=== PATIENT | female | born 1950 | race Two or more races ===

== ENCOUNTER 2017-11-11 15:27 | Emergency (ER) | payer MEDICARE, OTHER ==
[~2017-11-11] VITALS: Ht 154.9 cm; Wt 59.0 kg
[~2017-11-11 15:27] MED LIST: NKM
--- NOTE | 2017-11-11 15:40 | Emergency Room Report ---
History of Present Illness General Chief Complaint: Upper Extremity Injury Source: Patient Present Illness HPI 67 yo female patient presents to ER BIB ambulance complaining of arm pain. Reports was allegedly getting off bus with her left arm when her arm twisted. Patient reports immediate sharp pain. Reports unable to move arm secondary to pain. Denies chest pain, SOB, fever. Denies LOC, vision changes. Allergies: Coded Allergies: No Known Allergies (Unverified , 11/11/17) Patient History Past Medical History: see triage record Reviewed Nursing Documentation: PMH: Agreed, PSxH: Agreed Nursing Documentation-PMH Past Medical History: No Stated History Review of Systems All Other Systems: negative except mentioned in HPI Physical Exam Vital Signs Date Time Temp Pulse Resp B/P (MAP) Pulse Ox O2 Delivery O2 Flow Rate FiO2 11/11/17 15:20 98.9 74 16 122/70 95 Room Air 99.0 Sp02 EP Interpretation: reviewed, normal General Appearance: well appearing, alert, GCS 15, non-toxic, mild distress Head: normocephalic, atraumatic Eyes: bilateral eye normal inspection, bilateral eye PERRL ENT: hearing grossly normal, normal pharynx, no angioedema, normal voice, uvula midline, moist mucus membranes Neck: full range of motion Respiratory: lungs clear, normal breath sounds, no rhonchi, no respiratory distress, no accessory muscle use, no wheezing, speaking full sentences Cardiovascular #1: regular rate, rhythm, no edema Cardiovascular #2: 2+ radial (R), 2+ radial (L) Musculoskeletal: back normal, digits/nails normal, gait/station normal, normal range of motion - wrist elbow, non-tender, decreased range of motion, swelling, other - left upper arm deformity, NVI, AIN, PIN, radial nerve intact, axillary nerve intact, swelling, no bruising, tender Neurologic: alert, oriented x3, responsive, motor strength/tone normal, sensory intact Psychiatric: anxious Skin: no rash Lymphatic: no adenopathy Medical Decision Making PA Attestation Dr. Spivey is my supervising Physician whom patient management has been discussed with. Diagnostic Impression: Primary Impression: Injury of upper extremity ER Course Pt. presents to the ED c/o left arm pain. Ddx considered but are not limited to fracture, sprain, strain, contusion, dislocation. Vital signs: are WNL, pt. is afebrile Ordered X-ray and pain medication. ER COURSE An X-ray of the left shoulder and clavicle was ordered, results show humerus fracture, per the preliminary reading. Fracture does not require reduction at this time. Coaptation splint over left arm. Arm was checked afterwards by me showing good alignment and support with distal neurovascular functioning intact. DISCHARGE: -Rx provided for Tylenol for pain symptoms. -Rx provided for Vanleer for pain Take medication as prescribed. At this time pt. is stable for d/c to home. Patient resting comfortably, in no acute distress, nontoxic appearing. Will provide printed patient care instructions, and any necessary prescriptions. Patient instructed to follow with primary care provider in 3 - 5 days. Provided information for Dr. Blanc with orthopedics to contact and establish orthopedic followup. Patient reports will call and followup. Care plan and follow up instructions have been discussed with the patient prior to discharge. Patient instructed on RICE method: rest, ice, compression, elevation. Patient instructed to NWB. Take medications as directed. Patient questions asked and answered. Patient reprots understanding and agreement to treatment plan. ER precautions given, patient instructed to return to ER immediately for any new or worsening of symptoms. Other X-Ray Diagnostic Results Other X-Ray Diagnostic Results #1: X-Ray ordered: left shoulder # of Views/Limited Vs Complete: 3 View Indication: Pain EP Interpretation: Yes PA Xray: Interpretation reviewed, by supervising MD, and agrees with findings. Interpretation: other Impression: Other - fracture PA Scribe Text Milton Kim PA-C Other X-Ray Diagnostic Results #2: X-Ray ordered: left clavicle # of Views/Limited Vs Complete: 2 View Indication: Pain EP Interpretation: Yes PA Xray: Interpretation reviewed, by supervising MD, and agrees with findings. Interpretation: no dislocation, no soft tissue swelling, no fractures, other - humerus fracture visible Impression: No acute disease PA Scribe Text Milton Kim PA-C Last Vital Signs Date Time Temp Pulse Resp B/P (MAP) Pulse Ox O2 Delivery O2 Flow Rate FiO2 11/11/17 15:20 98.9 74 16 122/70 95 Room Air 99.0 Disposition: HOME, SELF-CARE Condition: Stable Scripts Acetaminophen* (TYLENOL EXTRA STRENGTH*) 500 Mg Tablet 500 MG ORAL Q8H Y for Prn Headache/Temp > 101, #30 TAB 0 Refills Prov: Brian Kim 11/11/17 Hydrocodone Bit/Acetaminophen 5-325* (NORCO 5-325*) 1 Each Tablet 1 TAB ORAL Q6H Y for For Pain, #10 TAB 0 Refills Prov: Brian Kim 11/11/17 Referrals: GIACOMO BLANC Patient Instructions: FRACTURE, Upper Extremity Additional Instructions: Patient instructed to follow up with primary care provider and discuss further referral to orthopedics. Patient instructed on RICE method: rest, ice, compression, elevation. Patient instructed to NWB. Take medications as directed. Patient questions asked and answered. ER precautions given, patient instructed to return to ER immediately for any new or worsening of symptoms. Followup with Dr. Blanc with ortho. Brian Kim Nov 11, 2017 15:40
[2017-11-11] MEDS ORDERED: Ketorolac 30mg Inj IM ONE (15:45)
[2017-11-11] MEDS ORDERED: Norco 5mg/325mg tab ORAL ONE (16:30)
--- NOTE | 2017-11-11 17:15 | Diagnostic Imaging Report ---
Indication: Reason For Exam: PAIN Technique: 3 views of the left shoulder Comparison: none Findings: There is a spiral fracture of the mid shaft humerus. This is displaced by one bone width. No shoulder fracture demonstrated. Bones are a primary Impression: Positive for humeral fracture
--- NOTE | 2017-11-11 17:16 | Diagnostic Imaging Report ---
Indication: Pain Technique: 2 views of the left clavicle Comparison: none Findings: There is a slightly angulated spiral fracture of the mid shaft humerus. No clavicular fracture demonstrated. There is old healed fracture deformity of the posterior left sixth rib Impression: Left humeral fracture Negative for clavicular fracture
[2017-11-11] MEDS ORDERED: Morphine Sulfate 4mg/ml Inj IM ONE (17:30)
[2017-11-11] MEDS ORDERED: NORCO 5-325 TA1 EACH ORAL (19:16)
[2017-11-11] MEDS ORDERED: TYLENOL EXTRA500 MG ORAL (19:16)
[2017-11-11 19:28] VITALS: BP 133/76
[2017-11-11 19:29] VITALS: BP 122/70
== END 2017-11-11 19:30 | disposition home or self-care (01) ==
LOC: EDBD 15:27 → EMR 16:00
DX: S42.302A Unspecified fracture of shaft of humerus, left arm, initial encounter for closed fracture (principal); X50.1XXA Overexertion from prolonged static or awkward postures, initial encounter; Y92.811 Bus as the place of occurrence of the external cause
CPT/HCPCS: 73000; 73030; 96372; 99284; J1885; J2270

== ENCOUNTER 2018-06-27 15:54 | Emergency (ER) | payer MEDICARE, OTHER ==
[~2018-06-27] VITALS: Ht 147.3 cm; Wt 59.0 kg
[~2018-06-27 15:54] MED LIST changes: +NORCO 5-325 TA1 EACH ORAL; +TYLENOL EXTRA500 MG ORAL
[2018-06-27 16:35] VITALS: BP 147/77
[2018-06-27 17:28] LABS: APPEARANCE,URINE CLEAR; BILIRUBIN, URINE NEGATIVE (NEGATIVE); COLOR,URINE PALE YELLOW; GLUCOSE, URINE (UA) NEGATIVE (NEGATIVE); KETONES,URINE NEGATIVE (NEGATIVE); LEUKOCYTE ESTERASE ,URINE 2+ (NEGATIVE); NITRITE,URINE NEGATIVE (NEGATIVE); PH,URINE 8 (4.5-8.0); PROTEIN,URINE NEGATIVE (NEGATIVE); UROBILINOGEN,URINE NORMAL MG/DL (0.0-1.0)
[2018-06-27 17:29] LABS: BASOPHILS % (AUTO) 1.5 % (0.0-2.0); EOSINOPHILS % (AUTO) 1.6 % (0.0-3.0); HEMATOCRIT 34.6 % (37.0-47.0); HEMOGLOBIN 11.6 G/DL (12.0-16.0); LYMPHOCYTES % (AUTO) 22.5 % (20.0-45.0); MEAN CORPUSCULAR VOLUME 91 FL (80-99); MONOCYTES % (AUTO) 6.2 % (1.0-10.0); NEUTROPHILS % (AUTO) 68.2 % (45.0-75.0); PLATELET COUNT 235 K/UL (150-450); RED BLOOD COUNT 3.79 M/UL (4.20-5.40); RED CELL DISTRIBUTION WIDTH 12.2 % (11.6-14.8); WHITE BLOOD COUNT 8.9 K/UL (4.8-10.8)
[2018-06-27 17:35] LABS: ANION GAP 9 mmol/L (5-15); BLOOD UREA NITROGEN 17 mg/dL (7-18); CALCIUM 9.6 MG/DL (8.5-10.1); CARBON DIOXIDE 29 MMOL/L (21-32); CHLORIDE 102 MMOL/L (98-107); POTASSIUM 4.5 MMOL/L (3.5-5.1); SODIUM 140 MMOL/L (136-145)
[2018-06-27 17:38] LABS: INR 0.9 (0.9-1.1)
[2018-06-27 17:47] LABS: ALANINE AMINOTRANSFERASE 34 U/L (12-78); ALBUMIN 3.4 G/DL (3.4-5.0); ALBUMIN/GLOBULIN RATIO 0.8 (1.0-2.7); ALKALINE PHOSPHATASE 121 U/L (46-116); ASPARTATE AMINO TRANSFERASE 33 U/L (15-37); BILIRUBIN,TOTAL 0.4 MG/DL (0.2-1.0)
[2018-06-27] MEDS ORDERED: HYDROCHLOROTHIA25 MG ORAL (19:16)
[2018-06-27 19:25] VITALS: BP 144/73
--- NOTE | 2018-06-27 19:29 | Emergency Room Report ---
History of Present Illness General Chief Complaint: Pain Source: Patient Present Illness HPI Patient is a 68-year-old female presented after increased lower extremity pain. Patient prior history of chronic pain to those areas. She reports having increased swelling over the past few days. She denies any fever. She reports having creased the painful areas to the lower extremities. History is limited by poor historian. Allergies: Coded Allergies: No Known Allergies (Unverified , 11/11/17) Patient History Past Medical History: see triage record Reviewed Nursing Documentation: PMH: Agreed; PSxH: Agreed Nursing Documentation-PMH Past Medical History: No Stated History Review of Systems All Other Systems: negative except mentioned in HPI Physical Exam Vital Signs Date Time Temp Pulse Resp B/P (MAP) Pulse Ox O2 Delivery O2 Flow Rate FiO2 06/27/18 16:08 98.4 87 16 147/77 98 Room Air Sp02 EP Interpretation: reviewed, normal General Appearance: normal inspection, alert, GCS 15, Chronically Ill Head: atraumatic ENT: normal ENT inspection, hearing grossly normal, normal voice Neck: normal inspection, full range of motion, supple, no bony tend Respiratory: normal inspection, lungs clear, normal breath sounds, no respiratory distress, no retraction, no wheezing Cardiovascular #1: regular rate, rhythm, no edema Gastrointestinal: normal inspection, normal bowel sounds, non tender, soft, no guarding, no hernia Genitourinary: no CVA tenderness Musculoskeletal: normal range of motion, decreased range of motion, swelling Neurologic: normal inspection, alert, responsive, speech normal Psychiatric: normal inspection, judgement/insight normal, mood/affect normal Skin: normal inspection, normal color, no rash Medical Decision Making Diagnostic Impression: Primary Impression: Pedal edema Additional Impression: CHF (congestive heart failure) ER Course Patient presented for lower extremity swelling. Differential diagnosis included was not limited to dependent edema, congestive heart failure, allergic reaction, liver disease, nephrotic syndrome among others.Because of complexity of patient's case laboratory testing and imaging studies were ordered. The laboratory testing was notable for mildly elevated B type natruretic peptide. Patient was given Lasix. The patient was offered admission and declined.Patient appears to have some evidence of congestive heart failure which I feel the patient would benefit from inpatient management. The patient left hospital AGAINST MEDICAL ADVICE. The patient is advised to return at any time. Labs Test 06/27/18 17:00 White Blood Count 8.9 K/UL (4.8-10.8) Red Blood Count 3.79 M/UL (4.20-5.40) Hemoglobin 11.6 G/DL (12.0-16.0) Hematocrit 34.6 % (37.0-47.0) Mean Corpuscular Volume 91 FL (80-99) Mean Corpuscular Hemoglobin 30.5 PG (27.0-31.0) Mean Corpuscular Hemoglobin Concent 33.4 G/DL (32.0-36.0) Red Cell Distribution Width 12.2 % (11.6-14.8) Platelet Count 235 K/UL (150-450) Mean Platelet Volume 6.3 FL (6.5-10.1) Neutrophils (%) (Auto) 68.2 % (45.0-75.0) Lymphocytes (%) (Auto) 22.5 % (20.0-45.0) Monocytes (%) (Auto) 6.2 % (1.0-10.0) Eosinophils (%) (Auto) 1.6 % (0.0-3.0) Basophils (%) (Auto) 1.5 % (0.0-2.0) Prothrombin Time 10.0 SEC (9.30-11.50) Prothromb Time International Ratio 0.9 (0.9-1.1) Activated Partial Thromboplast Time 29 SEC (23-33) Urine Color Pale yellow Urine Appearance Clear Urine pH 8 (4.5-8.0) Urine Specific [place]ield 1.015 (1.005-1.035) Urine Protein Negative (NEGATIVE) Urine Glucose (UA) Negative (NEGATIVE) Urine Ketones Negative (NEGATIVE) Urine Blood Negative (NEGATIVE) Urine Nitrite Negative (NEGATIVE) Urine Bilirubin Negative (NEGATIVE) Urine Urobilinogen Normal MG/DL (0.0-1.0) Urine Leukocyte Esterase 2+ (NEGATIVE) Urine RBC 0-2 /HPF (0 - 2) Urine WBC 0-2 /HPF (0 - 2) Urine Squamous Epithelial Cells Few /LPF (NONE/OCC) Urine Bacteria Occasional /HPF (NONE) Sodium Level 140 MMOL/L (136-145) Potassium Level 4.5 MMOL/L (3.5-5.1) Chloride Level 102 MMOL/L (98-107) Carbon Dioxide Level 29 MMOL/L (21-32) Anion Gap 9 mmol/L (5-15) Blood Urea Nitrogen 17 mg/dL (7-18) Creatinine 1.0 MG/DL (0.55-1.30) Estimat Glomerular Filtration Rate 55.0 mL/min (>60) Glucose Level 80 MG/DL (74-106) Calcium Level 9.6 MG/DL (8.5-10.1) Total Bilirubin 0.4 MG/DL (0.2-1.0) Aspartate Amino Transf (AST/SGOT) 33 U/L (15-37) Alanine Aminotransferase (ALT/SGPT) 34 U/L (12-78) Alkaline Phosphatase 121 U/L (46-116) Troponin I 0.000 ng/mL (0.000-0.056) Pro-B-Type Natriuretic Peptide 334 pg/mL (0-125) Total Protein 7.8 G/DL (6.4-8.2) Albumin 3.4 G/DL (3.4-5.0) Globulin 4.4 g/dL Albumin/Globulin Ratio 0.8 (1.0-2.7) Thyroid Stimulating Hormone (TSH) 2.911 uiU/mL (0.358-3.740) Last Vital Signs Date Time Temp Pulse Resp B/P (MAP) Pulse Ox O2 Delivery O2 Flow Rate FiO2 06/27/18 16:08 98.4 87 16 147/77 98 Room Air Status: improved Disposition: AGAINST MEDICAL ADVICE Condition: Stable Scripts Hydrochlorothiazide* (HYDROCHLOROTHIAZIDE*) 25 Mg Tablet 25 MG ORAL DAILY, #10 TAB Prov: Ok Coat MD 06/27/18 Patient Instructions: Edema Ok Cota MD Jun 27, 2018 19:29
== END 2018-06-27 19:45 | disposition expired ==
LOC: EMR 16:30
DX: R60.9 Edema, unspecified (principal); I50.9 Heart failure, unspecified
CPT/HCPCS: 36415; 80053; 81001; 83880; 84443; 84484; 85025; 85610; 85730; 93970; 96374; 99284; J1940

== ENCOUNTER 2018-10-28 16:18 | Emergency (ER) | payer MEDICARE, OTHER ==
[~2018-10-28] VITALS: Ht 165.1 cm; Wt 59.0 kg
[~2018-10-28 16:18] MED LIST changes: +HYDROCHLOROTHIA25 MG ORAL
[2018-10-28 16:45] VITALS: BP 150/75
--- NOTE | 2018-10-28 16:45 | NUR ---
ED Nurse Note: pt walked in to ED due to rashes on all over the body for 1 month. pt ambulatory with walker steady gait. AAO x4. respirations even and non-labored noted. will wait for the further order.
--- NOTE | 2018-10-28 17:59 | Emergency Room Report ---
History of Present Illness General Chief Complaint: Skin Rash/Abscess Source: Patient Present Illness HPI 68-year-old female patient presents the ER complaining for a rash of her entire body. States she is not homeless. Reports rash is extremely pruritic. Denies new detergents or soaps. Denies vomiting or diarrhea. Denies fever, chest pain , shortness of breath. States rash has been present for 1 month. Reports over entire body. Denies pain. Denies bleeding or drainage. Allergies: Coded Allergies: No Known Allergies (Unverified , 11/11/17) Patient History Past Medical History: see triage record Reviewed Nursing Documentation: PMH: Agreed; PSxH: Agreed Nursing Documentation-PMH Past Medical History: No Stated History Review of Systems All Other Systems: negative except mentioned in HPI Physical Exam Vital Signs Date Time Temp Pulse Resp B/P (MAP) Pulse Ox O2 Delivery O2 Flow Rate FiO2 10/28/18 16:36 97.9 95 18 150/75 94 Room Air Sp02 EP Interpretation: reviewed, normal General Appearance: well appearing, no apparent distress, alert, GCS 15, non- toxic Head: normocephalic, atraumatic Eyes: bilateral eye normal inspection, bilateral eye PERRL ENT: hearing grossly normal, normal pharynx, no angioedema, normal voice, uvula midline, moist mucus membranes Neck: full range of motion Respiratory: lungs clear, normal breath sounds, no rhonchi, no respiratory distress, no accessory muscle use, no wheezing, speaking full sentences Cardiovascular #1: regular rate, rhythm, no edema Musculoskeletal: back normal, digits/nails normal, gait/station normal, normal range of motion, non-tender Neurologic: alert, oriented x3, responsive, motor strength/tone normal, sensory intact Psychiatric: mood/affect normal Skin: rash - Maculopapular rash noted, no drainage, no crusting, no erythema or edema, excoriations noted Medical Decision Making PA Attestation Dr. Goyal is my supervising Physician whom patient management has been discussed with. Diagnostic Impression: Primary Impression: Rash and other nonspecific skin eruption ER Course Pt. presents to the ED c/o rash. Ddx considered but are not limited to atopic dermatitis, scabies, shingles, hives, urticaria, angiodema, allergic reaction, impetigo. Vital signs: are WNL, pt. is afebrile ER COURSE Rash consistent with possible scabies, will provide patient with permethrin. Advised patient not to scratch. Clean all clothing and bedding. Alert contacts for need for evaluation. Take Claritin for itching symptoms, take Benadryl at night due to drowsiness symptoms for itching symptoms. Due to excoriations and mild erythema, will provide patient with Keflex to cover for possible infection. ER precautions given. DISCHARGE: -Rx given for Claritin -Rx given for Keflex -Rx given for permethrin At this time pt. is stable for d/c to home. Patient resting comfortably, in no acute distress, nontoxic appearinge. Will provide printed patient care instructions, and any necessary prescriptions. Care plan and follow up instructions have been discussed with the patient prior to discharge. Patient provided with list of healthcare clinics to establish primary care physician. Patient instructed to follow-up with primary care provider in 3 - 5 days. Patient questions asked and answered. ER precautions given. Patient instructed to return to ER immediately for any new or worsening of symptoms including but not limited to increasing SOB, persistent fever. - Please note that this Emergency Department Report was dictated using [employer]ractor driver teamster technology software, occasionally this can lead to erroneous entry secondary to interpretation by the dictation equipment. Last Vital Signs Date Time Temp Pulse Resp B/P (MAP) Pulse Ox O2 Delivery O2 Flow Rate FiO2 10/28/18 16:45 97.9 95 18 150/75 94 Room Air Disposition: HOME, SELF-CARE Condition: Stable Scripts Loratadine (CLARITIN) 10 Mg Tab.rapdis 10 MG ORAL DAILY, #30 TAB Prov: Brian Kim 10/28/18 Cephalexin* (KEFLEX*) 500 Mg Capsule 500 MG ORAL EVERY 12 HOURS, #14 CAP 0 Refills Prov: Brian Kim 10/28/18 Permethrin* (ELIMITE*) 60 Gm Cream..g. 1 APPLIC TOPIC ONCE, #60 GM 0 Refills Apply cream from head to toe; leave on for 8-14 hours before washing off with water; may reapply in 1 week if live mites appear. Prov: Brian Kim 10/28/18 Referrals: NON PHYSICIAN (PCP) Patient Instructions: Rash Additional Instructions: Followup with primary care provider in 3 -5 days. Request referral to dermatology as needed. Do not scratch or itch. Apply cool compresses to affected area. Wash all clothes and bedding. Take medications as directed. Do not apply topical steroid medication to face or skin creases. SE Benadryl drowsiness, do not take prior to drinking, driving, operating heavy machinery. Take Claritin during the day and Benadryl at night for itching symptoms. Patient questions asked and answered. ER precautions given, patient instructed to return to ER immediately for any new or worsening of symptoms. [facility] Brian Kim Oct 28, 2018 17:59
[2018-10-28] MEDS ORDERED: CEPHALEXIN500 MG ORAL (18:04)
[2018-10-28] MEDS ORDERED: PERMETHRIN60 GM TOPIC (18:04)
[2018-10-28] MEDS ORDERED: CLARITIN10 M1 ORAL (18:04)
[2018-10-28 18:10] VITALS: BP 134/78
[2018-10-28 18:13] VITALS: BP 134/78
--- NOTE | 2018-10-28 18:13 | NUR ---
ER DISCHARGE NOTE: Patient is cleared to be discharged per ERMD, pt is aox4, on room air, with stable vital signs. pt was given dc and prescription instructions, pt was able to verbalize understanding, pt id band removed. pt is able to ambulate with steady gait. pt took all belongings.
== END 2018-10-28 18:13 | disposition home or self-care (01) ==
LOC: EMR 17:22
DX: R21 Rash and other nonspecific skin eruption (principal)
CPT/HCPCS: 99282

== ENCOUNTER 2019-02-27 14:08 | Emergency (ER) | payer MEDICARE, OTHER ==
[~2019-02-27] VITALS: Ht 149.9 cm; Wt 59.0 kg
[~2019-02-27 14:08] MED LIST changes: +CEPHALEXIN500 MG ORAL; +CLARITIN10 M1 ORAL; +PERMETHRIN60 GM TOPIC
[2019-02-27 14:30] VITALS: BP 135/85
--- NOTE | 2019-02-27 14:48 | Emergency Room Report ---
History of Present Illness General Chief Complaint: Skin Rash/Abscess Source: Patient Present Illness HPI 68-year-old female presents to the emergency department complaining of 5 out of 10 severity intermittent pain to the nail of the right great toe times over 5 years. Patient reports that she was told she needs to have fungal treatment or have the nail removed. Patient is requesting medication for toe fungus. Patient denies trauma or fall she denies fevers, chills, paresthesias or skin color changes. Patient denies swelling, erythema or warmth. She denies open wounds, bleeding,or a history of immune compromise. Allergies: Coded Allergies: No Known Allergies (Unverified , 11/11/17) Patient History Past Medical History: see triage record Past Surgical History: none Pertinent Family History: none Now: No Reviewed Nursing Documentation: PMH: Agreed; PSxH: Agreed Nursing Documentation-PMH Past Medical History: No Stated History Review of Systems All Other Systems: negative except mentioned in HPI Physical Exam Vital Signs Date Time Temp Pulse Resp B/P (MAP) Pulse Ox O2 Delivery O2 Flow Rate FiO2 02/27/19 14:15 98.1 77 16 135/85 (102) 95 Room Air Sp02 EP Interpretation: reviewed, normal General Appearance: no apparent distress, alert, GCS 15, non-toxic Head: normocephalic, atraumatic Eyes: bilateral eye normal inspection, bilateral eye PERRL ENT: hearing grossly normal, normal voice Neck: full range of motion Respiratory: lungs clear, normal breath sounds, speaking full sentences Cardiovascular #1: regular rate, rhythm, no edema, normal capillary refill Cardiovascular #2: 2+ dorsalis pedis (R), 2+ dorsalis pedis (L) Musculoskeletal: back normal, gait/station normal, normal range of motion, non- tender Neurologic: alert, oriented x3, responsive, motor strength/tone normal, sensory intact, normal gait - with walker asst., speech normal, grossly normal Psychiatric: judgement/insight normal Skin: normal color, no rash, warm/dry, well hydrated, other - Right great toe and 3rd toe nail are thickened, opaque and yellow consistent with fungal nail infection, no surrounding erythema, cuticle swelling, or warmth. Medical Decision Making PA Attestation Dr. Aiken is my supervising Physician whom patient management has been discussed with. Diagnostic Impression: Primary Impression: Onychomycosis of right great toe Additional Impression: Onychomycosis of toenail ER Course 68-year-old female presents to the emergency department complaining of 5 out of 10 severity intermittent pain to the nail of the right great toe times over 5 years. Patient reports that she was told she needs to have fungal treatment or have the nail removed. Patient is requesting medication for toe fungus. Patient denies trauma or fall she denies fevers, chills, paresthesias or skin color changes. Patient denies swelling, erythema or warmth. She denies open wounds, bleeding,or a history of immune compromise. Ddx considered but are not limited to onychomycosis cellulitis, paronychia, eponychia, ingrown toe nail, fracture, d/L, gout Vital signs: are WNL, pt. is afebrile H&PE are most consistent with RIght great toe onychomycosis infection, ORDERS: none required at this time, the diagnosis is clinical ED INTERVENTIONS: - offered pt. Tylenol for her 5/10 in severity pain-- Pt. declines -I do not identify an emergent condition at this time. With current presentation , pt. is stable for close outpatient follow up and conservative treatment. D/ w pt. to return promptly to ED with worsening or new symptoms.- Pt. verbalizes' understanding and agreement with proposed treatment plan.proposed treatment plan. DISCHARGE: At this time pt. is stable for d/c to home. Will provide printed patient care instructions, and any necessary prescriptions. Care plan and follow up instructions have been discussed with the patient prior to discharge. Last Vital Signs Date Time Temp Pulse Resp B/P (MAP) Pulse Ox O2 Delivery O2 Flow Rate FiO2 02/27/19 14:15 98.1 77 16 135/85 (102) 95 Room Air Disposition: HOME, SELF-CARE Condition: Stable Patient Instructions: Medical Screening Exam Additional Instructions: Take medications as directed. Follow up with a Primary Care Provider FOR A ASSEMBLER UNIT REFERRAL ( FOOT DOCTOR ) in 3-5 days, even if your symptoms have resolved. Return sooner to ED if new symptoms occur, or current symptoms become worse. - Please note that this Emergency Department Report was dictated using [employer] Insightmotor and controls tester technology software, occasionally this can lead to erroneous entry secondary to interpretation by the dictation equipment. Alma Purdy Feb 27, 2019 14:48
[2019-02-27] MEDS ORDERED: LOPROX TOPIC (14:50)
[2019-02-27 15:25] VITALS: BP 111/74
--- NOTE | 2019-02-27 15:25 | NUR ---
Patient was evaluated, treated and discharged with aftercare instructions by MD/PA
== END 2019-02-27 15:25 | disposition home or self-care (01) ==
LOC: EMR 14:30
DX: B35.1 Tinea unguium (principal)
CPT/HCPCS: 99281

== ENCOUNTER 2019-06-29 12:07 | Inpatient (IN) | payer MEDICARE, OTHER ==
[~2019-06-29] VITALS: Ht 154.9 cm; Wt 61.0 kg
[~2019-06-29 12:07] MED LIST changes: +LOPROX TOPIC
[2019-06-29 13:13] LABS: BASOPHILS % (AUTO) 0.4 % (0.0-2.0); EOSINOPHILS % (AUTO) 0.7 % (0.0-3.0); HEMOGLOBIN 12.6 G/DL (12.0-16.0); LYMPHOCYTES % (AUTO) 11.9 % (20.0-45.0); MEAN CORPUSCULAR VOLUME 88 FL (80-99); MONOCYTES % (AUTO) 4.4 % (1.0-10.0); NEUTROPHILS % (AUTO) 82.6 % (45.0-75.0); PLATELET COUNT 365 K/UL (150-450); RED BLOOD COUNT 4.53 M/UL (4.20-5.40); RED CELL DISTRIBUTION WIDTH 12.6 % (11.6-14.8); WHITE BLOOD COUNT 15.4 K/UL (4.8-10.8)
[2019-06-29 13:23] LABS: ANION GAP 9 mmol/L (5-15); BLOOD UREA NITROGEN 9 mg/dL (7-18); CALCIUM 9.7 MG/DL (8.5-10.1); CARBON DIOXIDE 31 MMOL/L (21-32); CHLORIDE 101 MMOL/L (98-107); CREATININE 1.2 MG/DL (0.55-1.30); POTASSIUM 4.4 MMOL/L (3.5-5.1); SODIUM 141 MMOL/L (136-145)
[2019-06-29 13:27] LABS: ALANINE AMINOTRANSFERASE 26 U/L (12-78); ALBUMIN 3.2 G/DL (3.4-5.0); ALBUMIN/GLOBULIN RATIO 0.6 (1.0-2.7); ALKALINE PHOSPHATASE 94 U/L (46-116); ASPARTATE AMINO TRANSFERASE 23 U/L (15-37); BILIRUBIN,TOTAL 0.4 MG/DL (0.2-1.0)
--- NOTE | 2019-06-29 13:55 | NUR ---
ED Nurse Note: Recived patient in bed, patient reports she walked into ED c/o coughing for the past 1 week. patient is alert awake x4 ambulatory with her walker, breathing unlabored and even, placed on a hospital gown and on a site monitor.
--- NOTE | 2019-06-29 14:19 | Diagnostic Imaging Report ---
Indication: Dyspnea Comparison: None 2 views of the chest obtained. Findings: There is a basilar density on the right which may be atelectasis or pneumonia. Correlate clinically. The heart is enlarged. Bones are osteopenic. Aorta is calcified. IMPRESSION: Infiltrate versus atelectasis at the right lung base.
[2019-06-29] MEDS ORDERED: cefTRIAXone 1 GM in NS 55 ML IVPB ONE (14:30)
[2019-06-29] MEDS ORDERED: Azithromycin 500 MG in NS 275 ML IV ONE (14:30)
[2019-06-29 14:45] VITALS: BP 136/71
[2019-06-29 14:54] LABS: APPEARANCE,URINE SLIGHTLY CLOUDY; BILIRUBIN, URINE NEGATIVE (NEGATIVE); COLOR,URINE PALE YELLOW; GLUCOSE, URINE (UA) NEGATIVE (NEGATIVE); KETONES,URINE NEGATIVE (NEGATIVE); LEUKOCYTE ESTERASE ,URINE 3+ (NEGATIVE); NITRITE,URINE NEGATIVE (NEGATIVE); PH,URINE 8 (4.5-8.0); PROTEIN,URINE 2+ (NEGATIVE); UROBILINOGEN,URINE NORMAL MG/DL (0.0-1.0)
[2019-06-29 15:20] LABS: CKMB 1.3 NG/ML (0.0-3.6)
--- NOTE | 2019-06-29 17:00 | NUR ---
NURSE NOTES: handoff received via telephone from ED from Yarelis
[2019-06-29 17:02] LABS: INR 0.9 (0.9-1.1)
--- NOTE | 2019-06-29 17:04 | NUR ---
ED Nurse Note: report given to AYSHA DOOLEY, endorsed all plan of care to AYSHA DOOLEY.
--- NOTE | 2019-06-29 17:10 | NUR ---
ED Nurse Note: patient is being transferred to with all of her belongings.
--- NOTE | 2019-06-29 17:15 | NUR ---
NURSE NOTES: PATIENT ARRIVED FROM ED VIA GURNEY. PATIENT WAS TRANSFERRED FROM THE [facility] VIA [facility]. PATIENT STATES SHE IS TOO WEAK TO WALK. PATIENT HAS WALKER AT BEDSIDE FROM HOME. PATIENT STABLE AND ABLE TO MAKE NEEDS KNOWN. ORIENTED TO THE ROOM, TOLD PATIENT TO USE CALL LIGHT IF SHE NEEDS TO USE THE RESTROOM AND NOT TO GET UP ON HER OWN.
[2019-06-29 17:34] VITALS: BP 140/93
[2019-06-29] MEDS ORDERED: Promethazine/DM 6.25mg/5ml ORAL PRN (18:45)
--- NOTE | 2019-06-29 19:30 | NUR ---
NURSE NOTES: CALLED AND LEFT A MESSAGE FOR DR RAMIRES TO LET HIM KNOW THAT THE PATIENT DOES NOT HAVE A CODE STATUS.
--- NOTE | 2019-06-29 19:30 | NUR ---
NURSE NOTES: Received a report from MIAH Farrell. Pt is in stable condition. AAOX3. Able to make needs known. On room air. IV site is patent and intact. Bed in lowest position. Bed alarm is on. Call light within reach. Will continue to monitor.
--- NOTE | 2019-06-29 19:32 | NUR ---
HAND-OFF: Report given to MIAH DEE.
[2019-06-29] MEDS: Albuterol/Ipratropium 3ml neb HHN SCH (19:40)
[2019-06-29 20:00] VITALS: BP 142/85
[2019-06-29] MEDS ORDERED: Azithromycin 500 MG in D5W 275 ML IV SCH (20:00)
--- NOTE | 2019-06-29 20:06 | Emergency Room Report ---
History of Present Illness General Chief Complaint: Upper Respiratory Illness Source: Patient Present Illness HPI 69-year-old female who denies all past medical history looking frail and mild distress here complaining of 1 week of cough and congestion with phlegm production. Patient reports that she has been very weak, denies direct chest pain only complains of chest tightness posttussive. Planes of shortness of breath. Denies pain radiation, headache and dizziness. No motor or sensory deficits noted. Denies abdominal pain, nausea vomiting, sore throat. Complains of chills. Patient has stable vital signs upon arrival to [facility]. Has not taken any medication for symptom relief. Patient also appears extremely anxious. Allergies: Coded Allergies: No Known Allergies (Unverified , 11/11/17) Patient History Past Medical History: see triage record Past Surgical History: unable to obtain Pertinent Family History: none Last Menstrual Period: n/a Now: No Immunizations: UTD Reviewed Nursing Documentation: PMH: Agreed; PSxH: Agreed Nursing Documentation-PMH Past Medical History: No Stated History Hx Cardiac Problems: No Hx Cancer: No Hx Gastrointestinal Problems: No Hx Neurological Problems: No Review of Systems All Other Systems: negative except mentioned in HPI Physical Exam Vital Signs Date Time Temp Pulse Resp B/P (MAP) Pulse Ox O2 Delivery O2 Flow Rate FiO2 06/29/19 12:12 98.1 98 18 167/93 (117) 95 Room Air 06/29/19 19:39 21 Sp02 EP Interpretation: reviewed, normal General Appearance: mild distress Head: normocephalic Eyes: bilateral eye normal inspection, bilateral eye PERRL ENT: hearing grossly normal, normal pharynx, no angioedema, normal voice Neck: full range of motion, supple, no meningismus, supple/symm/no masses Respiratory: chest non-tender, no rhonchi, no respiratory distress, no retraction, no wheezing, crackles - RLL, speaking full sentences Cardiovascular #1: regular rate, rhythm, no edema, no murmur Gastrointestinal: normal bowel sounds, non tender, soft, non-distended, no guarding, no rebound Genitourinary: no CVA tenderness Musculoskeletal: back normal, gait/station normal, normal range of motion, non- tender, no calf tenderness Neurologic: alert, oriented x3, responsive, motor strength/tone normal, sensory intact, speech normal Psychiatric: judgement/insight normal, memory normal, mood/affect normal, no suicidal/homicidal ideation Skin: no rash, palpation normal, normal color Lymphatic: no adenopathy Medical Decision Making PA Attestation All my diagnosis and treatment plans were reviewed ad discussed with my supervising physician Dr. Lozano Diagnostic Impression: Primary Impression: Pneumonia ER Course 69-year-old female who denies all past medical history looking frail and mild distress here complaining of 1 week of cough and congestion with phlegm production. Patient reports that she has been very weak, denies direct chest pain only complains of chest tightness posttussive. Planes of shortness of breath. Denies pain radiation, headache and dizziness. No motor or sensory deficits noted. Denies abdominal pain, nausea vomiting, sore throat. Complains of chills. Patient has stable vital signs upon arrival to [facility]. Has not taken any medication for symptom relief. Patient also appears extremely anxious. Ddx considered but are not limited to: bronchitis, PNA, URI viral, bacterial bronchitis Vital signs: are WNL, pt. is afebrile H&PE are most consistent with: Pneumonia ORDERS: Chest pain work-up, my sepsis workup this time. ER intervention: NS bolus, ceftriaxone, azithromycin Patient was admitted with diagnosis of pneumonia to Dr. Dave under supervision of : Marta pt stable at time of admission EKG Diagnostic Results Rate: normal Rhythm: NSR ST Segments: no acute changes Other Impression No acute ST changes Chest X-Ray Diagnostic Results Chest X-Ray Diagnostic Results : Chest X-Ray Ordered: Yes # of Views/Limited/Complete: 1 View Indication: Shortness of Breath EP Interpretation: Yes PA Xray: Interpretation reviewed, by supervising MD, and agrees with findings. Interpretation: no consolidation, no effusion, no pneumothorax Impression: No acute disease Electronically Signed by: Oleksandr Antony PA-C Last Vital Signs Date Time Temp Pulse Resp B/P (MAP) Pulse Ox O2 Delivery O2 Flow Rate FiO2 06/29/19 19:50 74 20 98 Room Air 21 06/29/19 17:34 96.8 140/93 (109) Disposition: ADMITTED INPATIENT Condition: Stable Referrals: NOT CHOSEN IPA/,REFERRING (PCP) Oleksandr Saleh Jun 29, 2019 20:06
[2019-06-29] MEDS: Heparin 5000 units/ml inj SUBQ SCH (20:41)
[2019-06-29] MEDS: Nystatin Powder 100,000 units/gm 15gm TOPIC SCH (20:44)
--- NOTE | 2019-06-29 21:00 | NUR ---
NURSE NOTES: Pt is c/o pain on the IV site due to Azithromycin. Rosemary DOOLEY explained to the pt that the antibiotic causes the pain in the veins. Pt verbalized understanding.
--- NOTE | 2019-06-29 22:00 | NUR ---
NURSE NOTES: Pt refused the IV fluid because she is still c/o pain on the IV site. Rosemary DOOLEY flushed the IV site 3 times with 10cc of saline. The RN offered cold and hot packs. Will continue to monitor.
--- NOTE | 2019-06-29 22:15 | NUR ---
NURSE NOTES: The pt is currently sleeping. No pain/discomfort noted.
[2019-06-30] VITALS: BP 97/63
--- NOTE | 2019-06-30 | NUR ---
NURSE NOTES: Pt agreed to connect her on IV fluid.
--- NOTE | 2019-06-30 00:15 | History and Physical Report ---
DATE OF ADMISSION: 06/29/2019 Addendum PHYSICAL EXAMINATION: GENERAL: Weak, frail and anxious. VITAL SIGNS: Blood pressure 142/85, pulse 74, respiratory rate 20, afebrile, oxygen saturation room air 98%. HEENT: Temporal wasting. Dry mucous membranes. Nasal discharge. No sinus tenderness. Poor oral hygiene and dentition. NECK: Supple. No accessory muscle use. LUNGS: Bilateral rhonchi, no wheezing. Severe kyphosis. BREASTS: Without masses. CARDIAC: Regular rhythm and rate. Normal S1, S2 with a 1/6 systolic murmur at base. ABDOMEN: Soft and nontender. EXTREMITIES: Good pulses. No edema. There is a purplish discoloration over the left second toe although it feels warm. The patient has a bandage on it and refuses for me to remove it at this time. There is severe onychomycosis. NEUROLOGIC: Nonfocal. LABORATORY AND DIAGNOSTIC DATA: White count 15.4, hemoglobin 12.6. Lactic acid normal. BUN 9, creatinine 1.2. Sodium 141, potassium 4.4, bicarbonate 31. Liver function normal. Troponin 0. Albumin 3.2. Urinalysis with 15 to 20 white cells, 3+ blood. Chest x-ray reveals infiltrates and atelectasis at the right base. EKG reveals sinus rhythm with no acute abnormalities. IMPRESSION: 1. Community-acquired pneumonia. 2. Mild hypovolemia and dehydration. 3. Mild protein-calorie malnutrition. 4. Degenerative disk disease with kyphosis. 5. Abnormal gait. 6. Peripheral artery insufficiency, possible wound left second toe. 7. Severe onychomycosis. 8. Hypertension/hypertensive heart disease. 9. Degenerative valve disease. 10. Urinary tract infection. PLAN: 1. Panculture. 2. Cautious hydration. 3. Respiratory hygiene. 4. Bronchodilators. 5. Empiric antimicrobials. 6. Await culture results and adjust therapy accordingly. 7. Foot care, skin care, arterial duplex scan, imaging of the foot to be considered as well as hygiene once patient permit us to remove the dressing. 8. Titrate antihypertensives. 9. DVT prophylaxis. 10. Further recommendations to follow. Osbaldo Morales M.D. DR: Alton JOB#: [id number] CC:
[2019-06-30] MEDS: Albuterol/Ipratropium 3ml neb HHN SCH ×4 (00:48→19:16)
--- NOTE | 2019-06-30 02:00 | History and Physical Report ---
DATE OF ADMISSION: 06/29/2019 NOTE: INCOMPLETE DICTATION REASON FOR ADMISSION: Community-acquired pneumonia. HISTORY OF PRESENT ILLNESS: This is a 69-year-old white female, who resides at home with a friend, has had increasing cough, congestion, and sputum production for the past week. She has been weak with poor appetite and notes coughing spasm and associated chest pain. She has not been wheezing. She has not had fevers or chills. She has not had any sinus congestion or headache nor has she had any dizziness. She also denies any abdominal discomfort, nausea, or vomiting, but has had some chills. In the emergency room, a workup was undertaken and prompted hospitalization under my care. PAST MEDICAL HISTORY: 1. Hypertension. 2. Allergic rhinitis. 3. History of scabies. MEDICATIONS PRIOR TO ADMISSION: Patient denies any at this time. ALLERGIES: None known. SOCIAL HISTORY: Negative for smoking, alcohol, or substance abuse. FAMILY HISTORY: Noncontributory. REVIEW OF SYSTEMS: No loss of vision. No hearing deficit. No history of abnormal blood clotting. No known history of asthma. No history of prior heart attack or irregular heartbeats. She does have arthritis. No history of seizure or stroke. No history of kidney disorder. No change in bowel habits. Frequent constipation. No history of thyroid disorder, diabetes, or lipid abnormality. PHYSICAL EXAMINATION: GENERAL: Thin and frail. Osbaldo Morales M.D. DR: ARNAV JOB#: [id number] CC:
[2019-06-30 04:00] VITALS: BP 106/65
--- NOTE | 2019-06-30 07:18 | NUR ---
HAND-OFF: Report given to MIAH Tai. Pt is in stable condition.
[2019-06-30 07:25] LABS: BASOPHILS % (AUTO) 0.5 % (0.0-2.0); HEMATOCRIT 30.4 % (37.0-47.0); HEMOGLOBIN 10.4 G/DL (12.0-16.0); LYMPHOCYTES % (AUTO) 13.9 % (20.0-45.0); MEAN CORPUSCULAR VOLUME 87 FL (80-99); MONOCYTES % (AUTO) 6.5 % (1.0-10.0); NEUTROPHILS % (AUTO) 78.2 % (45.0-75.0); PLATELET COUNT 269 K/UL (150-450); RED BLOOD COUNT 3.49 M/UL (4.20-5.40); RED CELL DISTRIBUTION WIDTH 12.9 % (11.6-14.8); WHITE BLOOD COUNT 10.8 K/UL (4.8-10.8)
--- NOTE | 2019-06-30 07:30 | NUR ---
NURSE NOTES: Received pt from MINSU RN. Pt is alert and orient. pt is in RA, no SOB or acute respiratory distress noted. pt has intact iv access L wrist 20g is running well. all needs attended, bed is locked and is in the lowest position, call light within easy reach. will continue to monitor.
[2019-06-30 08:00] VITALS: BP 124/64
[2019-06-30 08:11] LABS: ALANINE AMINOTRANSFERASE 23 U/L (12-78); ALBUMIN 2.4 G/DL (3.4-5.0); ALBUMIN/GLOBULIN RATIO 0.5 (1.0-2.7); ALKALINE PHOSPHATASE 73 U/L (46-116); ANION GAP 10 mmol/L (5-15); ASPARTATE AMINO TRANSFERASE 22 U/L (15-37); BILIRUBIN,TOTAL 0.3 MG/DL (0.2-1.0); BLOOD UREA NITROGEN 11 mg/dL (7-18); CARBON DIOXIDE 26 MMOL/L (21-32); CHLORIDE 106 MMOL/L (98-107); CREATININE 1.1 MG/DL (0.55-1.30); POTASSIUM 4.1 MMOL/L (3.5-5.1); SODIUM 142 MMOL/L (136-145)
--- NOTE | 2019-06-30 08:25 | NUR ---
RADIOLOGY DEPT, CHEST COMPLETED 10-28 FROM ER (TWO VIEWS) PRIOR TO ADMIT.SAMMY
[2019-06-30] MEDS: cefTRIAXone 1 GM in D5W 55 ML IVPB SCH (08:28)
[2019-06-30] MEDS: Heparin 5000 units/ml inj SUBQ SCH ×2 (08:29→20:13)
--- NOTE | 2019-06-30 09:30 | NUR ---
PT EVALUATION NOTE Patient seen for initial evaluation, see complete evaluation for details. Patient presents with generalized weakness, decreased safety and impaired balance affecting patient's ability to perform mobility tasks. Patient requires CGA for bed mobility and transfers with 4 wheeled walker. Patient impulsive and anxious with impaired safety awareness. Patient able to ambulate 35 ft with CGA and 4 wheeled walker, declined to ambulate further. Patient will benefit from skilled inpatient PT intervention to address strength, balance and safety for improved functional mobility and to decrease fall risk. Recommend discharge to SNF for further rehab once medically cleared by MD. DME needs to be determined based on patient's progress and discharge disposition. Addendum: 06/30/19 at 1324 by RUDOLPH DAVIS PT Amended: Links added.
[2019-06-30] MEDS: Nystatin Powder 100,000 units/gm 15gm TOPIC SCH (09:42)
--- NOTE | 2019-06-30 11:01 | NUR ---
NURSE NOTES: SPUTUM CULTURE SENT TO LAB, WAITING FOR RESULT. WILL CONTINUE TO MONITOR.
[2019-06-30 12:00] VITALS: BP 135/75
--- NOTE | 2019-06-30 13:32 | Diagnostic Imaging Report ---
APPROVED REPORT CPT Code: 44288 Symptoms Comments: Infection BILATERAL: Common femoral artery waveform analysis is within normal limits at rest. Color flow duplex sonography reveals patency of the superficial femoral, popliteal, and tibial arteries, there is no evidence of stenosis or occlusion within these segments. Doppler tibial artery waveform analysis is within normal limits, bilaterally. There is no evidence of significant arterial occlusive disease, bilaterally.
--- NOTE | 2019-06-30 13:45 | NUR ---
HOMELESS COORDINATOR HC spoke with patient and patient is alert and oriented. Patient states she is not Homeless and lives at current address; [address] [place] [address].Patient states she did not tell the nurse she was homeless. patient states she lives at this address with friends. Patient continues to require medical intervention. Will continue to monitor and assist as needed.
--- NOTE | 2019-06-30 15:45 | NUR ---
CASE MANAGEMENT:REVIEW 69 YR OLD FEMALE FROM HOME CC; UNCONTROLLED COUGH SI: PNEUMONIA 98.1 98 18 167/93 95% ON RA WBC+15.4 IS: IV ROCEPHIN IV AZITHROMYCIN URINE CX : TO MED/SURG [facility]
[2019-06-30 16:00] VITALS: BP 119/67
--- NOTE | 2019-06-30 16:45 | Consultation ---
DATE OF CONSULTATION: 06/30/2019 PULMONARY CONSULTATION CONSULTING PHYSICIAN: Behzad Srinivasan M.D. REFERRING PHYSICIAN: Osbaldo Morales M.D. HISTORY OF PRESENT ILLNESS: This is a 69-year-old female, who was admitted to the hospital with pneumonia. On my evaluation, she appears very distress and feeling that she needed throat operation. She reports shortness of breath. She reports this is ongoing for several days with cough and chills. PAST MEDICAL HISTORY: The patient denies. PREVIOUS SURGERIES: None. REVIEW OF SYSTEMS: Denies any headaches, hematemesis, melena, or hematochezia. PHYSICAL EXAMINATION: GENERAL: Revealed a 69-year-old female. HEENT: Unremarkable. LUNGS: Clear breath sounds bilaterally. ABDOMEN: Soft. NEUROLOGIC: Nonfocal LABORATORY AND DIAGNOSTIC DATA: Lab testing is unremarkable. Initial white count of 15,000, which is , hemoglobin 10.4. Albumin 2.4. X-ray of the chest shows a right lower lobe infiltrate/pneumonia. IMPRESSION: 1. Right lung pneumonia. 2. Leukocytosis. 3. Anxiety. DISCUSSION: Agree with present management and care. The patient has been started on broad-spectrum antibiotics with which I concur. She is on Rocephin, DuoNebs, and IV fluids. We will follow carefully. Behzad Srinivasan M.D. DR: PETAR JOB#: [id number] CC:
--- NOTE | 2019-06-30 16:48 | Cardiology Report ---
APPROVED REPORT EKG Measurement Heart [id number] Normal sinus rhythm Normal ECG
[2019-06-30] MEDS ORDERED: Milk of Magnesia 30ml Ud ORAL PRN (18:45)
[2019-06-30] MEDS: Docusate 100mg cap ORAL SCH (19:11)
--- NOTE | 2019-06-30 19:12 | NUR ---
HAND-OFF: Report given to LEILA DOOLEY. Pt is awake and stable.
--- NOTE | 2019-06-30 19:20 | NUR ---
NURSE NOTES: Received a report from MIAH Tai. Pt is in stable condition. AAOX4. Able to make needs known. On room air. IV site is patent and intact. Bed in lowest position. Bed alarm is on. Call light within reach. Will continue to monitor.
[2019-06-30 20:00] VITALS: BP 127/72
--- NOTE | 2019-06-30 22:45 | Progress Note ---
DATE: 06/30/2019 CARDIOLOGY AND INTERNAL MEDICINE PROGRESS NOTE SUBJECTIVE: The patient has less congestion and shortness of breath, but still feels very weak. She feels constipated. Her appetite is fair. She is drinking fluids by mouth per nursing staff. OBJECTIVE: VITAL SIGNS: Blood pressure 119/67, heart rate 91, respirations 17, afebrile, oxygen saturation 96 to 100% on room air. HEENT: No sinus tenderness. Oropharynx clear with no thrush. LUNGS: With coarse breath sounds and rhonchi. CARDIAC: Regular rhythm and rate. Normal S1, S2 with a fourth heart sound. ABDOMEN: Soft, nontender. EXTREMITIES: No edema. Left second toe with no signs of ischemia. Severe onychomycosis noted. IMPRESSION: 1. Community-acquired pneumonia. 2. Dehydration. 3. Hypovolemia, corrected. 4. Severe protein-calorie malnutrition with albumin of 2.4. 5. Slightly elevated natriuretic peptide assay of no clinical significance. 6. Onychomycosis, kyphosis, and unsteady gait. PLAN: 1. Antimicrobials. 2. Respiratory hygiene. 3. Await sputum cultures. 4. Repeat chest x-ray. 5. Discontinue IV fluids. 6. Protein supplement. 7. Podiatry care. Osbaldo Morales M.D. : VICKY JOB#: [id number] CC:
[2019-07-01] VITALS: BP 152/79
[2019-07-01] MEDS: Albuterol/Ipratropium 3ml neb HHN SCH ×4 (00:32→19:40)
[2019-07-01 04:00] VITALS: BP 124/78
--- NOTE | 2019-07-01 07:08 | NUR ---
HAND-OFF: Report given to MIAH Tai. Pt is in stable condition.
--- NOTE | 2019-07-01 07:30 | NUR ---
NURSE NOTES: Received pt from LEILA DOOLEY. Pt is awake and confused. pt is in RA, no SOB or acute respiratory distress noted. pt has intact iv access L wrist 20g SL. all needs attended, bed is locked and is in the lowest position, call light within easy reach. will continue to monitor.
[2019-07-01 08:00] VITALS: BP 140/81
[2019-07-01] MEDS: Docusate 100mg cap ORAL SCH ×2 (08:57→17:19)
[2019-07-01] MEDS: cefTRIAXone 1 GM in D5W 55 ML IVPB SCH (08:57)
[2019-07-01] MEDS: Heparin 5000 units/ml inj SUBQ SCH ×2 (08:58→21:00)
[2019-07-01] MEDS: Nystatin Powder 100,000 units/gm 15gm TOPIC SCH (08:59)
--- NOTE | 2019-07-01 09:24 | NUR ---
RADIOLOGY DEPT., CHEST X-RAY DONE..-P.DYE
--- NOTE | 2019-07-01 10:00 | NUR ---
NURSE NOTES:WOUND CARE NOTES:Pt's skin assessed.Sacrum is pink and easily blanchable. Pt denied tenderness when palpated. Both heels are dry and callused without erythema. Non-tender when palpated. Small dry scab noted to L 2nd metatarsal. NO other skin concerns noted . Pt moves freely in bed and encouraged to turn frequently to avoid pressure injuries.
--- NOTE | 2019-07-01 11:59 | Pulmonology Progress Note ---
Assessment/Plan Assessment/Plan IMPRESSION: 1. Right lung pneumonia. 2. Leukocytosis. 3. Anxiety. DISCUSSION: Agree with present management and care. The patient is on broad-spectrum antibiotics with which I concur. I will follow carefully. Behzad Srinivasan M.D. Subjective Interval Events: None new Constitutional: Reports: no symptoms HEENT: Repors: no symptoms Respiratory: Reports: dry cough Cardiovascular: Reports: no symptoms Gastrointestinal/Abdominal: Reports: no symptoms Allergies: Coded Allergies: No Known Allergies (Unverified , 11/11/17) Objective Last 24 Hour Vital Signs Date Time Temp Pulse Resp B/P (MAP) Pulse Ox O2 Delivery O2 Flow Rate FiO2 07/01/19 09:00 Room Air 07/01/19 08:12 88 20 100 Room Air 21 91 22 97 07/01/19 08:00 97.7 93 20 140/81 (100) 95 07/01/19 04:00 97.6 81 19 124/78 (93) 94 07/01/19 00:43 84 18 98 Room Air 21 07/01/19 00:32 81 20 94 Room Air 21 07/01/19 00:00 97.7 78 20 152/79 (103) 95 06/30/19 21:00 Room Air 06/30/19 20:00 97.1 95 20 127/72 (90) 94 06/30/19 19:26 82 18 99 Room Air 21 06/30/19 19:16 82 22 96 Room Air 21 06/30/19 16:00 97.9 91 17 119/67 (84) 100 06/30/19 13:52 76 21 100 Room Air 21 79 24 96 06/30/19 12:00 98.4 79 16 135/75 (95) 96 Intake and Output 06/30/19 07/01/19 18:59 06:59 Intake Total 1555 ml Balance 1555 ml Intake Oral 600 ml IV Total 955 ml # Voids 4 8 General Appearance: no acute distress HEENT: normocephalic Respiratory/Chest: chest wall non-tender, decreased breath sounds Cardiovascular: normal peripheral pulses, regular rhythm Abdomen: normal bowel sounds Microbiology Date/Time Source Procedure Growth Status 06/29/19 14:20 Blood Blood Culture - Preliminary NO GROWTH AFTER 24 HOURS Resulted 06/29/19 14:15 Blood Blood Culture - Preliminary NO GROWTH AFTER 24 HOURS Resulted 06/29/19 14:20 Urine,Clean Catch Urine Culture - Preliminary Gram Negative Bacillus 1 Resulted Current Medications Medications (Trade) Dose Ordered Sig/Siddharth Route PRN Reason Start Time Stop Time Status Last Admin Dose Admin Acetaminophen (Tylenol) 650 mg Q6H PRN ORAL Mild Pain/Temp > 100.5 06/29/19 18:45 07/29/19 18:44 Albuterol/ Ipratropium (Albuterol/ Ipratropium) 3 ml Q6HRT HHN 06/29/19 19:00 07/04/19 18:59 07/01/19 08:12 Ceftriaxone Sodium 1 gm/ Dextrose 55 ml @ 110 mls/hr Q24H IVPB 06/30/19 09:00 07/07/19 08:59 07/01/19 08:57 Docusate Sodium (Colace) 100 mg TWICE A DAY ORAL 06/30/19 18:45 07/30/19 18:44 07/01/19 08:57 Heparin Sodium (Porcine) (Heparin 5000 units/ml) 5,000 units EVERY 12 HOURS SUBQ 06/29/19 21:00 07/29/19 20:59 07/01/19 08:58 Magnesium Hydroxide (Mom) 30 ml DAILYPRN PRN ORAL Constipation 06/30/19 18:45 07/30/19 18:44 Nystatin (Nystop Powder) 1 applic DAILY TOPIC 06/29/19 20:00 07/29/19 19:59 07/01/19 08:59 Promethazine HCl/ Dextromethorphan (Phenergan DM) 6.25 mg Q6H PRN ORAL For Cough 06/29/19 18:45 07/29/19 18:44 06/30/19 08:27 Behzad Srinivasan MD Jul 01, 2019 11:59
[2019-07-01 12:00] VITALS: BP 158/96
--- NOTE | 2019-07-01 13:13 | Diagnostic Imaging Report ---
Indication: Dyspnea Comparison: 06/29/2019 2 views of the chest obtained. Findings: There is evidence of mild pulmonary vascular congestion with basal atelectasis and/or infiltrate. Findings appear unchanged. Heart is enlarged. The IMPRESSION: Interstitial prominence with suggestion of mild pulmonary vascular congestion. Correlate clinically. Basilar atelectasis and/or infiltrate
[2019-07-01 16:00] VITALS: BP 125/67
--- NOTE | 2019-07-01 19:21 | NUR ---
NURSE NOTES: Pt is in bed, awake and confused. pt is breathing on RA, no SOB or acute respiratory distress noted. IV site on L wrist 20g intact. Fall precaution is in place. Bed is locked and is in the lowest position, bed alarm is on. Call light within easy reach. will continue to monitor.
--- NOTE | 2019-07-01 19:22 | NUR ---
HAND-OFF: Report given to YOSELYN CELESTIN RN. Pt is awake and stable.
[2019-07-01 20:00] VITALS: BP 114/64
[2019-07-02] VITALS: BP 120/62
--- NOTE | 2019-07-02 00:15 | Progress Note ---
DATE: 07/01/2019 INTERNAL MEDICINE PROGRESS NOTE SUBJECTIVE: The patient is anxious to go home. She has little insight and judgment as to her condition. Her cough and congestion have improved. She still has some shortness of breath with ambulation. Chest x-ray today revealed basilar atelectasis and infiltrate and mild pulmonary venous congestion. OBJECTIVE: VITAL SIGNS: Blood pressure 125 to 159 systolic over 65 to 80 diastolic, respiratory rate 18, and heart rate in the 70s to 80s. She is afebrile. LUNGS: Diminished breath sounds. Few rales. Jugular venous pressure is grossly normal. CARDIAC: Regular rhythm and rate. Normal S1, S2 with a 1/6 systolic murmur at base. ABDOMEN: Soft. EXTREMITIES: There is no edema. Foot care has improved. LABORATORY DATA: Urine culture is a gram-negative pathogen. Sputum culture pending. IMPRESSION: 1. Community-acquired pneumonia. 2. Severe protein-calorie malnutrition. 3. Acute diastolic congestive heart failure. 4. Probable hypertension and hypertensive heart disease. 5. Degenerative valve disease. 6. Anxiety 7. Onychomycosis. PLAN: 1. Off intravenous fluids. 2. Check echocardiogram. 3. Protein supplement. 4. Antimicrobials. 5. Await final cultures. 6. Respiratory hygiene. 7. Foot care. 8. Follow up results of noninvasive vascular study of the lower extremity. Osbaldo Morales M.D. DR: ARNAV JOB#: [id number] CC:
--- NOTE | 2019-07-02 00:58 | NUR ---
NURSE NOTES: Pt is alert and verbal. Pt is in stable condition. Breathing on room air. No acute distress noted. IV site is patent and intact. Bed in lowest position. Bed alarm is on. Call light within reach. Will continue to monitor.
[2019-07-02] MEDS: Albuterol/Ipratropium 3ml neb HHN SCH ×4 (01:17→20:23)
--- NOTE | 2019-07-02 03:02 | Consultation ---
DATE OF CONSULTATION: 07/01/2019 PODIATRIC CONSULTATION CONSULTING PHYSICIAN: Adi Arteaga D.P.M. HISTORY OF PRESENT ILLNESS: This is a 69-year-old white female that was admitted to the hospital two days ago with the diagnosis of right lung pneumonia. I was consulted to see this patient for evaluating possible wound on her second left digit. The patient has been under the care of a senior benefits specialist at [facility] for routine care and treatment of onychomycosis. PAST MEDICAL HISTORY: Remarkable for hypertension and allergic rhinitis. MEDICATIONS: While at the hospital, the patient is taking acetaminophen, albuterol, ceftriaxone, heparin, nystatin powder, Phenergan, and Colace. ALLERGIES: No known drug allergies. PODIATRIC PHYSICAL EXAMINATION: VASCULAR STATUS: The dorsalis pedis and posterior tibial arteries are equally palpable measuring 1/4 bilaterally. Capillary filling time is less than 5 seconds to all digits bilaterally. Homans sign is negative. Mild varicosities are noted to bilateral lower extremities. Vascular duplex of bilateral lower extremities is within normal limits with no evidence of vascular disease. NEUROLOGICAL: Reveals intact reflexes, Achilles and patellar measuring 2/4 bilaterally. Gross sensation, vibration and proprioception are within normal limits bilaterally. Babinski is negative. Clonus is absent in bilateral lower extremities. MUSCULOSKELETAL: Reveals stage IV hallux abductovalgus with bunion deformity of the left foot. The hallux is under-riding the second left digit, left foot. There is nonreducible hammertoe deformities of digits 2, 3, 5, on the left and semi-reducible hammertoe deformities of digits 2, 3, 5 on the right. The second left digit is contracted at the second metatarsophalangeal joint. The right foot exhibits met adductus foot type. No other structural deformities are noted bilaterally. DERMATOLOGICAL: Revealed dystrophic and mycotic nails bilaterally. There is a healing ulcer overlying the of the second left proximal interphalangeal joint. No evidence of infection is noted. No streaks. Scab is covering the ulceration with erythema and no edema. DIAGNOSES: 1. Onychomycosis bilaterally. 2. Stage I ulcer, second left digit. PLAN: 1. Local wound care consisting of Bactroban dressing changes second left digit. 2. The patient consulted on proper shoe gear with reduced pressure over the second left digit. 3. She was instructed to follow up with her senior benefits specialist when she is discharged from the hospital. Thank you, Dr. Morales, for allowing me to participate in the care of this patient. Adi Arteaga D.P.M. DR: DAVID JOB#: [id number] CC: MYRTLE
[2019-07-02 04:00] VITALS: BP 115/64
[2019-07-02 06:09] LABS: BASOPHILS % (AUTO) 0.5 % (0.0-2.0); EOSINOPHILS % (AUTO) 1.8 % (0.0-3.0); HEMATOCRIT 34.1 % (37.0-47.0); HEMOGLOBIN 11.5 G/DL (12.0-16.0); LYMPHOCYTES % (AUTO) 19.5 % (20.0-45.0); MEAN CORPUSCULAR VOLUME 87 FL (80-99); MONOCYTES % (AUTO) 5.3 % (1.0-10.0); PLATELET COUNT 321 K/UL (150-450); RED BLOOD COUNT 3.92 M/UL (4.20-5.40); WHITE BLOOD COUNT 8.4 K/UL (4.8-10.8)
[2019-07-02 07:25] LABS: ALANINE AMINOTRANSFERASE 19 U/L (12-78); ALBUMIN 2.8 G/DL (3.4-5.0); ALBUMIN/GLOBULIN RATIO 0.6 (1.0-2.7); ALKALINE PHOSPHATASE 82 U/L (46-116); ANION GAP 12 mmol/L (5-15); ASPARTATE AMINO TRANSFERASE 21 U/L (15-37); BILIRUBIN,TOTAL 0.2 MG/DL (0.2-1.0); BLOOD UREA NITROGEN 14 mg/dL (7-18); CARBON DIOXIDE 23 MMOL/L (21-32); CHLORIDE 103 MMOL/L (98-107); CREATININE 1.1 MG/DL (0.55-1.30); POTASSIUM 4.1 MMOL/L (3.5-5.1); SODIUM 138 MMOL/L (136-145)
--- NOTE | 2019-07-02 07:38 | NUR ---
HAND-OFF: Report given to Osbaldo DOOLEY.
--- NOTE | 2019-07-02 07:45 | NUR ---
NURSE NOTES: Received patient on bed, asleep. IV site intact and patent. Bed in low and locked position, call light in reach. No signs of respiratory distress or pain. Room board updated, will continue to monitor.
[2019-07-02 08:00] VITALS: BP 143/90
[2019-07-02] MEDS: cefTRIAXone 1 GM in D5W 55 ML IVPB SCH (09:06)
[2019-07-02] MEDS: Docusate 100mg cap ORAL SCH ×2 (09:06→17:39)
[2019-07-02] MEDS: Heparin 5000 units/ml inj SUBQ SCH ×2 (09:07→20:39)
--- NOTE | 2019-07-02 09:11 | Pulmonology Progress Note ---
Assessment/Plan Assessment/Plan IMPRESSION: 1. Right lung pneumonia. 2. Leukocytosis. 3. Anxiety. 4. UTI DISCUSSION: Agree with present management and care. The patient is on broad-spectrum antibiotics with which I concur. I will follow carefully. Sputum CS negative Urine CS shows pseudomonas S to Levaquin Suggest changing to PO abx and consider dc home Behzad Srinivasan M.D. Subjective Interval Events: None new Constitutional: Reports: no symptoms HEENT: Repors: no symptoms Respiratory: Reports: no symptoms Cardiovascular: Reports: no symptoms Gastrointestinal/Abdominal: Reports: no symptoms Allergies: Coded Allergies: No Known Allergies (Unverified , 11/11/17) Objective Last 24 Hour Vital Signs Date Time Temp Pulse Resp B/P (MAP) Pulse Ox O2 Delivery O2 Flow Rate FiO2 07/02/19 08:33 124 22 99 Room Air 21 86 16 97 07/02/19 08:00 97.6 20 143/90 (107) 97 07/02/19 04:00 96.5 78 19 115/64 (81) 95 07/02/19 01:17 81 18 99 Room Air 21 77 18 97 07/02/19 00:00 97.4 86 19 120/62 (81) 95 07/01/19 21:00 Room Air 07/01/19 20:00 96.4 87 19 114/64 (81) 95 07/01/19 19:40 88 20 99 Room Air 21 90 20 95 07/01/19 16:00 98.5 70 20 125/67 (86) 100 07/01/19 13:11 82 18 100 Room Air 21 86 22 95 07/01/19 12:00 97.7 85 20 158/96 (116) 97 Intake and Output 07/01/19 07/02/19 18:59 06:59 Intake Total 655 ml 600 ml Balance 655 ml 600 ml Intake Oral 600 ml 600 ml IV Total 55 ml # Voids 3 2 General Appearance: no acute distress HEENT: normocephalic Respiratory/Chest: chest wall non-tender, lungs clear Cardiovascular: normal peripheral pulses Abdomen: normal bowel sounds Microbiology Date/Time Source Procedure Growth Status 06/29/19 14:20 Blood Blood Culture - Preliminary NO GROWTH AFTER 48 HOURS Resulted 06/29/19 14:15 Blood Blood Culture - Preliminary NO GROWTH AFTER 48 HOURS Resulted 06/30/19 10:50 Sputum Gram Stain - Final Complete 06/30/19 10:50 Sputum Sputum Culture - Final NO GROWTH AFTER 48 HOURS Complete 06/29/19 14:20 Urine,Clean Catch Urine Culture - Final Pseudomonas Aeruginosa Complete Laboratory Tests 07/02/19 04:49: White Blood Count 8.4, Red Blood Count 3.92L, Hemoglobin 11.5L, Hematocrit 34.1L , Mean Corpuscular Volume 87, Mean Corpuscular Hemoglobin 29.4, Mean Corpuscular Hemoglobin Concent 33.8, Red Cell Distribution Width 13.0, Platelet Count 321, Mean Platelet Volume 6.0L, Neutrophils (%) (Auto) 73.0, Lymphocytes ( %) (Auto) 19.5L, Monocytes (%) (Auto) 5.3, Eosinophils (%) (Auto) 1.8, Basophils (%) (Auto) 0.5, Sodium Level 138, Potassium Level 4.1, Chloride Level 103, Carbon Dioxide Level 23, Anion Gap 12, Blood Urea Nitrogen 14, Creatinine 1.1, Estimat Glomerular Filtration Rate 49.1, Glucose Level 84, Calcium Level 10.0, Total Bilirubin 0.2, Aspartate Amino Transf (AST/SGOT) 21, Alanine Aminotransferase (ALT/SGPT) 19, Alkaline Phosphatase 82, Pro-B-Type Natriuretic Peptide 189H, Total Protein 7.8, Albumin 2.8L, Globulin 5.0, Albumin/Globulin Ratio 0.6L Current Medications Medications (Trade) Dose Ordered Sig/Siddharth Route PRN Reason Start Time Stop Time Status Last Admin Dose Admin Acetaminophen (Tylenol) 650 mg Q6H PRN ORAL Mild Pain/Temp > 100.5 06/29/19 18:45 07/29/19 18:44 Albuterol/ Ipratropium (Albuterol/ Ipratropium) 3 ml Q6HRT HHN 06/29/19 19:00 07/04/19 18:59 07/02/19 08:33 Ceftriaxone Sodium 1 gm/ Dextrose 55 ml @ 110 mls/hr Q24H IVPB 06/30/19 09:00 07/07/19 08:59 07/02/19 09:06 Docusate Sodium (Colace) 100 mg TWICE A DAY ORAL 06/30/19 18:45 07/30/19 18:44 07/02/19 09:06 Heparin Sodium (Porcine) (Heparin 5000 units/ml) 5,000 units EVERY 12 HOURS SUBQ 06/29/19 21:00 07/29/19 20:59 07/02/19 09:07 Magnesium Hydroxide (Mom) 30 ml DAILYPRN PRN ORAL Constipation 06/30/19 18:45 07/30/19 18:44 Nystatin (Nystop Powder) 1 applic DAILY TOPIC 06/29/19 20:00 07/29/19 19:59 07/01/19 08:59 Promethazine HCl/ Dextromethorphan (Phenergan DM) 6.25 mg Q6H PRN ORAL For Cough 06/29/19 18:45 07/29/19 18:44 06/30/19 08:27 Behzad Srinivasan MD Jul 02, 2019 09:11
[2019-07-02 12:00] VITALS: BP 126/87
--- NOTE | 2019-07-02 13:15 | NUR ---
DISCHARGE PLANNING PATIENT HAS BEEN REFERRED TO [facility] T: [phone] F:[phone]
[2019-07-02] MEDS: Cefepime HCl 1 GM in D5W 55 ML IVPB SCH ×2 (13:47→20:38)
[2019-07-02] MEDS: Nystatin Powder 100,000 units/gm 15gm TOPIC SCH (13:47)
[2019-07-02 16:00] VITALS: BP 154/93
--- NOTE | 2019-07-02 17:39 | NUR ---
NURSE NOTES: Patient refused scheduled colace dose. Risks versus benefits explained.
--- NOTE | 2019-07-02 19:50 | NUR ---
NURSE NOTES: Received report from MIAH Roblero. Pt AAO x 3, on room air. IV site intact and patent. Fall precaution maintained.Walker is at bedside. No acute distress noted at this time. No c/o pain. Bed locked, lowest position, alarm on, side rails up x 2, call light within reach. Will continue to monitor.
--- NOTE | 2019-07-02 19:51 | NUR ---
HAND-OFF: Report given to MIAH Barron.
[2019-07-02 20:00] VITALS: BP 120/76
--- NOTE | 2019-07-02 23:15 | Progress Note ---
DATE: 07/02/2019 CARDIOLOGY AND INTERNAL MEDICINE PROGRESS NOTE SUBJECTIVE: The patient is anxious to go home. She has no chest pain, minimal cough, but denies shortness of breath. She has not done much walking, however, she feels weak in her legs. She denies dysuria. Her urine culture has come back positive for Pseudomonas aeruginosa. Sputum cultures are negative. OBJECTIVE: VITAL SIGNS: Blood pressure 126/87 to 154/93, heart rate is 100, and respiratory rate is 18. She is afebrile. Oxygen sat 97% on room air. LUNGS: Diminished breath sounds. Few rhonchi. HEART: Regular rhythm and rate. Normal S1, S2 with a fourth heart sound. ABDOMEN: Soft. No focal tenderness. EXTREMITIES: No edema. Onychomycosis noted. No ischemic changes of the foot. IMAGING: Arterial duplex reveals no flow-limiting disease. IMPRESSION: 1. Community-acquired pneumonia. 2. Pseudomonas aeruginosa urinary tract infection. 3. Sinus tachycardia. 4. Anxiety. 5. Onychomycosis. 6. Moderate protein-calorie malnutrition. 7. Ulcer at left second toe, stage I. 8. Hypertension. PLAN: 1. Antimicrobials have been adjusted based on new cultures. 2. Physical and occupational therapy will be initiated. 3. Foot care is continuing. 4. Protein supplement ongoing. 5. Await echocardiogram and consider additional antihypertensive therapy if needed. Osbaldo Morales M.D. DR: ARNAV JOB#: [id number] CC:
[2019-07-03] VITALS: BP 128/82
[2019-07-03] MEDS: Albuterol/Ipratropium 3ml neb HHN SCH ×4 (01:10→20:28)
[2019-07-03 04:00] VITALS: BP 129/80
--- NOTE | 2019-07-03 07:31 | NUR ---
HAND-OFF: Report given to MIAH Roblero.
--- NOTE | 2019-07-03 07:35 | NUR ---
NURSE NOTES: Received patient on bed, awake. IV site intact and patent. Bed in low and locked position, call light in reach. No signs of respiratory distress or pain. Room board updated, will continue to monitor.
[2019-07-03 08:00] VITALS: BP 137/87
[2019-07-03] MEDS: Docusate 100mg cap ORAL SCH ×2 (09:00→18:00)
[2019-07-03] MEDS: Nystatin Powder 100,000 units/gm 15gm TOPIC SCH (09:14)
[2019-07-03] MEDS: Heparin 5000 units/ml inj SUBQ SCH ×2 (09:16→21:00)
[2019-07-03] MEDS: Cefepime HCl 1 GM in D5W 55 ML IVPB SCH ×2 (09:45→21:31)
--- NOTE | 2019-07-03 10:46 | Pulmonology Progress Note ---
Assessment/Plan Assessment/Plan IMPRESSION: 1. Right lung pneumonia. 2. Leukocytosis. 3. Anxiety. 4. UTI DISCUSSION: Agree with present management and care. The patient is on broad-spectrum antibiotics with which I concur. I will follow carefully. Sputum CS negative Urine CS shows pseudomonas S to Levaquin antibiotics adjusted. Behzad Srinivasan M.D. Subjective Interval Events: looking and feeling better Constitutional: Reports: no symptoms HEENT: Repors: no symptoms Respiratory: Reports: no symptoms Cardiovascular: Reports: no symptoms Gastrointestinal/Abdominal: Reports: no symptoms Genitourinary: Reports: no symptoms Allergies: Coded Allergies: No Known Allergies (Unverified , 11/11/17) Objective Last 24 Hour Vital Signs Date Time Temp Pulse Resp B/P (MAP) Pulse Ox O2 Delivery O2 Flow Rate FiO2 07/03/19 09:02 91 20 98 Room Air 21 97 20 95 07/03/19 08:00 97.6 105 19 137/87 (104) 96 07/03/19 04:00 97.6 92 19 129/80 (96) 96 07/03/19 01:10 85 16 97 Room Air 21 81 18 95 07/03/19 00:00 97.2 86 19 128/82 (97) 96 07/02/19 21:00 Room Air 07/02/19 20:23 85 16 97 Room Air 21 82 18 95 07/02/19 20:00 97.3 67 20 120/76 (91) 95 07/02/19 16:00 97.3 20 154/93 (113) 96 07/02/19 12:49 100 16 100 Room Air 21 103 18 97 07/02/19 12:00 97.2 91 19 126/87 (100) 98 Intake and Output 07/02/19 07/03/19 19:00 07:00 Intake Total 830 ml 55 ml Balance 830 ml 55 ml Intake Oral 720 ml IV Total 110 ml 55 ml # Voids 4 3 General Appearance: no acute distress HEENT: normocephalic Respiratory/Chest: chest wall non-tender, lungs clear Cardiovascular: normal peripheral pulses Abdomen: normal bowel sounds Microbiology Date/Time Source Procedure Growth Status 06/30/19 10:50 Sputum Gram Stain - Final Complete 06/30/19 10:50 Sputum Sputum Culture - Final NO GROWTH AFTER 48 HOURS Complete Current Medications Medications (Trade) Dose Ordered Sig/Siddharth Route PRN Reason Start Time Stop Time Status Last Admin Dose Admin Acetaminophen (Tylenol) 650 mg Q6H PRN ORAL Mild Pain/Temp > 100.5 06/29/19 18:45 07/29/19 18:44 Albuterol/ Ipratropium (Albuterol/ Ipratropium) 3 ml Q6HRT HHN 06/29/19 19:00 07/04/19 18:59 07/03/19 08:46 Cefepime HCl 1 gm/ Dextrose 55 ml @ 110 mls/hr EVERY 12 HOURS IVPB 07/02/19 13:00 07/09/19 12:59 07/03/19 09:45 Docusate Sodium (Colace) 100 mg TWICE A DAY ORAL 06/30/19 18:45 07/30/19 18:44 07/02/19 09:06 Heparin Sodium (Porcine) (Heparin 5000 units/ml) 5,000 units EVERY 12 HOURS SUBQ 06/29/19 21:00 07/29/19 20:59 07/03/19 09:16 Magnesium Hydroxide (Mom) 30 ml DAILYPRN PRN ORAL Constipation 06/30/19 18:45 07/30/19 18:44 Nystatin (Nystop Powder) 1 applic DAILY TOPIC 06/29/19 20:00 07/29/19 19:59 07/03/19 09:14 Promethazine HCl/ Dextromethorphan (Phenergan DM) 6.25 mg Q6H PRN ORAL For Cough 06/29/19 18:45 07/29/19 18:44 06/30/19 08:27 Behzad Srinivasan MD Jul 03, 2019 10:46
[2019-07-03 12:00] VITALS: BP 149/99
--- NOTE | 2019-07-03 13:36 | NUR ---
CASE MANAGEMENT:REVIEW 07/03/19 SI: PNA. UTI 97.6 105 19 137/87 96% ON RA is: IV CEFEPIME Q12 HEPARIN SQ Q12 DUONEB HHN Q6HRS RTC : MED/SURG STATUS 4EAST PLAN: REFERRED TO [facility]
--- NOTE | 2019-07-03 13:43 | NUR ---
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
[2019-07-03 16:00] VITALS: BP_SYST 130; BP_SYST 136; BP_DIAS 61; BP_DIAS 91
--- NOTE | 2019-07-03 16:13 | NUR ---
SS note This Sw received a verbal consult from URSULA Medina to assist with a home safety evaluation. This SW met with patient who remains alert/oriented x4, making her own decisions. Patient explains she is independent with all ADLs and ambulation with walker (with seat). Patient explains she lives with her friends, but would not disclose who they are with this SW. Patient became angry/upset, stating "I do not want a [employer]!" while strongly stating "I do not want to go to that care home! (patient has a card with her on night stand from [employer]). Patient explains she has discussed this matter with her primary this afternoon, while planning to discharge to home with home care. Patient does not drive, explaining her friends are planning to transport her. [employer] suggested, if patient does not have transportation. miguel Roblero reiterated patient has been independent with ADLs, ambulation; no other needs required at this time. This SW informed URSULA Medina via voicemail.
--- NOTE | 2019-07-03 18:24 | NUR ---
NURSE NOTES: Patient refused scheduled colace dose. Risk versus benefits explained.
--- NOTE | 2019-07-03 21:31 | NUR ---
NURSE NOTES: PATIENT ALERT, VERBALLY RESPONSIVE, BUT AT TIMES UNCOOPERATIVE AND ANXIOUS. NO S/S DISTRESS NOTED. NO COMPLAINTS OF PAIN. PATIENT AMBULATORY WITH WALKER AND SUPERVISION. BED IN LOWEST POSITION, CALL LIGHT WITHIN REACH, BED ALARM ON. WILL CONTINUE TO MONITOR.
--- NOTE | 2019-07-03 22:06 | Progress Note ---
DATE: 07/03/2019 INTERNAL MEDICINE PROGRESS NOTE SUBJECTIVE: The patient feels better. Still with some cough. Some shortness of breath with activity. She remains on IV antimicrobials. OBJECTIVE: VITAL SIGNS: Blood pressure 137/87, pulse 105, respirations 19, and afebrile. LUNGS: Few rhonchi. CARDIAC: Regular. Normal S1, S2. ABDOMEN: Soft. No focal tenderness. EXTREMITIES: There is no edema. Foot condition has improved with foot care. DIAGNOSTIC DATA: Echocardiogram reveals no signs of left ventricular hypertrophy. IMPRESSION: 1. Community-acquired pneumonia, improving. 2. Onychomycosis. 3. No signs of hypertension. 4. Secondary sinus tachycardia due to anxiety. 5. Pseudomonas urinary tract infection with recovering sepsis present on admission. PLAN: 1. Continue antimicrobials. 2. Mobilization. 3. Foot care. 4. Respiratory hygiene. 5. Physical and occupational therapy for fall risk assessment and then disposition to follow. Osbaldo Morales M.D. DR: ARNAV JOB#: [id number] CC:
[2019-07-04] VITALS: BP 117/71
[2019-07-04] MEDS: Albuterol/Ipratropium 3ml neb HHN SCH ×3 (01:34→12:54)
[2019-07-04 04:00] VITALS: BP 134/70
--- NOTE | 2019-07-04 07:12 | NUR ---
HAND-OFF: Report given to AKIL RASMUSSEN RN. PATIENT IN STABLE CONDITION.
--- NOTE | 2019-07-04 07:35 | NUR ---
NURSE NOTES: Received patient on bed, awake. IV site is intact and patent. Bed in low and locked position, call light in reach. No signs of respiratory distress, patient denies pain. Room board updated, will continue to monitor.
[2019-07-04 08:00] VITALS: BP 149/79
[2019-07-04] MEDS: Docusate 100mg cap ORAL SCH ×2 (09:00→17:57)
[2019-07-04] MEDS: Cefepime HCl 1 GM in D5W 55 ML IVPB SCH ×2 (09:09→21:27)
[2019-07-04] MEDS: Heparin 5000 units/ml inj SUBQ SCH ×2 (09:10→21:28)
--- NOTE | 2019-07-04 10:32 | Pulmonology Progress Note ---
Assessment/Plan Assessment/Plan IMPRESSION: 1. Right lung pneumonia. 2. Leukocytosis. 3. Anxiety. 4. UTI DISCUSSION: Agree with present management and care. The patient is on broad-spectrum antibiotics with which I concur. I will follow carefully. Sputum CS negative Urine CS shows pseudomonas S to Levaquin antibiotics adjusted. Will follow Respiratory status stable Behzad Srinivasan M.D. Subjective Interval Events: None new Constitutional: Reports: no symptoms HEENT: Repors: no symptoms Respiratory: Reports: no symptoms Cardiovascular: Reports: no symptoms Gastrointestinal/Abdominal: Reports: no symptoms Genitourinary: Reports: no symptoms Allergies: Coded Allergies: No Known Allergies (Unverified , 11/11/17) Objective Last 24 Hour Vital Signs Date Time Temp Pulse Resp B/P (MAP) Pulse Ox O2 Delivery O2 Flow Rate FiO2 07/04/19 09:00 Room Air 07/04/19 08:52 93 20 98 Room Air 21 91 20 93 07/04/19 08:00 97.3 20 149/79 (102) 96 07/04/19 04:00 97.3 98 18 134/70 (91) 98 07/04/19 01:35 89 18 99 Room Air 21 88 18 95 07/04/19 00:00 97.3 98 18 117/71 (86) 97 07/03/19 21:00 Room Air 07/03/19 20:28 83 18 98 Room Air 21 80 18 94 07/03/19 16:00 98.1 78 19 136/61 (86) 100 07/03/19 16:00 97.3 96 18 130/91 (104) 96 07/03/19 13:49 94 12 100 Room Air 21 100 14 97 07/03/19 12:00 97.7 88 20 149/99 (116) 98 Intake and Output 07/03/19 07/04/19 19:00 07:00 Intake Total 415 ml 295 ml Balance 415 ml 295 ml Intake Oral 360 ml 240 ml IV Total 55 ml 55 ml # Voids 3 4 General Appearance: no acute distress HEENT: normocephalic Respiratory/Chest: chest wall non-tender, lungs clear Cardiovascular: normal peripheral pulses, normal rate Abdomen: normal bowel sounds Current Medications Medications (Trade) Dose Ordered Sig/Siddharth Route PRN Reason Start Time Stop Time Status Last Admin Dose Admin Acetaminophen (Tylenol) 650 mg Q6H PRN ORAL Mild Pain/Temp > 100.5 06/29/19 18:45 07/29/19 18:44 Albuterol/ Ipratropium (Albuterol/ Ipratropium) 3 ml Q6HRT HHN 06/29/19 19:00 07/04/19 18:59 07/04/19 08:51 Cefepime HCl 1 gm/ Dextrose 55 ml @ 110 mls/hr EVERY 12 HOURS IVPB 07/02/19 13:00 07/09/19 12:59 07/04/19 09:09 Docusate Sodium (Colace) 100 mg TWICE A DAY ORAL 06/30/19 18:45 07/30/19 18:44 07/02/19 09:06 Heparin Sodium (Porcine) (Heparin 5000 units/ml) 5,000 units EVERY 12 HOURS SUBQ 06/29/19 21:00 07/29/19 20:59 07/04/19 09:10 Magnesium Hydroxide (Mom) 30 ml DAILYPRN PRN ORAL Constipation 06/30/19 18:45 07/30/19 18:44 Nystatin (Nystop Powder) 1 applic DAILY TOPIC 06/29/19 20:00 07/29/19 19:59 07/03/19 09:14 Promethazine HCl/ Dextromethorphan (Phenergan DM) 6.25 mg Q6H PRN ORAL For Cough 06/29/19 18:45 07/29/19 18:44 06/30/19 08:27 Behzad Srinivasan MD Jul 04, 2019 10:32
[2019-07-04] MEDS: Nystatin Powder 100,000 units/gm 15gm TOPIC SCH (11:08)
--- NOTE | 2019-07-04 11:15 | NUR ---
NURSE NOTES: Educated patient on importance of working and participating in ordered physical therapy and for discharge. Patient agreed to try in a few hours. Physical therapist notified.
[2019-07-04 12:00] VITALS: BP 102/76
--- NOTE | 2019-07-04 12:10 | NUR ---
PT NOTE: Pt refused PT treatment session due to it being the weekend. States wanting to resume PT on Saturday. Pt educated on the importance of performing therapeutic exercises for ease of performing functional ADLs. Pt continued to refuse. Will attempt PT treatment session at a later time. Left nurse call light within reach.
--- NOTE | 2019-07-04 14:00 | NUR ---
NURSE NOTES: Patient participated in pt and walked around the floor twice with [facility] PT and walker. Patient tolerated well.
[2019-07-04 16:00] VITALS: BP 123/87
--- NOTE | 2019-07-04 18:22 | NUR ---
NURSE NOTES: patient refused dinner. Asked patient numerous times times fi she wanted to eat but patient did not want to. Tray taken.
--- NOTE | 2019-07-04 19:21 | NUR ---
HAND-OFF: Report given to MIAH Pearl.
--- NOTE | 2019-07-04 19:46 | NUR ---
NURSE NOTES: Received patient in bed, awake, alert x3, oriented, gets easily confused, IV site is clean dry and intact, patient can ambulate with a walker, but needs supervision and guidance. Call light is within reach, bed is in low position, locked, alarm is on. Will continue to monitor for comfort and safety.
[2019-07-04 20:00] VITALS: BP 133/85
[2019-07-05] VITALS: BP 132/87
--- NOTE | 2019-07-05 01:45 | Progress Note ---
DATE: 07/04/2019 CARDIOLOGY AND INTERNAL MEDICINE PROGRESS NOTE SUBJECTIVE: The patient is without new complaints. Congestion and cough have decreased. She is voiding without distress. Physical therapy is ongoing. OBJECTIVE: VITAL SIGNS: Blood pressure 133/85, pulse 75, respiratory rate 20, and temperature 99. LUNGS: Few rhonchi. HEART: Regular rhythm and rate. Normal S1, S2 with a fourth heart sound. ABDOMEN: Soft and nontender. EXTREMITIES: No edema. Foot care is improving. LABORATORY DATA: No new laboratories. Pro-natriuretic peptide on 07/02/2019 was 189. IMPRESSION: 1. Community-acquired pneumonia. 2. Pseudomonas urinary tract infection. 3. Onychomycosis. 4. Anxiety. 5. Moderate protein-calorie malnutrition. 6. Hypertension. 7. Chronic diastolic congestive heart failure. PLAN: 1. Continue antimicrobials. 2. Respiratory hygiene. 3. Mobilization efforts. 4. Protein supplement. 5. Discharge planning. Osbaldo Morales M.D. DR: ARNAV JOB#: [id number] CC:
[2019-07-05 04:00] VITALS: BP 129/78
--- NOTE | 2019-07-05 07:02 | NUR ---
HAND-OFF: Report given to Cassandra DOOLEY. Addendum: 07/05/19 at 0704 by NICK BLAS RN Report is given to Lucila DOOLEY
--- NOTE | 2019-07-05 07:20 | NUR ---
NURSE NOTES: Received report from MIAH Pearl. Patient A&Ox4. On room air, no signs of distress or labored breathing. Iv intact, patent, and saline locked. Side rails up x2. Patient has own four-wheel walker at bedside. Bed in lowest position with call light in reach. Will continue with plan of care.
[2019-07-05 08:00] VITALS: BP 113/76
--- NOTE | 2019-07-05 08:31 | Pulmonology Progress Note ---
Assessment/Plan Assessment/Plan IMPRESSION: 1. Right lung pneumonia. 2. Leukocytosis. 3. Anxiety. 4. UTI DISCUSSION: Agree with present management and care. I will follow carefully. Sputum CS negative Urine CS shows pseudomonas S to Levaquin antibiotics adjusted. Will follow Respiratory status stable Behzad Srinivasan M.D. Subjective Interval Events: None new Constitutional: Reports: no symptoms HEENT: Repors: no symptoms Respiratory: Reports: no symptoms Cardiovascular: Reports: no symptoms Gastrointestinal/Abdominal: Reports: no symptoms Allergies: Coded Allergies: No Known Allergies (Unverified , 11/11/17) Objective Last 24 Hour Vital Signs Date Time Temp Pulse Resp B/P (MAP) Pulse Ox O2 Delivery O2 Flow Rate FiO2 07/05/19 04:00 97.5 74 18 129/78 (95) 97 07/05/19 00:00 97.5 78 21 132/87 (102) 97 07/04/19 21:00 Room Air 07/04/19 20:00 99.0 75 20 133/85 (101) 99 07/04/19 16:00 97.9 87 18 123/87 (99) 95 07/04/19 12:54 88 20 99 Room Air 21 89 20 94 07/04/19 12:00 97.3 88 16 102/76 (85) 97 07/04/19 09:00 Room Air 07/04/19 08:52 93 20 98 Room Air 21 91 20 93 Intake and Output 07/04/19 07/05/19 19:00 07:00 Intake Total 55 ml Balance 55 ml IV Total 55 ml # Voids 2 2 General Appearance: no acute distress HEENT: normocephalic Respiratory/Chest: chest wall non-tender, normal breath sounds, no accessory muscle use Cardiovascular: normal peripheral pulses, normal rate Current Medications Medications (Trade) Dose Ordered Sig/Siddharth Route PRN Reason Start Time Stop Time Status Last Admin Dose Admin Acetaminophen (Tylenol) 650 mg Q6H PRN ORAL Mild Pain/Temp > 100.5 06/29/19 18:45 07/29/19 18:44 Cefepime HCl 1 gm/ Dextrose 55 ml @ 110 mls/hr EVERY 12 HOURS IVPB 07/02/19 13:00 07/09/19 12:59 07/04/19 21:27 Docusate Sodium (Colace) 100 mg TWICE A DAY ORAL 06/30/19 18:45 07/30/19 18:44 07/02/19 09:06 Heparin Sodium (Porcine) (Heparin 5000 units/ml) 5,000 units EVERY 12 HOURS SUBQ 06/29/19 21:00 07/29/19 20:59 07/04/19 21:28 Magnesium Hydroxide (Mom) 30 ml DAILYPRN PRN ORAL Constipation 06/30/19 18:45 07/30/19 18:44 Nystatin (Nystop Powder) 1 applic DAILY TOPIC 06/29/19 20:00 07/29/19 19:59 07/04/19 11:08 Promethazine HCl/ Dextromethorphan (Phenergan DM) 6.25 mg Q6H PRN ORAL For Cough 06/29/19 18:45 07/29/19 18:44 06/30/19 08:27 Behzad Srinivasan MD Jul 05, 2019 08:31
[2019-07-05] MEDS: Docusate 100mg cap ORAL SCH ×2 (08:54→17:47)
[2019-07-05] MEDS: Heparin 5000 units/ml inj SUBQ SCH ×2 (09:02→20:25)
[2019-07-05] MEDS: Cefepime HCl 1 GM in D5W 55 ML IVPB SCH ×2 (09:02→20:43)
[2019-07-05] MEDS: Nystatin Powder 100,000 units/gm 15gm TOPIC SCH (09:07)
[2019-07-05 12:00] VITALS: BP 117/74
[2019-07-05 16:00] VITALS: BP 132/74
--- NOTE | 2019-07-05 19:00 | NUR ---
HAND-OFF: Report given to MIAH Lazaro.
[2019-07-05 20:00] VITALS: BP 125/82
--- NOTE | 2019-07-05 20:00 | NUR ---
NURSE NOTES: Received patient in bed, awake, alert x3, though easily confused, IV access is clean dry and intact, patient can ambulate with a walker, but needs supervision and guidance. Call light is within reach, bed is in low position, locked, non slip socks on, bed alarm on.
[2019-07-05] MEDS: Albuterol/Ipratropium 3ml neb HHN SCH (20:42)
--- NOTE | 2019-07-05 22:30 | Progress Note ---
DATE: 07/05/2019 INTERNAL MEDICINE PROGRESS NOTE SUBJECTIVE: The patient without new complaints, less cough and sputum production noted. PHYSICAL EXAMINATION: VITAL SIGNS: Blood pressure 132/74, pulse 98, respiratory rate 18. LUNGS: Clear breath sounds. Occasional rhonchi. CARDIAC: Regular. Normal S1, S2 with no murmur. ABDOMEN: Soft and nontender. EXTREMITIES: There is no edema. IMPRESSION: 1. Community-acquired pneumonia. 2. Pseudomonas urinary tract infection. 3. Hypertension. 4. Onychomycosis. 5. Hypovolemia and dehydration corrected. PLAN: 1. Transition to oral antimicrobials tomorrow. 2. Complete recovery at home. 3. Discharge plan initiated. Osbaldo Morales M.D. DR: Alton JOB#: [id number] CC:
[2019-07-06] VITALS: BP 103/78
[2019-07-06] MEDS: Albuterol/Ipratropium 3ml neb HHN SCH ×3 (02:00→13:00)
[2019-07-06 04:00] VITALS: BP 117/65
--- NOTE | 2019-07-06 07:02 | NUR ---
HAND-OFF: Report given to MIAH Child.
--- NOTE | 2019-07-06 07:03 | NUR ---
NURSE NOTES: Received patient in bed awake. No SOB or cardiac distress. IV line intact and patent. Dressing on left toe intact. Ambulatory with walker. HOB elevated. Bed locked in lowest position. Will continue plan of care.
--- NOTE | 2019-07-06 07:42 | Pulmonology Progress Note ---
Assessment/Plan Assessment/Plan IMPRESSION: 1. Right lung pneumonia. 2. Leukocytosis. 3. Anxiety. 4. UTI DISCUSSION: Agree with present management and care. I will follow carefully. Sputum CS negative Urine CS shows pseudomonas S to Levaquin Will follow Respiratory status stable Behzad Srinivasan M.D. Subjective Interval Events: None new reported Constitutional: Reports: no symptoms HEENT: Repors: no symptoms Respiratory: Reports: no symptoms Cardiovascular: Reports: no symptoms Gastrointestinal/Abdominal: Reports: no symptoms Allergies: Coded Allergies: No Known Allergies (Unverified , 11/11/17) Objective Last 24 Hour Vital Signs Date Time Temp Pulse Resp B/P (MAP) Pulse Ox O2 Delivery O2 Flow Rate FiO2 07/06/19 04:00 98.3 82 17 117/65 (82) 96 07/06/19 02:04 Room Air 21 07/06/19 00:00 97.7 79 17 103/78 (86) 96 07/05/19 22:08 Room Air 07/05/19 20:42 101 20 100 Room Air 21 97 20 98 07/05/19 20:00 98.0 88 18 125/82 (96) 95 07/05/19 16:00 97.2 98 18 132/74 (93) 95 07/05/19 12:00 96.3 76 20 117/74 (88) 98 07/05/19 09:00 Room Air 07/05/19 08:00 97.5 106 18 113/76 (88) 94 Intake and Output 07/05/19 07/06/19 19:00 07:00 Intake Total 240 ml 750 ml Balance 240 ml 750 ml Intake Oral 240 ml 750 ml # Voids 1 4 General Appearance: no acute distress HEENT: normocephalic Respiratory/Chest: chest wall non-tender Cardiovascular: normal peripheral pulses, normal rate Abdomen: normal bowel sounds Current Medications Medications (Trade) Dose Ordered Sig/Siddharth Route PRN Reason Start Time Stop Time Status Last Admin Dose Admin Acetaminophen (Tylenol) 650 mg Q6H PRN ORAL Mild Pain/Temp > 100.5 06/29/19 18:45 07/29/19 18:44 Albuterol/ Ipratropium (Albuterol/ Ipratropium) 3 ml Q6HRT HHN 07/05/19 19:00 07/10/19 18:59 07/05/19 20:42 Cefepime HCl 1 gm/ Dextrose 55 ml @ 110 mls/hr EVERY 12 HOURS IVPB 07/05/19 21:00 07/06/19 23:00 07/05/19 20:43 Docusate Sodium (Colace) 100 mg TWICE A DAY ORAL 06/30/19 18:45 07/30/19 18:44 07/05/19 17:47 Heparin Sodium (Porcine) (Heparin 5000 units/ml) 5,000 units EVERY 12 HOURS SUBQ 06/29/19 21:00 07/29/19 20:59 07/05/19 20:25 Magnesium Hydroxide (Mom) 30 ml DAILYPRN PRN ORAL Constipation 06/30/19 18:45 07/30/19 18:44 Nystatin (Nystop Powder) 1 applic DAILY TOPIC 06/29/19 20:00 07/29/19 19:59 07/05/19 09:07 Promethazine HCl/ Dextromethorphan (Phenergan DM) 6.25 mg Q6H PRN ORAL For Cough 06/29/19 18:45 07/29/19 18:44 06/30/19 08:27 Behzad Srinivasan MD Jul 06, 2019 07:42
[2019-07-06 08:00] VITALS: BP 144/86
[2019-07-06] MEDS: Cefepime HCl 1 GM in D5W 55 ML IVPB SCH (08:46)
[2019-07-06] MEDS: Docusate 100mg cap ORAL SCH (08:54)
[2019-07-06] MEDS: Heparin 5000 units/ml inj SUBQ SCH (08:55)
[2019-07-06] MEDS: Nystatin Powder 100,000 units/gm 15gm TOPIC SCH (08:59)
--- NOTE | 2019-07-06 10:51 | Cardiology Report ---
APPROVED REPORT EXAM: Two-dimensional and M-mode echocardiogram with Doppler and color Doppler. INDICATION Hytpertensive heart disease M-Mode DIMENSIONS IVSd1.0 (0.7-1.1cm)Left Atrium (MM)3.2 (1.6-4.0cm) LVDd3.5 (3.5-5.6cm)Aortic Root2.8 (2.0-3.7cm) PWd0.9 (0.7-1.1cm)Aortic Cusp Exc.1.8 (1.5-2.0cm) IVSs1.3 cm LVDs2.3 (2.5-4.0cm) PWs1.3 cm Normal left ventricular chamber size, systolic function and wall motion. Left ventricular ejection fraction estimated to be 60 %. No evidence of left ventricular hypertrophy. No evidence of pericardial effusion. All other cardiac chamber sizes are within normal limits. Focal aortic valve sclerosis with adequate cusp excursion. Thickened mitral valve leaflets with normal excursion. Mitral annulus and aortic root calcification. Pulmonic valve not well visualized. Normal tricuspid valve structure. IVC at normal size with physiologic collapse. A color flow and spectral Doppler study was performed and revealed: Trace mitral regurgitation. Mitral diastolic velocities suggest reduced left ventricular relaxation c/w mild LV diastolic dysfunction (Grade I ). Trace tricuspid regurgitation. Tricuspid systolic velocities suggests peak right ventricular systolic pressure of 23 mmHg.
--- NOTE | 2019-07-06 16:32 | NUR ---
NURSE NOTES: Patient discharged Home with Home Health. Taxi voucher given. RN accompanied patient to lobby. Patient discharged in stable condition.
--- NOTE | 2019-07-07 12:58 | Discharge Summary ---
Discharge Summary Discharge Summary _ DATE OF ADMISSION: 06/29/2019 DATE OF DISCHARGE: 07/06/2019 DISCHARGED BY: Dr. Morales REASON FOR ADMISSION: 69 years old female with past medical history of hypertension, allergic rhinitis , scabies, who resides at home with a friend, presented with increased cough, congestion, and sputum production for 1 week. Patient reported being weak with poor appetite. Patient noted coughing spasms with associated chest pain. No wheezing. No fever or chills. No headaches. No dizziness. She denied abdominal discomfort, nausea, vomiting. Upon evaluation vital signs revealed elevated blood pressure 167/93. Pulse oximetry was stable on room air. Laboratory work-up revealed leukocytosis WBC 15.4, stable hemoglobin and hematocrit. Platelets 365. Stable electrolytes and renal parameters. Albumin 3.2. Troponin negative. EKG revealed sinus rhythm, no acute ischemic changes. Lactic acid 1.0. Urinalysis revealed pyuria, + 3 leukocyte esterase. Chest x-ray revealed infiltrates versus atelectasis at the right lung base. Patient subsequently admitted for pneumonia. CONSULTANTS: pulmonary Dr. Srinivasan Trap Puller Dr. Arteaga [facility] COURSE: Patient admitted to medical surgical floor. Patient started on cautious hydration and empiric antibiotic . Supplemental oxygen provided as needed to keep pulse oximetry above 92%. Respiratory hygiene with bronchodilator treatment provided. DVT prophylaxis provided. Antitussive provided as needed. Arterial duplex revealed no evidence of significant arterial occlusive disease bilaterally. Echocardiogram demonstrated preserved ejection fraction of 60% with no evidence of left ventricular hypertrophy. No evidence of pericardial effusion. Antihypertensive medication regimen titrated to keep blood pressure under control. DVT prophylaxis provided. Blood cultures were negative. Sputum culture was negative. Urine culture revealed Pseudomonas aeruginosa. Antibiotic regimen was optimized based on culture. Renal parameters and electrolytes were closely monitored , remained stable. Pain management was addressed as needed. Supportive care provided. Bowel regimen instituted. Patient was working with physical therapist. Protein supplements implemented in plan of care. Trap Puller followed for bilateral onychomycosis and stage I ulcer, second left digit. Local wound care provided. Patient was counseled on proper shoe gear to reduce pressure over the second left digit. Patient was instructed to follow up with her medical insurance biller as outpatient. Leukocytosis resolved. Patient clinically stabilized and was ready for discharge home with home health services. 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 Follow up with primary care provider in one week. I have been assigned to dictate discharge summary for this account. I was not involved in the patient's management. Shikha Campbell NP Jul 07, 2019 12:58
== END 2019-07-06 16:40 | disposition home health service (06) | DRG 194 ==
LOC: EMR 12:30 → 4E 15:03 → EDBEDREQ 16:52
DX: J18.9 Pneumonia, unspecified organism (principal); N39.0 Urinary tract infection, site not specified; E44.0 Moderate protein-calorie malnutrition; I50.32 Chronic diastolic (congestive) heart failure; E86.0 Dehydration; Z68.25 Body mass index [BMI] 25.0-25.9, adult; E86.1 Hypovolemia; M40.209 Unspecified kyphosis, site unspecified; I73.9 Peripheral vascular disease, unspecified; B35.1 Tinea unguium; B96.5 Pseudomonas (aeruginosa) (mallei) (pseudomallei) as the cause of diseases classified elsewhere; L97.529 Non-pressure chronic ulcer of other part of left foot with unspecified severity; F41.9 Anxiety disorder, unspecified; R00.0 Tachycardia, unspecified; I11.0 Hypertensive heart disease with heart failure
CPT/HCPCS: 36415; 71046; 80053; 81001; 82550; 82553; 83605; 83880; 84443; 84484; 85025; 85610; 85730; 86850; 86900; 86901; 87040; 87070; 87086; 87181; 87205; 93005; 93306; 93925; 94640; 94664; 96365; 96367; 96368; 99285; J7030; J7620

== ENCOUNTER 2020-09-09 14:49 | Emergency (ER) | payer MEDICARE, OTHER ==
[~2020-09-09] VITALS: Ht 154.9 cm; Wt 59.0 kg
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
[2020-09-09 15:11] VITALS: BP 129/87
[2020-09-09] MEDS: Ketorolac 30mg Inj IM ONE (15:50)
--- NOTE | 2020-09-09 17:35 | Diagnostic Imaging Report ---
CLINICAL INDICATION:Right-sided abdominal and chest pain, status post fall from chair yesterday TECHNIQUE: No oral or IV contrast, per emergency room physician request. Spiral acquisitions obtained through the chest, abdomen, and pelvis. Multiplanar reconstructions were generated. Total dose length product 476 mGycm. CTDIvol(s) 7 mGy. Radiation dose was minimized using automated exposure control COMPARISON: none FINDINGS Skeletal: There are fractures of the right ninth, 10th, 11th ribs. No underlying pulmonary contusion or pneumothorax demonstrated.. No other acute fracture demonstrated. There is an old healed fracture deformity of the medial left superior pubic ramus. Chest: The lungs demonstrate basilar atelectatic changes. There is some scarring at the right lung base. The pleural spaces are clear. The heart is upper limits of normal in size. There is a large hiatal hernia. This is a paraesophageal hernia. There is mild thickening of the distal esophageal wall. The included thyroid is unremarkable. No mediastinal or hilar mass or adenopathy. No axillary or chest wall mass or adenopathy. Abdomen pelvis: Lack of IV contrast limits assessment of the solid organs. The liver, gallbladder, bile ducts, pancreas, spleen, adrenals, kidneys are unremarkable. No retroperitoneal or mesenteric mass or adenopathy. No pelvic mass or adenopathy. Normal uterus and ovaries. Considerable retained stool is seen in the ascending and transverse colon, which are borderline dilated. No abrupt transition or obstructive lesion is demonstrated. No evidence of diverticulosis or diverticulitis. The appendix is not clearly identified, but no findings to suggest acute appendicitis are evident. No small bowel distention. No free or loculated intraperitoneal gas or fluid. No significant soft tissue contusion demonstrated. There are degenerative changes of the thoracolumbar spine. IMPRESSION: Positive for fractures of the right ninth, 10th, and 11th ribs. No evidence of underlying pulmonary contusion, pneumothorax, or definite solid organ trauma. The CT scanner at [facility] is accredited by the [employer] and the scans are performed using protocols designed to limit radiation exposure to as low as reasonably achievable to attain images of sufficient resolution adequate for diagnostic evaluation.
--- NOTE | 2020-09-09 17:38 | Diagnostic Imaging Report ---
Indications: Trauma, head pain Technique: Spiral acquisitions obtained through the brain. Angled axial and coronal 5 x 5 mm slices were reconstructed. Total dose length product 965 mGycm. CTDI vol(s) 53 mGy. Dose reduction achieved using automated exposure control Comparison: None. Findings: No acute intracranial hemorrhage or edema, mass effect, nor midline shift. Minimal enlargement of the ventricles and extra axial CSF spaces. Normal bridges-white differentiation. There is a right supraorbital scalp contusion. The calvarium is intact. The mastoids are clear. Impression: No acute intracranial bleed or mass effect Minimal age-related volume loss Evidence of right supraorbital scalp soft tissue injury The CT scanner at [facility] is accredited by the [employer] and the scans are performed using protocols designed to limit radiation exposure to as low as reasonably achievable to attain images of sufficient resolution adequate for diagnostic evaluation.
--- NOTE | 2020-09-09 18:04 | Emergency Room Report ---
History of Present Illness General Chief Complaint: Multiple Trauma/Fall Present Illness HPI 70-year-old female currently walking with a walker here complaining of right- sided chest pain after a fall that happened earlier today. Denies any head injury at this time however reports that about a week ago she fell down onto her face. Denies any loss of consciousness. Obvious bruising noted to the face. Rates the pain in the right lower lip 10 out of 10 without radiation. Has not taken medication for symptom relief. Denies any shortness of breath. Denies cough and congestion. Denies all other injuries. Appears to be high fall risk. Denies taking any blood thinners. Reports that she lives with someone and will be taking care of at home. Allergies: Coded Allergies: No Known Allergies (Unverified , 11/11/17) COVID-19 Screening Contact w/high risk pt: No Experienced COVID-19 symptoms?: No COVID-19 Testing performed ENTERTAINMENT LAWYER: No Patient History Past Medical History: see triage record Past Surgical History: none Pertinent Family History: none Immunizations: UTD Reviewed Nursing Documentation: PMH: Agreed; PSxH: Agreed Nursing Documentation-PMH Hx Cardiac Problems: No Hx Cancer: No Hx Gastrointestinal Problems: No Hx Neurological Problems: No Review of Systems All Other Systems: negative except mentioned in HPI Physical Exam Vital Signs Date Time Temp Pulse Resp B/P (MAP) Pulse Ox O2 Delivery O2 Flow Rate FiO2 09/09/20 14:57 98.2 89 15 129/87 (101) 98 Room Air Sp02 EP Interpretation: reviewed, normal General Appearance: no apparent distress, alert, GCS 15, non-toxic Head: normocephalic, atraumatic Eyes: bilateral eye normal inspection, bilateral eye PERRL ENT: hearing grossly normal, normal pharynx, no angioedema, normal voice Neck: full range of motion, supple/symm/no masses Respiratory: lungs clear, no rhonchi, no respiratory distress, no retraction Cardiovascular #1: regular rate, rhythm, no edema, no murmur Gastrointestinal: non tender, soft, no peritonitis Rectal: deferred Musculoskeletal: back normal, pelvis stable, gait/station normal, tender - Right 10 to 11th rib Neurologic: alert, motor strength/tone normal, oriented x3, sensory intact, responsive, speech normal Skin: no rash Lymphatic: no adenopathy Medical Decision Making PA Attestation All my diagnosis and treatment plans were reviewed ad discussed with my supervising physician Dr. Cota Diagnostic Impression: Primary Impression: Multiple rib fractures Additional Impression: Facial contusion ER Course 70-year-old female currently walking with a walker here complaining of right- sided chest pain after a fall that happened earlier today. Denies any head injury at this time however reports that about a week ago she fell down onto her face. Denies any loss of consciousness. Obvious bruising noted to the face. Rates the pain in the right lower lip 10 out of 10 without radiation. Has not taken medication for symptom relief. Denies any shortness of breath. Denies cough and congestion. Denies all other injuries. Appears to be high fall risk. Denies taking any blood thinners. Reports that she lives with someone and will be taking care of at home. Ddx considered but are not limited to: Pneumothorax, rib fracture, chest contusion, head contusion, cerebral hematoma Vital signs: are WNL, pt. is afebrile H&PE are most consistent with multi rib fracture, facial contusion ORDERS: CT head no contrast, CT chest abdomen pelvis noncontrast, Tylenol 3, Narcan, ibuprofen ED INTERVENTIONS: Toradol IM At this time we provided Services for patient to be transported home patient to tile picker the medication from the pharmacy at this time I cannot give any narcotic patient is high fall risk and does not have any assistant superintendent however has assistance at home to take care of her. Patient agrees to be discharged home and does not want to stay in hospital. Patient return to the emergency room if worsening symptoms. DISCHARGE: At this time pt. is stable for d/c to home. Will provide printed patient care instructions, and any necessary prescriptions. Care plan and follow up instructions have been discussed with the patient prior to discharge. CT/MRI/US Diagnostic Results CT/MRI/US Diagnostic Results #1: Imaging Test Ordered: CT head no contrast Impression Comparison: None. Findings: No acute intracranial hemorrhage or edema, mass effect, nor midline shift. Minimal enlargement of the ventricles and extra axial CSF spaces. Normal bridges- white differentiation. There is a right supraorbital scalp contusion. The calvarium is intact. The mastoids are clear. Impression: No acute intracranial bleed or mass effect Minimal age-related volume loss Evidence of right supraorbital scalp soft tissue injury CT/MRI/US Diagnostic Results #2: Imaging Test Ordered: CT chest abdomen pelvis noncontrast Impression Skeletal: There are fractures of the right ninth, 10th, 11th ribs. No underlying pulmonary contusion or pneumothorax demonstrated.. No other acute fracture demonstrated. There is an old healed fracture deformity of the medial left superior pubic ramus. Chest: The lungs demonstrate basilar atelectatic changes. There is some scarring at the right lung base. The pleural spaces are clear. The heart is upper limits of normal in size. There is a large hiatal hernia. This is a paraesophageal hernia. There is mild thickening of the distal esophageal wall. The included thyroid is unremarkable. No mediastinal or hilar mass or adenopathy. No axillary or chest wall mass or adenopathy. Abdomen pelvis: Lack of IV contrast limits assessment of the solid organs. The liver, gallbladder, bile ducts, pancreas, spleen, adrenals, kidneys are unremarkable. No retroperitoneal or mesenteric mass or adenopathy. No pelvic mass or adenopathy. Normal uterus and ovaries. Considerable retained stool is seen in the ascending and transverse colon, which are borderline dilated. No abrupt transition or obstructive lesion is demonstrated. No evidence of diverticulosis or diverticulitis. The appendix is not clearly identified, but no findings to suggest acute appendicitis are evident. No small bowel distention. No free or loculated intraperitoneal gas or fluid. No significant soft tissue contusion demonstrated. There are degenerative changes of the thoracolumbar spine. IMPRESSION: Positive for fractures of the right ninth, 10th, and 11th ribs. No evidence of underlying pulmonary contusion, pneumothorax, or definite solid organ trauma. Last Vital Signs Date Time Temp Pulse Resp B/P (MAP) Pulse Ox O2 Delivery O2 Flow Rate FiO2 09/09/20 15:11 89 15 Room Air 09/09/20 15:11 98.2 129/87 98 Disposition: HOME, SELF-CARE Condition: Stable Scripts Naloxone HCl (Narcan) 4 Mg [place] 4 MG NS PRN, #1 SPRAY Prov: Oleksandr Saleh 09/09/20 Ibuprofen* (MOTRIN*) 600 Mg Tablet 600 MG ORAL Q6H PRN for For Pain, #30 TAB 0 Refills Prov: Oleksandr Saleh 09/09/20 Acetaminophen With Codeine (T#3) (TYLENOL #3 TAB*) Y Tab 1 TAB ORAL Q8HR PRN for For Pain for 3 Days, #10 TAB Prov: Oleksandr Saleh 09/09/20 Referrals: NOT CHOSEN IPA/MD,REFERRING (PCP) Patient Instructions: Facial or Scalp Contusion, [id number], Rib Fracture, [id number] Additional Instructions: Take medication as directed, follow-up with primary care provider, if worsening symptoms return to the emergency room Oleksandr Saleh Sep 09, 2020 18:04
[2020-09-09] MEDS ORDERED: ACETAMINOPHEN-1 EAC1 ORAL (18:06)
[2020-09-09] MEDS ORDERED: IBUPROFEN600 M1 ORAL (18:06)
[2020-09-09] MEDS ORDERED: NARCAN4 MG NS (18:14)
--- NOTE | 2020-09-09 18:20 | NUR ---
ER DISCHARGE NOTE: Patient is cleared to be discharged per ERMD, pt is aox4, on room air, with stable vital signs. pt was given dc and prescription instructions, pt was able to verbalize understanding, pt id band removed without complications. pt is able to ambulate with steady gait. pt took all belongings. pierre called for pt to take her home
[2020-09-09 18:47] VITALS: BP 129/87
== END 2020-09-09 18:20 | disposition home or self-care (01) ==
LOC: EMR 16:26
DX: S22.41XA Multiple fractures of ribs, right side, initial encounter for closed fracture (principal); S00.531A Contusion of lip, initial encounter; W01.0XXA Fall on same level from slipping, tripping and stumbling without subsequent striking against object, initial encounter; Z91.81 History of falling; Y93.9 Activity, unspecified; Y92.9 Unspecified place or not applicable
CPT/HCPCS: 70450; 71250; 74176; 96372; 99284; J1885

== ENCOUNTER 2020-09-29 16:15 | Emergency (ER) | payer MEDICARE, OTHER ==
[~2020-09-29] VITALS: Ht 160 cm; Wt 61.2 kg
[~2020-09-29 16:15] MED LIST changes: +ACETAMINOPHEN-1 EAC1 ORAL; +IBUPROFEN600 M1 ORAL; +NARCAN4 MG NS
--- NOTE | 2020-09-29 18:05 | Diagnostic Imaging Report ---
EXAM: XR Right Ankle Complete, 3 or More Views CLINICAL HISTORY: PAIN TECHNIQUE: Frontal, lateral and oblique views of the right ankle. COMPARISON: None. FINDINGS: Bones/joints: Diffuse osteopenia. Otherwise normal distal tibia, fibula, talus and calcaneus pain Degenerative disease at the anterior talonavicular joint and remainder of the tarsal joints. No acute fracture. No dislocation. Soft tissues: Mild soft tissue swelling of the distal calf and ankle. Other findings: Normal anatomic alignment. IMPRESSION: Degenerative disease at the level of the midfoot bones as described. No acute fracture or subluxation.
--- NOTE | 2020-09-29 18:16 | Emergency Room Report ---
History of Present Illness General Chief Complaint: Lower Extremity Injury Source: Patient Present Illness HPI 70 YO female presents to the emergency department complaining of 8/10 in severity right ankle pain and tenderness since yesterday. Patient reports that she rolled her ankle yesterday. Patient states she is currently being treated for cellulitis of that extremity. She denies calf pain in the affected extremity. She is also reporting persistent pain in her rib cage from her previously diagnosed fractures. Patient reports she has not followed up with orthopedist regarding these. Patient states that she is out of pain medication. Patient reports she still has the original Narcan that was prescribed to her and that it did not need to be used. She denies fevers or chills. She reports she only has a few more days left of antibiotics. Patient reports healing right kelley wound. She denies paresthesias. She reports pain with weight bearing. She reports using a walker. She denies hitting her head, having LOC, or having midline neck or back pain. 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 Patient History Past Medical History: see triage record Past Surgical History: none Pertinent Family History: none Now: No Reviewed Nursing Documentation: PMH: Agreed; PSxH: Agreed Nursing Documentation-PMH Past Medical History: No Stated History Hx Cardiac Problems: No Hx Cancer: No Hx Gastrointestinal Problems: No Hx Neurological Problems: No Review of Systems All Other Systems: negative except mentioned in HPI Physical Exam Vital Signs Date Time Temp Pulse Resp B/P (MAP) Pulse Ox O2 Delivery O2 Flow Rate FiO2 09/29/20 16:44 98.2 78 18 132/76 (94) 96 Room Air Sp02 EP Interpretation: reviewed, normal General Appearance: no apparent distress, alert, GCS 15, non-toxic Head: normocephalic, atraumatic Eyes: bilateral eye normal inspection, bilateral eye PERRL ENT: hearing grossly normal, normal voice Neck: full range of motion Respiratory: lungs clear, normal breath sounds, no wheezing, speaking full sentences, other - TTP and some bruising noted to the left anterior ribs. Cardiovascular #1: regular rate, rhythm, no edema, normal capillary refill Musculoskeletal: normal range of motion, gait/station normal - with walker assistance, tender - TTP to the rigth ankle on the lateral aspect, ankle is some what swollen. no bruising. Neurologic: alert, motor strength/tone normal, oriented x3, sensory intact, res ponsive, speech normal Psychiatric: judgement/insight normal Skin: other - Healing Cellulitis of the right anterior LE. Visible skin marking from previous cellulitis dx indicates significant improvement of area of erythema compared to outlined previously marked border. There is a .7cm circular scabbed wound on the anterior right kelley. there is no posterior calf tenderness or swelling. Medical Decision Making PA Attestation Dr. Powell Is my supervising Physician whom patient management has been discussed with. Diagnostic Impression: Primary Impression: Right ankle sprain Qualified Codes: S93.401A - Sprain of unspecified ligament of right ankle, initial encounter Additional Impressions: Multiple rib fractures Qualified Codes: S22.49XA - Multiple fractures of ribs, unspecified side, initial encounter for closed fracture Noncompliance with treatment plan ER Course 70 YO female presents to the emergency department complaining of 8/10 in severity right ankle pain and tenderness since yesterday. Patient reports that she rolled her ankle yesterday. Patient states she is currently being treated for cellulitis of that extremity. She denies calf pain in the affected extr emity. She is also reporting persistent pain in her rib cage from her previously diagnosed fractures. Patient reports she has not followed up with orthopedist regarding these. Patient states that she is out of pain medication. Patient reports she still has the original Narcan that was prescribed to her and that it did not need to be used. She denies fevers or chills. She reports she only has a few more days left of antibiotics. Patient reports healing right kelley wound. She denies paresthesias. She reports pain with weight bearing. She reports using a walker. She denies hitting her head, having LOC, or having midline neck or back pain. Ddx considered but are not limited to Fracture, dislocation, contusion, Sprain/Strain/Spasm, cellulitis, DVT, cellulitis, necrotizing fasciitis, abscess just to name a few. Vital signs: are WNL, pt. is afebrile H&PE are most consistent with musculoskeletal injury will perform imaging to r/o fractures/dislocations. Healing Cellulitis of the right anterior LE. Visible skin marking from previous cellulitis dx indicates significant improvement of area of erythema compared to outlined previously marked border. There is a .7cm circular scabbed wound on the anterior right kelley. there is no posterior calf tenderness or swelling. ORDERS: - X-ray right ankle 3 views - negative for fx, Dislocation, or significant soft tissue injury, per preliminary read in ED, and signed by ADAM Purdy, my supervising physician has reviewed, and agrees with my interpretatio n. ED INTERVENTIONS: -Discussed results of her imaging with the patient. Also encouraged the patient that she needs to follow-up regarding her rib fractures especially for additional pain medication. Also discussed with patient continue to monitor right anterior kelley wound and cellulitis for continued improvement. Discussed with patient will provide several more days of antibiotics. DISCHARGE: At this time pt. is stable for d/c to home. Will provide printed patient care instructions, and any necessary prescriptions. Care plan and follow up instructions have been discussed with the patient prior to discharge. Other X-Ray Diagnostic Results Other X-Ray Diagnostic Results : X-Ray ordered: Right Foot # of Views/Limited Vs Complete: 3 View Indication: Pain EP Interpretation: Yes ADAM Xray: Interpretation reviewed, by supervising MD, and agrees with findings. Interpretation: no dislocation, no soft tissue swelling, no fractures Impression: Other - abnormal - degenerative changes Electronically Signed by: Alma Purdy PA-C Last Vital Signs Date Time Temp Pulse Resp B/P (MAP) Pulse Ox O2 Delivery O2 Flow Rate FiO2 09/29/20 16:44 98.2 78 18 132/76 (94) 96 Room Air Disposition: HOME, SELF-CARE Condition: Stable Scripts Cephalexin* (KEFLEX*) 500 Mg Capsule 500 MG ORAL EVERY 12 HOURS for Cellulitis infection, #14 CAP 0 Refills Prov: Alma Purdy 09/29/20 Acetaminophen With Codeine (T#3) (TYLENOL #3 TAB*) Y Tab 1 TAB ORAL Q6H PRN for For Pain, #10 TAB Prov: Alma Purdy 09/29/20 Referrals: NOT CHOSEN IPA/,REFERRING (PCP) Orthopedic Urgent Care Patient Instructions: Ankle Sprain Additional Instructions: Take medications as directed. Do not drink alcohol, drive, or operate heavy machinery while taking Tylenol # 3 as this may cause drowsiness. Follow up with an CLOTH SPREADER in 3-5 days, even if your symptoms have resolved. If symptoms persist MRI may be required at the discretion of your PCP or Ortho Specialist. --Please review list of primary care clinics, if you do not already have a primary care provider who can give you an Orthopedic Referral. Return sooner to ED if new symptoms occur, or current symptoms become worse. - Please note that this Emergency Department Report was dictated using [email or web address] communications technologist technology software, occasionally this can lead to erroneous entry secondary to interpretation by the dictation equipment. Alma Purdy Sep 29, 2020 18:16
[2020-09-29] MEDS ORDERED: CEPHALEXIN500 MG ORAL (18:38)
[2020-09-29] MEDS ORDERED: ACETAMINOPHEN-1 EAC1 ORAL (18:38)
[2020-09-29 18:55] VITALS: BP 125/69
== END 2020-09-29 18:56 | disposition home or self-care (01) ==
LOC: EMR 17:26
DX: S93.401A Sprain of unspecified ligament of right ankle, initial encounter (principal); S22.49XA Multiple fractures of ribs, unspecified side, initial encounter for closed fracture; L03.115 Cellulitis of right lower limb; X50.1XXA Overexertion from prolonged static or awkward postures, initial encounter; Y93.9 Activity, unspecified; Y92.9 Unspecified place or not applicable; Z91.19 Patient's noncompliance with other medical treatment and regimen
CPT/HCPCS: 99283

== ENCOUNTER 2020-10-04 16:44 | Inpatient (IN) | payer MEDICARE, OTHER ==
[~2020-10-04] VITALS: Ht 154.9 cm; Wt 63.5 kg
[2020-10-04] MEDS ORDERED: Vancomycin 1 GM in NS 275 ML IV ONE (17:15)
[2020-10-04] MEDS ORDERED: Fluconazole 150mg tab ORAL ONE (17:15)
--- NOTE | 2020-10-04 17:19 | Emergency Room Report ---
History of Present Illness General Chief Complaint: Generalized Weakness Source: Patient Present Illness HPI 70 year old female with past medical history of hypertension, allergic rhinitis, presents with right tibial pain patient recently diagnosed with cellulitis presents with worsening sharp pain ongoing for the past few days no aggravating relieving factors severity is moderate, constant no fevers no chills no chest pain or shortness of breath patient presents for evaluation and treatment Allergies: Coded Allergies: No Known Allergies (Unverified , 11/11/17) COVID-19 Screening Contact w/high risk pt: No Experienced COVID-19 symptoms?: No COVID-19 Testing performed 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 TRUCK 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: No Patient History Past Medical History: see triage record Reviewed Nursing Documentation: PMH: Agreed; PSxH: Agreed Nursing Documentation-PMH Hx Cardiac Problems: No Hx Cancer: No Hx Gastrointestinal Problems: No History Of Psychiatric Problem: Yes Hx Neurological Problems: No Review of Systems All Other Systems: negative except mentioned in HPI Physical Exam Vital Signs Date Time Temp Pulse Resp B/P (MAP) Pulse Ox O2 Delivery O2 Flow Rate FiO2 10/04/20 16:52 97.5 115 26 142/68 (92) 95 Room Air Sp02 EP Interpretation: reviewed, normal General Appearance: well appearing, no apparent distress, alert Head: normocephalic, atraumatic Eyes: bilateral eye PERRL, bilateral eye EOMI ENT: uvula midline, moist mucus membranes Neck: supple, thyroid normal, supple/symm/no masses Respiratory: lungs clear, no respiratory distress, no retraction, no accessory muscle use Cardiovascular #1: normal peripheral pulses, regular rate, rhythm, no edema, no gallop, no murmur Gastrointestinal: non tender, soft, no guarding, no rebound Musculoskeletal: normal inspection Neurologic: alert, oriented x3 Psychiatric: mood/affect normal Skin: warm/dry, other - Right lower extremity: Area of erythema on the tibial proximal aspect Medical Decision Making Diagnostic Impression: Primary Impression: Episode of generalized weakness Additional Impression: Cellulitis and abscess of leg ER Course 70-year-old female presents with infection of the right lower extremity, patient with cellulitis, patient will be started on Zosyn and Vanco evaded white blood cell count of 17 patient failed outpatient treatment. Additionally patient found to have fungal infection on her chest wall noted by the nurses, will start patient on fluconazole and nystatin Patient admitted to Dr. Benjamin Ingram Laboratory Tests Test 10/04/20 17:28 White Blood Count 17.6 K/UL (4.8-10.8) H Red Blood Count 4.04 M/UL (4.20-5.40) L Hemoglobin 10.8 G/DL (12.0-16.0) L Hematocrit 34.6 % (37.0-47.0) L Mean Corpuscular Volume 86 FL (80-99) Mean Corpuscular Hemoglobin 26.7 PG (27.0-31.0) L Mean Corpuscular Hemoglobin Concent 31.2 G/DL (32.0-36.0) L Red Cell Distribution Width 15.0 % (11.6-14.8) H Platelet Count 294 K/UL (150-450) Mean Platelet Volume 6.5 FL (6.5-10.1) Neutrophils (%) (Auto) 86.3 % (45.0-75.0) H Lymphocytes (%) (Auto) 8.6 % (20.0-45.0) L Monocytes (%) (Auto) 3.7 % (1.0-10.0) Eosinophils (%) (Auto) 1.0 % (0.0-3.0) Basophils (%) (Auto) 0.4 % (0.0-2.0) Erythrocyte Sedimentation Rate 63 MM/HR (0-30) H Prothrombin Time 11.2 SEC (9.30-11.50) Prothrombin Time INR 1.0 (0.9-1.1) Activated Partial Thromboplast Time 26 SEC (23-33) Urine Color Yellow Urine Appearance Cloudy Urine pH 5 (4.5-8.0) Urine Specific [place] 1.015 (1.005-1.035) Urine Protein 2+ (NEGATIVE) H Urine Glucose (UA) Negative (NEGATIVE) Urine Ketones Negative (NEGATIVE) Urine Blood 4+ (NEGATIVE) H Urine Nitrite Negative (NEGATIVE) Urine Bilirubin Negative (NEGATIVE) Urine Urobilinogen Normal MG/DL (0.0-1.0) Urine Leukocyte Esterase 3+ (NEGATIVE) H Urine RBC 15-20 /HPF (0 - 2) H Urine WBC Tntc /HPF (0 - 2) H Urine Squamous Epithelial Cells Moderate /LPF (NONE/OCC) H Urine Bacteria Many /HPF (NONE) H Sodium Level 142 MMOL/L (136-145) Potassium Level 4.0 MMOL/L (3.5-5.1) Chloride Level 104 MMOL/L (98-107) Carbon Dioxide Level 26 MMOL/L (21-32) Anion Gap 12 mmol/L (5-15) Blood Urea Nitrogen 17 mg/dL (7-18) Creatinine 1.2 MG/DL (0.55-1.30) Estimated Glomerular Filtration Rate 44.3 mL/min (>60) Glucose Level 109 MG/DL (74-106) H Lactic Acid Level 1.30 mmol/L (0.4-2.0) Calcium Level 9.6 MG/DL (8.5-10.1) Phosphorus Level 2.6 MG/DL (2.5-4.9) Magnesium Level 2.2 MG/DL (1.8-2.4) Total Bilirubin 0.4 MG/DL (0.2-1.0) Aspartate Amino Transferase (AST) 29 U/L (15-37) Alanine Aminotransferase (ALT) 28 U/L (12-78) Alkaline Phosphatase 102 U/L (46-116) Total Creatine Kinase 131 U/L (26-308) Creatine Kinase MB 1.9 NG/ML (0.0-3.6) Creatine Kinase MB Relative Index 1.4 Troponin I 0.000 ng/mL (0.000-0.056) C-Reactive Protein, Quantitative 11.2 mg/dL (0.00-0.90) H Pro-B-Type Natriuretic Peptide 296 pg/mL (0-125) H Total Protein 8.6 G/DL (6.4-8.2) H Albumin 2.8 G/DL (3.4-5.0) L Globulin 5.8 g/dL Albumin/Globulin Ratio 0.5 (1.0-2.7) L Lipase 85 U/L (73-393) EKG Diagnostic Results Troponin ordered: Yes When was troponin ordered?: Oct 04, 2020 EKG Time: 18:09 EP Interpretation: NSR, rate 92, QTc 435, no acute ST elevations, normal axis Rhythm Strip Diag. Results Rhythm Strip Time: 18:36 EP Interpretation: yes Rate: 94 Rhythm: NSR, no PVC's, no ectopy Chest X-Ray Diagnostic Results Chest X-Ray Diagnostic Results : Chest X-Ray Ordered: Yes # of Views/Limited/Complete: 1 View Indication: Chest Pain EP Interpretation: Yes Interpretation: no consolidation, no effusion, no pneumothorax, no acute cardiopulmonary disease Impression: No acute disease Electronically Signed by: Ander Corrales MD Last Vital Signs Date Time Temp Pulse Resp B/P (MAP) Pulse Ox O2 Delivery O2 Flow Rate FiO2 10/04/20 16:52 97.5 115 26 142/68 (92) 95 Room Air Disposition: ADMITTED INPATIENT Condition: Stable Referrals: NOT CHOSEN IPA/,REFERRING (PCP) Ander Corrales MD Oct 04, 2020 17:19
[2020-10-04 18:13] LABS: CALCIUM 9.6 MG/DL (8.5-10.1); CREATININE 1.2 MG/DL (0.55-1.30)
[2020-10-04] MEDS: Nystatin Powder 100,000 units/gm 15gm TOPIC SCH (18:16)
[2020-10-04 18:24] LABS: APPEARANCE,URINE CLOUDY; BILIRUBIN, URINE NEGATIVE (NEGATIVE); COLOR,URINE YELLOW; GLUCOSE, URINE (UA) NEGATIVE (NEGATIVE); KETONES,URINE NEGATIVE (NEGATIVE); LEUKOCYTE ESTERASE ,URINE 3+ (NEGATIVE); NITRITE,URINE NEGATIVE (NEGATIVE); PH,URINE 5 (4.5-8.0); PROTEIN,URINE 2+ (NEGATIVE); UROBILINOGEN,URINE NORMAL MG/DL (0.0-1.0)
[2020-10-04 18:29] LABS: ALBUMIN 2.8 G/DL (3.4-5.0); ALBUMIN/GLOBULIN RATIO 0.5 (1.0-2.7); BILIRUBIN,TOTAL 0.4 MG/DL (0.2-1.0); CKMB 1.9 NG/ML (0.0-3.6); PHOSPHORUS 2.6 MG/DL (2.5-4.9)
[2020-10-04] MEDS ORDERED: Piperacillin/Tazobactam 3.375 GM in NS 110 ML IVPB ONE (18:30)
[2020-10-04 18:34] VITALS: BP 143/66
[2020-10-04 19:10] LABS: HEMATOCRIT 34.6 % (37.0-47.0); HEMOGLOBIN 10.8 G/DL (12.0-16.0); MEAN CORPUSCULAR VOLUME 86 FL (80-99); PLATELET COUNT 294 K/UL (150-450); RED BLOOD COUNT 4.04 M/UL (4.20-5.40); WHITE BLOOD COUNT 17.6 K/UL (4.8-10.8)
[2020-10-04 19:12] LABS: BASOPHILS % (AUTO) 0.4 % (0.0-2.0); LYMPHOCYTES % (AUTO) 8.6 % (20.0-45.0); MONOCYTES % (AUTO) 3.7 % (1.0-10.0); NEUTROPHILS % (AUTO) 86.3 % (45.0-75.0)
--- NOTE | 2020-10-04 19:45 | NUR ---
ED Nurse Note: Gave report to Marlyn DOOLEY
[2020-10-04 20:00] VITALS: BP 149/91
--- NOTE | 2020-10-04 20:05 | NUR ---
NURSE NOTES: Received report from [facility]. Pt arrived @ 1999 via [facility]. AAO x 4, on RA. Pt c/o pain 04/11 on R lower leg. All belongings reviewed and pt has $83 infante and wants to keep the money with pt. Pt has own walker at bedside. Skin assessment done and will upload wound pic. No labored breathing. Orientation to the facility and room given. Bed locked, lowest position, alarm on, side rails up, call light within reach. Will continue to monitor. Addendum: 10/04/20 at 2215 by LARRY NORTH RN RN NURSE NOTES: Pt has infante $83 and $20 coins Addendum: 10/04/20 at 2218 by LARRY NORTH RN RN NURSE NOTES: Meds recon done. No known home meds by pt noted.
--- NOTE | 2020-10-04 20:06 | NUR ---
TRANSFER TO FLOOR: Patient transferred to as ordered, per ER MD. Report given to Marlyn DOOLEY. Belongings sent with pt. No adverse events during transfer.
[2020-10-04] MEDS ORDERED: cefTRIAXone 1 GM in D5W 55 ML IVPB SCH (20:45)
--- NOTE | 2020-10-04 21:00 | NUR ---
NURSE NOTES: Admission order received from Dr. Ventura. Order carried out.
[2020-10-04] MEDS: Morphine Sulfate 2mg/ml Inj(IV/IM USE ONLY) IVP PRN (21:12)
[2020-10-05] VITALS: BP 109/44
[2020-10-05 04:00] VITALS: BP 128/75
--- NOTE | 2020-10-05 04:19 | NUR ---
NURSE NOTES: Report given to Cata
--- NOTE | 2020-10-05 04:24 | NUR ---
NURSE NOTES: patient asleep at this time, no apparent distress. ivf infusing well, call light within reach, bed in lowest position and locked.
--- NOTE | 2020-10-05 06:03 | NUR ---
NURSE HAND-OFF: Important Events on Shift:[] slept well no distress Patient Status: [] stable Diet: [] regular Pending Orders: [] none Pending Results/Labs:[] cbc, bmp Pending MD notification:[] none Latest Vital Signs: Temperature 97.9 , Pulse 74 , B/P 128 /75 , Respiratory Rate 20 , O2 SAT 100 , Room Air, O2 Flow Rate . Vital Sign Comment: [] Latest Landry Fall Score: 25 Fall Risk: Medium Risk Safety Measures: Call light Within Reach, Bed Alarm Zone 1, Side Rails Side Rails x2, Bed position Low and Locked. Fall Precautions: Yellow Socks Yellow Gown Door Sign Patient Fall Education Report given to [].
--- NOTE | 2020-10-05 06:58 | Consultation ---
History of Present Illness General Chief Complaint: Generalized Weakness Present Illness Allergies: Coded Allergies: No Known Allergies (Unverified , 11/11/17) Medication History Scheduled Cephalexin* (Keflex*), 500 MG ORAL EVERY 12 HOURS Cephalexin* (Keflex*), 500 MG ORAL EVERY 12 HOURS Ciclopirox Olamine (Ciclopirox), 1 APPLIC TOPIC BID Hydrochlorothiazide* (Hydrochlorothiazide*), 25 MG ORAL DAILY Loratadine (Claritin), 10 MG ORAL DAILY Naloxone HCl (Narcan), 4 MG NS PRN No Known Medications* (NKM - No Known Medications*), 0 ., (Reported) Permethrin* (Elimite*), 1 APPLIC TOPIC ONCE Scheduled PRN Acetaminophen With Codeine (T#3) (Tylenol #3 Tab*), 1 TAB ORAL Q8HR PRN for For Pain Acetaminophen With Codeine (T#3) (Tylenol #3 Tab*), 1 TAB ORAL Q6H PRN for For Pain Acetaminophen* (Tylenol Extra Strength*), 500 MG ORAL Q8H PRN for Prn Headache/Temp > 101 Hydrocodone Bit/Acetaminophen 5-325* ([place] 5-325*), 1 TAB ORAL Q6H PRN for For Pain Ibuprofen* (Motrin*), 600 MG ORAL Q6H PRN for For Pain Patient History Healthcare decision maker N Resuscitation status Advanced Directive on File Physical Exam Last 24 Hour Vital Signs Date Time Temp Pulse Resp B/P (MAP) Pulse Ox O2 Delivery O2 Flow Rate FiO2 10/05/20 04:00 97.9 74 20 128/75 (92) 10/05/20 00:00 98.2 69 20 109/44 (65) 100 10/04/20 22:04 Room Air 10/04/20 20:03 98.6 88 20 143/84 96 Room Air 10/04/20 20:00 98.1 87 24 149/91 (110) 97 10/04/20 19:50 98.3 75 19 142/80 100 Room Air 10/04/20 18:45 84 20 Room Air 10/04/20 18:34 98.0 89 20 143/66 100 Room Air 10/04/20 16:52 97.5 115 26 142/68 (92) 95 Room Air Intake and Output 10/04/20 10/05/20 19:00 07:00 Intake Total 120 ml Balance 120 ml Intake Oral 120 ml # Voids 2 Laboratory Tests Test 10/04/20 17:28 White Blood Count 17.6 K/UL (4.8-10.8) H Red Blood Count 4.04 M/UL (4.20-5.40) L Hemoglobin 10.8 G/DL (12.0-16.0) L Hematocrit 34.6 % (37.0-47.0) L Mean Corpuscular Volume 86 FL (80-99) Mean Corpuscular Hemoglobin 26.7 PG (27.0-31.0) L Mean Corpuscular Hemoglobin Concent 31.2 G/DL (32.0-36.0) L Red Cell Distribution Width 15.0 % (11.6-14.8) H Platelet Count 294 K/UL (150-450) Mean Platelet Volume 6.5 FL (6.5-10.1) Neutrophils (%) (Auto) 86.3 % (45.0-75.0) H Lymphocytes (%) (Auto) 8.6 % (20.0-45.0) L Monocytes (%) (Auto) 3.7 % (1.0-10.0) Eosinophils (%) (Auto) 1.0 % (0.0-3.0) Basophils (%) (Auto) 0.4 % (0.0-2.0) Erythrocyte Sedimentation Rate 63 MM/HR (0-30) H Prothrombin Time 11.2 SEC (9.30-11.50) Prothromb Time International Ratio 1.0 (0.9-1.1) Activated Partial Thromboplast Time 26 SEC (23-33) Urine Color Yellow Urine Appearance Cloudy Urine pH 5 (4.5-8.0) Urine Specific [place] 1.015 (1.005-1.035) Urine Protein 2+ (NEGATIVE) H Urine Glucose (UA) Negative (NEGATIVE) Urine Ketones Negative (NEGATIVE) Urine Blood 4+ (NEGATIVE) H Urine Nitrite Negative (NEGATIVE) Urine Bilirubin Negative (NEGATIVE) Urine Urobilinogen Normal MG/DL (0.0-1.0) Urine Leukocyte Esterase 3+ (NEGATIVE) H Urine RBC 15-20 /HPF (0 - 2) H Urine WBC Tntc /HPF (0 - 2) H Urine Squamous Epithelial Cells Moderate /LPF (NONE/OCC) H Urine Bacteria Many /HPF (NONE) H Sodium Level 142 MMOL/L (136-145) Potassium Level 4.0 MMOL/L (3.5-5.1) Chloride Level 104 MMOL/L (98-107) Carbon Dioxide Level 26 MMOL/L (21-32) Anion Gap 12 mmol/L (5-15) Blood Urea Nitrogen 17 mg/dL (7-18) Creatinine 1.2 MG/DL (0.55-1.30) Estimat Glomerular Filtration Rate 44.3 mL/min (>60) Glucose Level 109 MG/DL (74-106) H Lactic Acid Level 1.30 mmol/L (0.4-2.0) Calcium Level 9.6 MG/DL (8.5-10.1) Phosphorus Level 2.6 MG/DL (2.5-4.9) Magnesium Level 2.2 MG/DL (1.8-2.4) Total Bilirubin 0.4 MG/DL (0.2-1.0) Aspartate Amino Transf (AST/SGOT) 29 U/L (15-37) Alanine Aminotransferase (ALT/SGPT) 28 U/L (12-78) Alkaline Phosphatase 102 U/L (46-116) Total Creatine Kinase 131 U/L (26-308) Creatine Kinase MB 1.9 NG/ML (0.0-3.6) Creatine Kinase MB Relative Index 1.4 Troponin I 0.000 ng/mL (0.000-0.056) C-Reactive Protein, Quantitative 11.2 mg/dL (0.00-0.90) H Pro-B-Type Natriuretic Peptide 296 pg/mL (0-125) H Total Protein 8.6 G/DL (6.4-8.2) H Albumin 2.8 G/DL (3.4-5.0) L Globulin 5.8 g/dL Albumin/Globulin Ratio 0.5 (1.0-2.7) L Lipase 85 U/L (73-393) Height (Feet): 5 Height (Inches): 1.00 Weight (Pounds): 140 Medications Current Medications Medications (Trade) Dose Ordered Sig/Siddharth Route PRN Reason Start Time Stop Time Status Last Admin Dose Admin Acetaminophen (Tylenol) 650 mg Q6H PRN ORAL Mild Pain (Pain Scale 1-3) 10/04/20 20:45 11/03/20 20:44 Acetaminophen (Tylenol) 650 mg Q6H PRN ORAL fever 10/04/20 20:45 11/03/20 20:44 Ceftriaxone Sodium 1 gm/ Dextrose 55 ml @ 110 mls/hr DAILY IVPB 10/05/20 09:00 10/11/20 20:44 Diphenhydramine HCl (Benadryl) 25 mg Q6H PRN ORAL Itching 10/04/20 20:45 11/03/20 20:44 Enoxaparin Sodium (Lovenox) 40 mg DAILY SUBQ 10/05/20 09:00 01/03/21 08:59 Morphine Sulfate (Morphine Sulfate) 2 mg Q8H PRN IVP Severe Pain (Pain Scale 7-10) 10/04/20 20:45 10/11/20 20:44 10/04/20 21:12 Nystatin (Nystop Powder) 1 applic THREE TIMES A DAY TOPIC 10/04/20 18:00 01/02/21 17:59 10/04/20 18:16 Sodium Chloride 1,000 ml @ 75 mls/hr [id number] IV 10/04/20 20:45 10/05/20 23:24 10/04/20 21:11 Assessment/Plan Assessment/Plan: Hematology Consultation REQ MD: Benjamin Ingram DOS: 10/05/2020 RFC: Leukocytosis HPI 70 year old female with past medical history of hypertension, allergic rhinitis, presents with right tibial pain patient recently diagnosed with cellulitis presents with worsening sharp pain ongoing for the past few days no aggravating relieving factors severity is moderate, constant no fevers no chills no chest pain or shortness of breath patient presents for evaluation and treatment, reviewed prior imaging, with a uti, on abx Allergies: No Known Allergies (Unverified , 11/11/17) COVID-19 Screening Contact w/high risk pt: No Experienced COVID-19 symptoms?: No COVID-19 Testing performed 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 PRODUCTION 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: No Patient History Past Medical History: see triage record Reviewed Nursing Documentation: PMH: Agreed; PSxH: Agreed Nursing Documentation-PMH Hx Cardiac Problems: No Hx Cancer: No Hx Gastrointestinal Problems: No History Of Psychiatric Problem: Yes Hx Neurological Problems: No Review of Systems All Other Systems: negative except mentioned in HPI PE Vitals: reviewed General: well appearing, no apparent distress, alert Heent: normocephalic, atraumatic, bilateral eye PERRL, bilateral eye EOMI Respiratory: lungs clear, no respiratory distress, no retraction, no accessory muscle use Cardiovascular: normal peripheral pulses, regular rate, rhythm, no edema, no gallop, no murmur Gastrointestinal: non tender, soft, no guarding, no rebound Musculoskeletal: normal inspection Neurologic: alert, oriented x3 Psychiatric: mood/affect normal Skin: warm/dry, other - Right lower extremity: Area of erythema on the tibial proximal aspect Labs: reviewed Imaging: noted Assessment and Recs # Leukocytosis is likely related to uti, has been started on abx --> as per id recs --> ABX ctx --> wbc 17.6 # Anemia due likely to chronic disease --> hgb 10 --> anemia panel if downtrends # Episode of generalized weakness --> on ivfs, tele --> consider cards # Cellulitis and abscess of leg --> abx # Fungal infection on her chest wall noted by the nurses --> will start patient on fluconazole and nystatin # Dvt ppx lovenox sq Appreciate consultation and Mando Ceja rn, MD Oct 05, 2020 06:58
--- NOTE | 2020-10-05 07:45 | NUR ---
NURSE NOTES: Received report from [facility]. AAO x 4, breathing even and unlabored on RA. Pt denies pain at this time. No acute distress note. 2 IV sited intact and patent. Dressing on sacral area clean and intact. Noted with right leg wound open to air. Bed locked, lowest position, alarm on, side rails up, call light within reach. Will continue to monitor.
[2020-10-05 08:00] VITALS: BP 119/71
[2020-10-05] MEDS: Enoxaparin 40mg Inj SUBQ SCH (08:49)
[2020-10-05] MEDS: Morphine Sulfate 2mg/ml Inj(IV/IM USE ONLY) IVP PRN ×2 (08:59→21:59)
[2020-10-05] MEDS: Nystatin Powder 100,000 units/gm 15gm TOPIC SCH ×3 (09:00→18:02)
[2020-10-05] MEDS: cefTRIAXone 1 GM in D5W 55 ML IVPB SCH (09:00)
--- NOTE | 2020-10-05 09:20 | Consultation ---
History of Present Illness General Date patient seen: Oct 05, 2020 Time patient seen: 12:38 Chief Complaint: Generalized Weakness Referring physician: PCP Reason for Consultation: Cellulitis Present Illness HPI 70yo F who p/w R tibial pain and cellulitis, for which ID is consulted. Pt has been AF, HDS in house on RA, but with leukocytosis to 17. Pt is poor historian, very emotional, crying, asking for door not to be closed Reports came in because of BLE pain, has wound on R kelley that occurred about a week ago she says, doesn't know how it occurred, denies any trauma No resp complaints No allergies to abx PMH: HTN Allergic rhinitis Allergies: Coded Allergies: No Known Allergies (Unverified , 11/11/17) Medication History Scheduled Cephalexin* (Keflex*), 500 MG ORAL EVERY 12 HOURS Cephalexin* (Keflex*), 500 MG ORAL EVERY 12 HOURS Ciclopirox Olamine (Ciclopirox), 1 APPLIC TOPIC BID Hydrochlorothiazide* (Hydrochlorothiazide*), 25 MG ORAL DAILY Loratadine (Claritin), 10 MG ORAL DAILY Naloxone HCl (Narcan), 4 MG NS PRN No Known Medications* (NKM - No Known Medications*), 0 ., (Reported) Permethrin* (Elimite*), 1 APPLIC TOPIC ONCE Scheduled PRN Acetaminophen With Codeine (T#3) (Tylenol #3 Tab*), 1 TAB ORAL Q8HR PRN for For Pain Acetaminophen With Codeine (T#3) (Tylenol #3 Tab*), 1 TAB ORAL Q6H PRN for For Pain Acetaminophen* (Tylenol Extra Strength*), 500 MG ORAL Q8H PRN for Prn Headache/Temp > 101 Hydrocodone Bit/Acetaminophen 5-325* ([place] 5-325*), 1 TAB ORAL Q6H PRN for For Pain Ibuprofen* (Motrin*), 600 MG ORAL Q6H PRN for For Pain Patient History Healthcare decision maker N Resuscitation status Advanced Directive on File Review of Systems ROS Narrative 10-point ROS neg except as noted in HPI Physical Exam Physical Exam Narrative Gen: NAD HEENT: NCAT Pulm: BL chest rise on RA Abd: Non-distended Ext: No c/c/e. R kelley w/ marked line without internal erythema, wound on R kelley w/ crusting/scabbing, no drainage Skin: No visible rashes Neuro: Awake, emotional Last 24 Hour Vital Signs Date Time Temp Pulse Resp B/P (MAP) Pulse Ox O2 Delivery O2 Flow Rate FiO2 10/05/20 04:00 97.9 74 20 128/75 (92) 10/05/20 00:00 98.2 69 20 109/44 (65) 100 10/04/20 22:04 Room Air 10/04/20 20:03 98.6 88 20 143/84 96 Room Air 10/04/20 20:00 98.1 87 24 149/91 (110) 97 10/04/20 19:50 98.3 75 19 142/80 100 Room Air 10/04/20 18:45 84 20 Room Air 10/04/20 18:34 98.0 89 20 143/66 100 Room Air 10/04/20 16:52 97.5 115 26 142/68 (92) 95 Room Air Intake and Output 10/04/20 10/05/20 19:00 07:00 Intake Total 120 ml Balance 120 ml Intake Oral 120 ml # Voids 2 Laboratory Tests Test 10/04/20 17:28 White Blood Count 17.6 K/UL (4.8-10.8) H Red Blood Count 4.04 M/UL (4.20-5.40) L Hemoglobin 10.8 G/DL (12.0-16.0) L Hematocrit 34.6 % (37.0-47.0) L Mean Corpuscular Volume 86 FL (80-99) Mean Corpuscular Hemoglobin 26.7 PG (27.0-31.0) L Mean Corpuscular Hemoglobin Concent 31.2 G/DL (32.0-36.0) L Red Cell Distribution Width 15.0 % (11.6-14.8) H Platelet Count 294 K/UL (150-450) Mean Platelet Volume 6.5 FL (6.5-10.1) Neutrophils (%) (Auto) 86.3 % (45.0-75.0) H Lymphocytes (%) (Auto) 8.6 % (20.0-45.0) L Monocytes (%) (Auto) 3.7 % (1.0-10.0) Eosinophils (%) (Auto) 1.0 % (0.0-3.0) Basophils (%) (Auto) 0.4 % (0.0-2.0) Erythrocyte Sedimentation Rate 63 MM/HR (0-30) H Prothrombin Time 11.2 SEC (9.30-11.50) Prothromb Time International Ratio 1.0 (0.9-1.1) Activated Partial Thromboplast Time 26 SEC (23-33) Urine Color Yellow Urine Appearance Cloudy Urine pH 5 (4.5-8.0) Urine Specific Gordon 1.015 (1.005-1.035) Urine Protein 2+ (NEGATIVE) H Urine Glucose (UA) Negative (NEGATIVE) Urine Ketones Negative (NEGATIVE) Urine Blood 4+ (NEGATIVE) H Urine Nitrite Negative (NEGATIVE) Urine Bilirubin Negative (NEGATIVE) Urine Urobilinogen Normal MG/DL (0.0-1.0) Urine Leukocyte Esterase 3+ (NEGATIVE) H Urine RBC 15-20 /HPF (0 - 2) H Urine WBC Tntc /HPF (0 - 2) H Urine Squamous Epithelial Cells Moderate /LPF (NONE/OCC) H Urine Bacteria Many /HPF (NONE) H Sodium Level 142 MMOL/L (136-145) Potassium Level 4.0 MMOL/L (3.5-5.1) Chloride Level 104 MMOL/L (98-107) Carbon Dioxide Level 26 MMOL/L (21-32) Anion Gap 12 mmol/L (5-15) Blood Urea Nitrogen 17 mg/dL (7-18) Creatinine 1.2 MG/DL (0.55-1.30) Estimat Glomerular Filtration Rate 44.3 mL/min (>60) Glucose Level 109 MG/DL (74-106) H Lactic Acid Level 1.30 mmol/L (0.4-2.0) Calcium Level 9.6 MG/DL (8.5-10.1) Phosphorus Level 2.6 MG/DL (2.5-4.9) Magnesium Level 2.2 MG/DL (1.8-2.4) Total Bilirubin 0.4 MG/DL (0.2-1.0) Aspartate Amino Transf (AST/SGOT) 29 U/L (15-37) Alanine Aminotransferase (ALT/SGPT) 28 U/L (12-78) Alkaline Phosphatase 102 U/L (46-116) Total Creatine Kinase 131 U/L (26-308) Creatine Kinase MB 1.9 NG/ML (0.0-3.6) Creatine Kinase MB Relative Index 1.4 Troponin I 0.000 ng/mL (0.000-0.056) C-Reactive Protein, Quantitative 11.2 mg/dL (0.00-0.90) H Pro-B-Type Natriuretic Peptide 296 pg/mL (0-125) H Total Protein 8.6 G/DL (6.4-8.2) H Albumin 2.8 G/DL (3.4-5.0) L Globulin 5.8 g/dL Albumin/Globulin Ratio 0.5 (1.0-2.7) L Lipase 85 U/L (73-393) Height (Feet): 5 Height (Inches): 1.00 Weight (Pounds): 140 Medications Current Medications Medications (Trade) Dose Ordered Sig/Siddharth Route PRN Reason Start Time Stop Time Status Last Admin Dose Admin Acetaminophen (Tylenol) 650 mg Q6H PRN ORAL Mild Pain (Pain Scale 1-3) 10/04/20 20:45 11/03/20 20:44 Acetaminophen (Tylenol) 650 mg Q6H PRN ORAL fever 10/04/20 20:45 11/03/20 20:44 Ceftriaxone Sodium 1 gm/ Dextrose 55 ml @ 110 mls/hr DAILY IVPB 10/05/20 09:00 10/11/20 20:44 10/05/20 09:00 Diphenhydramine HCl (Benadryl) 25 mg Q6H PRN ORAL Itching 10/04/20 20:45 11/03/20 20:44 Enoxaparin Sodium (Lovenox) 40 mg DAILY SUBQ 10/05/20 09:00 01/03/21 08:59 10/05/20 08:49 Morphine Sulfate (Morphine Sulfate) 2 mg Q8H PRN IVP Severe Pain (Pain Scale 7-10) 10/04/20 20:45 10/11/20 20:44 10/05/20 08:59 Nystatin (Nystop Powder) 1 applic THREE TIMES A DAY TOPIC 10/04/20 18:00 01/02/21 17:59 10/05/20 09:00 Sodium Chloride 1,000 ml @ 75 mls/hr [id number] IV 10/04/20 20:45 10/05/20 23:24 10/04/20 21:11 Assessment/Plan Assessment/Plan: 70yo F with: R kelley cellulitis, improving R kelley wound, dry scabbing Afebrile Leukocytosis to 17, improving 2/2 BCx p UA+, UCx p Cr 1.2 R/o COVID 2/3 COVID PCR ordered CXR: Worsening aeration with development of some patchy retrocardiac opacities which may relate to subsegmental atelectasis however pneumonia should be excluded clinically. Development of mild interstitial/vascular prominence. Mild congestive changes of CHF can be considered. Findings may also be artifactual related to lower lung volumes. PMH: HTN Allergic rhinitis Plan: Cont CTX 1g IV daily #2 for now for possible cellulitis, vastly improved on my exam from prior line that was drawn on skin HIV screen COVID PCR screen CXR screen = possible pna 2/2 SP vanco/Zosyn/flucon in ED Monitor CBC/CMP Monitor temp curve, hemodynamics Monitor resp status D/w RN Thank you for this consult. [facility] will continue to follow. Sparkle Roque M.D. Oct 05, 2020 09:20
--- NOTE | 2020-10-05 09:59 | History and Physical Report ---
DATE OF ADMISSION: 10/04/2020 DATE AND TIME SEEN: 10/05/2020 at 9 a.m. CONSULTANTS: 1. Chris Pires MD. 2. Flip Ventura MD. CHIEF COMPLAINT: Right lower extremity cellulitis and weakness. BRIEF HISTORY: This is a 70-year-old female, who lives at home with two caretakers. Apparently, one week history of increased right lower extremity cellulitis and wound. The patient came into [facility] last night, diagnosed with the above, admitted to medical floor. Currently, calm in bed. No complaint. No chest pain. No shortness of breath. No nausea, vomiting, or diarrhea. PAST MEDICAL HISTORY: Generalized weakness. PAST SURGICAL HISTORY: None. MEDICATIONS: Include enoxaparin, ceftriaxone, morphine, Tylenol, nystatin, fluconazole, vancomycin. ALLERGIES: Denies. SOCIAL HISTORY: No smoking. No alcohol. No intravenous drug abuse. FAMILY HISTORY: Noncontributory. PHYSICAL EXAMINATION: GENERAL: Calm in bed, oriented x2, in no acute distress. VITAL SIGNS: Temperature 97, pulse 74, respirations 20, blood pressure 120/75. CARDIOVASCULAR: No murmur. LUNGS: Distant and clear. ABDOMEN: Bowel sounds positive. Nontender. Nondistended. EXTREMITIES: No cyanosis or clubbing. 1+ edema. Right ankle down slightly 1+ edema and redness and there was about 0.5 inch x 0.5 inch dry scab on the lateral side of the right kelley. NEUROLOGIC: The patient moves all extremities, slightly weak. LABORATORY AND DIAGNOSTIC DATA: Labs at this time show white count 17, hemoglobin and hematocrit 10/34, platelets 294. BMP showed glucose 109. BNP is 296. Albumin 2.8. INR is 1.0. Urinalysis showed 3+ leukocyte esterase. ASSESSMENT: Right lower extremity cellulitis and wound and edema, UTI, weakness, anemia, and malnutrition. PLAN: Wound care. Antibiotics per Infectious Disease. Dietary followup. CBC and BMP in the morning. Benjamin Ingram D.O. DR: FARIDEH/ERIC JOB#: [id number] CC:
[2020-10-05 10:17] LABS: HEMATOCRIT 30.6 % (37.0-47.0); HEMOGLOBIN 9.4 G/DL (12.0-16.0); MEAN CORPUSCULAR VOLUME 87 FL (80-99); PLATELET COUNT 302 K/UL (150-450); RED BLOOD COUNT 3.52 M/UL (4.20-5.40); WHITE BLOOD COUNT 14.5 K/UL (4.8-10.8)
[2020-10-05 10:29] LABS: CALCIUM 8.5 MG/DL (8.5-10.1); CREATININE 1.1 MG/DL (0.55-1.30); POTASSIUM 3.2 MMOL/L (3.5-5.1)
--- NOTE | 2020-10-05 11:14 | Diagnostic Imaging Report ---
Indication: Chest pain, shortness of breath Technique: XRAY Chest 1v Comparison: 06/29/2019 Findings: Heart is mildly enlarged. There is equivocal vascular prominence. No dense consolidation. No pleural effusion or pneumothorax. There are degenerative changes in the spine. Remote right-sided rib fractures are seen. There is a bony protuberance of the proximal left humeral shaft which is partially visualized. This may just represent a osteochondroma or chronic post traumatic change. Impression: Borderline cardiomegaly. Equivocal interstitial/vascular prominence. Correlate clinically to assess for mild CHF. Bony protuberance partially visualized left proximal humerus which may represent an osteochondroma or chronic posttraumatic changes. Consider dedicated imaging of the left humerus as clinically indicated.
--- NOTE | 2020-10-05 11:20 | NUR ---
NURSE NOTES: Covid 19 test swabbed per MD. Transferred to room 321-1 to separate pt from roommate.
[2020-10-05 12:00] VITALS: BP 135/82
--- NOTE | 2020-10-05 12:31 | Diagnostic Imaging Report ---
Indication: Cough Technique: XRAY Chest 1v Comparison: 10/04/2020 Findings: Heart is enlarged but stable in size compared to the prior exam aligned for differences in lung volumes. Mediastinal contours are sharp. No pleural effusion or pneumothorax is seen. There is worsened aeration with increased interstitial/vascular prominence. There is been development of some patchy retrocardiac opacities as well. Osseous structures and joint no acute abnormality. Impression: Worsening aeration with development of some patchy retrocardiac opacities which may relate to subsegmental atelectasis however pneumonia should be excluded clinically. Development of mild interstitial/vascular prominence. Mild congestive changes of CHF can be considered. Findings may also be artifactual related to lower lung volumes. Please correlate clinically.
--- NOTE | 2020-10-05 12:56 | NUR ---
RD ASSESSMENT & RECOMMENDATIONS SEE CARE ACTIVITY FOR COMPLETE ASSESSMENT DAILY ESTIMATED NEEDS: Needs based on Wound/ 51.7kg abw 25-30 kcals/kg [id number] total kcals 1.25-1.5 g protein/kg 65-77 g total protein 25-30 mL/kg [id number] total fluid mLs NUTRITION DIAGNOSIS: Increased kcal/prot needs R/T wound healing as evidenced by pt admitted w/ sacral wound per photo, pending evaluation. CURRENT DIET:REGULAR PO DIET RECOMMENDATIONS:REGULAR, texture as tolerated ADDITIONAL RECOMMENDATIONS: * Calibrated bedscale wt * Wound healing: add MVI x 1, Vit C 250mg QD F/up w/ WC eval * Monitor PO intake and tolerance * Monitor lytes, replete as needed (low K)
--- NOTE | 2020-10-05 13:56 | NUR ---
NURSE NOTES:WOUND CARE NOTES:Pt presented on admission with MASD skin folds Both breasts, Swelling,Ulcerations to RLE. Full thickness Pressure Injury L Buttocks. Skin folds of both breasts are erythematous, and macerated. Mild odor noted. Full thickness Pressure Injury L Buttocks (L)1.5cm x (W)0.3cm x (D)0.2cm. Wound has appearance of slit with indurated and maroon borders. Non-Blanchable erythema without induration Sacrum and R Buttocks. Small ulcer with necrotic cap noted to posterior upper R Thigh. Marginal erythema along edges. Larger ulcer with necrotic cap noted to maurice R Tibia(L)3cm x (W)3.7cm. Marginal erythema along borders and periwound. Clockwise at 2-4o'clock along borders are macerated. No odor or exudate noted. A third smaller ulcer with necrotic cap noted to distal/lateral R tibia(L)0.9cm x (W)1cm. Marginal erythema along borders. Both heels are soft, but each heel easily blanchable. Tx.Plan: Wash both breasts with soap and water. Pat dry. Apply Light Dusting of Antifungal powder to each breasts Twice Daily. Cleanse L Buttocks with Saline. Apply Therahoney. Apply Moisture Barrier Paste periwound. Cover with Optifoam drsg. Change every 3 days and prn. Apply Moisture Barrier paste to Sacrum and R buttocks. Cover with Optifoam drsg. Change every 3 days and prn. Reposition at least every 2 hours or as tolerated. Off-load heels with pillow.
--- NOTE | 2020-10-05 13:56 | Consultation ---
History of Present Illness General Date patient seen: Oct 05, 2020 Reason for Hospitalization: Generalized Weakness Present Illness HPI This is a very pleasant 70 year old female with past medical history of hypertension, allergic rhinitis, presents with right tibial pain patient rece ntly diagnosed with cellulitis on her leg who presents with worsening sharp pain ongoing for the past few days no aggravating relieving factors severity is moderate, constant no fevers no chills no chest pain or shortness of breath patient presents for evaluation and treatment. Noted to have a wound on her leg denies trauma unsure elements been this is related to her cellulitis. Bilateral lower extremity extremity cellulitis no nausea vomiting fever chills labs noted surgical divine assist with care. Patient seen, patient by, chart reviewed. Patient sitting up comfortably reading a newspaper Allergies: Coded Allergies: No Known Allergies (Unverified , 11/11/17) COVID-19 Screening Contact w/high risk pt: No Experienced COVID-19 symptoms?: No Medication History Scheduled Cephalexin* (Keflex*), 500 MG ORAL EVERY 12 HOURS Cephalexin* (Keflex*), 500 MG ORAL EVERY 12 HOURS Ciclopirox Olamine (Ciclopirox), 1 APPLIC TOPIC BID Hydrochlorothiazide* (Hydrochlorothiazide*), 25 MG ORAL DAILY Loratadine (Claritin), 10 MG ORAL DAILY Naloxone HCl (Narcan), 4 MG NS PRN No Known Medications* (NKM - No Known Medications*), 0 ., (Reported) Permethrin* (Elimite*), 1 APPLIC TOPIC ONCE Scheduled PRN Acetaminophen With Codeine (T#3) (Tylenol #3 Tab*), 1 TAB ORAL Q8HR PRN for For Pain Acetaminophen With Codeine (T#3) (Tylenol #3 Tab*), 1 TAB ORAL Q6H PRN for For Pain Acetaminophen* (Tylenol Extra Strength*), 500 MG ORAL Q8H PRN for Prn Headache/Temp > 101 Hydrocodone Bit/Acetaminophen 5-325* (Kerrick 5-325*), 1 TAB ORAL Q6H PRN for For Pain Ibuprofen* (Motrin*), 600 MG ORAL Q6H PRN for For Pain Patient History History Provided By: Patient, Medical Record, PMD Healthcare decision maker N Resuscitation status Advanced Directive on File Past Medical/Surgical History Past Medical/Surgical History: (1) Pedal edema (2) Facial contusion (3) Noncompliance with treatment plan (4) Right ankle sprain (5) Multiple rib fractures (6) Episode of generalized weakness (7) Cellulitis and abscess of leg Review of Systems Review of Symptoms General ROS: no weight loss or fever Psychological ROS: no depression or mood changes, no memory loss Ophthalmic ROS: no visual changes or eye irritation ENT ROS: no nasal congestion, hearing loss, dizziness Allergy and Immunology ROS: no allergic symptoms or urticaria Hematological and Lymphatic ROS: no swollen glands, unusual bleeding or bruising Endocrine ROS: no polyuria, polydipsia, weight changes, temperature intolerance Respiratory ROS: no cough, shortness of breath, or wheezing Cardiovascular ROS: no chest pain or dyspnea on exertion Gastrointestinal ROS: denies abdominal pain, bright red blood in stool. Musculoskeletal ROS: no myalgias or arthralgias Neurological ROS: no TIA or stroke symptoms Dermatological ROS: no new or changing skin lesions, rashes or pruritis Physical Exam Physical Exam General appearance: alert, cooperative, no distress, appears stated age Head: Normocephalic, without obvious abnormality, atraumatic Eyes: conjunctivae/corneas clear. PERRL, EOM's intact. Fundi benign Throat: Lips, mucosa, and tongue normal. Teeth and gums normal Neck: supple, symmetrical, trachea midline, no adenopathy, thyroid: not enlarged, symmetric, no tenderness/mass/nodules, no carotid bruit and no JVD Lungs: clear to auscultation bilaterally Heart: regular rate and rhythm, S1, S2 normal, no murmur, click, rub or gallop Abdomen: soft, non-tender. Bowel sounds normal. No masses, no organomegaly Extremities: extremities b/l edema Pulses: 2+ and symmetric Skin: Skin color, texture, turgor normal. No rashes or lesions Neurologic: Grossly normal Last 24 Hour Vital Signs Date Time Temp Pulse Resp B/P (MAP) Pulse Ox O2 Delivery O2 Flow Rate FiO2 10/05/20 12:00 99.0 89 18 135/82 (99) 96 10/05/20 09:29 97.9 10/05/20 09:00 Room Air 10/05/20 08:00 98.8 99 20 119/71 (87) 96 10/05/20 04:00 97.9 74 20 128/75 (92) 10/05/20 00:00 98.2 69 20 109/44 (65) 100 10/04/20 22:04 Room Air 10/04/20 20:03 98.6 88 20 143/84 96 Room Air 10/04/20 20:00 98.1 87 24 149/91 (110) 97 10/04/20 19:50 98.3 75 19 142/80 100 Room Air 10/04/20 18:45 84 20 Room Air 10/04/20 18:34 98.0 89 20 143/66 100 Room Air 10/04/20 16:52 97.5 115 26 142/68 (92) 95 Room Air Intake and Output 10/04/20 10/05/20 19:00 07:00 Intake Total 120 ml Balance 120 ml Intake Oral 120 ml # Voids 2 Laboratory Tests Test 10/04/20 17:28 10/05/20 09:33 White Blood Count 17.6 K/UL (4.8-10.8) H 14.5 K/UL (4.8-10.8) H Red Blood Count 4.04 M/UL (4.20-5.40) L 3.52 M/UL (4.20-5.40) L Hemoglobin 10.8 G/DL (12.0-16.0) L 9.4 G/DL (12.0-16.0) L Hematocrit 34.6 % (37.0-47.0) L 30.6 % (37.0-47.0) L Mean Corpuscular Volume 86 FL (80-99) 87 FL (80-99) Mean Corpuscular Hemoglobin 26.7 PG (27.0-31.0) L 26.6 PG (27.0-31.0) L Mean Corpuscular Hemoglobin Concent 31.2 G/DL (32.0-36.0) L 30.6 G/DL (32.0-36.0) L Red Cell Distribution Width 15.0 % (11.6-14.8) H 15.0 % (11.6-14.8) H Platelet Count 294 K/UL (150-450) 302 K/UL (150-450) Mean Platelet Volume 6.5 FL (6.5-10.1) 6.1 FL (6.5-10.1) L Neutrophils (%) (Auto) 86.3 % (45.0-75.0) H % (45.0-75.0) Lymphocytes (%) (Auto) 8.6 % (20.0-45.0) L % (20.0-45.0) Monocytes (%) (Auto) 3.7 % (1.0-10.0) % (1.0-10.0) Eosinophils (%) (Auto) 1.0 % (0.0-3.0) % (0.0-3.0) Basophils (%) (Auto) 0.4 % (0.0-2.0) % (0.0-2.0) Erythrocyte Sedimentation Rate 63 MM/HR (0-30) H Prothrombin Time 11.2 SEC (9.30-11.50) Prothromb Time International Ratio 1.0 (0.9-1.1) Activated Partial Thromboplast Time 26 SEC (23-33) Urine Color Yellow Urine Appearance Cloudy Urine pH 5 (4.5-8.0) Urine Specific [place] 1.015 (1.005-1.035) Urine Protein 2+ (NEGATIVE) H Urine Glucose (UA) Negative (NEGATIVE) Urine Ketones Negative (NEGATIVE) Urine Blood 4+ (NEGATIVE) H Urine Nitrite Negative (NEGATIVE) Urine Bilirubin Negative (NEGATIVE) Urine Urobilinogen Normal MG/DL (0.0-1.0) Urine Leukocyte Esterase 3+ (NEGATIVE) H Urine RBC 15-20 /HPF (0 - 2) H Urine WBC Tntc /HPF (0 - 2) H Urine Squamous Epithelial Cells Moderate /LPF (NONE/OCC) H Urine Bacteria Many /HPF (NONE) H Sodium Level 142 MMOL/L (136-145) 145 MMOL/L (136-145) Potassium Level 4.0 MMOL/L (3.5-5.1) 3.2 MMOL/L (3.5-5.1) L Chloride Level 104 MMOL/L (98-107) 110 MMOL/L (98-107) H Carbon Dioxide Level 26 MMOL/L (21-32) 27 MMOL/L (21-32) Anion Gap 12 mmol/L (5-15) 8 mmol/L (5-15) Blood Urea Nitrogen 17 mg/dL (7-18) 13 mg/dL (7-18) Creatinine 1.2 MG/DL (0.55-1.30) 1.1 MG/DL (0.55-1.30) Estimat Glomerular Filtration Rate 44.3 mL/min (>60) 49.0 mL/min (>60) Glucose Level 109 MG/DL (74-106) H 188 MG/DL (74-106) H Lactic Acid Level 1.30 mmol/L (0.4-2.0) Calcium Level 9.6 MG/DL (8.5-10.1) 8.5 MG/DL (8.5-10.1) Phosphorus Level 2.6 MG/DL (2.5-4.9) Magnesium Level 2.2 MG/DL (1.8-2.4) Total Bilirubin 0.4 MG/DL (0.2-1.0) Aspartate Amino Transf (AST/SGOT) 29 U/L (15-37) Alanine Aminotransferase (ALT/SGPT) 28 U/L (12-78) Alkaline Phosphatase 102 U/L (46-116) Total Creatine Kinase 131 U/L (26-308) Creatine Kinase MB 1.9 NG/ML (0.0-3.6) Creatine Kinase MB Relative Index 1.4 Troponin I 0.000 ng/mL (0.000-0.056) C-Reactive Protein, Quantitative 11.2 mg/dL (0.00-0.90) H Pro-B-Type Natriuretic Peptide 296 pg/mL (0-125) H Total Protein 8.6 G/DL (6.4-8.2) H Albumin 2.8 G/DL (3.4-5.0) L Globulin 5.8 g/dL Albumin/Globulin Ratio 0.5 (1.0-2.7) L Lipase 85 U/L (73-393) Differential Total Cells Counted 100 Neutrophils % (Manual) 92 % (45-75) H Lymphocytes % (Manual) 5 % (20-45) L Monocytes % (Manual) 3 % (1-10) Eosinophils % (Manual) 0 % (0-3) Basophils % (Manual) 0 % (0-2) Band Neutrophils 0 % (0-8) Platelet Estimate Adequate Platelet Morphology Normal Hypochromasia 1+ Anisocytosis 1+ HIV (1&2) Antibody Rapid Pending Height (Feet): 5 Height (Inches): 1.00 Weight (Pounds): 140 Medications Current Medications Medications (Trade) Dose Ordered Sig/Siddharth Route PRN Reason Start Time Stop Time Status Last Admin Dose Admin Acetaminophen (Tylenol) 650 mg Q6H PRN ORAL Mild Pain (Pain Scale 1-3) 10/04/20 20:45 11/03/20 20:44 Acetaminophen (Tylenol) 650 mg Q6H PRN ORAL fever 10/04/20 20:45 11/03/20 20:44 Ceftriaxone Sodium 1 gm/ Dextrose 55 ml @ 110 mls/hr DAILY IVPB 10/05/20 09:00 10/11/20 20:44 10/05/20 09:00 Diphenhydramine HCl (Benadryl) 25 mg Q6H PRN ORAL Itching 10/04/20 20:45 11/03/20 20:44 Enoxaparin Sodium (Lovenox) 40 mg DAILY SUBQ 10/05/20 09:00 01/03/21 08:59 10/05/20 08:49 Morphine Sulfate (Morphine Sulfate) 2 mg Q8H PRN IVP Severe Pain (Pain Scale 7-10) 10/04/20 20:45 10/11/20 20:44 10/05/20 08:59 Nystatin (Nystop Powder) 1 applic THREE TIMES A DAY TOPIC 10/04/20 18:00 01/02/21 17:59 10/05/20 13:16 Potassium Chloride (K-Dur) 40 meq ONCE ORAL 10/05/20 13:45 10/05/20 16:00 Sodium Chloride 1,000 ml @ 75 mls/hr [id number] IV 10/04/20 20:45 10/05/20 23:24 10/05/20 10:05 Assessment/Plan Problem List: (1) Episode of generalized weakness ICD Codes: R53.1 - Weakness SNOMED: 99071679 (2) Cellulitis and abscess of leg Assessment & Plan: 70-year-old female with right lower extremity cellulitis mild edema on the left side anterior tibial ulceration identified on the right side mid leg potentially from trauma though patient denies. No nausea fever chills no abscess identified no drainage. Macerated eschar identified. Apply betadine swab to ulcer cover with Optifoam dressing. Keep her legs elevated while in bed. IV antibiotics per infectious disease. No acute surgical intervention planned at this time. Sacral stage 3 decubitus ulcer wound identified. therahoney gauze and foam dressing daily and prn saturation. turn every 2 hours, offload pressure, patient able to comply with care plan. Nutrition optimization. Follow with recommendations thank you allowing me to participate patient's care DAILY ESTIMATED NEEDS: Needs based on Wound/ 51.7kg abw 25-30 kcals/kg 7706-5900 total kcals 1.25-1.5 g protein/kg 65-77 g total protein 25-30 mL/kg 2622-5513 total fluid mLs NUTRITION DIAGNOSIS: Increased kcal/prot needs R/T wound healing as evidenced by pt admitted w/ sacral wound per photo, pending evaluation. CURRENT DIET:REGULAR PO DIET RECOMMENDATIONS:REGULAR, texture as tolerated ADDITIONAL RECOMMENDATIONS: * Calibrated bedscale wt * Wound healing: add MVI x 1, Vit C 250mg QD F/up w/ WC eval * Monitor PO intake and tolerance * Monitor lytes, replete as needed (low K) ICD Codes: L03.119 - Cellulitis of unspecified part of limb; L02.419 - Cutaneous abscess of limb, unspecified SNOMED: 904415987 (3) Pedal edema ICD Codes: R60.0 - Localized edema SNOMED: 613430837 (4) Facial contusion ICD Codes: S00.83XA - Contusion of other part of head, initial encounter SNOMED: 276292210 (5) Right ankle sprain ICD Codes: S93.401A - Sprain of unspecified ligament of right ankle, initial encounter SNOMED: 68232104 (6) Multiple rib fractures ICD Codes: S22.49XA - Multiple fractures of ribs, unspecified side, initial encounter for closed fracture SNOMED: 5622731 (7) Noncompliance with treatment plan ICD Codes: Z91.11 - Patient's noncompliance with dietary regimen SNOMED: 866457383 Mason Snyder Oct 05, 2020 13:56
--- NOTE | 2020-10-05 14:11 | Cardiac Electrophysiology PN ---
Subjective Subjective [id number] Objective Last 24 Hour Vital Signs Date Time Temp Pulse Resp B/P (MAP) Pulse Ox O2 Delivery O2 Flow Rate FiO2 10/05/20 12:00 99.0 89 18 135/82 (99) 96 10/05/20 09:29 97.9 10/05/20 09:00 Room Air 10/05/20 08:00 98.8 99 20 119/71 (87) 96 10/05/20 04:00 97.9 74 20 128/75 (92) 10/05/20 00:00 98.2 69 20 109/44 (65) 100 10/04/20 22:04 Room Air 10/04/20 20:03 98.6 88 20 143/84 96 Room Air 10/04/20 20:00 98.1 87 24 149/91 (110) 97 10/04/20 19:50 98.3 75 19 142/80 100 Room Air 10/04/20 18:45 84 20 Room Air 10/04/20 18:34 98.0 89 20 143/66 100 Room Air 10/04/20 16:52 97.5 115 26 142/68 (92) 95 Room Air Intake and Output 10/04/20 10/05/20 19:00 07:00 Intake Total 120 ml Balance 120 ml Intake Oral 120 ml # Voids 2 Laboratory Tests Test 10/04/20 17:28 10/05/20 09:33 White Blood Count 17.6 K/UL (4.8-10.8) H 14.5 K/UL (4.8-10.8) H Red Blood Count 4.04 M/UL (4.20-5.40) L 3.52 M/UL (4.20-5.40) L Hemoglobin 10.8 G/DL (12.0-16.0) L 9.4 G/DL (12.0-16.0) L Hematocrit 34.6 % (37.0-47.0) L 30.6 % (37.0-47.0) L Mean Corpuscular Volume 86 FL (80-99) 87 FL (80-99) Mean Corpuscular Hemoglobin 26.7 PG (27.0-31.0) L 26.6 PG (27.0-31.0) L Mean Corpuscular Hemoglobin Concent 31.2 G/DL (32.0-36.0) L 30.6 G/DL (32.0-36.0) L Red Cell Distribution Width 15.0 % (11.6-14.8) H 15.0 % (11.6-14.8) H Platelet Count 294 K/UL (150-450) 302 K/UL (150-450) Mean Platelet Volume 6.5 FL (6.5-10.1) 6.1 FL (6.5-10.1) L Neutrophils (%) (Auto) 86.3 % (45.0-75.0) H % (45.0-75.0) Lymphocytes (%) (Auto) 8.6 % (20.0-45.0) L % (20.0-45.0) Monocytes (%) (Auto) 3.7 % (1.0-10.0) % (1.0-10.0) Eosinophils (%) (Auto) 1.0 % (0.0-3.0) % (0.0-3.0) Basophils (%) (Auto) 0.4 % (0.0-2.0) % (0.0-2.0) Erythrocyte Sedimentation Rate 63 MM/HR (0-30) H Prothrombin Time 11.2 SEC (9.30-11.50) Prothromb Time International Ratio 1.0 (0.9-1.1) Activated Partial Thromboplast Time 26 SEC (23-33) Urine Color Yellow Urine Appearance Cloudy Urine pH 5 (4.5-8.0) Urine Specific [place] 1.015 (1.005-1.035) Urine Protein 2+ (NEGATIVE) H Urine Glucose (UA) Negative (NEGATIVE) Urine Ketones Negative (NEGATIVE) Urine Blood 4+ (NEGATIVE) H Urine Nitrite Negative (NEGATIVE) Urine Bilirubin Negative (NEGATIVE) Urine Urobilinogen Normal MG/DL (0.0-1.0) Urine Leukocyte Esterase 3+ (NEGATIVE) H Urine RBC 15-20 /HPF (0 - 2) H Urine WBC Tntc /HPF (0 - 2) H Urine Squamous Epithelial Cells Moderate /LPF (NONE/OCC) H Urine Bacteria Many /HPF (NONE) H Sodium Level 142 MMOL/L (136-145) 145 MMOL/L (136-145) Potassium Level 4.0 MMOL/L (3.5-5.1) 3.2 MMOL/L (3.5-5.1) L Chloride Level 104 MMOL/L (98-107) 110 MMOL/L (98-107) H Carbon Dioxide Level 26 MMOL/L (21-32) 27 MMOL/L (21-32) Anion Gap 12 mmol/L (5-15) 8 mmol/L (5-15) Blood Urea Nitrogen 17 mg/dL (7-18) 13 mg/dL (7-18) Creatinine 1.2 MG/DL (0.55-1.30) 1.1 MG/DL (0.55-1.30) Estimat Glomerular Filtration Rate 44.3 mL/min (>60) 49.0 mL/min (>60) Glucose Level 109 MG/DL (74-106) H 188 MG/DL (74-106) H Lactic Acid Level 1.30 mmol/L (0.4-2.0) Calcium Level 9.6 MG/DL (8.5-10.1) 8.5 MG/DL (8.5-10.1) Phosphorus Level 2.6 MG/DL (2.5-4.9) Magnesium Level 2.2 MG/DL (1.8-2.4) Total Bilirubin 0.4 MG/DL (0.2-1.0) Aspartate Amino Transf (AST/SGOT) 29 U/L (15-37) Alanine Aminotransferase (ALT/SGPT) 28 U/L (12-78) Alkaline Phosphatase 102 U/L (46-116) Total Creatine Kinase 131 U/L (26-308) Creatine Kinase MB 1.9 NG/ML (0.0-3.6) Creatine Kinase MB Relative Index 1.4 Troponin I 0.000 ng/mL (0.000-0.056) C-Reactive Protein, Quantitative 11.2 mg/dL (0.00-0.90) H Pro-B-Type Natriuretic Peptide 296 pg/mL (0-125) H Total Protein 8.6 G/DL (6.4-8.2) H Albumin 2.8 G/DL (3.4-5.0) L Globulin 5.8 g/dL Albumin/Globulin Ratio 0.5 (1.0-2.7) L Lipase 85 U/L (73-393) Differential Total Cells Counted 100 Neutrophils % (Manual) 92 % (45-75) H Lymphocytes % (Manual) 5 % (20-45) L Monocytes % (Manual) 3 % (1-10) Eosinophils % (Manual) 0 % (0-3) Basophils % (Manual) 0 % (0-2) Band Neutrophils 0 % (0-8) Platelet Estimate Adequate Platelet Morphology Normal Hypochromasia 1+ Anisocytosis 1+ HIV (1&2) Antibody Rapid Pending Leon Patricio MD Oct 05, 2020 14:11
--- NOTE | 2020-10-05 14:26 | NUR ---
CASE MANAGEMENT:REVIEW 70 YR OLD FEMALE FROM HOME TO ER CC: RLE EDEMA SI: RLE CELLULITIS W/ABSCESS. GENERALIZED WEAKNESS 97.6 115 26 142/68 95% ON RA WBC+17.6 H/H-10.8/34.6 ESR+63 IS: IV VANCOMYCIN X1 IV ZOSYN X1 IV DIFLUCAN 1L NS BOLUS BLOOD CX CHEST XRAY :TO MED/SURG UNIT DCP: FROM HOME
--- NOTE | 2020-10-05 14:44 | Consultation ---
DATE OF CONSULTATION: 10/05/2020 CARDIOLOGY CONSULTATION REFERRING PHYSICIAN: Benjamin Ingram DO REASON FOR CONSULTATION: Tachycardia, hypertension, hypokalemia. HISTORY OF PRESENT ILLNESS: The patient is a 70-year-old lady with history of hypertension, rhinitis, who presents to the emergency room with right tibial pain. The patient was recently diagnosed with cellulitis, presented with worsening of the pain. The patient was also tachycardic. Cardiology consultation was obtained for further evaluation. REVIEW OF SYSTEMS: Negative other than what is mentioned in history of present illness. PAST MEDICAL HISTORY: As mentioned above. FAMILY HISTORY: Noncontributory. SOCIAL HISTORY: [facility] resident. Does not smoke or drink alcohol. PHYSICAL EXAMINATION: VITAL SIGNS: Blood pressure of 135/82, pulse 89, respirations 18, temperature 99. HEAD AND NECK: No JVD. LUNGS: Clear. CARDIOVASCULAR: Regular S1 and S2 with no gallop. ABDOMEN: Soft. EXTREMITIES: Pain in the right leg. LABORATORY AND DIAGNOSTIC DATA: Labs show white count of 14.5, hemoglobin 9.4, hematocrit of 30, platelet count is 302. Sodium is 145, potassium 3.2, BUN of 13, creatinine 1. Troponin is negative. BNP 296. ASSESSMENT AND PLAN: 1. Atypical chest pain. The first troponin is negative. We will completely rule out AR protocol. Get the EKG and echocardiogram for further evaluation. 2. Hypokalemia. Potassium was replaced. 3. Cellulitis of the leg. The patient is already on ceftriaxone. 4. Tachycardia, likely due to cellulitis. 5. Dementia. Thank you very much for allowing me to participate in the care of this patient. Please do not hesitate to contact me for any questions regarding my evaluation. Leon Patricio M.D. DR: DOTTY JOB#: [id number] CC:
[2020-10-05 16:00] VITALS: BP 129/59
--- NOTE | 2020-10-05 19:33 | NUR ---
NURSE HAND-OFF: Important Events on Shift:[PUI, covid swabbed, wound evaluation done, pain management] Patient Status: [] Diet: [reg] Pending Orders: [2D echo, EKG] Pending Results/Labs:[] Pending MD notification:[] Latest Vital Signs: Temperature 98.3 , Pulse 75 , B/P 129 /59 , Respiratory Rate 18 , O2 SAT 97 , Room Air, O2 Flow Rate . Vital Sign Comment: [stable] Latest Landry Fall Score: 25 Fall Risk: Medium Risk Safety Measures: Call light Within Reach, Bed Alarm Zone 1, Side Rails Side Rails x2, Bed position Low and Locked. Fall Precautions: Yellow Socks Yellow Gown Door Sign Patient Fall Education Report given to [].
--- NOTE | 2020-10-05 19:45 | NUR ---
NURSE NOTES: Received patient awake in bed, hysterical, agitated. Needs constant reorientation to reality. IV access asymptomatic, dressing dry and intact. Right leg sore dressed today by nurse. C/o 5/10 pain at this time. Bed low and locked.
[2020-10-05 20:00] VITALS: BP 126/75
[2020-10-06] VITALS: BP 125/65
--- NOTE | 2020-10-06 06:44 | Hematology/Onc Progress Note ---
Assessment/Plan Assessment/Plan Assessment and Recs # Leukocytosis is likely related to uti, has been started on abx --> as per id recs --> ABX ctx --> wbc 17.6-->14 # Anemia due likely to chronic disease --> hgb 10-->9 --> anemia panel if downtrends --> transfuse prn # Episode of generalized weakness --> on ivfs, tele --> consider cards # Cellulitis and abscess of leg --> abx # Fungal infection on her chest wall noted by the nurses --> will start patient on fluconazole and nystatin # Dvt ppx lovenox sq Appreciate consultation and dw rn Subjective Constitutional: Denies: no symptoms, chills, fever, malaise, weakness, other HEENT: Denies: no symptoms, eye pain, blurred vision, tearing, double vision, ear pain, ear discharge, nose pain, nose congestion, throat pain, throat swelling, mouth pain, mouth swelling, other Cardiovascular: Denies: no symptoms, chest pain, edema, irregular heart rate, lightheadedness, palpitations, syncope, other Genitourinary: Denies: no symptoms, burning, discharge, frequency, flank pain, hematuria, incontinence, pain, urgency, other Neurologic/Psychiatric: Denies: no symptoms, anxiety, depressed, emotional problems, headache, numbness, paresthesia, pre-existing deficit, seizure, tingling, tremors, weakness, other Endocrine: Denies: no symptoms, excessive sweating, flushing, intolerance to cold, intolerance to heat, increased hunger, increased thirst, increased urine, unexplained weight gain, unexplained weight loss, other Hematologic/Lymphatic: Denies: no symptoms, anemia, easy bleeding, easy bruising, adenopathy, other Allergies: Coded Allergies: No Known Allergies (Unverified , 11/11/17) Subjective 2/4 agitated, hysterical, labs noted, anemia panel ordered Objective Objective Current Medications Medications (Trade) Dose Ordered Sig/Siddharth Route PRN Reason Start Time Stop Time Status Last Admin Dose Admin Acetaminophen (Tylenol) 650 mg Q6H PRN ORAL Mild Pain (Pain Scale 1-3) 10/04/20 20:45 11/03/20 20:44 Acetaminophen (Tylenol) 650 mg Q6H PRN ORAL fever 10/04/20 20:45 11/03/20 20:44 Ceftriaxone Sodium 1 gm/ Dextrose 55 ml @ 110 mls/hr DAILY IVPB 10/05/20 09:00 10/11/20 20:44 10/05/20 09:00 Diphenhydramine HCl (Benadryl) 25 mg Q6H PRN ORAL Itching 10/04/20 20:45 11/03/20 20:44 10/05/20 21:34 Enoxaparin Sodium (Lovenox) 40 mg DAILY SUBQ 10/05/20 09:00 01/03/21 08:59 10/05/20 08:49 Morphine Sulfate (Morphine Sulfate) 2 mg Q8H PRN IVP Severe Pain (Pain Scale 7-10) 10/04/20 20:45 10/11/20 20:44 10/05/20 21:59 Nystatin (Nystop Powder) 1 applic THREE TIMES A DAY TOPIC 10/04/20 18:00 01/02/21 17:59 10/05/20 18:02 Last 24 Hour Vital Signs Date Time Temp Pulse Resp B/P (MAP) Pulse Ox O2 Delivery O2 Flow Rate FiO2 10/06/20 00:00 98.6 86 20 125/65 (85) 97 10/05/20 22:35 Room Air 10/05/20 22:29 98.3 10/05/20 20:00 98.6 92 18 126/75 (92) 97 10/05/20 16:00 98.3 75 18 129/59 (82) 97 10/05/20 12:00 99.0 89 18 135/82 (99) 96 10/05/20 09:29 97.9 10/05/20 09:00 Room Air 10/05/20 08:00 98.8 99 20 119/71 (87) 96 10/05/20 04:00 97.9 74 20 128/75 (92) 10/05/20 00:00 98.2 69 20 109/44 (65) 100 10/04/20 22:04 Room Air 10/04/20 20:03 98.6 88 20 143/84 96 Room Air 10/04/20 20:00 98.1 87 24 149/91 (110) 97 10/04/20 19:50 98.3 75 19 142/80 100 Room Air 10/04/20 18:45 84 20 Room Air 10/04/20 18:34 98.0 89 20 143/66 100 Room Air 10/04/20 16:52 97.5 115 26 142/68 (92) 95 Room Air Intake and Output 10/05/20 10/06/20 19:00 07:00 Output Total 350 ml Balance -350 ml Output Urine Total 350 ml # Voids 4 Labs Test 10/04/20 17:28 10/05/20 09:33 White Blood Count 17.6 K/UL (4.8-10.8) 14.5 K/UL (4.8-10.8) Red Blood Count 4.04 M/UL (4.20-5.40) 3.52 M/UL (4.20-5.40) Hemoglobin 10.8 G/DL (12.0-16.0) 9.4 G/DL (12.0-16.0) Hematocrit 34.6 % (37.0-47.0) 30.6 % (37.0-47.0) Mean Corpuscular Volume 86 FL (80-99) 87 FL (80-99) Mean Corpuscular Hemoglobin 26.7 PG (27.0-31.0) 26.6 PG (27.0-31.0) Mean Corpuscular Hemoglobin Concent 31.2 G/DL (32.0-36.0) 30.6 G/DL (32.0-36.0) Red Cell Distribution Width 15.0 % (11.6-14.8) 15.0 % (11.6-14.8) Platelet Count 294 K/UL (150-450) 302 K/UL (150-450) Mean Platelet Volume 6.5 FL (6.5-10.1) 6.1 FL (6.5-10.1) Neutrophils (%) (Auto) 86.3 % (45.0-75.0) % (45.0-75.0) Lymphocytes (%) (Auto) 8.6 % (20.0-45.0) % (20.0-45.0) Monocytes (%) (Auto) 3.7 % (1.0-10.0) % (1.0-10.0) Eosinophils (%) (Auto) 1.0 % (0.0-3.0) % (0.0-3.0) Basophils (%) (Auto) 0.4 % (0.0-2.0) % (0.0-2.0) Erythrocyte Sedimentation Rate 63 MM/HR (0-30) Prothrombin Time 11.2 SEC (9.30-11.50) Prothromb Time International Ratio 1.0 (0.9-1.1) Activated Partial Thromboplast Time 26 SEC (23-33) Urine Color Yellow Urine Appearance Cloudy Urine pH 5 (4.5-8.0) Urine Specific [place] 1.015 (1.005-1.035) Urine Protein 2+ (NEGATIVE) Urine Glucose (UA) Negative (NEGATIVE) Urine Ketones Negative (NEGATIVE) Urine Blood 4+ (NEGATIVE) Urine Nitrite Negative (NEGATIVE) Urine Bilirubin Negative (NEGATIVE) Urine Urobilinogen Normal MG/DL (0.0-1.0) Urine Leukocyte Esterase 3+ (NEGATIVE) Urine RBC 15-20 /HPF (0 - 2) Urine WBC Tntc /HPF (0 - 2) Urine Squamous Epithelial Cells Moderate /LPF (NONE/OCC) Urine Bacteria Many /HPF (NONE) Sodium Level 142 MMOL/L (136-145) 145 MMOL/L (136-145) Potassium Level 4.0 MMOL/L (3.5-5.1) 3.2 MMOL/L (3.5-5.1) Chloride Level 104 MMOL/L (98-107) 110 MMOL/L (98-107) Carbon Dioxide Level 26 MMOL/L (21-32) 27 MMOL/L (21-32) Anion Gap 12 mmol/L (5-15) 8 mmol/L (5-15) Blood Urea Nitrogen 17 mg/dL (7-18) 13 mg/dL (7-18) Creatinine 1.2 MG/DL (0.55-1.30) 1.1 MG/DL (0.55-1.30) Estimat Glomerular Filtration Rate 44.3 mL/min (>60) 49.0 mL/min (>60) Glucose Level 109 MG/DL (74-106) 188 MG/DL (74-106) Lactic Acid Level 1.30 mmol/L (0.4-2.0) Calcium Level 9.6 MG/DL (8.5-10.1) 8.5 MG/DL (8.5-10.1) Phosphorus Level 2.6 MG/DL (2.5-4.9) Magnesium Level 2.2 MG/DL (1.8-2.4) Total Bilirubin 0.4 MG/DL (0.2-1.0) Aspartate Amino Transf (AST/SGOT) 29 U/L (15-37) Alanine Aminotransferase (ALT/SGPT) 28 U/L (12-78) Alkaline Phosphatase 102 U/L (46-116) Total Creatine Kinase 131 U/L (26-308) Creatine Kinase MB 1.9 NG/ML (0.0-3.6) Creatine Kinase MB Relative Index 1.4 Troponin I 0.000 ng/mL (0.000-0.056) C-Reactive Protein, Quantitative 11.2 mg/dL (0.00-0.90) Pro-B-Type Natriuretic Peptide 296 pg/mL (0-125) Total Protein 8.6 G/DL (6.4-8.2) Albumin 2.8 G/DL (3.4-5.0) Globulin 5.8 g/dL Albumin/Globulin Ratio 0.5 (1.0-2.7) Lipase 85 U/L (73-393) Differential Total Cells Counted 100 Neutrophils % (Manual) 92 % (45-75) Lymphocytes % (Manual) 5 % (20-45) Monocytes % (Manual) 3 % (1-10) Eosinophils % (Manual) 0 % (0-3) Basophils % (Manual) 0 % (0-2) Band Neutrophils 0 % (0-8) Platelet Estimate Adequate Platelet Morphology Normal Hypochromasia 1+ Anisocytosis 1+ Height (Feet): 5 Height (Inches): 1.00 Weight (Pounds): 140 Objective PE Vitals: reviewed General: well appearing, no apparent distress, alert Heent: normocephalic, atraumatic, bilateral eye PERRL, bilateral eye EOMI Respiratory: lungs clear, no respiratory distress, no retraction, no accessory muscle use Cardiovascular: normal peripheral pulses, regular rate, rhythm, no edema, no gallop, no murmur Gastrointestinal: non tender, soft, no guarding, no rebound Musculoskeletal: normal inspection Neurologic: alert, oriented x3 Psychiatric: mood/affect normal Skin: warm/dry, other - Right lower extremity: Area of erythema on the tibial proximal aspect Mando Ventura MD Oct 06, 2020 06:44
--- NOTE | 2020-10-06 07:30 | NUR ---
NURSE NOTES: Patient is in bed. Agitated. Patient instructed to use call light for assistance, unable to comprehend. Patient is resistive to care. All safety measures provided. Patient is in bed in locked and lowest position with call light within reach. Will continue plan of care.
[2020-10-06 08:00] VITALS: BP 141/71
--- NOTE | 2020-10-06 08:33 | Surgery Progress Note ---
Surgery Progress Note Subjective Additional Comments afebrile, HD stable labs noted micro reviewed comfortable appearing no n/v Objective Last 24 Hour Vital Signs Date Time Temp Pulse Resp B/P (MAP) Pulse Ox O2 Delivery O2 Flow Rate FiO2 10/06/20 00:00 98.6 86 20 125/65 (85) 97 10/05/20 22:35 Room Air 10/05/20 22:29 98.3 10/05/20 20:00 98.6 92 18 126/75 (92) 97 10/05/20 16:00 98.3 75 18 129/59 (82) 97 10/05/20 12:00 99.0 89 18 135/82 (99) 96 10/05/20 09:29 97.9 10/05/20 09:00 Room Air I&O Intake and Output 10/05/20 10/06/20 19:00 07:00 Output Total 350 ml Balance -350 ml Output Urine Total 350 ml # Voids 4 3 # Bowel Movements 3 Dressing: other Wound: other Cardiovascular: RSR Respiratory: decreased breath sounds Abdomen: soft, non-tender, present bowel sounds, non-distended Extremities: edema, other Laboratory Tests Test 10/05/20 09:33 White Blood Count 14.5 K/UL (4.8-10.8) H Red Blood Count 3.52 M/UL (4.20-5.40) L Hemoglobin 9.4 G/DL (12.0-16.0) L Hematocrit 30.6 % (37.0-47.0) L Mean Corpuscular Volume 87 FL (80-99) Mean Corpuscular Hemoglobin 26.6 PG (27.0-31.0) L Mean Corpuscular Hemoglobin Concent 30.6 G/DL (32.0-36.0) L Red Cell Distribution Width 15.0 % (11.6-14.8) H Platelet Count 302 K/UL (150-450) Mean Platelet Volume 6.1 FL (6.5-10.1) L Neutrophils (%) (Auto) % (45.0-75.0) Lymphocytes (%) (Auto) % (20.0-45.0) Monocytes (%) (Auto) % (1.0-10.0) Eosinophils (%) (Auto) % (0.0-3.0) Basophils (%) (Auto) % (0.0-2.0) Differential Total Cells Counted 100 Neutrophils % (Manual) 92 % (45-75) H Lymphocytes % (Manual) 5 % (20-45) L Monocytes % (Manual) 3 % (1-10) Eosinophils % (Manual) 0 % (0-3) Basophils % (Manual) 0 % (0-2) Band Neutrophils 0 % (0-8) Platelet Estimate Adequate Platelet Morphology Normal Hypochromasia 1+ Anisocytosis 1+ Sodium Level 145 MMOL/L (136-145) Potassium Level 3.2 MMOL/L (3.5-5.1) L Chloride Level 110 MMOL/L (98-107) H Carbon Dioxide Level 27 MMOL/L (21-32) Anion Gap 8 mmol/L (5-15) Blood Urea Nitrogen 13 mg/dL (7-18) Creatinine 1.1 MG/DL (0.55-1.30) Estimat Glomerular Filtration Rate 49.0 mL/min (>60) Glucose Level 188 MG/DL (74-106) H Calcium Level 8.5 MG/DL (8.5-10.1) HIV (1&2) Antibody Rapid Pending Plan Problems: (1) Episode of generalized weakness (2) Cellulitis and abscess of leg Assessment & Plan: 70-year-old female with right lower extremity cellulitis mild edema on the left side anterior tibial ulceration identified on the right side mid leg potentially from trauma though patient denies. No nausea fever chills no abscess identified no drainage. Macerated eschar identified. Apply betadine swab to ulcer cover with Optifoam dressing. Keep her legs elevated while in bed. IV antibiotics per infectious disease. No acute surgical intervention planned at this time. Sacral stage 3 decubitus ulcer wound identified. therahoney gauze and foam dressing daily and prn saturation. turn every 2 hours, offload pressure, patient able to comply with care plan. Nutrition optimization. Follow with recommendations thank you allowing me to pa rticipate patient's care Pt presented on admission with MASD skin folds Both breasts, Swelling,Ulcerations to RLE. Full thickness Pressure Injury L Buttocks. Skin folds of both breasts are erythematous, and macerated. Mild odor noted. Full thickness Pressure Injury L Buttocks (L)1.5cm x (W)0.3cm x (D)0.2cm. Wound has appearance of slit with indurated and maroon borders. Non-Blanchable erythema without induration Sacrum and R Buttocks. Small ulcer with necrotic cap noted to posterior upper R Thigh. Marginal erythema along edges. Larger ulcer with necrotic cap noted to maurice R Tibia(L)3cm x (W)3.7cm. Marginal erythema along borders and periwound. Clockwise at 2-4o'clock along borders are macerated. No odor or exudate noted. A third smaller ulcer with necrotic cap noted to distal/lateral R tibia(L)0.9cm x (W)1cm. Marginal erythema along borders. Both heels are soft, but each heel easily blanchable. Tx.Plan: Wash both breasts with soap and water. Pat dry. Apply Light Dusting of Antifungal powder to each breasts Twice Daily. Cleanse L Buttocks with Saline. Apply Therahoney. Apply Moisture Barrier Paste periwound. Cover with Optifoam drsg. Change every 3 days and prn. Apply Moisture Barrier paste to Sacrum and R buttocks. Cover with Optifoam drsg. Change every 3 days and prn. Reposition at least every 2 hours or as tolerated. Off-load heels with pillow. DAILY ESTIMATED NEEDS: Needs based on Wound/ 51.7kg abw 25-30 kcals/kg 7560-7938 total kcals 1.25-1.5 g protein/kg 65-77 g total protein 25-30 mL/kg 9929-5609 total fluid mLs NUTRITION DIAGNOSIS: Increased kcal/prot needs R/T wound healing as evidenced by pt admitted w/ sacral wound per photo, pending evaluation. CURRENT DIET:REGULAR PO DIET RECOMMENDATIONS:REGULAR, texture as tolerated ADDITIONAL RECOMMENDATIONS: * Calibrated bedscale wt * Wound healing: add MVI x 1, Vit C 250mg QD F/up w/ WC eval * Monitor PO intake and tolerance * Monitor lytes, replete as needed (low K) (3) Pedal edema (4) Facial contusion (5) Right ankle sprain (6) Multiple rib fractures (7) Noncompliance with treatment plan Mason Snyder Oct 06, 2020 08:33
[2020-10-06] MEDS: Enoxaparin 40mg Inj SUBQ SCH (08:57)
[2020-10-06] MEDS: cefTRIAXone 1 GM in D5W 55 ML IVPB SCH (08:57)
--- NOTE | 2020-10-06 09:11 | Infectious Diseases Prog Note ---
Assessment/Plan 70yo F with: R kelley cellulitis, improving R kelley wound, dry scabbing Afebrile Leukocytosis to 17, improving 2/2 BCx NTD UA+, UCx +30-40k GAS, 80-90s mixed carmel Cr 1.2 R/o COVID 2/3 COVID PCR p CXR: Worsening aeration with development of some patchy retrocardiac opacities which may relate to subsegmental atelectasis however pneumonia should be excluded clinically. Development of mild interstitial/vascular prominence. Mild congestive changes of CHF can be considered. Findings may also be artifactual related to lower lung volumes. HIV screen neg PMH: HTN Allergic rhinitis Plan: Cont CTX 1g IV daily #3 for now for possible cellulitis, vastly improved on my exam from prior line that was drawn on skin On discharge can transition to cephalexin 500mg PO QID to complete 10 day course for complicated cellulitis F/u COVID PCR Trend WBC Trend RLE exam 10/04 SP vanco/Zosyn/flucon in ED Monitor CBC/CMP Monitor temp curve, hemodynamics Monitor resp status D/w RN Thank you for this consult. [facility] will continue to follow. Subjective Allergies: Coded Allergies: No Known Allergies (Unverified , 11/11/17) AF Labs p NAD on RA Objective Last 24 Hour Vital Signs Date Time Temp Pulse Resp B/P (MAP) Pulse Ox O2 Delivery O2 Flow Rate FiO2 10/06/20 00:00 98.6 86 20 125/65 (85) 97 10/05/20 22:35 Room Air 10/05/20 22:29 98.3 10/05/20 20:00 98.6 92 18 126/75 (92) 97 10/05/20 16:00 98.3 75 18 129/59 (82) 97 10/05/20 12:00 99.0 89 18 135/82 (99) 96 10/05/20 09:29 97.9 Height (Feet): 5 Height (Inches): 1.00 Weight (Pounds): 140 Gen: NAD HEENT: NCAT Pulm: BL chest rise Abd: Non-distended Ext: RLE w/ improved cellulitis, central wound on R kelley healing Skin: No visible rashes Neuro: Awake Microbiology Date/Time Source Procedure Growth Status 10/04/20 17:45 Blood Blood Culture - Preliminary NO GROWTH AFTER 24 HOURS Resulted 10/04/20 17:28 Urine,Clean Catch Urine Culture - Preliminary Streptococcus Pyogenes Grp A Mixed Urogenital Contaminants Resulted 10/04/20 17:28 Blood Blood Culture - Preliminary NO GROWTH AFTER 24 HOURS Resulted Laboratory Tests Test 10/05/20 09:33 White Blood Count 14.5 K/UL (4.8-10.8) H Red Blood Count 3.52 M/UL (4.20-5.40) L Hemoglobin 9.4 G/DL (12.0-16.0) L Hematocrit 30.6 % (37.0-47.0) L Mean Corpuscular Volume 87 FL (80-99) Mean Corpuscular Hemoglobin 26.6 PG (27.0-31.0) L Mean Corpuscular Hemoglobin Concent 30.6 G/DL (32.0-36.0) L Red Cell Distribution Width 15.0 % (11.6-14.8) H Platelet Count 302 K/UL (150-450) Mean Platelet Volume 6.1 FL (6.5-10.1) L Neutrophils (%) (Auto) % (45.0-75.0) Lymphocytes (%) (Auto) % (20.0-45.0) Monocytes (%) (Auto) % (1.0-10.0) Eosinophils (%) (Auto) % (0.0-3.0) Basophils (%) (Auto) % (0.0-2.0) Differential Total Cells Counted 100 Neutrophils % (Manual) 92 % (45-75) H Lymphocytes % (Manual) 5 % (20-45) L Monocytes % (Manual) 3 % (1-10) Eosinophils % (Manual) 0 % (0-3) Basophils % (Manual) 0 % (0-2) Band Neutrophils 0 % (0-8) Platelet Estimate Adequate Platelet Morphology Normal Hypochromasia 1+ Anisocytosis 1+ Sodium Level 145 MMOL/L (136-145) Potassium Level 3.2 MMOL/L (3.5-5.1) L Chloride Level 110 MMOL/L (98-107) H Carbon Dioxide Level 27 MMOL/L (21-32) Anion Gap 8 mmol/L (5-15) Blood Urea Nitrogen 13 mg/dL (7-18) Creatinine 1.1 MG/DL (0.55-1.30) Estimat Glomerular Filtration Rate 49.0 mL/min (>60) Glucose Level 188 MG/DL (74-106) H Calcium Level 8.5 MG/DL (8.5-10.1) HIV (1&2) Antibody Rapid Pending Current Medications Medications (Trade) Dose Ordered Sig/Siddharth Route PRN Reason Start Time Stop Time Status Last Admin Dose Admin Acetaminophen (Tylenol) 650 mg Q6H PRN ORAL Mild Pain (Pain Scale 1-3) 10/04/20 20:45 11/03/20 20:44 Acetaminophen (Tylenol) 650 mg Q6H PRN ORAL fever 10/04/20 20:45 11/03/20 20:44 Ceftriaxone Sodium 1 gm/ Dextrose 55 ml @ 110 mls/hr DAILY IVPB 10/05/20 09:00 10/11/20 20:44 10/06/20 08:57 Diphenhydramine HCl (Benadryl) 25 mg Q6H PRN ORAL Itching 10/04/20 20:45 11/03/20 20:44 10/05/20 21:34 Enoxaparin Sodium (Lovenox) 40 mg DAILY SUBQ 10/05/20 09:00 01/03/21 08:59 10/06/20 08:57 Morphine Sulfate (Morphine Sulfate) 2 mg Q8H PRN IVP Severe Pain (Pain Scale 7-10) 10/04/20 20:45 10/11/20 20:44 10/05/20 21:59 Sparkle Roque M.D. Oct 06, 2020 09:11
[2020-10-06] MEDS ORDERED: Haloperidol 5mg/ml Inj IM SCH ×2 (09:24→13:30)
[2020-10-06] MEDS ORDERED: DiphenhydrAMINE 50mg/ml Inj IM SCH ×2 (09:25→13:30)
[2020-10-06] MEDS ORDERED: LORazepam Inj 2mg/ml 1ml IM SCH ×2 (09:25→13:30)
--- NOTE | 2020-10-06 10:22 | Cardiac Electrophysiology PN ---
Assessment/Plan Assessment/Plan 1. Atypical chest pain. The first troponin is negative. Refuse Labs Get the EKG Echocardiogram EF 60% 2. Hypokalemia. Potassium was replaced. 3. Cellulitis of the leg. The patient is already on ceftriaxone. 4. Tachycardia, likely due to cellulitis. 5. Dementia and agitation. Subjective Subjective Agitated and confused in restraints in covid isolation. RN at bedside Objective Last 24 Hour Vital Signs Date Time Temp Pulse Resp B/P (MAP) Pulse Ox O2 Delivery O2 Flow Rate FiO2 10/06/20 10:11 86 20 125/65 97 10/06/20 09:40 86 20 125/65 97 10/06/20 00:00 98.6 86 20 125/65 (85) 97 10/05/20 22:35 Room Air 10/05/20 22:29 98.3 10/05/20 20:00 98.6 92 18 126/75 (92) 97 10/05/20 16:00 98.3 75 18 129/59 (82) 97 10/05/20 12:00 99.0 89 18 135/82 (99) 96 Intake and Output 10/05/20 10/06/20 19:00 07:00 Output Total 350 ml Balance -350 ml Output Urine Total 350 ml # Voids 4 3 # Bowel Movements 3 Microbiology Date/Time Source Procedure Growth Status 10/04/20 17:45 Blood Blood Culture - Preliminary NO GROWTH AFTER 24 HOURS Resulted 10/04/20 17:28 Urine,Clean Catch Urine Culture - Preliminary Streptococcus Pyogenes Grp A Mixed Urogenital Contaminants Resulted 10/04/20 17:28 Blood Blood Culture - Preliminary NO GROWTH AFTER 24 HOURS Resulted Objective HEAD AND NECK: No JVD. LUNGS: Clear. CARDIOVASCULAR: Regular S1 and S2 with no gallop. ABDOMEN: Soft. EXTREMITIES: Pain in the right leg. Leon Patricio MD Oct 06, 2020 10:22
[2020-10-06 12:00] VITALS: BP 165/59
--- NOTE | 2020-10-06 12:34 | General Progress Note ---
Subjective Allergies: Coded Allergies: No Known Allergies (Unverified , 11/11/17) All Systems: reviewed and negative except above Subjective sleepy calm Objective Last 24 Hour Vital Signs Date Time Temp Pulse Resp B/P (MAP) Pulse Ox O2 Delivery O2 Flow Rate FiO2 10/06/20 10:11 86 20 125/65 97 10/06/20 09:40 86 20 125/65 97 10/06/20 09:00 Room Air 10/06/20 08:00 98.0 103 18 141/71 (94) 97 10/06/20 00:00 98.6 86 20 125/65 (85) 97 10/05/20 22:35 Room Air 10/05/20 22:29 98.3 10/05/20 20:00 98.6 92 18 126/75 (92) 97 10/05/20 16:00 98.3 75 18 129/59 (82) 97 Intake and Output 10/05/20 10/06/20 19:00 07:00 Output Total 350 ml Balance -350 ml Output Urine Total 350 ml # Voids 4 3 # Bowel Movements 3 Height (Feet): 5 Height (Inches): 1.00 Weight (Pounds): 140 General Appearance: lethargic EENT: normal ENT inspection Neck: normal alignment Cardiovascular: normal peripheral pulses, normal rate, regular rhythm Respiratory/Chest: chest wall non-tender, lungs clear, normal breath sounds Abdomen: normal bowel sounds, non tender, soft Extremities: normal inspection Edema: 1+ Arm (L), 1+ Arm (R), 1+ Leg (L), 1+ Leg (R), 1+ Pedal (L), 1+ Pedal (R), 1+ Generalized Neurologic: motor weakness Skin: normal pigmentation, warm/dry Objective sl redness below r mid kelley Assessment/Plan Problem List: (1) Anemia ICD Codes: D64.9 - Anemia, unspecified SNOMED: 456306171 (2) Episode of generalized weakness ICD Codes: R53.1 - Weakness SNOMED: 24375992 (3) Cellulitis and abscess of leg ICD Codes: L03.119 - Cellulitis of unspecified part of limb; L02.419 - Cutaneous abscess of limb, unspecified SNOMED: 049259202 (4) Pedal edema ICD Codes: R60.0 - Localized edema SNOMED: 358590248 (5) Noncompliance with treatment plan ICD Codes: Z91.11 - Patient's noncompliance with dietary regimen SNOMED: 546793900 Status: unchanged Benjamin Ingram DO Oct 06, 2020 12:34
[2020-10-06 16:00] VITALS: BP 113/59
--- NOTE | 2020-10-06 19:05 | NUR ---
NURSE NOTES: Received report from MIAH Peres. Pt is in bed and slightly agitated. MARIA EUGENIA soft wrist restraints in place with proper circulation. Call light within reach, bed in lowest position, side rails up x3. Will continue to monitor.
--- NOTE | 2020-10-06 19:34 | NUR ---
NURSE HAND-OFF: Report given to Osbaldo DOOLEY.
[2020-10-06 20:00] VITALS: BP 132/85
[2020-10-07] VITALS: BP 143/81
[2020-10-07 04:00] VITALS: BP 138/82
[2020-10-07] MEDS ORDERED: LORazepam 1mg tab ORAL PRN (05:15)
--- NOTE | 2020-10-07 05:29 | Psychiatry Consultation ---
Psychiatry Consultation Psychiatry Consultation Chief Complaint: Generalized Weakness History of Present Illness: 70 yo female who came to the hospital due to cellulitis and muscle weakness but she ended up exhibiting extreme anxiety and agitation with slight combativeness requiring emergency medications to stabilize her. Due to extreme mood lability there was a daily psych consult requested. Allergies: Coded Allergies: No Known Allergies (Unverified , 11/11/17) Medical History: See internal medicine note Substance Abuse History: Denies Social/Family/Abuse/Legal Hx: none Medication History Scheduled Naloxone HCl (Narcan), 4 MG NS PRN Scheduled PRN Ibuprofen* (Motrin*), 600 MG ORAL Q6H PRN for For Pain Discontinued Medications Acetaminophen With Codeine (T#3) (Tylenol #3 Tab*), 1 TAB ORAL Q8HR PRN for For Pain Discontinued Reason: Therapy completed Acetaminophen With Codeine (T#3) (Tylenol #3 Tab*), 1 TAB ORAL Q6H PRN for For Pain Discontinued Reason: Therapy completed Acetaminophen* (Tylenol Extra Strength*), 500 MG ORAL Q8H PRN for Prn Headache/Temp > 101 Discontinued Reason: Therapy completed Cephalexin* (Keflex*), 500 MG ORAL EVERY 12 HOURS Discontinued Reason: Therapy completed Cephalexin* (Keflex*), 500 MG ORAL EVERY 12 HOURS Discontinued Reason: Therapy completed Ciclopirox Olamine (Ciclopirox), 1 APPLIC TOPIC BID Discontinued Reason: Therapy completed Hydrochlorothiazide* (Hydrochlorothiazide*), 25 MG ORAL DAILY Discontinued Reason: Therapy completed Hydrocodone Bit/Acetaminophen 5-325* ([place] 5-325*), 1 TAB ORAL Q6H PRN for For Pain Discontinued Reason: Therapy completed Loratadine (Claritin), 10 MG ORAL DAILY Discontinued Reason: Therapy completed No Known Medications* (NKM - No Known Medications*), 0 ., (Reported) Discontinued Reason: Therapy completed Permethrin* (Elimite*), 1 APPLIC TOPIC ONCE Discontinued Reason: Pt had allergic rxn Objective Data Height (Feet): 5 Height (Inches): 1.00 Weight (Pounds): 140 Appearance: disheveled Behavior Mannerisms: poor eye contact Affect: labile Mood: expansive Speech: slurred Thought Process: disorganized Thought Content: paranoia Perceptual Disturbances: auditory Suicidal Ideation: no plan Assessment/Plan Assessment/Plan: Ativan 1mg PO q6h prn anxiety, Risperdal 0.5 po BID and 20min of insight oriented psychotherapy to help pt have better impulse control due to better realization of he symptoms. Diagnosis Ono I: Major Depression with psychotic features Elmer Herrera MD Oct 07, 2020 05:29
--- NOTE | 2020-10-07 06:50 | Hematology/Onc Progress Note ---
Assessment/Plan Assessment/Plan Assessment and Recs # Leukocytosis is likely related to uti, has been started on abx --> as per id recs --> ABX ctx --> wbc 17.6-->14 # Anemia due likely to chronic disease --> hgb 10-->9 --> anemia panel if downtrends --> transfuse prn # Episode of generalized weakness --> on ivfs, tele --> consider cards # Cellulitis and abscess of leg --> abx # Fungal infection on her chest wall noted by the nurses --> will start patient on fluconazole and nystatin # Dvt ppx lovenox sq Appreciate consultation and guero rn Subjective Constitutional: Denies: no symptoms, chills, fever, malaise, weakness, other HEENT: Denies: no symptoms, eye pain, blurred vision, tearing, double vision, ear pain, ear discharge, nose pain, nose congestion, throat pain, throat swelling, mouth pain, mouth swelling, other Respiratory: Denies: no symptoms, cough, shortness of breath, SOB with excertion, SOB at rest, sputum, wheezing, other Gastrointestinal/Abdominal: Denies: no symptoms, abdomen distended, abdominal pain, black stools, tarry stools, blood in stool, constipated, diarrhea, difficulty swallowing, nausea, poor appetite, poor fluid intake, rectal bleeding, vomiting, other Genitourinary: Denies: no symptoms, burning, discharge, frequency, flank pain, hematuria, incontinence, pain, urgency, other Neurologic/Psychiatric: Denies: no symptoms, anxiety, depressed, emotional problems, headache, numbness, paresthesia, pre-existing deficit, seizure, tingling, tremors, weakness, other Endocrine: Denies: no symptoms, excessive sweating, flushing, intolerance to cold, intolerance to heat, increased hunger, increased thirst, increased urine, unexplained weight gain, unexplained weight loss, other Hematologic/Lymphatic: Denies: no symptoms, anemia, easy bleeding, easy bruising, adenopathy, other Allergies: Coded Allergies: No Known Allergies (Unverified , 11/11/17) Subjective 2/4 agitated, hysterical, labs noted, anemia panel ordered 2/5 meds noted, have ordered for cbc, labs reviewed, guero rn Objective Objective Current Medications Medications (Trade) Dose Ordered Sig/Siddharth Route PRN Reason Start Time Stop Time Status Last Admin Dose Admin Acetaminophen (Tylenol) 650 mg Q6H PRN ORAL Mild Pain (Pain Scale 1-3) 10/04/20 20:45 11/03/20 20:44 Acetaminophen (Tylenol) 650 mg Q6H PRN ORAL fever 10/04/20 20:45 11/03/20 20:44 Ceftriaxone Sodium 1 gm/ Dextrose 55 ml @ 110 mls/hr DAILY IVPB 10/05/20 09:00 10/11/20 20:44 10/06/20 08:57 Diphenhydramine HCl (Benadryl) 25 mg Q6H PRN ORAL Itching 10/04/20 20:45 11/03/20 20:44 10/06/20 17:56 Enoxaparin Sodium (Lovenox) 40 mg DAILY SUBQ 10/05/20 09:00 01/03/21 08:59 10/06/20 08:57 Lorazepam (Ativan) 1 mg Q6H PRN ORAL For Anxiety 10/07/20 05:15 10/14/20 05:14 10/07/20 05:31 Morphine Sulfate (Morphine Sulfate) 2 mg Q8H PRN IVP Severe Pain (Pain Scale 7-10) 10/04/20 20:45 10/11/20 20:44 10/05/20 21:59 Risperidone (RisperDAL) 0.5 mg BID ORAL 10/07/20 09:00 11/21/20 08:59 Last 24 Hour Vital Signs Date Time Temp Pulse Resp B/P (MAP) Pulse Ox O2 Delivery O2 Flow Rate FiO2 10/07/20 06:01 95 19 134/80 96 10/07/20 05:31 102 22 138/82 95 10/07/20 04:00 98.7 102 22 138/82 (100) 95 10/07/20 00:00 98.2 93 20 143/81 (101) 95 10/06/20 21:00 Room Air 10/06/20 20:00 97.9 88 20 132/85 (101) 97 10/06/20 16:00 99.8 76 20 113/59 (77) 95 10/06/20 14:09 76 20 113/59 95 10/06/20 13:39 76 20 165/59 98 10/06/20 12:00 99.3 76 20 165/59 (94) 98 10/06/20 10:11 86 20 125/65 97 10/06/20 09:40 86 20 125/65 97 10/06/20 09:00 Room Air 10/06/20 08:00 98.0 103 18 141/71 (94) 97 10/06/20 00:00 98.6 86 20 125/65 (85) 97 10/05/20 22:35 Room Air 10/05/20 22:29 98.3 10/05/20 20:00 98.6 92 18 126/75 (92) 97 10/05/20 16:00 98.3 75 18 129/59 (82) 97 10/05/20 12:00 99.0 89 18 135/82 (99) 96 10/05/20 09:29 97.9 10/05/20 09:00 Room Air 10/05/20 08:00 98.8 99 20 119/71 (87) 96 Intake and Output 10/06/20 10/07/20 19:00 07:00 # Voids 2 3 # Bowel Movements 2 Labs Test 10/04/20 17:28 10/05/20 09:33 White Blood Count 17.6 K/UL (4.8-10.8) 14.5 K/UL (4.8-10.8) Red Blood Count 4.04 M/UL (4.20-5.40) 3.52 M/UL (4.20-5.40) Hemoglobin 10.8 G/DL (12.0-16.0) 9.4 G/DL (12.0-16.0) Hematocrit 34.6 % (37.0-47.0) 30.6 % (37.0-47.0) Mean Corpuscular Volume 86 FL (80-99) 87 FL (80-99) Mean Corpuscular Hemoglobin 26.7 PG (27.0-31.0) 26.6 PG (27.0-31.0) Mean Corpuscular Hemoglobin Concent 31.2 G/DL (32.0-36.0) 30.6 G/DL (32.0-36.0) Red Cell Distribution Width 15.0 % (11.6-14.8) 15.0 % (11.6-14.8) Platelet Count 294 K/UL (150-450) 302 K/UL (150-450) Mean Platelet Volume 6.5 FL (6.5-10.1) 6.1 FL (6.5-10.1) Neutrophils (%) (Auto) 86.3 % (45.0-75.0) % (45.0-75.0) Lymphocytes (%) (Auto) 8.6 % (20.0-45.0) % (20.0-45.0) Monocytes (%) (Auto) 3.7 % (1.0-10.0) % (1.0-10.0) Eosinophils (%) (Auto) 1.0 % (0.0-3.0) % (0.0-3.0) Basophils (%) (Auto) 0.4 % (0.0-2.0) % (0.0-2.0) Erythrocyte Sedimentation Rate 63 MM/HR (0-30) Prothrombin Time 11.2 SEC (9.30-11.50) Prothromb Time International Ratio 1.0 (0.9-1.1) Activated Partial Thromboplast Time 26 SEC (23-33) Urine Color Yellow Urine Appearance Cloudy Urine pH 5 (4.5-8.0) Urine Specific [place] 1.015 (1.005-1.035) Urine Protein 2+ (NEGATIVE) Urine Glucose (UA) Negative (NEGATIVE) Urine Ketones Negative (NEGATIVE) Urine Blood 4+ (NEGATIVE) Urine Nitrite Negative (NEGATIVE) Urine Bilirubin Negative (NEGATIVE) Urine Urobilinogen Normal MG/DL (0.0-1.0) Urine Leukocyte Esterase 3+ (NEGATIVE) Urine RBC 15-20 /HPF (0 - 2) Urine WBC Tntc /HPF (0 - 2) Urine Squamous Epithelial Cells Moderate /LPF (NONE/OCC) Urine Bacteria Many /HPF (NONE) Sodium Level 142 MMOL/L (136-145) 145 MMOL/L (136-145) Potassium Level 4.0 MMOL/L (3.5-5.1) 3.2 MMOL/L (3.5-5.1) Chloride Level 104 MMOL/L (98-107) 110 MMOL/L (98-107) Carbon Dioxide Level 26 MMOL/L (21-32) 27 MMOL/L (21-32) Anion Gap 12 mmol/L (5-15) 8 mmol/L (5-15) Blood Urea Nitrogen 17 mg/dL (7-18) 13 mg/dL (7-18) Creatinine 1.2 MG/DL (0.55-1.30) 1.1 MG/DL (0.55-1.30) Estimat Glomerular Filtration Rate 44.3 mL/min (>60) 49.0 mL/min (>60) Glucose Level 109 MG/DL (74-106) 188 MG/DL (74-106) Lactic Acid Level 1.30 mmol/L (0.4-2.0) Calcium Level 9.6 MG/DL (8.5-10.1) 8.5 MG/DL (8.5-10.1) Phosphorus Level 2.6 MG/DL (2.5-4.9) Magnesium Level 2.2 MG/DL (1.8-2.4) Total Bilirubin 0.4 MG/DL (0.2-1.0) Aspartate Amino Transf (AST/SGOT) 29 U/L (15-37) Alanine Aminotransferase (ALT/SGPT) 28 U/L (12-78) Alkaline Phosphatase 102 U/L (46-116) Total Creatine Kinase 131 U/L (26-308) Creatine Kinase MB 1.9 NG/ML (0.0-3.6) Creatine Kinase MB Relative Index 1.4 Troponin I 0.000 ng/mL (0.000-0.056) C-Reactive Protein, Quantitative 11.2 mg/dL (0.00-0.90) Pro-B-Type Natriuretic Peptide 296 pg/mL (0-125) Total Protein 8.6 G/DL (6.4-8.2) Albumin 2.8 G/DL (3.4-5.0) Globulin 5.8 g/dL Albumin/Globulin Ratio 0.5 (1.0-2.7) Lipase 85 U/L (73-393) Differential Total Cells Counted 100 Neutrophils % (Manual) 92 % (45-75) Lymphocytes % (Manual) 5 % (20-45) Monocytes % (Manual) 3 % (1-10) Eosinophils % (Manual) 0 % (0-3) Basophils % (Manual) 0 % (0-2) Band Neutrophils 0 % (0-8) Platelet Estimate Adequate Platelet Morphology Normal Hypochromasia 1+ Anisocytosis 1+ HIV (1&2) Antibody Rapid Negative (NEGATIVE) Height (Feet): 5 Height (Inches): 1.00 Weight (Pounds): 140 Objective PE Vitals: reviewed General: well appearing, no apparent distress, alert Heent: normocephalic, atraumatic, bilateral eye PERRL, bilateral eye EOMI Respiratory: lungs clear, no respiratory distress, no retraction, no accessory muscle use Cardiovascular: normal peripheral pulses, regular rate, rhythm, no edema, no gallop, no murmur Gastrointestinal: non tender, soft, no guarding, no rebound Musculoskeletal: normal inspection Neurologic: alert, oriented x3 Psychiatric: mood/affect normal Skin: warm/dry, other - Right lower extremity: Area of erythema on the tibial proximal aspect Mando Ventura MD Oct 07, 2020 06:50
--- NOTE | 2020-10-07 07:30 | NUR ---
NURSE HAND-OFF: Important Events on Shift: Pt was agitated, doctor ordered ativan PRN which helped Patient Status: sleeping Diet: regular Pending Orders: Pending Results/Labs: Pending MD notification: Latest Vital Signs: Temperature 98.7 , Pulse 95 , B/P 134 /80 , Respiratory Rate 19 , O2 SAT 96 , Room Air, O2 Flow Rate . Vital Sign Comment: VSS Latest Landry Fall Score: 45 Fall Risk: High Risk Safety Measures: Call light Within Reach, Bed Alarm Zone 1, Side Rails Side Rails x2, Bed position Low and Locked. Fall Precautions: Yellow Socks Yellow Gown Door Sign Patient Fall Education Report given to MIAH Simmons.
--- NOTE | 2020-10-07 07:36 | Infectious Diseases Prog Note ---
Assessment/Plan 70yo F with: R kelley cellulitis, improving R kelley wound, dry scabbing Afebrile Leukocytosis to 17, improving 2/2 BCx NTD UA+, UCx +30-40k GAS, 80-90s mixed carmel Cr 1.2 R/o COVID 2/3 COVID PCR neg CXR: Worsening aeration with development of some patchy retrocardiac opacities which may relate to subsegmental atelectasis however pneumonia should be excluded clinically. Development of mild interstitial/vascular prominence. Mild congestive changes of CHF can be considered. Findings may also be artifactual related to lower lung volumes. HIV screen neg PMH: HTN Allergic rhinitis Plan: Cont CTX 1g IV daily #5 for now for possible cellulitis, vastly improved on my exam from prior line that was drawn on skin On discharge can transition to Augmentin 875mg PO BID to complete 10 day course for complicated cellulitis Trend WBC, if not improving and if exam worsens then will consider broadening to Zosyn Trend RLE exam 2/ SP vanco/Zosyn/flucon in ED Monitor CBC/CMP Monitor temp curve, hemodynamics Monitor resp status D/w RN Thank you for this consult. [facility] will continue to follow. Subjective Allergies: Coded Allergies: No Known Allergies (Unverified , 11/11/17) AF NAD on RA Kicking in bed, refusing exam WBC 15, stable Objective Last 24 Hour Vital Signs Date Time Temp Pulse Resp B/P (MAP) Pulse Ox O2 Delivery O2 Flow Rate FiO2 10/07/20 06:01 95 19 134/80 96 10/07/20 05:31 102 22 138/82 95 10/07/20 04:00 98.7 102 22 138/82 (100) 95 10/07/20 00:00 98.2 93 20 143/81 (101) 95 10/06/20 21:00 Room Air 10/06/20 20:00 97.9 88 20 132/85 (101) 97 10/06/20 16:00 99.8 76 20 113/59 (77) 95 10/06/20 14:09 76 20 113/59 95 10/06/20 13:39 76 20 165/59 98 10/06/20 12:00 99.3 76 20 165/59 (94) 98 10/06/20 10:11 86 20 125/65 97 2/4/21 09:40 86 20 125/65 97 10/06/20 09:00 Room Air 10/06/20 08:00 98.0 103 18 141/71 (94) 97 Height (Feet): 5 Height (Inches): 1.00 Weight (Pounds): 140 Gen: NAD HEENT: NCAT Pulm: BL chest rise Abd: Non-distended Ext: RLE w/ improved cellulitis, central wound on R kelley healing Skin: No visible rashes Neuro: Awake Microbiology Date/Time Source Procedure Growth Status 10/05/20 11:19 Nasopharynx Coronavirus COVID-19 PCR (GRACIA) - Final Complete 10/04/20 17:45 Blood Blood Culture - Preliminary NO GROWTH AFTER 48 HOURS Resulted 10/04/20 17:28 Urine,Clean Catch Urine Culture - Final Streptococcus Pyogenes Grp A Mixed Urogenital Contaminants Complete 10/04/20 17:28 Blood Blood Culture - Preliminary NO GROWTH AFTER 48 HOURS Resulted Current Medications Medications (Trade) Dose Ordered Sig/Siddharth Route PRN Reason Start Time Stop Time Status Last Admin Dose Admin Acetaminophen (Tylenol) 650 mg Q6H PRN ORAL Mild Pain (Pain Scale 1-3) 10/04/20 20:45 11/03/20 20:44 Acetaminophen (Tylenol) 650 mg Q6H PRN ORAL fever 10/04/20 20:45 11/03/20 20:44 Ceftriaxone Sodium 1 gm/ Dextrose 55 ml @ 110 mls/hr DAILY IVPB 10/05/20 09:00 10/11/20 20:44 10/06/20 08:57 Diphenhydramine HCl (Benadryl) 25 mg Q6H PRN ORAL Itching 10/04/20 20:45 11/03/20 20:44 10/06/20 17:56 Enoxaparin Sodium (Lovenox) 40 mg DAILY SUBQ 10/05/20 09:00 01/03/21 08:59 10/06/20 08:57 Lorazepam (Ativan) 1 mg Q6H PRN ORAL For Anxiety 10/07/20 05:15 10/14/20 05:14 10/07/20 05:31 Morphine Sulfate (Morphine Sulfate) 2 mg Q8H PRN IVP Severe Pain (Pain Scale 7-10) 10/04/20 20:45 10/11/20 20:44 10/05/20 21:59 Risperidone (RisperDAL) 0.5 mg BID ORAL 10/07/20 09:00 11/21/20 08:59 Sparkle Roque M.D. Oct 07, 2020 07:36
--- NOTE | 2020-10-07 07:45 | NUR ---
NURSE NOTES: received report from MIAH Roblero. patient in bed. disoriented. limited verbal communication. restless, agitated. no respiratory distress on room air. IV on right hand intact. running TKO. soft restraints on both wrists for preventing pulling devices and safety. skin intact.no swelling noted. peripheral pulses noted. bed in the lowest position and locked. call light within reach. alarm on. will continue to provide plan of care.
[2020-10-07 08:00] VITALS: BP 143/93
[2020-10-07 08:34] LABS: HEMATOCRIT 31.4 % (37.0-47.0); HEMOGLOBIN 9.8 G/DL (12.0-16.0); MEAN CORPUSCULAR VOLUME 86 FL (80-99); PLATELET COUNT 320 K/UL (150-450); RED BLOOD COUNT 3.66 M/UL (4.20-5.40); RED CELL DISTRIBUTION WIDTH 14.6 % (11.6-14.8); WHITE BLOOD COUNT 15.9 K/UL (4.8-10.8)
[2020-10-07 08:45] LABS: CALCIUM 8.9 MG/DL (8.5-10.1); CREATININE 1.1 MG/DL (0.55-1.30); POTASSIUM 3.7 MMOL/L (3.5-5.1)
[2020-10-07 08:52] LABS: ALANINE AMINOTRANSFERASE 25 U/L (12-78); ALBUMIN 2.1 G/DL (3.4-5.0); ALKALINE PHOSPHATASE 81 U/L (46-116); ASPARTATE AMINO TRANSFERASE 46 U/L (15-37); BILIRUBIN,DIRECT < 0.1 MG/DL (0.0-0.3); BILIRUBIN,TOTAL 0.3 MG/DL (0.2-1.0); PHOSPHORUS 2.4 MG/DL (2.5-4.9)
[2020-10-07] MEDS: cefTRIAXone 1 GM in D5W 55 ML IVPB SCH (09:20)
[2020-10-07] MEDS: Enoxaparin 40mg Inj SUBQ SCH (09:21)
--- NOTE | 2020-10-07 09:32 | General Progress Note ---
Subjective Constitutional: Reports: weakness Allergies: Coded Allergies: No Known Allergies (Unverified , 11/11/17) All Systems: reviewed and negative except above Subjective sleepy calm Objective Last 24 Hour Vital Signs Date Time Temp Pulse Resp B/P (MAP) Pulse Ox O2 Delivery O2 Flow Rate FiO2 10/07/20 08:00 98.4 102 20 143/93 (110) 99 10/07/20 06:01 95 19 134/80 96 10/07/20 05:31 102 22 138/82 95 10/07/20 04:00 98.7 102 22 138/82 (100) 95 10/07/20 00:00 98.2 93 20 143/81 (101) 95 10/06/20 21:00 Room Air 10/06/20 20:00 97.9 88 20 132/85 (101) 97 10/06/20 16:00 99.8 76 20 113/59 (77) 95 10/06/20 14:09 76 20 113/59 95 10/06/20 13:39 76 20 165/59 98 10/06/20 12:00 99.3 76 20 165/59 (94) 98 10/06/20 10:11 86 20 125/65 97 10/06/20 09:40 86 20 125/65 97 Intake and Output 10/06/20 10/07/20 19:00 07:00 # Voids 2 3 # Bowel Movements 2 Laboratory Tests 10/07/20 08:00: White Blood Count 15.9H, Red Blood Count 3.66L, Hemoglobin 9.8L, Hematocrit 31.4L, Mean Corpuscular Volume 86, Mean Corpuscular Hemoglobin 26.6L, Mean Corpuscular Hemoglobin Concent 31.1L, Red Cell Distribution Width 14.6, Platelet Count 320, Mean Platelet Volume 6.6, Neutrophils (%) (Auto) , Lymphocytes (%) (Auto) , Monocytes (%) (Auto) , Eosinophils (%) (Auto) , Basophils (%) (Auto) , Neutrophils % (Manual) [Pending], Lymphocytes % (Manual) [Pending], Platelet Estimate [Pending], Platelet Morphology [Pending], Sodium Level 144, Potassium Level 3.7, Chloride Level 109H, Carbon Dioxide Level 23, Anion Gap 12, Blood Urea Nitrogen 10, Creatinine 1.1, Estimat Glomerular Filtration Rate 49.0, Glucose Level 83, Uric Acid 6.5, Calcium Level 8.9, Phosphorus Level 2.4L, Magnesium Level 1.9, Total Bilirubin 0.3, Direct Bilirubin < 0.1, Aspartate Amino Transf (AST/SGOT) 46H, Alanine Aminotransferase (ALT/SGPT) 25, Alkaline Phosphatase 81, Total Protein 7.1, Albumin 2.1L Height (Feet): 5 Height (Inches): 1.00 Weight (Pounds): 140 General Appearance: lethargic, confused EENT: normal ENT inspection Neck: normal alignment Cardiovascular: normal peripheral pulses, normal rate, regular rhythm Respiratory/Chest: chest wall non-tender, lungs clear, normal breath sounds Abdomen: normal bowel sounds, non tender, soft Extremities: normal inspection Edema: 1+ Arm (L), 1+ Arm (R), 1+ Leg (L), 1+ Leg (R), 1+ Pedal (L), 1+ Pedal (R), 1+ Generalized Neurologic: motor weakness Skin: normal pigmentation, warm/dry Objective sl redness below r mid kelley Assessment/Plan Problem List: (1) Anemia ICD Codes: D64.9 - Anemia, unspecified SNOMED: 845114112 (2) Episode of generalized weakness ICD Codes: R53.1 - Weakness SNOMED: 82599691 (3) Cellulitis and abscess of leg ICD Codes: L03.119 - Cellulitis of unspecified part of limb; L02.419 - Cutaneous abscess of limb, unspecified SNOMED: 887474671 (4) Pedal edema ICD Codes: R60.0 - Localized edema SNOMED: 522774638 (5) Noncompliance with treatment plan ICD Codes: Z91.11 - Patient's noncompliance with dietary regimen SNOMED: 938388618 Status: unchanged Assessment/Plan: wound care abx psyc tx and transfer prn cbc bmp Benjamin Joiner DO Oct 07, 2020 09:32
--- NOTE | 2020-10-07 11:41 | NUR ---
CASE MANAGEMENT:REVIEW 10/07/20 SI: CELLULITIS AND LEG ABSCESS 98.4 102 20 143/93 99% ON RA WBC+15.9 H/H-9.8/31.4 IS: IV ROCEPHIN Q24 RISPERDAL PO BID LOVENOX SQ QD : MED/SURG STATUS DCP: FROM HOME
[2020-10-07 12:00] VITALS: BP 141/86
--- NOTE | 2020-10-07 13:23 | Cardiac Electrophysiology PN ---
Assessment/Plan Assessment/Plan 1. Atypical chest pain. The first troponin is negative. Refuse Labs Echocardiogram EF 60% 2. Hypokalemia. Potassium was replaced. 3. Cellulitis of the leg. The patient is already on ceftriaxone. 4. Tachycardia, likely due to cellulitis. 5. Dementia and agitation. Subjective Subjective Agitated and confused in restraints off covid isolation( PCR was negative). RN at bedside Objective Last 24 Hour Vital Signs Date Time Temp Pulse Resp B/P (MAP) Pulse Ox O2 Delivery O2 Flow Rate FiO2 10/07/20 12:00 97.2 99 18 141/86 (104) 98 10/07/20 09:00 Room Air 10/07/20 08:00 98.4 102 20 143/93 (110) 99 10/07/20 06:01 95 19 134/80 96 10/07/20 05:31 102 22 138/82 95 10/07/20 04:00 98.7 102 22 138/82 (100) 95 10/07/20 00:00 98.2 93 20 143/81 (101) 95 10/06/20 21:00 Room Air 10/06/20 20:00 97.9 88 20 132/85 (101) 97 10/06/20 16:00 99.8 76 20 113/59 (77) 95 10/06/20 14:09 76 20 113/59 95 10/06/20 13:39 76 20 165/59 98 Intake and Output 10/06/20 10/07/20 19:00 07:00 # Voids 2 3 # Bowel Movements 2 Laboratory Tests Test 10/07/20 08:00 White Blood Count 15.9 K/UL (4.8-10.8) H Red Blood Count 3.66 M/UL (4.20-5.40) L Hemoglobin 9.8 G/DL (12.0-16.0) L Hematocrit 31.4 % (37.0-47.0) L Mean Corpuscular Volume 86 FL (80-99) Mean Corpuscular Hemoglobin 26.6 PG (27.0-31.0) L Mean Corpuscular Hemoglobin Concent 31.1 G/DL (32.0-36.0) L Red Cell Distribution Width 14.6 % (11.6-14.8) Platelet Count 320 K/UL (150-450) Mean Platelet Volume 6.6 FL (6.5-10.1) Neutrophils (%) (Auto) % (45.0-75.0) Lymphocytes (%) (Auto) % (20.0-45.0) Monocytes (%) (Auto) % (1.0-10.0) Eosinophils (%) (Auto) % (0.0-3.0) Basophils (%) (Auto) % (0.0-2.0) Differential Total Cells Counted 100 Neutrophils % (Manual) 93 % (45-75) H Lymphocytes % (Manual) 5 % (20-45) L Monocytes % (Manual) 2 % (1-10) Eosinophils % (Manual) 0 % (0-3) Basophils % (Manual) 0 % (0-2) Band Neutrophils 0 % (0-8) Platelet Estimate Adequate Platelet Morphology Normal Hypochromasia 1+ Anisocytosis 1+ Sodium Level 144 MMOL/L (136-145) Potassium Level 3.7 MMOL/L (3.5-5.1) Chloride Level 109 MMOL/L (98-107) H Carbon Dioxide Level 23 MMOL/L (21-32) Anion Gap 12 mmol/L (5-15) Blood Urea Nitrogen 10 mg/dL (7-18) Creatinine 1.1 MG/DL (0.55-1.30) Estimat Glomerular Filtration Rate 49.0 mL/min (>60) Glucose Level 83 MG/DL (74-106) Uric Acid 6.5 MG/DL (2.6-7.2) Calcium Level 8.9 MG/DL (8.5-10.1) Phosphorus Level 2.4 MG/DL (2.5-4.9) L Magnesium Level 1.9 MG/DL (1.8-2.4) Total Bilirubin 0.3 MG/DL (0.2-1.0) Direct Bilirubin < 0.1 MG/DL (0.0-0.3) Aspartate Amino Transf (AST/SGOT) 46 U/L (15-37) H Alanine Aminotransferase (ALT/SGPT) 25 U/L (12-78) Alkaline Phosphatase 81 U/L (46-116) Total Protein 7.1 G/DL (6.4-8.2) Albumin 2.1 G/DL (3.4-5.0) L Microbiology Date/Time Source Procedure Growth Status 2/3/21 11:19 Nasopharynx Coronavirus COVID-19 PCR ([facility]) - Final Complete 10/04/20 17:45 Blood Blood Culture - Preliminary NO GROWTH AFTER 48 HOURS Resulted 10/04/20 17:28 Urine,Clean Catch Urine Culture - Final Streptococcus Pyogenes Grp A Mixed Urogenital Contaminants Complete 10/04/20 17:28 Blood Blood Culture - Preliminary NO GROWTH AFTER 48 HOURS Resulted Objective HEAD AND NECK: No JVD. LUNGS: Clear. CARDIOVASCULAR: Regular S1 and S2 with no gallop. ABDOMEN: Soft. EXTREMITIES: Pain in the right leg. Leon Patricio MD Oct 07, 2020 13:23
[2020-10-07 16:00] VITALS: BP 137/80
--- NOTE | 2020-10-07 19:24 | NUR ---
NURSE HAND-OFF: Important Events on Shift: IV ATB. soft restraints care. Patient Status: stable, agitated at times Diet: regular Pending Orders: n/a Pending Results/Labs:n/a Pending MD notification:n/a Latest Vital Signs: Temperature 98.6 , Pulse 94 , B/P 137 /80 , Respiratory Rate 18 , O2 SAT 97 , Room Air, O2 Flow Rate . Vital Sign Comment: stable Latest Landry Fall Score: 45 Fall Risk: High Risk Safety Measures: Call light Within Reach, Bed Alarm Zone 1, Side Rails Side Rails x2, Bed position Low and Locked. Fall Precautions: Yellow Socks Yellow Gown Door Sign Patient Fall Education Report given to FRANKLIN Minaya.
[2020-10-07 20:00] VITALS: BP 133/60
--- NOTE | 2020-10-07 20:00 | NUR ---
NURSE NOTES:RECEIVED PATIENT LYING SIDEWAYS IN BED WITH LEGS HANGING OUT, ASSISTANCE PROVIDED IMMEDIATELY TO CORRECT POSITIONING AND PROVIDE SAFETY, PATIENT RESISTIVE TO CARE, YELLING "STUPID STOP". DENIES PAIN. NO SIGNS AND SYMPTOMS OF ACUTE CARDIO RESPIRATORY DISTRESS/SHORTNESS OF BREATH, NOTED WITH TRACE EDEMA. IV INTACT TO RIGHT HAND/GAUGE 20, LEAKING, DC'D. DRESSING NOTED TO RIGHT LOWER EXTREMITY, INTACT, CLEAN AND DRY/SACRAL DRESSING DRY AND INTACT. ABDOMEN SOFT/NON DISTENDED/AUDIBLE BOWEL SOUNDS NOTED IN ALL QUADRANT, NO REPORT OF N/V/D. BILATERAL WRIST RESTRAINT REINFORCED TO PREVENT PATIENT FROM ATTEMPTING TO CLIMB OUT OF BED. SIDE RAILS UP X3/BED IN LOWEST POSITION FOR SAFETY, FREQUENT ROUNDING FOR SAFETY/NEEDS. CONTINUE WITH CURRENT PLAN OF CARE. NAD.
--- NOTE | 2020-10-07 21:44 | Consultation ---
DATE OF CONSULTATION: 10/06/2020 NOTE: INCOMPLETE DICTATION PSYCHOTHERAPY CONSULTATION PROGRESS NOTE CONSULTING PHYSICIAN: Ellie Avina PsyD. TREATING ATTENDING PHYSICIAN: Benjamin Ingram DO. HISTORY OF PRESENT ILLNESS: This patient is a 70-year-old female patient. She is in the hospital for weakness and right leg cellulitis. The patient has been yelling and screaming, very agitated, and for these reasons she was also referred for psychotherapeutic services. I assessed the patient. The patient is from a sn[facility] facility. The patient has been very agitated and screaming. She is very difficult to interact states, "get me out of here," extremely anxious disorganized, has no logical or viable plan for self-care and safety. PAST MEDICAL HISTORY: History of generalized weakness. ALLERGIES: She has no allergies. SUBSTANCE ABUSE HISTORY: There is no indication of alcohol use or illicit substance use. PSYCHIATRIC HISTORY: No significant history listed for the patient at this time. SOCIAL HISTORY: The patient . Financially sustained by [employer]. MENTAL STATUS EXAMINATION: Alert, oriented to person . Ellie Avina PsyD. DR: ANTONELLA JOB#: [id number] CC:
[2020-10-08] VITALS (7 sets, daily range): BP systolic 132–160; BP diastolic 60–86
--- NOTE | 2020-10-08 07:46 | NUR ---
NURSE HAND-OFF: Important Events on Shift:[UNEVENTFUL NIGHT, BILATERAL WRIST RESTRAINTS REMAIN INTACT FOR PATIENT SAFETY, RENEWAL 10/09] Patient Status: [STABLE] Diet: [REGULAR] Pending Orders: [AM LABS] Pending Results/Labs:[] Pending MD notification:[] Latest Vital Signs: Temperature 97.7 , Pulse 55 , B/P 140 /71 , Respiratory Rate 19 , O2 SAT 98 , Room Air, O2 Flow Rate . Vital Sign Comment: [STABLE, AFEBRILE] Latest Landry Fall Score: 45 Fall Risk: High Risk Safety Measures: Call light Within Reach, Bed Alarm Zone 1, Side Rails Side Rails x2, Bed position Low and Locked. Fall Precautions: Yellow Gown Door Sign Patient Fall Education Report given to [MIAH SALEEM].
[2020-10-08 08:56] LABS: HEMATOCRIT 32.2 % (37.0-47.0); HEMOGLOBIN 9.9 G/DL (12.0-16.0); MEAN CORPUSCULAR VOLUME 87 FL (80-99); PLATELET COUNT 332 K/UL (150-450); RED BLOOD COUNT 3.72 M/UL (4.20-5.40); RED CELL DISTRIBUTION WIDTH 14.5 % (11.6-14.8)
[2020-10-08 09:33] LABS: POTASSIUM 3.3 MMOL/L (3.5-5.1)
--- NOTE | 2020-10-08 09:37 | General Progress Note ---
Subjective Constitutional: Reports: weakness Allergies: Coded Allergies: No Known Allergies (Unverified , 11/11/17) All Systems: reviewed and negative except above Subjective sleepy calm Objective Last 24 Hour Vital Signs Date Time Temp Pulse Resp B/P (MAP) Pulse Ox O2 Delivery O2 Flow Rate FiO2 10/08/20 08:00 97.7 76 18 150/61 (90) 96 10/08/20 04:42 55 140/71 (94) 10/08/20 04:00 97.7 52 19 160/68 (98) 98 10/08/20 00:00 97.9 91 20 132/60 (84) 92 10/07/20 21:00 Room Air 10/07/20 20:00 97.7 83 20 133/60 (84) 94 10/07/20 16:00 98.6 94 18 137/80 (99) 97 10/07/20 12:00 97.2 99 18 141/86 (104) 98 Intake and Output 10/07/20 10/08/20 19:00 07:00 Intake Total 120 ml Balance 120 ml Intake Oral 120 ml # Voids 3 3 # Bowel Movements 1 Laboratory Tests 10/08/20 07:55: White Blood Count 14.0H, Red Blood Count 3.72L, Hemoglobin 9.9L, Hematocrit 32.2L, Mean Corpuscular Volume 87, Mean Corpuscular Hemoglobin 26.6L, Mean Corpuscular Hemoglobin Concent 30.7L, Red Cell Distribution Width 14.5, Platelet Count 332, Mean Platelet Volume 6.6, Neutrophils (%) (Auto) , Lymphocytes (%) (Auto) , Monocytes (%) (Auto) , Eosinophils (%) (Auto) , Basophils (%) (Auto) , Sodium Level 144, Potassium Level 3.3L, Chloride Level 107, Carbon Dioxide Level 27, Anion Gap 11, Blood Urea Nitrogen 8, Creatinine 1.0, Estimat Glomerular Filtration Rate 54.7, Glucose Level 84, Calcium Level 9.0 Height (Feet): 5 Height (Inches): 1.00 Weight (Pounds): 140 General Appearance: lethargic EENT: normal ENT inspection Neck: normal alignment Cardiovascular: normal peripheral pulses, normal rate, regular rhythm Respiratory/Chest: chest wall non-tender, lungs clear, normal breath sounds Abdomen: normal bowel sounds, non tender, soft Extremities: normal inspection Edema: no edema noted Arm (L), no edema noted Arm (R), no edema noted Leg (L), no edema noted Leg (R), no edema noted Pedal (L), no edema noted Pedal (R), no edema noted Generalized Neurologic: motor weakness Skin: normal pigmentation, warm/dry Objective sl redness below r mid kelley Assessment/Plan Problem List: (1) Anemia ICD Codes: D64.9 - Anemia, unspecified SNOMED: 279366881 (2) Episode of generalized weakness ICD Codes: R53.1 - Weakness SNOMED: 14730562 (3) Cellulitis and abscess of leg ICD Codes: L03.119 - Cellulitis of unspecified part of limb; L02.419 - Cutaneous abscess of limb, unspecified SNOMED: 061403208 (4) Pedal edema ICD Codes: R60.0 - Localized edema SNOMED: 327383655 (5) Noncompliance with treatment plan ICD Codes: Z91.11 - Patient's noncompliance with dietary regimen SNOMED: 660843488 Status: unchanged Assessment/Plan: wound care abx psyc tx and transfer prn cbc bmp am Benjamin Ingram DO Oct 08, 2020 09:37
[2020-10-08] MEDS: cefTRIAXone 1 GM in D5W 55 ML IVPB SCH (09:51)
[2020-10-08] MEDS: Enoxaparin 40mg Inj SUBQ SCH (09:52)
--- NOTE | 2020-10-08 11:38 | Psychiatry Consultation ---
Psychiatry Consultation Psychiatry Consultation Chief Complaint: Generalized Weakness History of Present Illness: 70-year-old female patient confused disorganized to get psychomotor agitation due to cellulitis is because increased agitation mood lability confusion and declining cognition below her baseline Attending express daily psychiatric consultation she does have some mood lability confusion disorganized thought process Mental status semination: 70-year-old female her appearance is disheveled at irritable agitated affect guarded strict intellect poor mood depressed anxious moderately psychomotor agitation orientation x2 speech slow but slurred process disorganized logical judgment is poor Allergies: Coded Allergies: No Known Allergies (Unverified , 11/11/17) Medication History Scheduled Naloxone HCl (Narcan), 4 MG NS PRN Scheduled PRN Ibuprofen* (Motrin*), 600 MG ORAL Q6H PRN for For Pain Discontinued Medications Acetaminophen With Codeine (T#3) (Tylenol #3 Tab*), 1 TAB ORAL Q8HR PRN for For Pain Discontinued Reason: Therapy completed Acetaminophen With Codeine (T#3) (Tylenol #3 Tab*), 1 TAB ORAL Q6H PRN for For Pain Discontinued Reason: Therapy completed Acetaminophen* (Tylenol Extra Strength*), 500 MG ORAL Q8H PRN for Prn Headache/Temp > 101 Discontinued Reason: Therapy completed Cephalexin* (Keflex*), 500 MG ORAL EVERY 12 HOURS Discontinued Reason: Therapy completed Cephalexin* (Keflex*), 500 MG ORAL EVERY 12 HOURS Discontinued Reason: Therapy completed Ciclopirox Olamine (Ciclopirox), 1 APPLIC TOPIC BID Discontinued Reason: Therapy completed Hydrochlorothiazide* (Hydrochlorothiazide*), 25 MG ORAL DAILY Discontinued Reason: Therapy completed Hydrocodone Bit/Acetaminophen 5-325* ([place] 5-325*), 1 TAB ORAL Q6H PRN for For Pain Discontinued Reason: Therapy completed Loratadine (Claritin), 10 MG ORAL DAILY Discontinued Reason: Therapy completed No Known Medications* (NKM - No Known Medications*), 0 ., (Reported) Discontinued Reason: Therapy completed Permethrin* (Elimite*), 1 APPLIC TOPIC ONCE Discontinued Reason: Pt had allergic rxn Objective Data Height (Feet): 5 Height (Inches): 1.00 Weight (Pounds): 140 Assessment/Plan Assessment/Plan: Ativan 1mg PO q6h prn anxiety, Risperdal 0.5 po BID and 20min of insight oriente d psychotherapy to help pt have better impulse control due to better realization of he symptoms. Diagnosis [place]: Major depressive disorder recurrent with psychotic features Elmer Herrera MD Oct 08, 2020 11:38
--- NOTE | 2020-10-08 15:28 | Surgery Progress Note ---
Surgery Progress Note Subjective Symptoms: improved, tolerating diet, passing flatus Objective Last 24 Hour Vital Signs Date Time Temp Pulse Resp B/P (MAP) Pulse Ox O2 Delivery O2 Flow Rate FiO2 10/08/20 12:00 98.1 63 18 132/63 (86) 94 10/08/20 09:00 Room Air 10/08/20 08:00 97.7 76 18 150/61 (90) 96 10/08/20 04:42 55 140/71 (94) 10/08/20 04:00 97.7 52 19 160/68 (98) 98 10/08/20 00:00 97.9 91 20 132/60 (84) 92 10/07/20 21:00 Room Air 10/07/20 20:00 97.7 83 20 133/60 (84) 94 10/07/20 16:00 98.6 94 18 137/80 (99) 97 I&O Intake and Output 10/07/20 10/08/20 19:00 07:00 Intake Total 120 ml Balance 120 ml Intake Oral 120 ml # Voids 3 3 # Bowel Movements 1 Dressing: dry Wound: clean Cardiovascular: RSR Respiratory: clear Abdomen: soft, non-tender, present bowel sounds, non-distended Extremities: edema, tenderness, no cyanosis, pulses, other Laboratory Tests Test 10/08/20 07:55 White Blood Count 14.0 K/UL (4.8-10.8) H Red Blood Count 3.72 M/UL (4.20-5.40) L Hemoglobin 9.9 G/DL (12.0-16.0) L Hematocrit 32.2 % (37.0-47.0) L Mean Corpuscular Volume 87 FL (80-99) Mean Corpuscular Hemoglobin 26.6 PG (27.0-31.0) L Mean Corpuscular Hemoglobin Concent 30.7 G/DL (32.0-36.0) L Red Cell Distribution Width 14.5 % (11.6-14.8) Platelet Count 332 K/UL (150-450) Mean Platelet Volume 6.6 FL (6.5-10.1) Neutrophils (%) (Auto) % (45.0-75.0) Lymphocytes (%) (Auto) % (20.0-45.0) Monocytes (%) (Auto) % (1.0-10.0) Eosinophils (%) (Auto) % (0.0-3.0) Basophils (%) (Auto) % (0.0-2.0) Sodium Level 144 MMOL/L (136-145) Potassium Level 3.3 MMOL/L (3.5-5.1) L Chloride Level 107 MMOL/L (98-107) Carbon Dioxide Level 27 MMOL/L (21-32) Anion Gap 11 mmol/L (5-15) Blood Urea Nitrogen 8 mg/dL (7-18) Creatinine 1.0 MG/DL (0.55-1.30) Estimat Glomerular Filtration Rate 54.7 mL/min (>60) Glucose Level 84 MG/DL (74-106) Calcium Level 9.0 MG/DL (8.5-10.1) Plan Problems: (1) Episode of generalized weakness (2) Cellulitis and abscess of leg Assessment & Plan: 70-year-old female with right lower extremity cellulitis mild edema on the left side anterior tibial ulceration identified on the right side mid leg potentially from trauma though patient denies. No nausea fever chills no abscess identified no drainage. Macerated eschar identified. Apply betadine swab to ulcer cover with Optifoam dressing. Keep her legs elevated while in bed. IV antibiotics per infectious disease. No acute surgical intervention planned at this time. Sacral stage 3 decubitus ulcer wound identified. therahoney gauze and foam dressing daily and prn saturation. turn every 2 hours, offload pressure, patient able to comply with care plan. Nutrition optimization. Follow with recommendations thank you allowing me to participate patient's care Pt presented on admission with MASD skin folds Both breasts, Swelling,Ulcerations to RLE. Full thickness Pressure Injury L Buttocks. Skin folds of both breasts are erythematous, and macerated. Mild odor noted. Full thickness Pressure Injury L Buttocks (L)1.5cm x (W)0.3cm x (D)0.2cm. Wound has appearance of slit with indurated and maroon borders. Non-Blanchable erythema without induration Sacrum and R Buttocks. Small ulcer with necrotic cap noted to posterior upper R Thigh. Marginal erythema along edges. Larger ulcer with necrotic cap noted to maurice R Tibia(L)3cm x (W)3.7cm. Marginal erythema along borders and periwound. Clockwise at 2-4o'clock along borders are macerated. No odor or exudate noted. A third smaller ulcer with necrotic cap noted to distal/lateral R tibia(L)0.9cm x (W)1cm. Marginal erythema along borders. Both heels are soft, but each heel easily blanchable. Tx.Plan: Wash both breasts with soap and water. Pat dry. Apply Light Dusting of Antifungal powder to each breasts Twice Daily. Cleanse L Buttocks with Saline. Apply Therahoney. Apply Moisture Barrier Paste periwound. Cover with Optifoam drsg. Change every 3 days and prn. Apply Moisture Barrier paste to Sacrum and R buttocks. Cover with Optifoam drsg. Change every 3 days and prn. Reposition at least every 2 hours or as tolerated. Off-load heels with pillow. DAILY ESTIMATED NEEDS: Needs based on Wound/ 51.7kg abw 25-30 kcals/kg 3949-2653 total kcals 1.25-1.5 g protein/kg 65-77 g total protein 25-30 mL/kg 6177-4065 total fluid mLs NUTRITION DIAGNOSIS: Increased kcal/prot needs R/T wound healing as evidenced by pt admitted w/ sacral wound per photo, pending evaluation. CURRENT DIET:REGULAR PO DIET RECOMMENDATIONS:REGULAR, texture as tolerated ADDITIONAL RECOMMENDATIONS: * Calibrated bedscale wt * Wound healing: add MVI x 1, Vit C 250mg QD F/up w/ WC eval * Monitor PO intake and tolerance * Monitor lytes, replete as needed (low K) (3) Pedal edema (4) Facial contusion (5) Right ankle sprain (6) Multiple rib fractures (7) Noncompliance with treatment plan Mason Snyder Oct 08, 2020 15:28
--- NOTE | 2020-10-08 17:59 | Cardiac Electrophysiology PN ---
Assessment/Plan Assessment/Plan 1. Atypical chest pain. The first troponin is negative. Refuse Labs Echocardiogram EF 60% 2. Hypokalemia. Potassium was replaced. 3. Cellulitis of the leg on ceftriaxone. 4. Tachycardia, likely due to cellulitis. 5. Dementia and agitation. Subjective Subjective Confused in restraints off covid isolation ( PCR was negative). RN at bedside Objective Last 24 Hour Vital Signs Date Time Temp Pulse Resp B/P (MAP) Pulse Ox O2 Delivery O2 Flow Rate FiO2 10/08/20 16:00 98.1 76 18 151/79 (103) 94 10/08/20 12:00 98.1 63 18 132/63 (86) 94 10/08/20 09:00 Room Air 10/08/20 08:00 97.7 76 18 150/61 (90) 96 10/08/20 04:42 55 140/71 (94) 10/08/20 04:00 97.7 52 19 160/68 (98) 98 10/08/20 00:00 97.9 91 20 132/60 (84) 92 10/07/20 21:00 Room Air 10/07/20 20:00 97.7 83 20 133/60 (84) 94 Intake and Output 10/07/20 10/08/20 19:00 07:00 Intake Total 120 ml Balance 120 ml Intake Oral 120 ml # Voids 3 3 # Bowel Movements 1 Laboratory Tests Test 10/08/20 07:55 White Blood Count 14.0 K/UL (4.8-10.8) H Red Blood Count 3.72 M/UL (4.20-5.40) L Hemoglobin 9.9 G/DL (12.0-16.0) L Hematocrit 32.2 % (37.0-47.0) L Mean Corpuscular Volume 87 FL (80-99) Mean Corpuscular Hemoglobin 26.6 PG (27.0-31.0) L Mean Corpuscular Hemoglobin Concent 30.7 G/DL (32.0-36.0) L Red Cell Distribution Width 14.5 % (11.6-14.8) Platelet Count 332 K/UL (150-450) Mean Platelet Volume 6.6 FL (6.5-10.1) Neutrophils (%) (Auto) % (45.0-75.0) Lymphocytes (%) (Auto) % (20.0-45.0) Monocytes (%) (Auto) % (1.0-10.0) Eosinophils (%) (Auto) % (0.0-3.0) Basophils (%) (Auto) % (0.0-2.0) Sodium Level 144 MMOL/L (136-145) Potassium Level 3.3 MMOL/L (3.5-5.1) L Chloride Level 107 MMOL/L (98-107) Carbon Dioxide Level 27 MMOL/L (21-32) Anion Gap 11 mmol/L (5-15) Blood Urea Nitrogen 8 mg/dL (7-18) Creatinine 1.0 MG/DL (0.55-1.30) Estimat Glomerular Filtration Rate 54.7 mL/min (>60) Glucose Level 84 MG/DL (74-106) Calcium Level 9.0 MG/DL (8.5-10.1) Objective HEAD AND NECK: No JVD. LUNGS: Clear. CARDIOVASCULAR: Regular S1 and S2 with no gallop. ABDOMEN: Soft. EXTREMITIES: Pain in the right leg. Leon Patricio MD Oct 08, 2020 17:59
--- NOTE | 2020-10-08 20:01 | NUR ---
NURSE NOTES: RECEIVED PATIENT LYING IN BED, EYES CLOSED, APPEAR TO BE ASLEEP, AWAKENED TO VOICE, DENIES PAIN, ABLE TO VERBALIZE NEEDS, NO SIGNS AND SYMPTOMS OF ACUTE CARDIO RESPIRATORY DISTRESS/SHORTNESS OF BREATH, NOTED WITH TRACE EDEMA. IV INTACT TO RIGHT HAND/GAUGE 24, NO REDNESS/SWELLING NOTED. ABDOMEN SOFT/NON DISTENDED/NON TENDER/AUDIBLE BOWEL SOUNDS, NO REPORT OF N/V/D. BILATERAL WRIST RESTRAINTS INTACT TO PREVENT PATIENT FROM CLIMBING OUT OF BED, NO SWELLING NOTED. SIDE RAILS UP X3/BED IN LOWEST POSITION FOR SAFETY, FREQUENT ROUNDING FOR SAFETY/NEEDS. CONTINUE WITH CURRENT PLAN OF CARE. NAD.
[2020-10-09] VITALS: BP 144/73
[2020-10-09 04:00] VITALS: BP 156/84
--- NOTE | 2020-10-09 06:34 | NUR ---
NURSE HAND-OFF: Important Events on Shift:[UNEVENTFUL NIGHT, SAFETY MAINTAINED, RENEW RESTRAINTS 10/09 940] Patient Status: [STABLE] Diet: [REGULAR] Pending Orders: [AM LABS] Pending Results/Labs:[] Pending MD notification:[] Latest Vital Signs: Temperature 98.5 , Pulse 77 , B/P 156 /84 , Respiratory Rate 18 , O2 SAT 96 , Room Air, O2 Flow Rate . Vital Sign Comment: [STABLE, AFEBRILE] Latest Landry Fall Score: 45 Fall Risk: High Risk Safety Measures: Call light Within Reach, Bed Alarm Zone 1, Side Rails Side Rails x3, Bed position Low and Locked. Fall Precautions: Yellow Socks Door Sign Patient Fall Education Report given to [MIAH DIEHL].
--- NOTE | 2020-10-09 06:40 | Hematology/Onc Progress Note ---
Assessment/Plan Assessment/Plan Assessment and Recs # Leukocytosis is likely related to uti, has been started on abx --> as per id recs --> ABX ctx --> wbc 17.6-->14 # Anemia due likely to chronic disease --> hgb 10-->9 --> anemia panel if downtrends --> transfuse prn # Episode of generalized weakness --> on ivfs, tele --> consider cards # Cellulitis and abscess of leg --> abx # Fungal infection on her chest wall noted by the nurses --> will start patient on fluconazole and nystatin # Dvt ppx lovenox sq Appreciate consultation and guero rn Subjective Constitutional: Denies: no symptoms, chills, fever, malaise, weakness, other HEENT: Denies: no symptoms, eye pain, blurred vision, tearing, double vision, ear pain, ear discharge, nose pain, nose congestion, throat pain, throat swelling, mouth pain, mouth swelling, other Cardiovascular: Denies: no symptoms, chest pain, edema, irregular heart rate, lightheadedness, palpitations, syncope, other Respiratory: Denies: no symptoms, cough, shortness of breath, SOB with excertion, SOB at rest, sputum, wheezing, other Genitourinary: Denies: no symptoms, burning, discharge, frequency, flank pain, hematuria, incontinence, pain, urgency, other Neurologic/Psychiatric: Denies: no symptoms, anxiety, depressed, emotional problems, headache, numbness, paresthesia, pre-existing deficit, seizure, tingling, tremors, weakness, other Allergies: Coded Allergies: No Known Allergies (Unverified , 11/11/17) Subjective 2/4 agitated, hysterical, labs noted, anemia panel ordered 2/ meds noted, have ordered for cbc, labs reviewed, guero rn 10/09 restraints are intact, meds noted, no bleeding Objective Objective Current Medications Medications (Trade) Dose Ordered Sig/Siddharth Route PRN Reason Start Time Stop Time Status Last Admin Dose Admin Acetaminophen (Tylenol) 650 mg Q6H PRN ORAL Mild Pain (Pain Scale 1-3) 10/04/20 20:45 11/03/20 20:44 Acetaminophen (Tylenol) 650 mg Q6H PRN ORAL fever 10/04/20 20:45 11/03/20 20:44 Ceftriaxone Sodium 1 gm/ Dextrose 55 ml @ 110 mls/hr DAILY IVPB 10/05/20 09:00 10/11/20 20:44 10/08/20 09:51 Diphenhydramine HCl (Benadryl) 25 mg Q6H PRN ORAL Itching 10/04/20 20:45 11/03/20 20:44 10/06/20 17:56 Enoxaparin Sodium (Lovenox) 40 mg DAILY SUBQ 10/05/20 09:00 01/03/21 08:59 10/08/20 09:52 Lorazepam (Ativan) 1 mg Q6H PRN ORAL For Anxiety 10/07/20 05:15 10/14/20 05:14 10/07/20 05:31 Morphine Sulfate (Morphine Sulfate) 2 mg Q8H PRN IVP Severe Pain (Pain Scale 7-10) 10/04/20 20:45 10/11/20 20:44 10/05/20 21:59 Risperidone (RisperDAL) 0.5 mg BID ORAL 10/07/20 09:00 11/21/20 08:59 10/08/20 17:35 Last 24 Hour Vital Signs Date Time Temp Pulse Resp B/P (MAP) Pulse Ox O2 Delivery O2 Flow Rate FiO2 10/09/20 04:00 98.5 77 18 156/84 (108) 96 10/09/20 00:00 98.4 69 18 144/73 (96) 94 10/08/20 21:26 Room Air 10/08/20 20:00 98.0 72 18 148/86 (106) 94 10/08/20 16:00 98.1 76 18 151/79 (103) 94 10/08/20 12:00 98.1 63 18 132/63 (86) 94 10/08/20 09:00 Room Air 10/08/20 08:00 97.7 76 18 150/61 (90) 96 10/08/20 04:42 55 140/71 (94) 10/08/20 04:00 97.7 52 19 160/68 (98) 98 10/08/20 00:00 97.9 91 20 132/60 (84) 92 10/07/20 21:00 Room Air 10/07/20 20:00 97.7 83 20 133/60 (84) 94 10/07/20 16:00 98.6 94 18 137/80 (99) 97 10/07/20 12:00 97.2 99 18 141/86 (104) 98 10/07/20 09:00 Room Air 10/07/20 08:00 98.4 102 20 143/93 (110) 99 Intake and Output 10/08/20 10/09/20 19:00 07:00 Intake Total 480 ml 120 ml Output Total 300 ml Balance 480 ml -180 ml Intake Oral 480 ml 120 ml Output Urine Total 300 ml # Voids 4 1 Labs Test 10/07/20 08:00 10/08/20 07:55 White Blood Count 15.9 K/UL (4.8-10.8) 14.0 K/UL (4.8-10.8) Red Blood Count 3.66 M/UL (4.20-5.40) 3.72 M/UL (4.20-5.40) Hemoglobin 9.8 G/DL (12.0-16.0) 9.9 G/DL (12.0-16.0) Hematocrit 31.4 % (37.0-47.0) 32.2 % (37.0-47.0) Mean Corpuscular Volume 86 FL (80-99) 87 FL (80-99) Mean Corpuscular Hemoglobin 26.6 PG (27.0-31.0) 26.6 PG (27.0-31.0) Mean Corpuscular Hemoglobin Concent 31.1 G/DL (32.0-36.0) 30.7 G/DL (32.0-36.0) Red Cell Distribution Width 14.6 % (11.6-14.8) 14.5 % (11.6-14.8) Platelet Count 320 K/UL (150-450) 332 K/UL (150-450) Mean Platelet Volume 6.6 FL (6.5-10.1) 6.6 FL (6.5-10.1) Neutrophils (%) (Auto) % (45.0-75.0) % (45.0-75.0) Lymphocytes (%) (Auto) % (20.0-45.0) % (20.0-45.0) Monocytes (%) (Auto) % (1.0-10.0) % (1.0-10.0) Eosinophils (%) (Auto) % (0.0-3.0) % (0.0-3.0) Basophils (%) (Auto) % (0.0-2.0) % (0.0-2.0) Differential Total Cells Counted 100 Neutrophils % (Manual) 93 % (45-75) Lymphocytes % (Manual) 5 % (20-45) Monocytes % (Manual) 2 % (1-10) Eosinophils % (Manual) 0 % (0-3) Basophils % (Manual) 0 % (0-2) Band Neutrophils 0 % (0-8) Platelet Estimate Adequate Platelet Morphology Normal Hypochromasia 1+ Anisocytosis 1+ Sodium Level 144 MMOL/L (136-145) 144 MMOL/L (136-145) Potassium Level 3.7 MMOL/L (3.5-5.1) 3.3 MMOL/L (3.5-5.1) Chloride Level 109 MMOL/L (98-107) 107 MMOL/L (98-107) Carbon Dioxide Level 23 MMOL/L (21-32) 27 MMOL/L (21-32) Anion Gap 12 mmol/L (5-15) 11 mmol/L (5-15) Blood Urea Nitrogen 10 mg/dL (7-18) 8 mg/dL (7-18) Creatinine 1.1 MG/DL (0.55-1.30) 1.0 MG/DL (0.55-1.30) Estimat Glomerular Filtration Rate 49.0 mL/min (>60) 54.7 mL/min (>60) Glucose Level 83 MG/DL (74-106) 84 MG/DL (74-106) Uric Acid 6.5 MG/DL (2.6-7.2) Calcium Level 8.9 MG/DL (8.5-10.1) 9.0 MG/DL (8.5-10.1) Phosphorus Level 2.4 MG/DL (2.5-4.9) Magnesium Level 1.9 MG/DL (1.8-2.4) Total Bilirubin 0.3 MG/DL (0.2-1.0) Direct Bilirubin < 0.1 MG/DL (0.0-0.3) Aspartate Amino Transf (AST/SGOT) 46 U/L (15-37) Alanine Aminotransferase (ALT/SGPT) 25 U/L (12-78) Alkaline Phosphatase 81 U/L (46-116) Total Protein 7.1 G/DL (6.4-8.2) Albumin 2.1 G/DL (3.4-5.0) Height (Feet): 5 Height (Inches): 1.00 Weight (Pounds): 140 Objective PE Vitals: reviewed General: well appearing, no apparent distress, alert Heent: normocephalic, atraumatic, bilateral eye PERRL, bilateral eye EOMI Respiratory: lungs clear, no respiratory distress, no retraction, no accessory muscle use Cardiovascular: normal peripheral pulses, regular rate, rhythm, no edema, no gallop, no murmur Gastrointestinal: non tender, soft, no guarding, no rebound Musculoskeletal: normal inspection Neurologic: alert, oriented x3 Psychiatric: mood/affect normal Skin: warm/dry, other - Right lower extremity: Area of erythema on the tibial proximal aspect Mando Ventura MD Oct 09, 2020 06:40
[2020-10-09 08:00] VITALS: BP 134/82
--- NOTE | 2020-10-09 08:00 | NUR ---
NURSE NOTES: Patient awake and alert,respirations unlabored.Saline lock in the right hand intact.Patient has bilateral wrist restraints in place.Will provide ROM and skin care.Patient has pure wick in place with clear yellow urine noted.Bed alarm on,call light within reach.
--- NOTE | 2020-10-09 09:01 | General Progress Note ---
Subjective Constitutional: Reports: weakness Allergies: Coded Allergies: No Known Allergies (Unverified , 11/11/17) All Systems: reviewed and negative except above Subjective sleepy calm Objective Last 24 Hour Vital Signs Date Time Temp Pulse Resp B/P (MAP) Pulse Ox O2 Delivery O2 Flow Rate FiO2 10/09/20 04:00 98.5 77 18 156/84 (108) 96 10/09/20 00:00 98.4 69 18 144/73 (96) 94 10/08/20 21:26 Room Air 10/08/20 20:00 98.0 72 18 148/86 (106) 94 10/08/20 16:00 98.1 76 18 151/79 (103) 94 10/08/20 12:00 98.1 63 18 132/63 (86) 94 Intake and Output 10/08/20 10/09/20 19:00 07:00 Intake Total 480 ml 120 ml Output Total 300 ml Balance 480 ml -180 ml Intake Oral 480 ml 120 ml Output Urine Total 300 ml # Voids 4 1 Height (Feet): 5 Height (Inches): 1.00 Weight (Pounds): 140 General Appearance: lethargic EENT: normal ENT inspection Neck: normal alignment Cardiovascular: normal peripheral pulses, normal rate, regular rhythm Respiratory/Chest: chest wall non-tender, lungs clear, normal breath sounds Abdomen: normal bowel sounds, non tender, soft Extremities: normal inspection Edema: no edema noted Arm (L), no edema noted Arm (R), no edema noted Leg (L), no edema noted Leg (R), no edema noted Pedal (L), no edema noted Pedal (R), no edema noted Generalized Neurologic: motor weakness Skin: normal pigmentation, warm/dry Objective sl redness below r mid kelley Assessment/Plan Problem List: (1) Anemia ICD Codes: D64.9 - Anemia, unspecified SNOMED: 999365169 (2) Episode of generalized weakness ICD Codes: R53.1 - Weakness SNOMED: 89038906 (3) Cellulitis and abscess of leg ICD Codes: L03.119 - Cellulitis of unspecified part of limb; L02.419 - Cutaneous abscess of limb, unspecified SNOMED: 018009963 (4) Pedal edema ICD Codes: R60.0 - Localized edema SNOMED: 326408964 (5) Noncompliance with treatment plan ICD Codes: Z91.11 - Patient's noncompliance with dietary regimen SNOMED: 354569567 Status: stable, progressing Assessment/Plan: wound care abx psyc tx and transfer prn cbc bmp Benjamin Joiner DO Oct 09, 2020 09:01
[2020-10-09 09:08] LABS: HEMATOCRIT 32.7 % (37.0-47.0); MEAN CORPUSCULAR VOLUME 86 FL (80-99); PLATELET COUNT 365 K/UL (150-450); RED CELL DISTRIBUTION WIDTH 14.4 % (11.6-14.8); WHITE BLOOD COUNT 14.6 K/UL (4.8-10.8)
[2020-10-09 09:33] LABS: POTASSIUM 3.8 MMOL/L (3.5-5.1)
[2020-10-09] MEDS: cefTRIAXone 1 GM in D5W 55 ML IVPB SCH (10:04)
[2020-10-09] MEDS: Enoxaparin 40mg Inj SUBQ SCH (10:06)
--- NOTE | 2020-10-09 10:36 | Infectious Diseases Prog Note ---
Assessment/Plan 70yo F with: R kelley cellulitis, improving R kelley wound, dry scabbing Afebrile Leukocytosis to 17, improving 2/2 BCx NTD UA+, UCx +30-40k GAS, 80-90s mixed carmel Cr 1.2 R/o COVID 2/3 COVID PCR neg CXR: Worsening aeration with development of some patchy retrocardiac opacities which may relate to subsegmental atelectasis however pneumonia should be excluded clinically. Development of mild interstitial/vascular prominence. Mild congestive changes of CHF can be considered. Findings may also be artifactual related to lower lung volumes. HIV screen neg PMH: HTN Allergic rhinitis Plan: Cont CTX 1g IV daily #7 for now for possible cellulitis, vastly improved on my exam from prior line that was drawn on skin On discharge can transition to Augmentin 875mg PO BID to complete 10 day course for complicated cellulitis Trend WBC, if not improving and if exam worsens then will consider broadening to Zosyn Trend RLE exam 2/ SP vanco/Zosyn/flucon in ED Monitor CBC/CMP Monitor temp curve, hemodynamics Monitor resp status D/w RN Thank you for this consult. [facility] will continue to follow. Subjective Allergies: Coded Allergies: No Known Allergies (Unverified , 11/11/17) AF NAD on RA WBC 14, stable RLE less erythema Objective Last 24 Hour Vital Signs Date Time Temp Pulse Resp B/P (MAP) Pulse Ox O2 Delivery O2 Flow Rate FiO2 10/09/20 08:00 98.3 73 19 134/82 (99) 99 10/09/20 04:00 98.5 77 18 156/84 (108) 96 10/09/20 00:00 98.4 69 18 144/73 (96) 94 10/08/20 21:26 Room Air 10/08/20 20:00 98.0 72 18 148/86 (106) 94 10/08/20 16:00 98.1 76 18 151/79 (103) 94 10/08/20 12:00 98.1 63 18 132/63 (86) 94 Height (Feet): 5 Height (Inches): 1.00 Weight (Pounds): 140 Gen: NAD HEENT: NCAT Pulm: BL chest rise Abd: Non-distended Ext: RLE w/ improved cellulitis, central wound on R kelley healing Skin: No visible rashes Neuro: Awake Laboratory Tests Test 10/09/20 08:20 White Blood Count 14.6 K/UL (4.8-10.8) H Red Blood Count 3.80 M/UL (4.20-5.40) L Hemoglobin 10.0 G/DL (12.0-16.0) L Hematocrit 32.7 % (37.0-47.0) L Mean Corpuscular Volume 86 FL (80-99) Mean Corpuscular Hemoglobin 26.3 PG (27.0-31.0) L Mean Corpuscular Hemoglobin Concent 30.5 G/DL (32.0-36.0) L Red Cell Distribution Width 14.4 % (11.6-14.8) Platelet Count 365 K/UL (150-450) Mean Platelet Volume 6.4 FL (6.5-10.1) L Neutrophils (%) (Auto) % (45.0-75.0) Lymphocytes (%) (Auto) % (20.0-45.0) Monocytes (%) (Auto) % (1.0-10.0) Eosinophils (%) (Auto) % (0.0-3.0) Basophils (%) (Auto) % (0.0-2.0) Differential Total Cells Counted 100 Neutrophils % (Manual) 85 % (45-75) H Lymphocytes % (Manual) 13 % (20-45) L Monocytes % (Manual) 2 % (1-10) Eosinophils % (Manual) 0 % (0-3) Basophils % (Manual) 0 % (0-2) Band Neutrophils 0 % (0-8) Platelet Estimate Adequate Platelet Morphology Normal Hypochromasia 1+ Anisocytosis 1+ Sodium Level 145 MMOL/L (136-145) Potassium Level 3.8 MMOL/L (3.5-5.1) Chloride Level 108 MMOL/L (98-107) H Carbon Dioxide Level 28 MMOL/L (21-32) Anion Gap 9 mmol/L (5-15) Blood Urea Nitrogen 13 mg/dL (7-18) Creatinine 1.0 MG/DL (0.55-1.30) Estimat Glomerular Filtration Rate 54.7 mL/min (>60) Glucose Level 106 MG/DL (74-106) Calcium Level 9.0 MG/DL (8.5-10.1) Current Medications Medications (Trade) Dose Ordered Sig/Siddharth Route PRN Reason Start Time Stop Time Status Last Admin Dose Admin Acetaminophen (Tylenol) 650 mg Q6H PRN ORAL Mild Pain (Pain Scale 1-3) 10/04/20 20:45 11/03/20 20:44 Acetaminophen (Tylenol) 650 mg Q6H PRN ORAL fever 10/04/20 20:45 11/03/20 20:44 Ceftriaxone Sodium 1 gm/ Dextrose 55 ml @ 110 mls/hr DAILY IVPB 10/05/20 09:00 10/11/20 20:44 10/09/20 10:04 Diphenhydramine HCl (Benadryl) 25 mg Q6H PRN ORAL Itching 10/04/20 20:45 11/03/20 20:44 10/06/20 17:56 Enoxaparin Sodium (Lovenox) 40 mg DAILY SUBQ 10/05/20 09:00 01/03/21 08:59 10/09/20 10:06 Lorazepam (Ativan) 1 mg Q6H PRN ORAL For Anxiety 10/07/20 05:15 10/14/20 05:14 10/07/20 05:31 Morphine Sulfate (Morphine Sulfate) 2 mg Q8H PRN IVP Severe Pain (Pain Scale 7-10) 10/04/20 20:45 10/11/20 20:44 10/05/20 21:59 Risperidone (RisperDAL) 0.5 mg BID ORAL 10/07/20 09:00 11/21/20 08:59 10/09/20 10:03 Sparkle Roque M.D. Oct 09, 2020 10:36
--- NOTE | 2020-10-09 11:04 | Psychiatry Consultation ---
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 Mental status examination: 70-year-old female her appearance disheveled at irritable agitated affect allergic to intellect poor mood depressed anxious moderately psychomotor station attachments poor orientation x2 speech is nonsensical thought process disorganized logical and judgment is poor Allergies: Coded Allergies: No Known Allergies (Unverified , 11/11/17) Medication History Scheduled Naloxone HCl (Narcan), 4 MG NS PRN Scheduled PRN Ibuprofen* (Motrin*), 600 MG ORAL Q6H PRN for For Pain Discontinued Medications Acetaminophen With Codeine (T#3) (Tylenol #3 Tab*), 1 TAB ORAL Q8HR PRN for For Pain Discontinued Reason: Therapy completed Acetaminophen With Codeine (T#3) (Tylenol #3 Tab*), 1 TAB ORAL Q6H PRN for For Pain Discontinued Reason: Therapy completed Acetaminophen* (Tylenol Extra Strength*), 500 MG ORAL Q8H PRN for Prn Headache/Temp > 101 Discontinued Reason: Therapy completed Cephalexin* (Keflex*), 500 MG ORAL EVERY 12 HOURS Discontinued Reason: Therapy completed Cephalexin* (Keflex*), 500 MG ORAL EVERY 12 HOURS Discontinued Reason: Therapy completed Ciclopirox Olamine (Ciclopirox), 1 APPLIC TOPIC BID Discontinued Reason: Therapy completed Hydrochlorothiazide* (Hydrochlorothiazide*), 25 MG ORAL DAILY Discontinued Reason: Therapy completed Hydrocodone Bit/Acetaminophen 5-325* ([place] 5-325*), 1 TAB ORAL Q6H PRN for For Pain Discontinued Reason: Therapy completed Loratadine (Claritin), 10 MG ORAL DAILY Discontinued Reason: Therapy completed No Known Medications* (NKM - No Known Medications*), 0 ., (Reported) Discontinued Reason: Therapy completed Permethrin* (Elimite*), 1 APPLIC TOPIC ONCE Discontinued Reason: Pt had allergic rxn Objective Data Height (Feet): 5 Height (Inches): 1.00 Weight (Pounds): 140 Assessment/Plan Assessment/Plan: Ativan 1mg PO q6h prn anxiety, Risperdal 0.5 po BID and 20min of insight oriented psychotherapy to help pt have better impulse control due to better realization of he symptoms. 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
[2020-10-09 12:00] VITALS: BP 132/89
--- NOTE | 2020-10-09 13:31 | Surgery Progress Note ---
Surgery Progress Note Subjective Additional Comments No acute events. Resting comfortably. No nausea vomiting fever chills. Leukocytosis stable.. dressings going well Objective Last 24 Hour Vital Signs Date Time Temp Pulse Resp B/P (MAP) Pulse Ox O2 Delivery O2 Flow Rate FiO2 10/09/20 10:37 Room Air 10/09/20 08:00 98.3 73 19 134/82 (99) 99 10/09/20 04:00 98.5 77 18 156/84 (108) 96 10/09/20 00:00 98.4 69 18 144/73 (96) 94 10/08/20 21:26 Room Air 10/08/20 20:00 98.0 72 18 148/86 (106) 94 10/08/20 16:00 98.1 76 18 151/79 (103) 94 I&O Intake and Output 10/08/20 10/09/20 19:00 07:00 Intake Total 480 ml 120 ml Output Total 300 ml Balance 480 ml -180 ml Intake Oral 480 ml 120 ml Output Urine Total 300 ml # Voids 4 1 Dressing: saturated Cardiovascular: RSR Respiratory: clear Abdomen: soft, non-tender, present bowel sounds, non-distended Extremities: edema, no tenderness, no cyanosis, pulses, other Laboratory Tests Test 10/09/20 08:20 White Blood Count 14.6 K/UL (4.8-10.8) H Red Blood Count 3.80 M/UL (4.20-5.40) L Hemoglobin 10.0 G/DL (12.0-16.0) L Hematocrit 32.7 % (37.0-47.0) L Mean Corpuscular Volume 86 FL (80-99) Mean Corpuscular Hemoglobin 26.3 PG (27.0-31.0) L Mean Corpuscular Hemoglobin Concent 30.5 G/DL (32.0-36.0) L Red Cell Distribution Width 14.4 % (11.6-14.8) Platelet Count 365 K/UL (150-450) Mean Platelet Volume 6.4 FL (6.5-10.1) L Neutrophils (%) (Auto) % (45.0-75.0) Lymphocytes (%) (Auto) % (20.0-45.0) Monocytes (%) (Auto) % (1.0-10.0) Eosinophils (%) (Auto) % (0.0-3.0) Basophils (%) (Auto) % (0.0-2.0) Differential Total Cells Counted 100 Neutrophils % (Manual) 85 % (45-75) H Lymphocytes % (Manual) 13 % (20-45) L Monocytes % (Manual) 2 % (1-10) Eosinophils % (Manual) 0 % (0-3) Basophils % (Manual) 0 % (0-2) Band Neutrophils 0 % (0-8) Platelet Estimate Adequate Platelet Morphology Normal Hypochromasia 1+ Anisocytosis 1+ Sodium Level 145 MMOL/L (136-145) Potassium Level 3.8 MMOL/L (3.5-5.1) Chloride Level 108 MMOL/L (98-107) H Carbon Dioxide Level 28 MMOL/L (21-32) Anion Gap 9 mmol/L (5-15) Blood Urea Nitrogen 13 mg/dL (7-18) Creatinine 1.0 MG/DL (0.55-1.30) Estimat Glomerular Filtration Rate 54.7 mL/min (>60) Glucose Level 106 MG/DL (74-106) Calcium Level 9.0 MG/DL (8.5-10.1) Plan Problems: (1) Episode of generalized weakness (2) Cellulitis and abscess of leg Assessment & Plan: 70-year-old female with right lower extremity cellulitis mild edema on the left side anterior tibial ulceration identified on the right side mid leg potentially from trauma though patient denies. No nausea fever chills no abscess identified no drainage. Macerated eschar identified. Apply betadine swab to ulcer cover with Optifoam dressing. Keep her legs elevated while in bed. IV antibiotics per infectious disease. No acute surgical intervention planned at this time. Sacral stage 3 decubitus ulcer wound identified. therahoney gauze and foam dressing daily and prn saturation. turn every 2 hours, offload pressure, patient able to comply with care plan. Nutrition optimization. Follow with recommendations thank you allowing me to participate patient's care Pt presented on admission with MASD skin folds Both breasts, Swelling,Ulcerations to RLE. Full thickness Pressure Injury L Buttocks. Skin folds of both breasts are erythematous, and macerated. Mild odor noted. Full thickness Pressure Injury L Buttocks (L)1.5cm x (W)0.3cm x (D)0.2cm. Wound has appearance of slit with indurated and maroon borders. Non-Blanchable erythema without induration Sacrum and R Buttocks. Small ulcer with necrotic cap noted to posterior upper R Thigh. Marginal erythema along edges. Larger ulcer with necrotic cap noted to maurice R Tibia(L)3cm x (W)3.7cm. Marginal erythema along borders and periwound. Clockwise at 2-4o'clock along borders are macerated. No odor or exudate noted. A third smaller ulcer with necrotic cap noted to distal/lateral R tibia(L)0.9cm x (W)1cm. Marginal erythema along borders. Both heels are soft, but each heel easily blanchable. Tx.Plan: Wash both breasts with soap and water. Pat dry. Apply Light Dusting of Antifungal powder to each breasts Twice Daily. Cleanse L Buttocks with Saline. Apply Therahoney. Apply Moisture Barrier Paste periwound. Cover with Optifoam drsg. Change every 3 days and prn. Apply Moisture Barrier paste to Sacrum and R buttocks. Cover with Optifoam drsg. Change every 3 days and prn. Reposition at least every 2 hours or as tolerated. Off-load heels with pillow. DAILY ESTIMATED NEEDS: Needs based on Wound/ 51.7kg abw 25-30 kcals/kg 7345-1967 total kcals 1.25-1.5 g protein/kg 65-77 g total protein 25-30 mL/kg 2042-0356 total fluid mLs NUTRITION DIAGNOSIS: Increased kcal/prot needs R/T wound healing as evidenced by pt admitted w/ sacral wound per photo, pending evaluation. CURRENT DIET:REGULAR PO DIET RECOMMENDATIONS:REGULAR, texture as tolerated ADDITIONAL RECOMMENDATIONS: * Calibrated bedscale wt * Wound healing: add MVI x 1, Vit C 250mg QD F/up w/ WC eval * Monitor PO intake and tolerance * Monitor lytes, replete as needed (low K) (3) Pedal edema (4) Facial contusion (5) Right ankle sprain (6) Multiple rib fractures (7) Noncompliance with treatment plan Mason Snyder Oct 09, 2020 13:31
[2020-10-09 16:00] VITALS: BP 107/78
--- NOTE | 2020-10-09 17:37 | Cardiac Electrophysiology PN ---
Assessment/Plan Assessment/Plan 1. Atypical chest pain. The first troponin is negative. Refuse Labs Echo EF 60%. Repeat Troponin in am 2. Hypokalemia. Potassium was replaced. 3. Cellulitis of the leg on ceftriaxone. 4. Tachycardia, likely due to cellulitis. 5. Dementia and agitation. Subjective Subjective Confused off restraints today off covid isolation ( PCR was negative). RN at bedside Objective Last 24 Hour Vital Signs Date Time Temp Pulse Resp B/P (MAP) Pulse Ox O2 Delivery O2 Flow Rate FiO2 10/09/20 16:00 98.8 87 18 107/78 (88) 95 10/09/20 12:00 98.3 83 18 132/89 (103) 97 10/09/20 10:37 Room Air 10/09/20 08:00 98.3 73 19 134/82 (99) 99 10/09/20 04:00 98.5 77 18 156/84 (108) 96 10/09/20 00:00 98.4 69 18 144/73 (96) 94 10/08/20 21:26 Room Air 10/08/20 20:00 98.0 72 18 148/86 (106) 94 Intake and Output 10/08/20 10/09/20 19:00 07:00 Intake Total 480 ml 120 ml Output Total 300 ml Balance 480 ml -180 ml Intake Oral 480 ml 120 ml Output Urine Total 300 ml # Voids 4 1 Laboratory Tests Test 10/09/20 08:20 White Blood Count 14.6 K/UL (4.8-10.8) H Red Blood Count 3.80 M/UL (4.20-5.40) L Hemoglobin 10.0 G/DL (12.0-16.0) L Hematocrit 32.7 % (37.0-47.0) L Mean Corpuscular Volume 86 FL (80-99) Mean Corpuscular Hemoglobin 26.3 PG (27.0-31.0) L Mean Corpuscular Hemoglobin Concent 30.5 G/DL (32.0-36.0) L Red Cell Distribution Width 14.4 % (11.6-14.8) Platelet Count 365 K/UL (150-450) Mean Platelet Volume 6.4 FL (6.5-10.1) L Neutrophils (%) (Auto) % (45.0-75.0) Lymphocytes (%) (Auto) % (20.0-45.0) Monocytes (%) (Auto) % (1.0-10.0) Eosinophils (%) (Auto) % (0.0-3.0) Basophils (%) (Auto) % (0.0-2.0) Differential Total Cells Counted 100 Neutrophils % (Manual) 85 % (45-75) H Lymphocytes % (Manual) 13 % (20-45) L Monocytes % (Manual) 2 % (1-10) Eosinophils % (Manual) 0 % (0-3) Basophils % (Manual) 0 % (0-2) Band Neutrophils 0 % (0-8) Platelet Estimate Adequate Platelet Morphology Normal Hypochromasia 1+ Anisocytosis 1+ Sodium Level 145 MMOL/L (136-145) Potassium Level 3.8 MMOL/L (3.5-5.1) Chloride Level 108 MMOL/L (98-107) H Carbon Dioxide Level 28 MMOL/L (21-32) Anion Gap 9 mmol/L (5-15) Blood Urea Nitrogen 13 mg/dL (7-18) Creatinine 1.0 MG/DL (0.55-1.30) Estimat Glomerular Filtration Rate 54.7 mL/min (>60) Glucose Level 106 MG/DL (74-106) Calcium Level 9.0 MG/DL (8.5-10.1) Objective HEAD AND NECK: No JVD. LUNGS: Clear. CARDIOVASCULAR: Regular S1 and S2 with no gallop. ABDOMEN: Soft. EXTREMITIES: Pain in the right leg. Leon Patricio MD Oct 09, 2020 17:37
--- NOTE | 2020-10-09 18:00 | NUR ---
NURSE NOTES: Patient resting,skin care given.patient has been more cooperative,following commands.Call light within reac,bed alarm on.
--- NOTE | 2020-10-09 18:40 | NUR ---
NURSE HAND-OFF: Rose Mary REID Important Events on Shift:[] Patient Status: [] Diet: Regular[] Pending Orders: [labs in AM 10/10/20] Pending Results/Labs:[] Pending MD notification:[] Latest Vital Signs: Temperature 98.8 , Pulse 87 , B/P 107 /78 , Respiratory Rate 18 , O2 SAT 95 , Room Air, O2 Flow Rate . Vital Sign Comment: [] Latest [place] Fall Score: 45 Fall Risk: High Risk Safety Measures: Call light Within Reach, Bed Alarm Zone 1, Side Rails Side Rails x3, Bed position Low and Locked. Fall Precautions: Yellow Socks Door Sign Patient Fall Education Report given to [].
--- NOTE | 2020-10-09 19:57 | NUR ---
NURSE NOTES: RECEIVED PATIENT LYING IN BED, AWAKE, ALERT/ORIENTED X3, VERBALLY RESPONSIVE, DENIES PAIN. NO SIGNS AND SYMPTOMS OF ACUTE CARDIO RESPIRATORY DISTRESS/SHORTNESS OF BREATH, DENIES CHEST PAIN, TRACE EDEMA NOTED.,TOLERATING ROOM AIR, SP02 96%. ABDOMEN SOFT/NON DISTENDED/NON TENDER/AUDIBLE BOWEL SOUNDS IN ALL QUADRANTS,DENIES NAUSEA/VOMITING/DIARRHEA. INCONTINENT, CARE PROVIDED, REPOSITIONED FOR COMFORT/PRESSURE RELIEF, TOLERATED WELL, SIDE RAILS UP X3/BED IN LOWEST POSITION FOR SAFETY, ENCOURAGED PATIENT TO UTILIZE CALL LIGHT FOR ASSISTANCE, VERBALIZED UNDERSTANDING, CONTINUE WITH CURRENT PLAN OF CARE. NAD.
[2020-10-09 20:00] VITALS: BP 140/83
[2020-10-10] VITALS: BP 138/76
[2020-10-10 04:00] VITALS: BP 137/91
--- NOTE | 2020-10-10 06:38 | Hematology/Onc Progress Note ---
Assessment/Plan Assessment/Plan Assessment and Recs # Leukocytosis is likely related to uti, has been started on abx --> as per id recs --> ABX ctx --> wbc 17.6-->14 # Anemia due likely to chronic disease --> hgb 10-->9 --> anemia panel if downtrends --> transfuse prn # Episode of generalized weakness --> on ivfs, tele --> consider cards # Cellulitis and abscess of leg --> abx # Fungal infection on her chest wall noted by the nurses --> will start patient on fluconazole and nystatin # Dvt ppx lovenox sq Appreciate consultation and guero rn Subjective Constitutional: Denies: no symptoms, chills, fever, malaise, weakness, other HEENT: Denies: no symptoms, eye pain, blurred vision, tearing, double vision, ear pain, ear discharge, nose pain, nose congestion, throat pain, throat swelling, mouth pain, mouth swelling, other Cardiovascular: Denies: no symptoms, chest pain, edema, irregular heart rate, lightheadedness, palpitations, syncope, other Respiratory: Denies: no symptoms, cough, shortness of breath, SOB with excertion, SOB at rest, sputum, wheezing, other Gastrointestinal/Abdominal: Denies: no symptoms, abdomen distended, abdominal pain, black stools, tarry stools, blood in stool, constipated, diarrhea, difficulty swallowing, nausea, poor appetite, poor fluid intake, rectal bleeding, vomiting, other Neurologic/Psychiatric: Denies: no symptoms, anxiety, depressed, emotional problems, headache, numbness, paresthesia, pre-existing deficit, seizure, tingling, tremors, weakness, other Endocrine: Denies: no symptoms, excessive sweating, flushing, intolerance to cold, intolerance to heat, increased hunger, increased thirst, increased urine, unexplained weight gain, unexplained weight loss, other Allergies: Coded Allergies: No Known Allergies (Unverified , 11/11/17) Subjective 2/4 agitated, hysterical, labs noted, anemia panel ordered 2/ meds noted, have ordered for cbc, labs reviewed, guero rn 2 restraints are intact, meds noted, no bleeding 10/10 with restraints, meds noted, no night sweats, hgb stable Objective Objective Current Medications Medications (Trade) Dose Ordered Sig/Siddharth Route PRN Reason Start Time Stop Time Status Last Admin Dose Admin Acetaminophen (Tylenol) 650 mg Q6H PRN ORAL Mild Pain (Pain Scale 1-3) 10/04/20 20:45 11/03/20 20:44 Acetaminophen (Tylenol) 650 mg Q6H PRN ORAL fever 10/04/20 20:45 11/03/20 20:44 Ceftriaxone Sodium 1 gm/ Dextrose 55 ml @ 110 mls/hr DAILY IVPB 10/05/20 09:00 10/11/20 20:44 10/09/20 10:04 Diphenhydramine HCl (Benadryl) 25 mg Q6H PRN ORAL Itching 10/04/20 20:45 11/03/20 20:44 10/06/20 17:56 Enoxaparin Sodium (Lovenox) 40 mg DAILY SUBQ 10/05/20 09:00 01/03/21 08:59 10/09/20 10:06 Lorazepam (Ativan) 1 mg Q6H PRN ORAL For Anxiety 10/07/20 05:15 10/14/20 05:14 10/07/20 05:31 Morphine Sulfate (Morphine Sulfate) 2 mg Q8H PRN IVP Severe Pain (Pain Scale 7-10) 10/04/20 20:45 10/11/20 20:44 10/05/20 21:59 Risperidone (RisperDAL) 0.5 mg BID ORAL 10/07/20 09:00 11/21/20 08:59 10/09/20 19:15 Last 24 Hour Vital Signs Date Time Temp Pulse Resp B/P (MAP) Pulse Ox O2 Delivery O2 Flow Rate FiO2 10/10/20 04:00 97.2 87 18 137/91 (106) 95 10/10/20 00:00 98.4 79 18 138/76 (96) 93 10/09/20 21:00 Room Air 10/09/20 20:00 100.0 93 18 140/83 (102) 94 10/09/20 16:00 98.8 87 18 107/78 (88) 95 10/09/20 12:00 98.3 83 18 132/89 (103) 97 10/09/20 10:37 Room Air 10/09/20 08:00 98.3 73 19 134/82 (99) 99 10/09/20 04:00 98.5 77 18 156/84 (108) 96 10/09/20 00:00 98.4 69 18 144/73 (96) 94 10/08/20 21:26 Room Air 10/08/20 20:00 98.0 72 18 148/86 (106) 94 10/08/20 16:00 98.1 76 18 151/79 (103) 94 10/08/20 12:00 98.1 63 18 132/63 (86) 94 10/08/20 09:00 Room Air 10/08/20 08:00 97.7 76 18 150/61 (90) 96 Intake and Output 10/09/20 10/10/20 19:00 07:00 Intake Total 720 ml 120 ml Output Total 700 ml 3 ml Balance 20 ml 117 ml Intake Oral 720 ml 120 ml Output Urine Total 700 ml 3 ml Labs Test 10/07/20 08:00 10/08/20 07:55 10/09/20 08:20 10/09/20 18:00 White Blood Count 15.9 K/UL (4.8-10.8) 14.0 K/UL (4.8-10.8) 14.6 K/UL (4.8-10.8) Red Blood Count 3.66 M/UL (4.20-5.40) 3.72 M/UL (4.20-5.40) 3.80 M/UL (4.20-5.40) Hemoglobin 9.8 G/DL (12.0-16.0) 9.9 G/DL (12.0-16.0) 10.0 G/DL (12.0-16.0) Hematocrit 31.4 % (37.0-47.0) 32.2 % (37.0-47.0) 32.7 % (37.0-47.0) Mean Corpuscular Volume 86 FL (80-99) 87 FL (80-99) 86 FL (80-99) Mean Corpuscular Hemoglobin 26.6 PG (27.0-31.0) 26.6 PG (27.0-31.0) 26.3 PG (27.0-31.0) Mean Corpuscular Hemoglobin Concent 31.1 G/DL (32.0-36.0) 30.7 G/DL (32.0-36.0) 30.5 G/DL (32.0-36.0) Red Cell Distribution Width 14.6 % (11.6-14.8) 14.5 % (11.6-14.8) 14.4 % (11.6-14.8) Platelet Count 320 K/UL (150-450) 332 K/UL (150-450) 365 K/UL (150-450) Mean Platelet Volume 6.6 FL (6.5-10.1) 6.6 FL (6.5-10.1) 6.4 FL (6.5-10.1) Neutrophils (%) (Auto) % (45.0-75.0) % (45.0-75.0) % (45.0-75.0) Lymphocytes (%) (Auto) % (20.0-45.0) % (20.0-45.0) % (20.0-45.0) Monocytes (%) (Auto) % (1.0-10.0) % (1.0-10.0) % (1.0-10.0) Eosinophils (%) (Auto) % (0.0-3.0) % (0.0-3.0) % (0.0-3.0) Basophils (%) (Auto) % (0.0-2.0) % (0.0-2.0) % (0.0-2.0) Differential Total Cells Counted 100 100 Neutrophils % (Manual) 93 % (45-75) 85 % (45-75) Lymphocytes % (Manual) 5 % (20-45) 13 % (20-45) Monocytes % (Manual) 2 % (1-10) 2 % (1-10) Eosinophils % (Manual) 0 % (0-3) 0 % (0-3) Basophils % (Manual) 0 % (0-2) 0 % (0-2) Band Neutrophils 0 % (0-8) 0 % (0-8) Platelet Estimate Adequate Adequate Platelet Morphology Normal Normal Hypochromasia 1+ 1+ Anisocytosis 1+ 1+ Sodium Level 144 MMOL/L (136-145) 144 MMOL/L (136-145) 145 MMOL/L (136-145) Potassium Level 3.7 MMOL/L (3.5-5.1) 3.3 MMOL/L (3.5-5.1) 3.8 MMOL/L (3.5-5.1) Chloride Level 109 MMOL/L (98-107) 107 MMOL/L (98-107) 108 MMOL/L (98-107) Carbon Dioxide Level 23 MMOL/L (21-32) 27 MMOL/L (21-32) 28 MMOL/L (21-32) Anion Gap 12 mmol/L (5-15) 11 mmol/L (5-15) 9 mmol/L (5-15) Blood Urea Nitrogen 10 mg/dL (7-18) 8 mg/dL (7-18) 13 mg/dL (7-18) Creatinine 1.1 MG/DL (0.55-1.30) 1.0 MG/DL (0.55-1.30) 1.0 MG/DL (0.55-1.30) Estimat Glomerular Filtration Rate 49.0 mL/min (>60) 54.7 mL/min (>60) 54.7 mL/min (>60) Glucose Level 83 MG/DL (74-106) 84 MG/DL (74-106) 106 MG/DL (74-106) Uric Acid 6.5 MG/DL (2.6-7.2) Calcium Level 8.9 MG/DL (8.5-10.1) 9.0 MG/DL (8.5-10.1) 9.0 MG/DL (8.5-10.1) Phosphorus Level 2.4 MG/DL (2.5-4.9) Magnesium Level 1.9 MG/DL (1.8-2.4) Total Bilirubin 0.3 MG/DL (0.2-1.0) Direct Bilirubin < 0.1 MG/DL (0.0-0.3) Aspartate Amino Transf (AST/SGOT) 46 U/L (15-37) Alanine Aminotransferase (ALT/SGPT) 25 U/L (12-78) Alkaline Phosphatase 81 U/L (46-116) Total Protein 7.1 G/DL (6.4-8.2) Albumin 2.1 G/DL (3.4-5.0) Troponin I 0.000 ng/mL (0.000-0.056) Height (Feet): 5 Height (Inches): 1.00 Weight (Pounds): 140 Objective PE Vitals: reviewed General: well appearing, no apparent distress, alert Heent: normocephalic, atraumatic, bilateral eye PERRL, bilateral eye EOMI Respiratory: lungs clear, no respiratory distress, no retraction, no accessory muscle use Cardiovascular: normal peripheral pulses, regular rate, rhythm, no edema, no gallop, no murmur Gastrointestinal: non tender, soft, no guarding, no rebound Musculoskeletal: normal inspection Neurologic: alert, oriented x3 Psychiatric: mood/affect normal Skin: warm/dry, other - Right lower extremity: Area of erythema on the tibial proximal aspect Mando Ventura MD Oct 10, 2020 06:38
[2020-10-10 08:00] VITALS: BP 132/78
--- NOTE | 2020-10-10 08:00 | NUR ---
NURSE NOTES: Received patient in bed, awake and alert, in NAD, respirations unlabored. On bilateral soft wrists restraints, skin is intact under restraints. Saline lock in the right hand PIV access, intact. Patient has pure wick in place with clear yellow urine noted. Bed alarm on, call light within reach, side rails up x3. Will continue to monitor pt and follow up with the plan of care.
[2020-10-10 08:47] LABS: HEMATOCRIT 34.5 % (37.0-47.0); HEMOGLOBIN 10.6 G/DL (12.0-16.0); MEAN CORPUSCULAR VOLUME 87 FL (80-99); PLATELET COUNT 388 K/UL (150-450); RED BLOOD COUNT 3.99 M/UL (4.20-5.40); RED CELL DISTRIBUTION WIDTH 14.9 % (11.6-14.8); WHITE BLOOD COUNT 15.8 K/UL (4.8-10.8)
--- NOTE | 2020-10-10 09:03 | Infectious Diseases Prog Note ---
Assessment/Plan 70yo F with: R kelley cellulitis, improving R kelley wound, dry scabbing Afebrile Leukocytosis to 17, improving 2/2 BCx NTD UA+, UCx +30-40k GAS, 80-90s mixed carmel Cr 1.2 R/o COVID 2/3 COVID PCR neg CXR: Worsening aeration with development of some patchy retrocardiac opacities which may relate to subsegmental atelectasis however pneumonia should be excluded clinically. Development of mild interstitial/vascular prominence. Mild congestive changes of CHF can be considered. Findings may also be artifactual related to lower lung volumes. HIV screen neg PMH: HTN Allergic rhinitis Plan: Cont CTX 1g IV daily #8 for now for possible cellulitis, vastly improved on my exam from prior line that was drawn on skin On discharge can transition to Augmentin 875mg PO BID to complete 10 day course for complicated cellulitis (2 more days) Trend WBC, if not improving and if exam worsens then will consider broadening to Zosyn Trend RLE exam 2/2 SP vanco/Zosyn/flucon in ED Monitor CBC/CMP Monitor temp curve, hemodynamics Monitor resp status D/w RN Thank you for this consult. [facility] will continue to follow. Subjective Allergies: Coded Allergies: No Known Allergies (Unverified , 11/11/17) AF NAD on RA WBC 15, stable Continued improvement in RLE wound Objective Last 24 Hour Vital Signs Date Time Temp Pulse Resp B/P (MAP) Pulse Ox O2 Delivery O2 Flow Rate FiO2 10/10/20 04:00 97.2 87 18 137/91 (106) 95 10/10/20 00:00 98.4 79 18 138/76 (96) 93 10/09/20 21:00 Room Air 10/09/20 20:00 100.0 93 18 140/83 (102) 94 10/09/20 16:00 98.8 87 18 107/78 (88) 95 10/09/20 12:00 98.3 83 18 132/89 (103) 97 10/09/20 10:37 Room Air Height (Feet): 5 Height (Inches): 1.00 Weight (Pounds): 140 Gen: NAD HEENT: NCAT Pulm: BL chest rise Abd: Non-distended Ext: RLE w/ improved cellulitis, central wound on R kelley healing Skin: No visible rashes Neuro: Awake Laboratory Tests Test 10/09/20 18:00 10/10/20 08:16 Troponin I 0.000 ng/mL (0.000-0.056) White Blood Count Pending Red Blood Count Pending Hemoglobin Pending Hematocrit Pending Mean Corpuscular Volume Pending Mean Corpuscular Hemoglobin Pending Mean Corpuscular Hemoglobin Concent Pending Red Cell Distribution Width Pending Platelet Count Pending Mean Platelet Volume Pending Neutrophils (%) (Auto) Pending Lymphocytes (%) (Auto) Pending Monocytes (%) (Auto) Pending Eosinophils (%) (Auto) Pending Basophils (%) (Auto) Pending Sodium Level Pending Potassium Level Pending Chloride Level Pending Carbon Dioxide Level Pending Blood Urea Nitrogen Pending Creatinine Pending Estimat Glomerular Filtration Rate Pending Glucose Level Pending Calcium Level Pending Current Medications Medications (Trade) Dose Ordered Sig/Siddharth Route PRN Reason Start Time Stop Time Status Last Admin Dose Admin Acetaminophen (Tylenol) 650 mg Q6H PRN ORAL Mild Pain (Pain Scale 1-3) 10/04/20 20:45 11/03/20 20:44 Acetaminophen (Tylenol) 650 mg Q6H PRN ORAL fever 10/04/20 20:45 11/03/20 20:44 Ceftriaxone Sodium 1 gm/ Dextrose 55 ml @ 110 mls/hr DAILY IVPB 10/05/20 09:00 10/11/20 20:44 10/09/20 10:04 Diphenhydramine HCl (Benadryl) 25 mg Q6H PRN ORAL Itching 10/04/20 20:45 11/03/20 20:44 10/06/20 17:56 Enoxaparin Sodium (Lovenox) 40 mg DAILY SUBQ 10/05/20 09:00 01/03/21 08:59 10/09/20 10:06 Lorazepam (Ativan) 1 mg Q6H PRN ORAL For Anxiety 10/07/20 05:15 10/14/20 05:14 10/07/20 05:31 Morphine Sulfate (Morphine Sulfate) 2 mg Q8H PRN IVP Severe Pain (Pain Scale 7-10) 10/04/20 20:45 10/11/20 20:44 2/3/21 21:59 Risperidone (RisperDAL) 0.5 mg BID ORAL 10/07/20 09:00 11/21/20 08:59 10/09/20 19:15 Sparkle Roque M.D. Oct 10, 2020 09:03
[2020-10-10 09:07] LABS: CALCIUM 9.1 MG/DL (8.5-10.1); POTASSIUM 3.6 MMOL/L (3.5-5.1)
--- NOTE | 2020-10-10 09:19 | General Progress Note ---
Subjective Constitutional: Reports: weakness Allergies: Coded Allergies: No Known Allergies (Unverified , 11/11/17) All Systems: reviewed and negative except above Subjective sleepy calm Objective Last 24 Hour Vital Signs Date Time Temp Pulse Resp B/P (MAP) Pulse Ox O2 Delivery O2 Flow Rate FiO2 10/10/20 04:00 97.2 87 18 137/91 (106) 95 10/10/20 00:00 98.4 79 18 138/76 (96) 93 10/09/20 21:00 Room Air 10/09/20 20:00 100.0 93 18 140/83 (102) 94 10/09/20 16:00 98.8 87 18 107/78 (88) 95 10/09/20 12:00 98.3 83 18 132/89 (103) 97 10/09/20 10:37 Room Air Intake and Output 10/09/20 10/10/20 19:00 07:00 Intake Total 720 ml 120 ml Output Total 700 ml 3 ml Balance 20 ml 117 ml Intake Oral 720 ml 120 ml Output Urine Total 700 ml 3 ml Laboratory Tests 10/09/20 18:00: Troponin I 0.000 10/10/20 08:16: White Blood Count [Pending], Red Blood Count [Pending], Hemoglobin [Pending], Hematocrit [Pending], Mean Corpuscular Volume [Pending], Mean Corpuscular Hemoglobin [Pending], Mean Corpuscular Hemoglobin Concent [Pending], Red Cell Distribution Width [Pending], Platelet Count [Pending], Mean Platelet Volume [Pending], Neutrophils (%) (Auto) [Pending], Lymphocytes (%) (Auto) [Pending], Monocytes (%) (Auto) [Pending], Eosinophils (%) (Auto) [Pending], Basophils (%) (Auto) [Pending], Sodium Level 138, Potassium Level 3.6, Chloride Level 102, Carbon Dioxide Level 27, Anion Gap 9, Blood Urea Nitrogen 13, Creatinine 1.0, Estimat Glomerular Filtration Rate 54.7, Glucose Level 182H, Calcium Level 9.1 Height (Feet): 5 Height (Inches): 1.00 Weight (Pounds): 140 General Appearance: lethargic EENT: normal ENT inspection Neck: normal alignment Cardiovascular: normal peripheral pulses, normal rate, regular rhythm Respiratory/Chest: chest wall non-tender, lungs clear, normal breath sounds Abdomen: normal bowel sounds, non tender, soft Extremities: normal inspection Edema: no edema noted Arm (L), no edema noted Arm (R), no edema noted Leg (L), no edema noted Leg (R), no edema noted Pedal (L), no edema noted Pedal (R), no edema noted Generalized Neurologic: motor weakness Skin: normal pigmentation, warm/dry Objective sl redness below r mid kelley Assessment/Plan Problem List: (1) Anemia ICD Codes: D64.9 - Anemia, unspecified SNOMED: 412544834 (2) Episode of generalized weakness ICD Codes: R53.1 - Weakness SNOMED: 59722307 (3) Cellulitis and abscess of leg ICD Codes: L03.119 - Cellulitis of unspecified part of limb; L02.419 - Cutaneous abscess of limb, unspecified SNOMED: 578104662 (4) Pedal edema ICD Codes: R60.0 - Localized edema SNOMED: 479049471 (5) Noncompliance with treatment plan ICD Codes: Z91.11 - Patient's noncompliance with dietary regimen SNOMED: 526244337 Status: stable, progressing Assessment/Plan: wound care abx psyc tx and transfer prn cbc bmp am Benjamin Ingram DO Oct 10, 2020 09:19
[2020-10-10] MEDS: cefTRIAXone 1 GM in D5W 55 ML IVPB SCH (09:20)
[2020-10-10] MEDS: Enoxaparin 40mg Inj SUBQ SCH (09:21)
--- NOTE | 2020-10-10 11:10 | Psychiatry Consultation ---
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 Mental status examination: 70-year-old female her appearance disheveled at irritable agitated affect allergic to intellect poor mood depressed anxious moderately psychomotor station attachments poor orientation x2 speech is nonsensical thought process disorganized logical and judgment is poor Allergies: Coded Allergies: No Known Allergies (Unverified , 11/11/17) Medication History Scheduled Naloxone HCl (Narcan), 4 MG NS PRN Scheduled PRN Ibuprofen* (Motrin*), 600 MG ORAL Q6H PRN for For Pain Discontinued Medications Acetaminophen With Codeine (T#3) (Tylenol #3 Tab*), 1 TAB ORAL Q8HR PRN for For Pain Discontinued Reason: Therapy completed Acetaminophen With Codeine (T#3) (Tylenol #3 Tab*), 1 TAB ORAL Q6H PRN for For Pain Discontinued Reason: Therapy completed Acetaminophen* (Tylenol Extra Strength*), 500 MG ORAL Q8H PRN for Prn Headache/Temp > 101 Discontinued Reason: Therapy completed Cephalexin* (Keflex*), 500 MG ORAL EVERY 12 HOURS Discontinued Reason: Therapy completed Cephalexin* (Keflex*), 500 MG ORAL EVERY 12 HOURS Discontinued Reason: Therapy completed Ciclopirox Olamine (Ciclopirox), 1 APPLIC TOPIC BID Discontinued Reason: Therapy completed Hydrochlorothiazide* (Hydrochlorothiazide*), 25 MG ORAL DAILY Discontinued Reason: Therapy completed Hydrocodone Bit/Acetaminophen 5-325* ([place] 5-325*), 1 TAB ORAL Q6H PRN for For Pain Discontinued Reason: Therapy completed Loratadine (Claritin), 10 MG ORAL DAILY Discontinued Reason: Therapy completed No Known Medications* (NKM - No Known Medications*), 0 ., (Reported) Discontinued Reason: Therapy completed Permethrin* (Elimite*), 1 APPLIC TOPIC ONCE Discontinued Reason: Pt had allergic rxn Objective Data Height (Feet): 5 Height (Inches): 1.00 Weight (Pounds): 140 Assessment/Plan Assessment/Plan: Ativan 1mg PO q6h prn anxiety, Risperdal 0.5 po BID and 20min of insight oriented psychotherapy to help pt have better impulse control due to better realization of he symptoms. 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 Elmer Herrera MD Oct 10, 2020 11:10
[2020-10-10 12:00] VITALS: BP 158/85
--- NOTE | 2020-10-10 12:06 | Cardiac Electrophysiology PN ---
Assessment/Plan Assessment/Plan 1. Atypical chest pain. Ruled out for LA Echo EF 60% 2. Hypokalemia. Potassium was replaced. 3. Cellulitis of the leg on ceftriaxone. 4. Tachycardia, likely due to cellulitis. 5. Dementia and agitation. Subjective Subjective Confused in restraints off covid isolation ( PCR was negative). RN at bedside Objective Last 24 Hour Vital Signs Date Time Temp Pulse Resp B/P (MAP) Pulse Ox O2 Delivery O2 Flow Rate FiO2 10/10/20 09:00 Room Air 10/10/20 08:00 98.6 108 20 132/78 (96) 96 10/10/20 04:00 97.2 87 18 137/91 (106) 95 10/10/20 00:00 98.4 79 18 138/76 (96) 93 10/09/20 21:00 Room Air 10/09/20 20:00 100.0 93 18 140/83 (102) 94 10/09/20 16:00 98.8 87 18 107/78 (88) 95 Intake and Output 10/09/20 10/10/20 19:00 07:00 Intake Total 720 ml 120 ml Output Total 700 ml 3 ml Balance 20 ml 117 ml Intake Oral 720 ml 120 ml Output Urine Total 700 ml 3 ml Laboratory Tests Test 10/09/20 18:00 10/10/20 08:16 Troponin I 0.000 ng/mL (0.000-0.056) White Blood Count 15.8 K/UL (4.8-10.8) H Red Blood Count 3.99 M/UL (4.20-5.40) L Hemoglobin 10.6 G/DL (12.0-16.0) L Hematocrit 34.5 % (37.0-47.0) L Mean Corpuscular Volume 87 FL (80-99) Mean Corpuscular Hemoglobin 26.6 PG (27.0-31.0) L Mean Corpuscular Hemoglobin Concent 30.7 G/DL (32.0-36.0) L Red Cell Distribution Width 14.9 % (11.6-14.8) H Platelet Count 388 K/UL (150-450) Mean Platelet Volume 6.4 FL (6.5-10.1) L Neutrophils (%) (Auto) % (45.0-75.0) Lymphocytes (%) (Auto) % (20.0-45.0) Monocytes (%) (Auto) % (1.0-10.0) Eosinophils (%) (Auto) % (0.0-3.0) Basophils (%) (Auto) % (0.0-2.0) Differential Total Cells Counted 100 Neutrophils % (Manual) 86 % (45-75) H Lymphocytes % (Manual) 11 % (20-45) L Monocytes % (Manual) 2 % (1-10) Eosinophils % (Manual) 1 % (0-3) Basophils % (Manual) 0 % (0-2) Band Neutrophils 0 % (0-8) Platelet Estimate Adequate Platelet Morphology Normal Hypochromasia 1+ Anisocytosis 1+ Sodium Level 138 MMOL/L (136-145) Potassium Level 3.6 MMOL/L (3.5-5.1) Chloride Level 102 MMOL/L (98-107) Carbon Dioxide Level 27 MMOL/L (21-32) Anion Gap 9 mmol/L (5-15) Blood Urea Nitrogen 13 mg/dL (7-18) Creatinine 1.0 MG/DL (0.55-1.30) Estimat Glomerular Filtration Rate 54.7 mL/min (>60) Glucose Level 182 MG/DL (74-106) H Calcium Level 9.1 MG/DL (8.5-10.1) Objective HEAD AND NECK: No JVD. LUNGS: Clear. CARDIOVASCULAR: Regular S1 and S2 with no gallop. ABDOMEN: Soft. EXTREMITIES: Pain in the right leg. Leon Patricio MD Oct 10, 2020 12:06
[2020-10-10 16:00] VITALS: BP 125/78
--- NOTE | 2020-10-10 16:30 | NUR ---
*-*DISCHARGE PLANNING*-* PATIENT HAS BEEN REFERRED TO: YISEL PRATT P: [phone] S/W JAI, WILL CALL BACK AFTER REVIEW.
--- NOTE | 2020-10-10 18:16 | Surgery Progress Note ---
Surgery Progress Note Subjective Additional Comments leukocytosis cellulitis stable dressings going well no n/v Objective Last 24 Hour Vital Signs Date Time Temp Pulse Resp B/P (MAP) Pulse Ox O2 Delivery O2 Flow Rate FiO2 10/10/20 16:00 99.1 90 20 125/78 (94) 95 10/10/20 16:00 99.1 90 20 125/78 (94) 95 10/10/20 12:00 99.0 118 20 158/85 (109) 96 10/10/20 09:00 Room Air 10/10/20 08:00 98.6 108 20 132/78 (96) 96 10/10/20 04:00 97.2 87 18 137/91 (106) 95 10/10/20 00:00 98.4 79 18 138/76 (96) 93 10/09/20 21:00 Room Air 10/09/20 20:00 100.0 93 18 140/83 (102) 94 I&O Intake and Output 10/09/20 10/10/20 19:00 07:00 Intake Total 720 ml 120 ml Output Total 700 ml 3 ml Balance 20 ml 117 ml Intake Oral 720 ml 120 ml Output Urine Total 700 ml 3 ml Dressing: saturated Cardiovascular: RSR Respiratory: decreased breath sounds Abdomen: soft, flat, non-tender, non-distended Extremities: edema, tenderness, no cyanosis, pulses Laboratory Tests Test 10/10/20 08:16 White Blood Count 15.8 K/UL (4.8-10.8) H Red Blood Count 3.99 M/UL (4.20-5.40) L Hemoglobin 10.6 G/DL (12.0-16.0) L Hematocrit 34.5 % (37.0-47.0) L Mean Corpuscular Volume 87 FL (80-99) Mean Corpuscular Hemoglobin 26.6 PG (27.0-31.0) L Mean Corpuscular Hemoglobin Concent 30.7 G/DL (32.0-36.0) L Red Cell Distribution Width 14.9 % (11.6-14.8) H Platelet Count 388 K/UL (150-450) Mean Platelet Volume 6.4 FL (6.5-10.1) L Neutrophils (%) (Auto) % (45.0-75.0) Lymphocytes (%) (Auto) % (20.0-45.0) Monocytes (%) (Auto) % (1.0-10.0) Eosinophils (%) (Auto) % (0.0-3.0) Basophils (%) (Auto) % (0.0-2.0) Differential Total Cells Counted 100 Neutrophils % (Manual) 86 % (45-75) H Lymphocytes % (Manual) 11 % (20-45) L Monocytes % (Manual) 2 % (1-10) Eosinophils % (Manual) 1 % (0-3) Basophils % (Manual) 0 % (0-2) Band Neutrophils 0 % (0-8) Platelet Estimate Adequate Platelet Morphology Normal Hypochromasia 1+ Anisocytosis 1+ Sodium Level 138 MMOL/L (136-145) Potassium Level 3.6 MMOL/L (3.5-5.1) Chloride Level 102 MMOL/L (98-107) Carbon Dioxide Level 27 MMOL/L (21-32) Anion Gap 9 mmol/L (5-15) Blood Urea Nitrogen 13 mg/dL (7-18) Creatinine 1.0 MG/DL (0.55-1.30) Estimat Glomerular Filtration Rate 54.7 mL/min (>60) Glucose Level 182 MG/DL (74-106) H Calcium Level 9.1 MG/DL (8.5-10.1) Plan Problems: (1) Episode of generalized weakness (2) Cellulitis and abscess of leg Assessment & Plan: 70-year-old female with right lower extremity cellulitis mild edema on the left side anterior tibial ulceration identified on the right side mid leg potentially from trauma though patient denies. No nausea fever chills no abscess identified no drainage. Macerated eschar identified. Apply betadine swab to ulcer cover with Optifoam dressing. Keep her legs elevated while in bed. IV antibiotics per infectious disease. No acute surgical intervention planned at this time. Sacral stage 3 decubitus ulcer wound identified. therahoney gauze and foam dressing daily and prn saturation. turn every 2 hours, offload pressure, patient able to comply with care plan. Nutrition optimization. Follow with recommendations thank you allowing me to participate patient's care Pt presented on admission with MASD skin folds Both breasts, Swell ing,Ulcerations to RLE. Full thickness Pressure Injury L Buttocks. Skin folds of both breasts are erythematous, and macerated. Mild odor noted. Full thickness Pressure Injury L Buttocks (L)1.5cm x (W)0.3cm x (D)0.2cm. Wound has appearance of slit with indurated and maroon borders. Non-Blanchable erythema without induration Sacrum and R Buttocks. Small ulcer with necrotic cap noted to posterior upper R Thigh. Marginal erythema along edges. Larger ulcer with necrotic cap noted to maurice R Tibia(L)3cm x (W)3.7cm. Marginal erythema along borders and periwound. Clockwise at 2-4o'clock along borders are macerated. No odor or exudate noted. A third smaller ulcer with necrotic cap noted to distal/lateral R tibia(L)0.9cm x (W)1cm. Marginal erythema along borders. Both heels are soft, but each heel easily blanchable. Tx.Plan: Wash both breasts with soap and water. Pat dry. Apply Light Dusting of Antifungal powder to each breasts Twice Daily. Cleanse L Buttocks with Saline. Apply Therahoney. Apply Moisture Barrier Paste periwound. Cover with Optifoam drsg. Change every 3 days and prn. Apply Moisture Barrier paste to Sacrum and R buttocks. Cover with Optifoam drsg. Change every 3 days and prn. Reposition at least every 2 hours or as tolerated. Off-load heels with pillow. DAILY ESTIMATED NEEDS: Needs based on Wound/ 51.7kg abw 25-30 kcals/kg 5827-2011 total kcals 1.25-1.5 g protein/kg 65-77 g total protein 25-30 mL/kg 5948-3654 total fluid mLs NUTRITION DIAGNOSIS: Increased kcal/prot needs R/T wound healing as evidenced by pt admitted w/ sacral wound per photo, pending evaluation. CURRENT DIET:REGULAR PO DIET RECOMMENDATIONS:REGULAR, texture as tolerated ADDITIONAL RECOMMENDATIONS: * Calibrated bedscale wt * Wound healing: add MVI x 1, Vit C 250mg QD F/up w/ WC eval * Monitor PO intake and tolerance * Monitor lytes, replete as needed (low K) (3) Pedal edema (4) Facial contusion (5) Right ankle sprain (6) Multiple rib fractures (7) Noncompliance with treatment plan Mason Snyder Oct 10, 2020 18:16
--- NOTE | 2020-10-10 19:53 | NUR ---
NURSE HAND-OFF: Important Events on Shift:[] Patient Status: [] Diet: [reg] Pending Orders: [cbc, bmp] Pending Results/Labs:[] Pending MD notification:[] Latest Vital Signs: Temperature 99.1 , Pulse 90 , B/P 125 /78 , Respiratory Rate 20 , O2 SAT 95 , Room Air, O2 Flow Rate . Vital Sign Comment: [] Latest [place] Fall Score: 45 Fall Risk: High Risk Safety Measures: Call light Within Reach, Bed Alarm Zone 1, Side Rails Side Rails x3, Bed position Low and Locked. Fall Precautions: Yellow Socks Door Sign Patient Fall Education Report given to [MIAH Rodriguez].
[2020-10-10 20:00] VITALS: BP 137/78
--- NOTE | 2020-10-10 20:43 | NUR ---
NURSE NOTE: Received report from MIAH Noriega. Rounds completed. Pt in bed, denies pain currently. No apparent distress noted. Breathing pattern is even and unlabored on RA. Bilateral soft restraints no longer in use. Pt demeanor is appropriate. IV R hand is in place, hep locked. No scheduled meds to be administrated on eMAR. Bed at lowest level, call light within reach. Pt will continue to be monitored.
[2020-10-11] VITALS: BP 133/79
[2020-10-11 04:00] VITALS: BP 139/77
--- NOTE | 2020-10-11 06:23 | Hematology/Onc Progress Note ---
Assessment/Plan Assessment/Plan Assessment and Recs # Leukocytosis is likely related to uti, has been started on abx --> as per id recs --> ABX ctx --> wbc 17.6-->14-->15 # Anemia due likely to chronic disease --> hgb 10-->9-->10 --> anemia panel if downtrends --> transfuse prn # Episode of generalized weakness --> on ivfs, tele --> consider cards # Cellulitis and abscess of leg --> abx # Fungal infection on her chest wall noted by the nurses --> will start patient on fluconazole and nystatin # Dvt ppx lovenox sq Appreciate consultation and guero rn Subjective HEENT: Denies: no symptoms, eye pain, blurred vision, tearing, double vision, ear pain, ear discharge, nose pain, nose congestion, throat pain, throat swelling, mouth pain, mouth swelling, other Cardiovascular: Denies: no symptoms, chest pain, edema, irregular heart rate, lightheadedness, palpitations, syncope, other Respiratory: Denies: no symptoms, cough, shortness of breath, SOB with excertion, SOB at rest, sputum, wheezing, other Gastrointestinal/Abdominal: Denies: no symptoms, abdomen distended, abdominal pain, black stools, tarry stools, blood in stool, constipated, diarrhea, difficulty swallowing, nausea, poor appetite, poor fluid intake, rectal bleeding, vomiting, other Genitourinary: Denies: no symptoms, burning, discharge, frequency, flank pain, hematuria, incontinence, pain, urgency, other Neurologic/Psychiatric: Denies: no symptoms, anxiety, depressed, emotional problems, headache, numbness, paresthesia, pre-existing deficit, seizure, tingling, tremors, weakness, other Endocrine: Denies: no symptoms, excessive sweating, flushing, intolerance to cold, intolerance to heat, increased hunger, increased thirst, increased urine, unexplained weight gain, unexplained weight loss, other Hematologic/Lymphatic: Denies: no symptoms, anemia, easy bleeding, easy bruising, adenopathy, other Allergies: Coded Allergies: No Known Allergies (Unverified , 11/11/17) Subjective 2/4 agitated, hysterical, labs noted, anemia panel ordered 2/5 meds noted, have ordered for cbc, labs reviewed, guero rn 2/ restraints are intact, meds noted, no bleeding 10/10 with restraints, meds noted, no night sweats, hgb stable / remains with restraints, is on lovenox and ctx abx Objective Objective Current Medications Medications (Trade) Dose Ordered Sig/Siddharth Route PRN Reason Start Time Stop Time Status Last Admin Dose Admin Acetaminophen (Tylenol) 650 mg Q6H PRN ORAL Mild Pain (Pain Scale 1-3) 10/04/20 20:45 11/03/20 20:44 Acetaminophen (Tylenol) 650 mg Q6H PRN ORAL fever 10/04/20 20:45 11/03/20 20:44 Ceftriaxone Sodium 1 gm/ Dextrose 55 ml @ 110 mls/hr DAILY IVPB 10/05/20 09:00 10/11/20 20:44 10/10/20 09:20 Diphenhydramine HCl (Benadryl) 25 mg Q6H PRN ORAL Itching 10/04/20 20:45 11/03/20 20:44 10/06/20 17:56 Enoxaparin Sodium (Lovenox) 40 mg DAILY SUBQ 10/05/20 09:00 01/03/21 08:59 10/10/20 09:21 Lorazepam (Ativan) 1 mg Q6H PRN ORAL For Anxiety 10/07/20 05:15 10/14/20 05:14 10/07/20 05:31 Morphine Sulfate (Morphine Sulfate) 2 mg Q8H PRN IVP Severe Pain (Pain Scale 7-10) 10/04/20 20:45 10/11/20 20:44 10/05/20 21:59 Risperidone (RisperDAL) 0.5 mg BID ORAL 10/07/20 09:00 11/21/20 08:59 10/10/20 17:43 Last 24 Hour Vital Signs Date Time Temp Pulse Resp B/P (MAP) Pulse Ox O2 Delivery O2 Flow Rate FiO2 10/11/20 04:00 97.8 94 18 139/77 (97) 96 10/11/20 00:00 97.7 88 18 133/79 (97) 96 10/10/20 21:00 Room Air 10/10/20 20:00 99.7 90 20 137/78 (97) 97 10/10/20 16:00 99.1 90 20 125/78 (94) 95 10/10/20 16:00 99.1 90 20 125/78 (94) 95 10/10/20 12:00 99.0 118 20 158/85 (109) 96 10/10/20 09:00 Room Air 10/10/20 08:00 98.6 108 20 132/78 (96) 96 10/10/20 04:00 97.2 87 18 137/91 (106) 95 10/10/20 00:00 98.4 79 18 138/76 (96) 93 10/09/20 21:00 Room Air 10/09/20 20:00 100.0 93 18 140/83 (102) 94 10/09/20 16:00 98.8 87 18 107/78 (88) 95 10/09/20 12:00 98.3 83 18 132/89 (103) 97 10/09/20 10:37 Room Air 10/09/20 08:00 98.3 73 19 134/82 (99) 99 Intake and Output 10/10/20 10/11/20 19:00 07:00 Intake Total 720 ml 120 ml Output Total 300 ml Balance 420 ml 120 ml Intake Oral 720 ml 120 ml Output Urine Total 300 ml # Voids 3 2 Labs Test 10/08/20 07:55 10/09/20 08:20 10/09/20 18:00 10/10/20 08:16 White Blood Count 14.0 K/UL (4.8-10.8) 14.6 K/UL (4.8-10.8) 15.8 K/UL (4.8-10.8) Red Blood Count 3.72 M/UL (4.20-5.40) 3.80 M/UL (4.20-5.40) 3.99 M/UL (4.20-5.40) Hemoglobin 9.9 G/DL (12.0-16.0) 10.0 G/DL (12.0-16.0) 10.6 G/DL (12.0-16.0) Hematocrit 32.2 % (37.0-47.0) 32.7 % (37.0-47.0) 34.5 % (37.0-47.0) Mean Corpuscular Volume 87 FL (80-99) 86 FL (80-99) 87 FL (80-99) Mean Corpuscular Hemoglobin 26.6 PG (27.0-31.0) 26.3 PG (27.0-31.0) 26.6 PG (27.0-31.0) Mean Corpuscular Hemoglobin Concent 30.7 G/DL (32.0-36.0) 30.5 G/DL (32.0-36.0) 30.7 G/DL (32.0-36.0) Red Cell Distribution Width 14.5 % (11.6-14.8) 14.4 % (11.6-14.8) 14.9 % (11.6-14.8) Platelet Count 332 K/UL (150-450) 365 K/UL (150-450) 388 K/UL (150-450) Mean Platelet Volume 6.6 FL (6.5-10.1) 6.4 FL (6.5-10.1) 6.4 FL (6.5-10.1) Neutrophils (%) (Auto) % (45.0-75.0) % (45.0-75.0) % (45.0-75.0) Lymphocytes (%) (Auto) % (20.0-45.0) % (20.0-45.0) % (20.0-45.0) Monocytes (%) (Auto) % (1.0-10.0) % (1.0-10.0) % (1.0-10.0) Eosinophils (%) (Auto) % (0.0-3.0) % (0.0-3.0) % (0.0-3.0) Basophils (%) (Auto) % (0.0-2.0) % (0.0-2.0) % (0.0-2.0) Sodium Level 144 MMOL/L (136-145) 145 MMOL/L (136-145) 138 MMOL/L (136-145) Potassium Level 3.3 MMOL/L (3.5-5.1) 3.8 MMOL/L (3.5-5.1) 3.6 MMOL/L (3.5-5.1) Chloride Level 107 MMOL/L (98-107) 108 MMOL/L (98-107) 102 MMOL/L (98-107) Carbon Dioxide Level 27 MMOL/L (21-32) 28 MMOL/L (21-32) 27 MMOL/L (21-32) Anion Gap 11 mmol/L (5-15) 9 mmol/L (5-15) 9 mmol/L (5-15) Blood Urea Nitrogen 8 mg/dL (7-18) 13 mg/dL (7-18) 13 mg/dL (7-18) Creatinine 1.0 MG/DL (0.55-1.30) 1.0 MG/DL (0.55-1.30) 1.0 MG/DL (0.55-1.30) Estimat Glomerular Filtration Rate 54.7 mL/min (>60) 54.7 mL/min (>60) 54.7 mL/min (>60) Glucose Level 84 MG/DL (74-106) 106 MG/DL (74-106) 182 MG/DL (74-106) Calcium Level 9.0 MG/DL (8.5-10.1) 9.0 MG/DL (8.5-10.1) 9.1 MG/DL (8.5-10.1) Differential Total Cells Counted 100 100 Neutrophils % (Manual) 85 % (45-75) 86 % (45-75) Lymphocytes % (Manual) 13 % (20-45) 11 % (20-45) Monocytes % (Manual) 2 % (1-10) 2 % (1-10) Eosinophils % (Manual) 0 % (0-3) 1 % (0-3) Basophils % (Manual) 0 % (0-2) 0 % (0-2) Band Neutrophils 0 % (0-8) 0 % (0-8) Platelet Estimate Adequate Adequate Platelet Morphology Normal Normal Hypochromasia 1+ 1+ Anisocytosis 1+ 1+ Troponin I 0.000 ng/mL (0.000-0.056) Height (Feet): 5 Height (Inches): 1.00 Weight (Pounds): 140 Objective PE Vitals: reviewed General: well appearing, no apparent distress, alert Heent: normocephalic, atraumatic, bilateral eye PERRL, bilateral eye EOMI Respiratory: lungs clear, no respiratory distress, no retraction, no accessory muscle use Cardiovascular: normal peripheral pulses, regular rate, rhythm, no edema, no gallop, no murmur Gastrointestinal: non tender, soft, no guarding, no rebound Musculoskeletal: normal inspection Neurologic: alert, oriented x3 Psychiatric: mood/affect normal Skin: warm/dry, other - Right lower extremity: Area of erythema on the tibial proximal aspect Mando Ventura MD Oct 11, 2020 06:23
--- NOTE | 2020-10-11 06:40 | NUR ---
NURSE HAND-OFF: Important Events on Shift:[Pt handled d/c of bilateral restraints well. No disruptive behavior observed] Patient Status: [STABLE] Diet: [REGULAR] Pending Orders: [N/A] Pending Results/Labs:[AM LABS STILL PENDING] Pending MD notification:[N/A] Latest Vital Signs: Temperature 97.8 , Pulse 94 , B/P 139 /77 , Respiratory Rate 18 , O2 SAT 96 , Room Air, O2 Flow Rate . Vital Sign Comment: [WNL] Latest Landry Fall Score: 45 Fall Risk: High Risk Safety Measures: Call light Within Reach, Bed Alarm Zone 1, Side Rails Side Rails x3, Bed position Low and Locked. Fall Precautions: Yellow Socks Door Sign Patient Fall Education Report given to [].
[2020-10-11 06:46] LABS: BASOPHILS % (AUTO) 0.3 % (0.0-2.0); EOSINOPHILS % (AUTO) 0.3 % (0.0-3.0); HEMATOCRIT 30.4 % (37.0-47.0); HEMOGLOBIN 9.9 G/DL (12.0-16.0); LYMPHOCYTES % (AUTO) 10.3 % (20.0-45.0); MEAN CORPUSCULAR VOLUME 84 FL (80-99); MONOCYTES % (AUTO) 5.6 % (1.0-10.0); NEUTROPHILS % (AUTO) 83.5 % (45.0-75.0); PLATELET COUNT 370 K/UL (150-450); RED BLOOD COUNT 3.61 M/UL (4.20-5.40); RED CELL DISTRIBUTION WIDTH 15.3 % (11.6-14.8); WHITE BLOOD COUNT 16.1 K/UL (4.8-10.8)
[2020-10-11 07:13] LABS: CALCIUM 9.2 MG/DL (8.5-10.1)
--- NOTE | 2020-10-11 07:20 | NUR ---
NURSE NOTES: RN received report from [place] and patient in bed. Patient is lying on the bed on semi-hart position, aao X3, no showing s/s of respiratory distress on RA, no s/s of pain. IV access on RH, intact, dry, clean, patent and asymptomatic. Call light within reach, bed in lowest position, locked, bed alarm on. Will continue to monitor.
--- NOTE | 2020-10-11 07:40 | NUR ---
HAND OFF: Report given to IMAH Blake
[2020-10-11 08:00] VITALS: BP 132/82
--- NOTE | 2020-10-11 08:44 | Infectious Diseases Prog Note ---
Assessment/Plan 70yo F with: R kelley cellulitis, improving R kelley wound, dry scabbing Afebrile Leukocytosis to 17, improving 2/2 BCx NTD UA+, UCx +30-40k GAS, 80-90s mixed carmel Cr 1.2 R/o COVID 2/3 COVID PCR neg CXR: Worsening aeration with development of some patchy retrocardiac opacities which may relate to subsegmental atelectasis however pneumonia should be excluded clinically. Development of mild interstitial/vascular prominence. Mild congestive changes of CHF can be considered. Findings may also be artifactual related to lower lung volumes. HIV screen neg PMH: HTN Allergic rhinitis Plan: Cont CTX 1g IV daily #9/10 for now for possible cellulitis, vastly improved on my exam from prior line that was drawn on skin On discharge can transition to Augmentin 875mg PO BID to complete 10 day course for complicated cellulitis (1 more day) Trend WBC, if not improving and if exam worsens then will consider broadening to Zosyn Trend RLE exam 2/2 SP vanco/Zosyn/flucon in ED Monitor CBC/CMP Monitor temp curve, hemodynamics Monitor resp status D/w RN & Dr. Snyder Thank you for this consult. [facility] will continue to follow. Subjective Allergies: Coded Allergies: No Known Allergies (Unverified , 11/11/17) AF NAD on RA WBC 16, stable Continued improvement in RLE wound Asking when she can go home Objective Last 24 Hour Vital Signs Date Time Temp Pulse Resp B/P (MAP) Pulse Ox O2 Delivery O2 Flow Rate FiO2 10/11/20 04:00 97.8 94 18 139/77 (97) 96 10/11/20 00:00 97.7 88 18 133/79 (97) 96 10/10/20 21:00 Room Air 10/10/20 20:00 99.7 90 20 137/78 (97) 97 10/10/20 16:00 99.1 90 20 125/78 (94) 95 10/10/20 16:00 99.1 90 20 125/78 (94) 95 10/10/20 12:00 99.0 118 20 158/85 (109) 96 10/10/20 09:00 Room Air Height (Feet): 5 Height (Inches): 1.00 Weight (Pounds): 140 Gen: NAD HEENT: NCAT Pulm: BL chest rise Abd: Non-distended Ext: RLE w/ improved cellulitis, central wound on R kelley healing Skin: No visible rashes Neuro: Awake Laboratory Tests Test 10/11/20 05:35 White Blood Count 16.1 K/UL (4.8-10.8) H Red Blood Count 3.61 M/UL (4.20-5.40) L Hemoglobin 9.9 G/DL (12.0-16.0) L Hematocrit 30.4 % (37.0-47.0) L Mean Corpuscular Volume 84 FL (80-99) Mean Corpuscular Hemoglobin 27.5 PG (27.0-31.0) Mean Corpuscular Hemoglobin Concent 32.6 G/DL (32.0-36.0) Red Cell Distribution Width 15.3 % (11.6-14.8) H Platelet Count 370 K/UL (150-450) Mean Platelet Volume 6.4 FL (6.5-10.1) L Neutrophils (%) (Auto) 83.5 % (45.0-75.0) H Lymphocytes (%) (Auto) 10.3 % (20.0-45.0) L Monocytes (%) (Auto) 5.6 % (1.0-10.0) Eosinophils (%) (Auto) 0.3 % (0.0-3.0) Basophils (%) (Auto) 0.3 % (0.0-2.0) Sodium Level 136 MMOL/L (136-145) Potassium Level 4.0 MMOL/L (3.5-5.1) Chloride Level 101 MMOL/L (98-107) Carbon Dioxide Level 27 MMOL/L (21-32) Anion Gap 9 mmol/L (5-15) Blood Urea Nitrogen 16 mg/dL (7-18) Creatinine 1.0 MG/DL (0.55-1.30) Estimat Glomerular Filtration Rate 54.7 mL/min (>60) Glucose Level 105 MG/DL (74-106) Calcium Level 9.2 MG/DL (8.5-10.1) Current Medications Medications (Trade) Dose Ordered Sig/Siddharth Route PRN Reason Start Time Stop Time Status Last Admin Dose Admin Acetaminophen (Tylenol) 650 mg Q6H PRN ORAL Mild Pain (Pain Scale 1-3) 10/04/20 20:45 11/03/20 20:44 Acetaminophen (Tylenol) 650 mg Q6H PRN ORAL fever 10/04/20 20:45 11/03/20 20:44 Ceftriaxone Sodium 1 gm/ Dextrose 55 ml @ 110 mls/hr DAILY IVPB 10/05/20 09:00 10/11/20 20:44 10/10/20 09:20 Diphenhydramine HCl (Benadryl) 25 mg Q6H PRN ORAL Itching 10/04/20 20:45 11/03/20 20:44 10/06/20 17:56 Enoxaparin Sodium (Lovenox) 40 mg DAILY SUBQ 10/05/20 09:00 01/03/21 08:59 10/10/20 09:21 Lorazepam (Ativan) 1 mg Q6H PRN ORAL For Anxiety 10/07/20 05:15 10/14/20 05:14 10/07/20 05:31 Morphine Sulfate (Morphine Sulfate) 2 mg Q8H PRN IVP Severe Pain (Pain Scale 7-10) 10/04/20 20:45 10/11/20 20:44 10/05/20 21:59 Risperidone (RisperDAL) 0.5 mg BID ORAL 10/07/20 09:00 11/21/20 08:59 10/10/20 17:43 Sparkle Roque M.D. Oct 11, 2020 08:44
--- NOTE | 2020-10-11 09:15 | NUR ---
PT EVALUATION NOTE Patient seen for initial evaluation and treatment initiated. Patient presents with generalized weakness, poor activity tolerance and decreased balance which impairs patient's ability to perform mobility skills safely. Patient requires max assist of 2 to come to sitting at the EOB and requires max assist to maintain sitting at the EOB. Patient unable to stand or ambulate at this time. Patient will benefit from skilled inpatient PT intervention to increase strength and postural stability for improved level of functional mobility, safety and activity tolerance. Recommend discharge to SNF for continued rehab once medically cleared by MD. Addendum: 10/11/20 at 1128 by RUDOLPH DAVIS PT Amended: Links added.
--- NOTE | 2020-10-11 09:20 | General Progress Note ---
Subjective Constitutional: Reports: weakness Allergies: Coded Allergies: No Known Allergies (Unverified , 11/11/17) All Systems: reviewed and negative except above Subjective sleepy calm Objective Last 24 Hour Vital Signs Date Time Temp Pulse Resp B/P (MAP) Pulse Ox O2 Delivery O2 Flow Rate FiO2 10/11/20 04:00 97.8 94 18 139/77 (97) 96 10/11/20 00:00 97.7 88 18 133/79 (97) 96 10/10/20 21:00 Room Air 10/10/20 20:00 99.7 90 20 137/78 (97) 97 10/10/20 16:00 99.1 90 20 125/78 (94) 95 10/10/20 16:00 99.1 90 20 125/78 (94) 95 10/10/20 12:00 99.0 118 20 158/85 (109) 96 Intake and Output 10/10/20 10/11/20 19:00 07:00 Intake Total 720 ml 120 ml Output Total 300 ml Balance 420 ml 120 ml Intake Oral 720 ml 120 ml Output Urine Total 300 ml # Voids 3 2 Laboratory Tests 10/11/20 05:35: White Blood Count 16.1H, Red Blood Count 3.61L, Hemoglobin 9.9L, Hematocrit 30.4L, Mean Corpuscular Volume 84, Mean Corpuscular Hemoglobin 27.5, Mean Corpuscular Hemoglobin Concent 32.6, Red Cell Distribution Width 15.3H, Platelet Count 370, Mean Platelet Volume 6.4L, Neutrophils (%) (Auto) 83.5H, Lymphocytes (%) (Auto) 10.3L, Monocytes (%) (Auto) 5.6, Eosinophils (%) (Auto) 0.3, Basophils (%) (Auto) 0.3, Sodium Level 136, Potassium Level 4.0, Chloride Level 101, Carbon Dioxide Level 27, Anion Gap 9, Blood Urea Nitrogen 16, Creatinine 1.0, Estimat Glomerular Filtration Rate 54.7, Glucose Level 105, Calcium Level 9.2 Height (Feet): 5 Height (Inches): 1.00 Weight (Pounds): 140 General Appearance: lethargic EENT: normal ENT inspection Neck: normal alignment Cardiovascular: normal peripheral pulses, normal rate, regular rhythm Respiratory/Chest: chest wall non-tender, lungs clear, normal breath sounds Abdomen: normal bowel sounds, non tender, soft Extremities: normal inspection Edema: 1+ Arm (L), 1+ Arm (R), 1+ Leg (L), 1+ Leg (R), 1+ Pedal (L), 1+ Pedal (R), 1+ Generalized Edema: trace edema Neurologic: motor weakness Skin: normal pigmentation, warm/dry Objective sl redness below r mid kelley Assessment/Plan Problem List: (1) Anemia ICD Codes: D64.9 - Anemia, unspecified SNOMED: 695502438 (2) Episode of generalized weakness ICD Codes: R53.1 - Weakness SNOMED: 35182031 (3) Cellulitis and abscess of leg ICD Codes: L03.119 - Cellulitis of unspecified part of limb; L02.419 - Cutaneous abscess of limb, unspecified SNOMED: 344431725 (4) Pedal edema ICD Codes: R60.0 - Localized edema SNOMED: 488361294 (5) Noncompliance with treatment plan ICD Codes: Z91.11 - Patient's noncompliance with dietary regimen SNOMED: 732523426 Status: stable, progressing Assessment/Plan: wound care abx psyc tx and transfer prn cbc bmp am aru Benjamin Garay DO Oct 11, 2020 09:20
[2020-10-11] MEDS: cefTRIAXone 1 GM in D5W 55 ML IVPB SCH (10:12)
[2020-10-11] MEDS: Enoxaparin 40mg Inj SUBQ SCH (10:13)
--- NOTE | 2020-10-11 10:13 | NUR ---
*-*DISCHARGE PLANNING*-* PATIENT HAS BEEN REFERRED TO: YISEL PRATT P: [phone] S/W JAI, REQUESTING PHYSICAL THERAPY NOTES ON THIS PATIENT
--- NOTE | 2020-10-11 10:18 | Cardiac Electrophysiology PN ---
Assessment/Plan Assessment/Plan 1. Atypical chest pain. Ruled out for ME. EF 60% 2. Hypokalemia. Potassium was replaced. 3. Cellulitis of the leg on ceftriaxone. 4. Tachycardia, likely due to cellulitis. 5. Dementia and agitation. Subjective Subjective More alert today off restraints off covid isolation ( PCR was negative). RN at bedside. Very weak. Needed 2 people to sit her up. Objective Last 24 Hour Vital Signs Date Time Temp Pulse Resp B/P (MAP) Pulse Ox O2 Delivery O2 Flow Rate FiO2 10/11/20 04:00 97.8 94 18 139/77 (97) 96 10/11/20 00:00 97.7 88 18 133/79 (97) 96 10/10/20 21:00 Room Air 10/10/20 20:00 99.7 90 20 137/78 (97) 97 10/10/20 16:00 99.1 90 20 125/78 (94) 95 10/10/20 16:00 99.1 90 20 125/78 (94) 95 10/10/20 12:00 99.0 118 20 158/85 (109) 96 Intake and Output 10/10/20 10/11/20 19:00 07:00 Intake Total 720 ml 120 ml Output Total 300 ml Balance 420 ml 120 ml Intake Oral 720 ml 120 ml Output Urine Total 300 ml # Voids 3 2 Laboratory Tests Test 10/11/20 05:35 White Blood Count 16.1 K/UL (4.8-10.8) H Red Blood Count 3.61 M/UL (4.20-5.40) L Hemoglobin 9.9 G/DL (12.0-16.0) L Hematocrit 30.4 % (37.0-47.0) L Mean Corpuscular Volume 84 FL (80-99) Mean Corpuscular Hemoglobin 27.5 PG (27.0-31.0) Mean Corpuscular Hemoglobin Concent 32.6 G/DL (32.0-36.0) Red Cell Distribution Width 15.3 % (11.6-14.8) H Platelet Count 370 K/UL (150-450) Mean Platelet Volume 6.4 FL (6.5-10.1) L Neutrophils (%) (Auto) 83.5 % (45.0-75.0) H Lymphocytes (%) (Auto) 10.3 % (20.0-45.0) L Monocytes (%) (Auto) 5.6 % (1.0-10.0) Eosinophils (%) (Auto) 0.3 % (0.0-3.0) Basophils (%) (Auto) 0.3 % (0.0-2.0) Sodium Level 136 MMOL/L (136-145) Potassium Level 4.0 MMOL/L (3.5-5.1) Chloride Level 101 MMOL/L (98-107) Carbon Dioxide Level 27 MMOL/L (21-32) Anion Gap 9 mmol/L (5-15) Blood Urea Nitrogen 16 mg/dL (7-18) Creatinine 1.0 MG/DL (0.55-1.30) Estimat Glomerular Filtration Rate 54.7 mL/min (>60) Glucose Level 105 MG/DL (74-106) Calcium Level 9.2 MG/DL (8.5-10.1) Objective HEAD AND NECK: No JVD. LUNGS: Clear. CARDIOVASCULAR: Regular S1 and S2 with no gallop. ABDOMEN: Soft. EXTREMITIES: Pain in the right leg. Leon Patricio MD Oct 11, 2020 10:18
--- NOTE | 2020-10-11 10:26 | Psychiatry Consultation ---
Psychiatry Consultation Psychiatry Consultation Chief Complaint: Generalized Weakness History of Present Illness: 70yo female patient she has right leg cellulitis who appears to have a slight improvement in her behavior but continues to have confusion, mood lability and declining cognition below her baseline with episodes of extreme agitation. 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 Mental status examination: 70-year-old female her appearance disheveled at irritable agitated affect allergic to intellect poor mood depressed anxious moderately psychomotor station attachments poor orientation x2 speech is nonsensical thought process disorganized logical and judgment is poor Allergies: Coded Allergies: No Known Allergies (Unverified , 11/11/17) Medication History Scheduled Naloxone HCl (Narcan), 4 MG NS PRN Scheduled PRN Ibuprofen* (Motrin*), 600 MG ORAL Q6H PRN for For Pain Discontinued Medications Acetaminophen With Codeine (T#3) (Tylenol #3 Tab*), 1 TAB ORAL Q8HR PRN for For Pain Discontinued Reason: Therapy completed Acetaminophen With Codeine (T#3) (Tylenol #3 Tab*), 1 TAB ORAL Q6H PRN for For Pain Discontinued Reason: Therapy completed Acetaminophen* (Tylenol Extra Strength*), 500 MG ORAL Q8H PRN for Prn Headache/Temp > 101 Discontinued Reason: Therapy completed Cephalexin* (Keflex*), 500 MG ORAL EVERY 12 HOURS Discontinued Reason: Therapy completed Cephalexin* (Keflex*), 500 MG ORAL EVERY 12 HOURS Discontinued Reason: Therapy completed Ciclopirox Olamine (Ciclopirox), 1 APPLIC TOPIC BID Discontinued Reason: Therapy completed Hydrochlorothiazide* (Hydrochlorothiazide*), 25 MG ORAL DAILY Discontinued Reason: Therapy completed Hydrocodone Bit/Acetaminophen 5-325* ([place] 5-325*), 1 TAB ORAL Q6H PRN for For Pain Discontinued Reason: Therapy completed Loratadine (Claritin), 10 MG ORAL DAILY Discontinued Reason: Therapy completed No Known Medications* (NKM - No Known Medications*), 0 ., (Reported) Discontinued Reason: Therapy completed Permethrin* (Elimite*), 1 APPLIC TOPIC ONCE Discontinued Reason: Pt had allergic rxn Objective Data Height (Feet): 5 Height (Inches): 1.00 Weight (Pounds): 140 Assessment/Plan Assessment/Plan: Ativan 1mg PO q6h prn anxiety, Risperdal 0.5 po BID and 20min of insight oriented psychotherapy to help pt have better impulse control due to better realization of he symptoms. Diagnosis [place] I: Major Depression with psychotic features Elmer Herrera MD Oct 11, 2020 10:26
--- NOTE | 2020-10-11 10:37 | NUR ---
RD ASSESSMENT & RECOMMENDATIONS SEE CARE ACTIVITY FOR COMPLETE ASSESSMENT DAILY ESTIMATED NEEDS: Needs based on Wound/ 51.7kg abw 25-30 kcals/kg 1095-4809 total kcals 1.25-1.5 g protein/kg 65-77 g total protein 25-30 mL/kg 9481-7345 total fluid mLs NUTRITION DIAGNOSIS: Increased kcal/prot needs R/T wound healing as evidenced by pt admitted w/ sacral wound per photo, including full thickness L buttock wound, refer to WC specialist for complete eval. CURRENT DIET:REGULAR PO DIET RECOMMENDATIONS: REGULAR/ texture as tolerated ADDITIONAL RECOMMENDATIONS: * Calibrated bedscale wt * Wound healing: add MVI x 1, Vit C 250mg QD Add JM BID * Monitor PO intake and tolerance * Monitor lytes, replete as needed (low K- now wnl) * Ensure Enlive TID w/ meals w/ irregular intake
[2020-10-11 12:00] VITALS: BP 129/78
--- NOTE | 2020-10-11 12:00 | NUR ---
NURSE NOTES: Patient's body temperature via axilla is 99.5 in the morning and increased to 100.6 in the noon. Ice packs were provided behind the patient's neck, and under armpits. Dr. Roque made aware and no further orders at this time. Patient's left hand is swollen. RN made Dr. Snyder aware. He said it is IV infiltrate and will be resolved in a couple of days. RN elevated the left arm. Will continue to monitor.
--- NOTE | 2020-10-11 12:00 | Surgery Progress Note ---
Surgery Progress Note Subjective Symptoms: improved, pain absent, tolerating diet, voiding well, passing flatus, BM Objective Last 24 Hour Vital Signs Date Time Temp Pulse Resp B/P (MAP) Pulse Ox O2 Delivery O2 Flow Rate FiO2 10/11/20 04:00 97.8 94 18 139/77 (97) 96 10/11/20 00:00 97.7 88 18 133/79 (97) 96 10/10/20 21:00 Room Air 10/10/20 20:00 99.7 90 20 137/78 (97) 97 10/10/20 16:00 99.1 90 20 125/78 (94) 95 10/10/20 16:00 99.1 90 20 125/78 (94) 95 I&O Intake and Output 10/10/20 10/11/20 19:00 07:00 Intake Total 720 ml 120 ml Output Total 300 ml Balance 420 ml 120 ml Intake Oral 720 ml 120 ml Output Urine Total 300 ml # Voids 3 2 Dressing: dry Wound: clean Cardiovascular: RSR Respiratory: clear Abdomen: soft, flat, non-tender, present bowel sounds, non-distended Extremities: no edema, no tenderness, no cyanosis Laboratory Tests Test 10/11/20 05:35 White Blood Count 16.1 K/UL (4.8-10.8) H Red Blood Count 3.61 M/UL (4.20-5.40) L Hemoglobin 9.9 G/DL (12.0-16.0) L Hematocrit 30.4 % (37.0-47.0) L Mean Corpuscular Volume 84 FL (80-99) Mean Corpuscular Hemoglobin 27.5 PG (27.0-31.0) Mean Corpuscular Hemoglobin Concent 32.6 G/DL (32.0-36.0) Red Cell Distribution Width 15.3 % (11.6-14.8) H Platelet Count 370 K/UL (150-450) Mean Platelet Volume 6.4 FL (6.5-10.1) L Neutrophils (%) (Auto) 83.5 % (45.0-75.0) H Lymphocytes (%) (Auto) 10.3 % (20.0-45.0) L Monocytes (%) (Auto) 5.6 % (1.0-10.0) Eosinophils (%) (Auto) 0.3 % (0.0-3.0) Basophils (%) (Auto) 0.3 % (0.0-2.0) Sodium Level 136 MMOL/L (136-145) Potassium Level 4.0 MMOL/L (3.5-5.1) Chloride Level 101 MMOL/L (98-107) Carbon Dioxide Level 27 MMOL/L (21-32) Anion Gap 9 mmol/L (5-15) Blood Urea Nitrogen 16 mg/dL (7-18) Creatinine 1.0 MG/DL (0.55-1.30) Estimat Glomerular Filtration Rate 54.7 mL/min (>60) Glucose Level 105 MG/DL (74-106) Calcium Level 9.2 MG/DL (8.5-10.1) Plan Problems: (1) Episode of generalized weakness (2) Cellulitis and abscess of leg Assessment & Plan: 70-year-old female with right lower extremity cellulitis mild edema on the left side anterior tibial ulceration identified on the right side mid leg potentially from trauma though patient denies. No nausea fever chills no abscess identified no drainage. Macerated eschar identified. Apply betadine swab to ulcer cover with Optifoam dressing. Keep her legs elevated while in bed. IV antibiotics per infectious disease. No acute surgical intervention planned at this time. Sacral stage 3 decubitus ulcer wound identified. therahoney gauze and foam dressing daily and prn saturation. turn every 2 hours, offload pressure, patient able to comply with care plan. Nutrition optimization. Follow with recommendations thank you allowing me to participate patient's care Pt presented on admission with MASD skin folds Both breasts, Swelling,Ulcerations to RLE. Full thickness Pressure Injury L Buttocks. Skin folds of both breasts are erythematous, and macerated. Mild odor noted. Full thickness Pressure Injury L Buttocks (L)1.5cm x (W)0.3cm x (D)0.2cm. Wound has appearance of slit with indurated and maroon borders. Non-Blanchable erythema without induration Sacrum and R Buttocks. Small ulcer with necrotic cap noted to posterior upper R Thigh. Marginal erythema along edges. Larger ulcer with necrotic cap noted to maurice R Tibia(L)3cm x (W)3.7cm. Marginal erythema along borders and periwound. Clockwise at 2-4o'clock along borders are macerated. No odor or exudate noted. A third smaller ulcer with necrotic cap noted to distal/lateral R tibia(L)0.9cm x (W)1cm. Marginal erythema along borders. Both heels are soft, but each heel easily blanchable. Tx.Plan: Wash both breasts with soap and water. Pat dry. Apply Light Dusting of Antifungal powder to each breasts Twice Daily. Cleanse L Buttocks with Saline. Apply Therahoney. Apply Moisture Barrier Paste periwound. Cover with Optifoam drsg. Change every 3 days and prn. Apply Moisture Barrier paste to Sacrum and R buttocks. Cover with Optifoam drsg. Change every 3 days and prn. Reposition at least every 2 hours or as tolerated. Off-load heels with pillow. DAILY ESTIMATED NEEDS: Needs based on Wound/ 51.7kg abw 25-30 kcals/kg 0451-6044 total kcals 1.25-1.5 g protein/kg 65-77 g total protein 25-30 mL/kg 0036-3676 total fluid mLs NUTRITION DIAGNOSIS: Increased kcal/prot needs R/T wound healing as evidenced by pt admitted w/ sacral wound per photo, pending evaluation. CURRENT DIET:REGULAR PO DIET RECOMMENDATIONS:REGULAR, texture as tolerated ADDITIONAL RECOMMENDATIONS: * Calibrated bedscale wt * Wound healing: add MVI x 1, Vit C 250mg QD F/up w/ WC eval * Monitor PO intake and tolerance * Monitor lytes, replete as needed (low K) cellulitis resolved wound stable d/c plannin g (3) Pedal edema (4) Facial contusion (5) Right ankle sprain (6) Multiple rib fractures (7) Noncompliance with treatment plan Mason Snyder Oct 11, 2020 12:00
--- NOTE | 2020-10-11 15:55 | NUR ---
CASE MANAGEMENT:REVIEW 10/11/20 SI: CELLULITIS AND LEG ABSCESS 100.6 110 20 132/82 98% ON RA WBC+16.1 IS: IV ROCEPHIN Q24 RISPERDAL PO BID LOVENOX SQ QD : MED/SURG STATUS DCP: FROM HOME
[2020-10-11 16:00] VITALS: BP 122/73
--- NOTE | 2020-10-11 16:57 | NUR ---
NURSE NOTES: Patient is lethargic and sleeps most of time. Respiration rate is 26. RN made Dr. Herrera aware and received an order to hold Risperidone until she comes back to her baseline. Order verified and carried out. Will endorse to the next shift nurse and continue to monitor.
[2020-10-11 20:00] VITALS: BP 142/75
--- NOTE | 2020-10-11 20:03 | NUR ---
NURSE HAND-OFF: Important Events on Shift:hyperthermia, do not give info to anyone other than Abhinav, hold Risperidone until her energy level comes back to baseline Patient Status: lethargic Diet: regular, texture as tolerated Pending Orders: n/a Pending Results/Labs:n/a Pending MD notification:n/a Latest Vital Signs: Temperature 100.7 , Pulse 91 , B/P 122 /73 , Respiratory Rate 24 , O2 SAT 97 , Room Air, O2 Flow Rate . Vital Sign Comment: hyperthermia Latest Landry Fall Score: 45 Fall Risk: High Risk Safety Measures: Call light Within Reach, Bed Alarm Zone 1, Side Rails Side Rails x3, Bed position Low and Locked. Fall Precautions: Yellow Socks Door Sign Patient Fall Education Report given to MIAH Nick.
--- NOTE | 2020-10-11 20:24 | NUR ---
NURSES NOTE: Rounds completed. Pt in bed, awake, lethargy reported from outgoing RN. Pt responds to simple questions appropriately. States she has pain in her neck currently. Will medicate according to eMAR. No outward s/s of distress noted. Will monitor temperature and RR per outgoing RN. All due medications will be administered. Bed at lowest level, call light within reach. Pt will continue to be monitored
[2020-10-12] VITALS (10 sets, daily range): BP systolic 93–154; BP diastolic 61–86
--- NOTE | 2020-10-12 02:03 | Cardiology Report ---
APPROVED REPORT EKG Measurement Heart [id number] <Conclusion> Normal sinus rhythm Normal ECG
--- NOTE | 2020-10-12 06:39 | Hematology/Onc Progress Note ---
Assessment/Plan Assessment/Plan Assessment and Recs # Leukocytosis is likely related to uti, has been started on abx --> as per id recs --> ABX ctx-->off --> wbc 17.6-->14-->15 # Anemia due likely to chronic disease --> hgb 10-->9-->10 --> anemia panel if downtrends --> transfuse prn # Episode of generalized weakness --> on ivfs, tele --> consider cards # Cellulitis and abscess of leg --> abx # Fungal infection on her chest wall noted by the nurses --> will start patient on fluconazole and nystatin # Dvt ppx lovenox sq Appreciate consultation and guero orozco Subjective HEENT: Denies: no symptoms, eye pain, blurred vision, tearing, double vision, ear pain, ear discharge, nose pain, nose congestion, throat pain, throat swelling, mouth pain, mouth swelling, other Cardiovascular: Denies: no symptoms, chest pain, edema, irregular heart rate, lightheadedness, palpitations, syncope, other Respiratory: Denies: no symptoms, cough, shortness of breath, SOB with excertion, SOB at rest, sputum, wheezing, other Gastrointestinal/Abdominal: Denies: no symptoms, abdomen distended, abdominal pain, black stools, tarry stools, blood in stool, constipated, diarrhea, difficulty swallowing, nausea, poor appetite, poor fluid intake, rectal bleeding, vomiting, other Genitourinary: Denies: no symptoms, burning, discharge, frequency, flank pain, hematuria, incontinence, pain, urgency, other Neurologic/Psychiatric: Denies: no symptoms, anxiety, depressed, emotional problems, headache, numbness, paresthesia, pre-existing deficit, seizure, tingling, tremors, weakness, other Endocrine: Denies: no symptoms, excessive sweating, flushing, intolerance to cold, intolerance to heat, increased hunger, increased thirst, increased urine, unexplained weight gain, unexplained weight loss, other Hematologic/Lymphatic: Denies: no symptoms, anemia, easy bleeding, easy bruising, adenopathy, other Allergies: Coded Allergies: No Known Allergies (Unverified , 11/11/17) Subjective 2/4 agitated, hysterical, labs noted, anemia panel ordered 2/5 meds noted, have ordered for cbc, labs reviewed, guero orozco 10/09 restraints are intact, meds noted, no bleeding 10/10 with restraints, meds noted, no night sweats, hgb stable 10/11 remains with restraints, is on lovenox and ctx abx 10/12 neck in pain, labs reviewed, meds noted, on abx Objective Objective Current Medications Medications (Trade) Dose Ordered Sig/Siddharth Route PRN Reason Start Time Stop Time Status Last Admin Dose Admin Acetaminophen (Tylenol) 650 mg Q6H PRN ORAL Mild Pain (Pain Scale 1-3) 10/04/20 20:45 11/03/20 20:44 Acetaminophen (Tylenol) 650 mg Q6H PRN ORAL fever 10/04/20 20:45 11/03/20 20:44 Diphenhydramine HCl (Benadryl) 25 mg Q6H PRN ORAL Itching 10/04/20 20:45 11/03/20 20:44 10/06/20 17:56 Enoxaparin Sodium (Lovenox) 40 mg DAILY SUBQ 10/05/20 09:00 01/03/21 08:59 10/11/20 10:13 Lorazepam (Ativan) 1 mg Q6H PRN ORAL For Anxiety 10/07/20 05:15 10/14/20 05:14 10/07/20 05:31 Risperidone (RisperDAL) 0.5 mg BID ORAL 10/07/20 09:00 11/21/20 08:59 10/11/20 10:12 Last 24 Hour Vital Signs Date Time Temp Pulse Resp B/P (MAP) Pulse Ox O2 Delivery O2 Flow Rate FiO2 10/12/20 04:00 98.7 90 21 132/73 (92) 93 10/12/20 00:00 98.2 93 22 154/86 (108) 96 10/11/20 21:00 Room Air 10/11/20 20:00 99.0 86 24 142/75 (97) 93 10/11/20 16:00 100.7 91 24 122/73 (89) 97 10/11/20 12:00 100.6 99 21 129/78 (95) 98 10/11/20 09:00 Room Air 10/11/20 08:00 99.5 110 20 132/82 (99) 98 10/11/20 04:00 97.8 94 18 139/77 (97) 96 10/11/20 00:00 97.7 88 18 133/79 (97) 96 10/10/20 21:00 Room Air 10/10/20 20:00 99.7 90 20 137/78 (97) 97 10/10/20 16:00 99.1 90 20 125/78 (94) 95 10/10/20 16:00 99.1 90 20 125/78 (94) 95 10/10/20 12:00 99.0 118 20 158/85 (109) 96 10/10/20 09:00 Room Air 10/10/20 08:00 98.6 108 20 132/78 (96) 96 Intake and Output 10/11/20 10/12/20 19:00 07:00 Intake Total 680 ml Output Total 350 ml Balance 330 ml Intake Oral 625 ml IV Total 55 ml Output Urine Total 350 ml # Voids 2 Labs Test 10/09/20 08:20 10/09/20 18:00 10/10/20 08:16 10/11/20 05:35 White Blood Count 14.6 K/UL (4.8-10.8) 15.8 K/UL (4.8-10.8) 16.1 K/UL (4.8-10.8) Red Blood Count 3.80 M/UL (4.20-5.40) 3.99 M/UL (4.20-5.40) 3.61 M/UL (4.20-5.40) Hemoglobin 10.0 G/DL (12.0-16.0) 10.6 G/DL (12.0-16.0) 9.9 G/DL (12.0-16.0) Hematocrit 32.7 % (37.0-47.0) 34.5 % (37.0-47.0) 30.4 % (37.0-47.0) Mean Corpuscular Volume 86 FL (80-99) 87 FL (80-99) 84 FL (80-99) Mean Corpuscular Hemoglobin 26.3 PG (27.0-31.0) 26.6 PG (27.0-31.0) 27.5 PG (27.0-31.0) Mean Corpuscular Hemoglobin Concent 30.5 G/DL (32.0-36.0) 30.7 G/DL (32.0-36.0) 32.6 G/DL (32.0-36.0) Red Cell Distribution Width 14.4 % (11.6-14.8) 14.9 % (11.6-14.8) 15.3 % (11.6-14.8) Platelet Count 365 K/UL (150-450) 388 K/UL (150-450) 370 K/UL (150-450) Mean Platelet Volume 6.4 FL (6.5-10.1) 6.4 FL (6.5-10.1) 6.4 FL (6.5-10.1) Neutrophils (%) (Auto) % (45.0-75.0) % (45.0-75.0) 83.5 % (45.0-75.0) Lymphocytes (%) (Auto) % (20.0-45.0) % (20.0-45.0) 10.3 % (20.0-45.0) Monocytes (%) (Auto) % (1.0-10.0) % (1.0-10.0) 5.6 % (1.0-10.0) Eosinophils (%) (Auto) % (0.0-3.0) % (0.0-3.0) 0.3 % (0.0-3.0) Basophils (%) (Auto) % (0.0-2.0) % (0.0-2.0) 0.3 % (0.0-2.0) Differential Total Cells Counted 100 100 Neutrophils % (Manual) 85 % (45-75) 86 % (45-75) Lymphocytes % (Manual) 13 % (20-45) 11 % (20-45) Monocytes % (Manual) 2 % (1-10) 2 % (1-10) Eosinophils % (Manual) 0 % (0-3) 1 % (0-3) Basophils % (Manual) 0 % (0-2) 0 % (0-2) Band Neutrophils 0 % (0-8) 0 % (0-8) Platelet Estimate Adequate Adequate Platelet Morphology Normal Normal Hypochromasia 1+ 1+ Anisocytosis 1+ 1+ Sodium Level 145 MMOL/L (136-145) 138 MMOL/L (136-145) 136 MMOL/L (136-145) Potassium Level 3.8 MMOL/L (3.5-5.1) 3.6 MMOL/L (3.5-5.1) 4.0 MMOL/L (3.5-5.1) Chloride Level 108 MMOL/L (98-107) 102 MMOL/L (98-107) 101 MMOL/L (98-107) Carbon Dioxide Level 28 MMOL/L (21-32) 27 MMOL/L (21-32) 27 MMOL/L (21-32) Anion Gap 9 mmol/L (5-15) 9 mmol/L (5-15) 9 mmol/L (5-15) Blood Urea Nitrogen 13 mg/dL (7-18) 13 mg/dL (7-18) 16 mg/dL (7-18) Creatinine 1.0 MG/DL (0.55-1.30) 1.0 MG/DL (0.55-1.30) 1.0 MG/DL (0.55-1.30) Estimat Glomerular Filtration Rate 54.7 mL/min (>60) 54.7 mL/min (>60) 54.7 mL/min (>60) Glucose Level 106 MG/DL (74-106) 182 MG/DL (74-106) 105 MG/DL (74-106) Calcium Level 9.0 MG/DL (8.5-10.1) 9.1 MG/DL (8.5-10.1) 9.2 MG/DL (8.5-10.1) Troponin I 0.000 ng/mL (0.000-0.056) Height (Feet): 5 Height (Inches): 1.00 Weight (Pounds): 140 Objective PE Vitals: reviewed General: well appearing, no apparent distress, alert Heent: normocephalic, atraumatic, bilateral eye PERRL, bilateral eye EOMI Respiratory: lungs clear, no respiratory distress, no retraction, no accessory muscle use Cardiovascular: normal peripheral pulses, regular rate, rhythm, no edema, no gallop, no murmur Gastrointestinal: non tender, soft, no guarding, no rebound Musculoskeletal: normal inspection Neurologic: alert, oriented x3 Psychiatric: mood/affect normal Skin: warm/dry, other - Right lower extremity: Area of erythema on the tibial proximal aspect Mando Ventura MD Oct 12, 2020 06:39
--- NOTE | 2020-10-12 06:58 | NUR ---
NURSE HAND-OFF: Important Events on Shift:[Temp wnl...RR 20-24] Patient Status: [stable] Diet: [regular] Pending Orders: [n/a] Pending Results/Labs:[All am labs still pending] Pending MD notification:[n/a] Latest Vital Signs: Temperature 98.7 , Pulse 90 , B/P 132 /73 , Respiratory Rate 21 , O2 SAT 93 , Room Air, O2 Flow Rate . Vital Sign Comment: [RR accelerated] Latest Landry Fall Score: 45 Fall Risk: High Risk Safety Measures: Call light Within Reach, Bed Alarm Zone 1, Side Rails Side Rails x3, Bed position Low and Locked. Fall Precautions: Yellow Socks Door Sign Patient Fall Education Report given to [].
--- NOTE | 2020-10-12 07:30 | NUR ---
NURSE NOTES: RN received report from [place] and patient in bed. Patient aaoX4, no respiratory distress or pain. IV site asymptomatic and patent. Bed in lowest position, locked, bed alarm on. Call light within reach and able to make needs known. Plan of care communicated with the patient. Will continue to monitor.
--- NOTE | 2020-10-12 07:51 | NUR ---
HAND OFF: Report given to MIAH Blake
--- NOTE | 2020-10-12 08:25 | Psychiatry Consultation ---
Psychiatry Consultation Psychiatry Consultation Chief Complaint: Generalized Weakness History of Present Illness: 70-year-old female patient she is got altered mental status she is got psych omotor agitation irritability confusion mood lability declining cognition below her baseline she has cellulitis which is worsened her cognition and caused increased mood lability worsened by stress from medical illness she requires daily psychiatric consultation as requested by her attending physician to help stabilize her mood and reduce optimal status and help bring her cognition closer to her baseline Mental status examination: 70-year-old female appearance is disheveled at irritable agitated affect labile intellect poor mood depressed anxious motor activity psychomotor agitation attention was poor orientation x2 speech is low volume clear thought processes organized logical suggesting is poor Allergies: Coded Allergies: No Known Allergies (Unverified , 11/11/17) Medication History Scheduled Naloxone HCl (Narcan), 4 MG NS PRN Scheduled PRN Ibuprofen* (Motrin*), 600 MG ORAL Q6H PRN for For Pain Discontinued Medications Acetaminophen With Codeine (T#3) (Tylenol #3 Tab*), 1 TAB ORAL Q8HR PRN for For Pain Discontinued Reason: Therapy completed Acetaminophen With Codeine (T#3) (Tylenol #3 Tab*), 1 TAB ORAL Q6H PRN for For Pain Discontinued Reason: Therapy completed Acetaminophen* (Tylenol Extra Strength*), 500 MG ORAL Q8H PRN for Prn Headache/Temp > 101 Discontinued Reason: Therapy completed Cephalexin* (Keflex*), 500 MG ORAL EVERY 12 HOURS Discontinued Reason: Therapy completed Cephalexin* (Keflex*), 500 MG ORAL EVERY 12 HOURS Discontinued Reason: Therapy completed Ciclopirox Olamine (Ciclopirox), 1 APPLIC TOPIC BID Discontinued Reason: Therapy completed Hydrochlorothiazide* (Hydrochlorothiazide*), 25 MG ORAL DAILY Discontinued Reason: Therapy completed Hydrocodone Bit/Acetaminophen 5-325* ([place] 5-325*), 1 TAB ORAL Q6H PRN for For Pain Discontinued Reason: Therapy completed Loratadine (Claritin), 10 MG ORAL DAILY Discontinued Reason: Therapy completed No Known Medications* (NKM - No Known Medications*), 0 ., (Reported) Discontinued Reason: Therapy completed Permethrin* (Elimite*), 1 APPLIC TOPIC ONCE Discontinued Reason: Pt had allergic rxn Objective Data Height (Feet): 5 Height (Inches): 1.00 Weight (Pounds): 140 Assessment/Plan Assessment/Plan: Ativan 1mg PO q6h prn anxiety, Risperdal 0.5 po BID and 20min of insight oriented psychotherapy to help pt have better impulse control due to better realization of he symptoms. 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
--- NOTE | 2020-10-12 08:39 | Infectious Diseases Prog Note ---
Assessment/Plan 70yo F with: R kelley cellulitis, improving R kelley wound, dry scabbing Afebrile Leukocytosis to 17, improving 2/2 BCx NTD UA+, UCx +30-40k GAS, 80-90s mixed carmel Cr 1.2 R/o COVID 2/3 COVID PCR neg CXR: Worsening aeration with development of some patchy retrocardiac opacities which may relate to subsegmental atelectasis however pneumonia should be excluded clinically. Development of mild interstitial/vascular prominence. Mild congestive changes of CHF can be considered. Findings may also be artifactual related to lower lung volumes. HIV screen neg PMH: HTN Allergic rhinitis Plan: Cont CTX 1g IV daily #06/11 for now for possible cellulitis, vastly improved on my exam from prior line that was drawn on skin OK to d/c from ID standpoint if remains AF, HDS. Completes abx course today. Trend temp curve 2/2 SP vanco/Zosyn/flucon in ED Monitor CBC/CMP Monitor temp curve, hemodynamics Monitor resp status D/w RN Thank you for this consult. [facility] will continue to follow. Subjective Allergies: Coded Allergies: No Known Allergies (Unverified , 11/11/17) Tmax 100.7 NAD in bed Keeps asking when she'll be discharged No complaints WBC 15, improving Objective Last 24 Hour Vital Signs Date Time Temp Pulse Resp B/P (MAP) Pulse Ox O2 Delivery O2 Flow Rate FiO2 10/12/20 04:00 98.7 90 21 132/73 (92) 93 10/12/20 00:00 98.2 93 22 154/86 (108) 96 10/11/20 21:00 Room Air 10/11/20 20:00 99.0 86 24 142/75 (97) 93 10/11/20 16:00 100.7 91 24 122/73 (89) 97 10/11/20 12:00 100.6 99 21 129/78 (95) 98 10/11/20 09:00 Room Air Height (Feet): 5 Height (Inches): 1.00 Weight (Pounds): 140 Gen: NAD HEENT: NCAT Pulm: BL chest rise on RA, non-labored Abd: Non-distended Ext: RLE w/ resolved cellulitis, healing wound on anterior kelley Skin: No visible rashes Neuro: Awake, interactive Current Medications Medications (Trade) Dose Ordered Sig/Siddharth Route PRN Reason Start Time Stop Time Status Last Admin Dose Admin Acetaminophen (Tylenol) 650 mg Q6H PRN ORAL Mild Pain (Pain Scale 1-3) 10/04/20 20:45 11/03/20 20:44 Acetaminophen (Tylenol) 650 mg Q6H PRN ORAL fever 10/04/20 20:45 11/03/20 20:44 Diphenhydramine HCl (Benadryl) 25 mg Q6H PRN ORAL Itching 10/04/20 20:45 11/03/20 20:44 10/06/20 17:56 Enoxaparin Sodium (Lovenox) 40 mg DAILY SUBQ 10/05/20 09:00 01/03/21 08:59 10/11/20 10:13 Lorazepam (Ativan) 1 mg Q6H PRN ORAL For Anxiety 10/07/20 05:15 10/14/20 05:14 10/07/20 05:31 Risperidone (RisperDAL) 0.5 mg BID ORAL 10/07/20 09:00 11/21/20 08:59 10/11/20 10:12 Sparkle Roque M.D. Oct 12, 2020 08:39
[2020-10-12 08:58] LABS: HEMATOCRIT 30.7 % (37.0-47.0); HEMOGLOBIN 9.7 G/DL (12.0-16.0); MEAN CORPUSCULAR VOLUME 86 FL (80-99); PLATELET COUNT 389 K/UL (150-450); RED BLOOD COUNT 3.58 M/UL (4.20-5.40); RED CELL DISTRIBUTION WIDTH 14.4 % (11.6-14.8)
--- NOTE | 2020-10-12 09:06 | General Progress Note ---
Subjective Constitutional: Reports: weakness Allergies: Coded Allergies: No Known Allergies (Unverified , 11/11/17) All Systems: reviewed and negative except above Subjective sleepy calm Objective Last 24 Hour Vital Signs Date Time Temp Pulse Resp B/P (MAP) Pulse Ox O2 Delivery O2 Flow Rate FiO2 10/12/20 08:00 99.0 114 22 110/65 (80) 92 10/12/20 04:00 98.7 90 21 132/73 (92) 93 10/12/20 00:00 98.2 93 22 154/86 (108) 96 10/11/20 21:00 Room Air 10/11/20 20:00 99.0 86 24 142/75 (97) 93 10/11/20 16:00 100.7 91 24 122/73 (89) 97 10/11/20 12:00 100.6 99 21 129/78 (95) 98 Intake and Output 10/11/20 10/12/20 19:00 07:00 Intake Total 680 ml 120 ml Output Total 350 ml 400 ml Balance 330 ml -280 ml Intake Oral 625 ml 120 ml IV Total 55 ml Output Urine Total 350 ml 400 ml # Voids 2 Laboratory Tests 10/12/20 07:43: White Blood Count [Pending], Red Blood Count [Pending], Hemoglobin [Pending], Hematocrit [Pending], Mean Corpuscular Volume [Pending], Mean Corpuscular Hemoglobin [Pending], Mean Corpuscular Hemoglobin Concent [Pending], Red Cell Distribution Width [Pending], Platelet Count [Pending], Mean Platelet Volume [Pending], Neutrophils (%) (Auto) [Pending], Lymphocytes (%) (Auto) [Pending], Monocytes (%) (Auto) [Pending], Eosinophils (%) (Auto) [Pending], Basophils (%) (Auto) [Pending], Sodium Level [Pending], Potassium Level [Pending], Chloride Level [Pending], Carbon Dioxide Level [Pending], Blood Urea Nitrogen [Pending], Creatinine [Pending], Estimat Glomerular Filtration Rate [Pending], Glucose Level [Pending], Calcium Level [Pending] Height (Feet): 5 Height (Inches): 1.00 Weight (Pounds): 140 General Appearance: lethargic EENT: normal ENT inspection Neck: normal alignment Cardiovascular: normal peripheral pulses, normal rate, regular rhythm Respiratory/Chest: chest wall non-tender, lungs clear, normal breath sounds Abdomen: normal bowel sounds, non tender, soft Extremities: normal inspection Edema: no edema noted Arm (L), no edema noted Arm (R), no edema noted Leg (L), no edema noted Leg (R), no edema noted Pedal (L), no edema noted Pedal (R), no edema noted Generalized Neurologic: motor weakness Skin: normal pigmentation, warm/dry Objective sl redness below r mid kelley Assessment/Plan Problem List: (1) Anemia ICD Codes: D64.9 - Anemia, unspecified SNOMED: 903661027 (2) Episode of generalized weakness ICD Codes: R53.1 - Weakness SNOMED: 73959520 (3) Cellulitis and abscess of leg ICD Codes: L03.119 - Cellulitis of unspecified part of limb; L02.419 - Cutaneous abscess of limb, unspecified SNOMED: 241364160 (4) Pedal edema ICD Codes: R60.0 - Localized edema SNOMED: 195661871 (5) Noncompliance with treatment plan ICD Codes: Z91.11 - Patient's noncompliance with dietary regimen SNOMED: 495961114 Status: stable, progressing Assessment/Plan: wound care abx psyc tx and transfer prn cbc bmp am nahedu Benjamin Garay DO Oct 12, 2020 09:06
[2020-10-12 09:13] LABS: ANION GAP 10 mmol/L (5-15); BLOOD UREA NITROGEN 18 mg/dL (7-18); CALCIUM 9.2 MG/DL (8.5-10.1); CARBON DIOXIDE 25 MMOL/L (21-32); CHLORIDE 100 MMOL/L (98-107); CREATININE 0.9 MG/DL (0.55-1.30); POTASSIUM 4.3 MMOL/L (3.5-5.1); SODIUM 135 MMOL/L (136-145)
[2020-10-12] MEDS ORDERED: cefTRIAXone 1 GM in D5W 55 ML IVPB SCH (09:30)
[2020-10-12] MEDS: Enoxaparin 40mg Inj SUBQ SCH (09:54)
--- NOTE | 2020-10-12 10:00 | NUR ---
NURSE NOTES: RN held Risperidone because the patient continues to be lethargic. Will continue to monitor.
--- NOTE | 2020-10-12 10:46 | Cardiology Report ---
APPROVED REPORT EXAM: Two-dimensional and M-mode echocardiogram with Doppler and color Doppler. INDICATION Shortness of breath M-Mode DIMENSIONS IVSd0.9 (0.7-1.1cm)Left Atrium (MM)2.9 (1.6-4.0cm) LVDd4.8 (3.5-5.6cm)Aortic Root3.3 (2.0-3.7cm) PWd0.8 (0.7-1.1cm)Aortic Cusp Exc.1.7 (1.5-2.0cm) IVSs1.2 cmEPSS0.3 (>1.0cm) LVDs3.0 (2.5-4.0cm) PWs1.2 cm <Conclusion> Normal left ventricular chamber size, systolic function and wall motion. Left ventricular ejection fraction estimated to be 60%. No evidence of left ventricular hypertrophy. Anterior Echo-free space, may be due to pericardial fat or effusion. All other cardiac chamber sizes are within normal limits. Focal aortic valve sclerosis with adequate cusp excursion. Thickened mitral valve leaflets with normal excursion. Mitral annulus and aortic root calcification. Pulmonic valve not well visualized. Normal tricuspid valve structure. IVC at normal size with slightly collapsing with respiration. A color flow and spectral Doppler study was performed and revealed: Trace aortic regurgitation. Trace mitral regurgitation. Mitral diastolic velocities suggest reduced left ventricular relaxation c/w mild diastolic dysfunction (Grade I). Mild tricuspid regurgitation. Tricuspid systolic velocities suggests peak right ventricular systolic pressure of 41 mmHg, consistent with mild pulmonary hypertension.
--- NOTE | 2020-10-12 12:00 | NUR ---
NURSE NOTES: Patient's high temperature made known to Dr. Roque. RN administered Tylenol and removed blankets. Will continue to monitor.
--- NOTE | 2020-10-12 13:20 | Surgery Progress Note ---
Surgery Progress Note Subjective Symptoms: improved, tolerating diet, passing flatus Objective Last 24 Hour Vital Signs Date Time Temp Pulse Resp B/P (MAP) Pulse Ox O2 Delivery O2 Flow Rate FiO2 10/12/20 12:00 100.4 108 21 118/74 (89) 92 10/12/20 10:23 99.0 10/12/20 08:00 99.0 114 22 110/65 (80) 92 10/12/20 04:00 98.7 90 21 132/73 (92) 93 10/12/20 00:00 98.2 93 22 154/86 (108) 96 10/11/20 21:00 Room Air 10/11/20 20:00 99.0 86 24 142/75 (97) 93 10/11/20 16:00 100.7 91 24 122/73 (89) 97 I&O Intake and Output 10/11/20 10/12/20 19:00 07:00 Intake Total 680 ml 120 ml Output Total 350 ml 400 ml Balance 330 ml -280 ml Intake Oral 625 ml 120 ml IV Total 55 ml Output Urine Total 350 ml 400 ml # Voids 2 Dressing: saturated Wound: clean Cardiovascular: RSR Respiratory: clear Abdomen: soft, non-tender, present bowel sounds Extremities: no edema, no tenderness, no cyanosis, other Laboratory Tests Test 10/12/20 07:43 White Blood Count 15.0 K/UL (4.8-10.8) H Red Blood Count 3.58 M/UL (4.20-5.40) L Hemoglobin 9.7 G/DL (12.0-16.0) L Hematocrit 30.7 % (37.0-47.0) L Mean Corpuscular Volume 86 FL (80-99) Mean Corpuscular Hemoglobin 27.1 PG (27.0-31.0) Mean Corpuscular Hemoglobin Concent 31.6 G/DL (32.0-36.0) L Red Cell Distribution Width 14.4 % (11.6-14.8) Platelet Count 389 K/UL (150-450) Mean Platelet Volume 6.5 FL (6.5-10.1) Neutrophils (%) (Auto) % (45.0-75.0) Lymphocytes (%) (Auto) % (20.0-45.0) Monocytes (%) (Auto) % (1.0-10.0) Eosinophils (%) (Auto) % (0.0-3.0) Basophils (%) (Auto) % (0.0-2.0) Differential Total Cells Counted 100 Neutrophils % (Manual) 84 % (45-75) H Lymphocytes % (Manual) 10 % (20-45) L Monocytes % (Manual) 6 % (1-10) Eosinophils % (Manual) 0 % (0-3) Basophils % (Manual) 0 % (0-2) Band Neutrophils 0 % (0-8) Platelet Estimate Adequate Platelet Morphology Normal Hypochromasia 1+ Sodium Level 135 MMOL/L (136-145) L Potassium Level 4.3 MMOL/L (3.5-5.1) Chloride Level 100 MMOL/L (98-107) Carbon Dioxide Level 25 MMOL/L (21-32) Anion Gap 10 mmol/L (5-15) Blood Urea Nitrogen 18 mg/dL (7-18) Creatinine 0.9 MG/DL (0.55-1.30) Estimat Glomerular Filtration Rate > 60 mL/min (>60) Glucose Level 93 MG/DL (74-106) Calcium Level 9.2 MG/DL (8.5-10.1) Plan Problems: (1) Episode of generalized weakness (2) Cellulitis and abscess of leg Assessment & Plan: 70-year-old female with right lower extremity cellulitis mild edema on the left side anterior tibial ulceration identified on the right side mid leg potentially from trauma though patient denies. No nausea fever chills no abscess identified no drainage. Macerated eschar identified. Apply betadine swab to ulcer cover with Optifoam dressing. Keep her legs elevated while in bed. IV antibiotics per infectious disease. No acute surgical intervention planned at this time. Sacral stage 3 decubitus ulcer wound identified. therahoney gauze and foam dressing daily and prn saturation. turn every 2 hours, offload pressure, patient able to comply with care plan. Nutrition optimization. Follow with recommendations thank you allowing me to participate patient's care Pt presented on admission with MASD skin folds Both breasts, Swelling,Ulcerations to RLE. Full thickness Pressure Injury L Buttocks. Skin folds of both breasts are erythematous, and macerated. Mild odor noted. Full thickness Pressure Injury L Buttocks (L)1.5cm x (W)0.3cm x (D)0.2cm. Wound has appearance of slit with indurated and maroon borders. Non-Blanchable erythema without induration Sacrum and R Buttocks. Small ulcer with necrotic cap noted to posterior upper R Thigh. Marginal erythema along edges. Larger ulcer with necrotic cap noted to maurice R Tibia(L)3cm x (W)3.7cm. Marginal erythema along borders and periwound. Clockwise at 2-4o'clock along borders are macerated. No odor or exudate noted. A third smaller ulcer with necrotic cap noted to distal/lateral R tibia(L)0.9cm x (W)1cm. Marginal erythema along borders. Both heels are soft, but each heel easily blanchable. Tx.Plan: Wash both breasts with soap and water. Pat dry. Apply Light Dusting of Antifungal powder to each breasts Twice Daily. Cleanse L Buttocks with Saline. Apply Therahoney. Apply Moisture Barrier Paste periwound. Cover with Optifoam drsg. Change every 3 days and prn. Apply Moisture Barrier paste to Sacrum and R buttocks. Cover with Optifoam drsg. Change every 3 days and prn. Reposition at least every 2 hours or as tolerated. Off-load heels with pillow. DAILY ESTIMATED NEEDS: Needs based on Wound/ 51.7kg abw 25-30 kcals/kg 7694-8250 total kcals 1.25-1.5 g protein/kg 65-77 g total protein 25-30 mL/kg 3712-0795 total fluid mLs NUTRITION DIAGNOSIS: Increased kcal/prot needs R/T wound healing as evidenced by pt admitted w/ sacral wound per photo, pending evaluation. CURRENT DIET:REGULAR PO DIET RECOMMENDATIONS:REGULAR, texture as tolerated ADDITIONAL RECOMMENDATIONS: * Calibrated bedscale wt * Wound healing: add MVI x 1, Vit C 250mg QD F/up w/ WC eval * Monitor PO intake and tolerance * Monitor lytes, replete as needed (low K) cellulitis resolved wound stable d/c plannin g (3) Pedal edema (4) Facial contusion (5) Right ankle sprain (6) Multiple rib fractures (7) Noncompliance with treatment plan Mason Snyder Oct 12, 2020 13:20
--- NOTE | 2020-10-12 15:23 | Cardiac Electrophysiology PN ---
Assessment/Plan Assessment/Plan 1. Atypical chest pain. Ruled out for WI. EF 60% 2. Hypokalemia. Potassium was replaced. 3. Cellulitis of the leg on ceftriaxone. 4. Tachycardia, likely due to cellulitis. 5. Dementia and agitation. Subjective Subjective More alert off restraints off covid isolation . RN at bedside. Very weak. Had fever Objective Last 24 Hour Vital Signs Date Time Temp Pulse Resp B/P (MAP) Pulse Ox O2 Delivery O2 Flow Rate FiO2 10/12/20 12:00 100.4 108 21 118/74 (89) 92 10/12/20 10:23 99.0 10/12/20 09:00 Room Air 10/12/20 08:00 99.0 114 22 110/65 (80) 92 10/12/20 04:00 98.7 90 21 132/73 (92) 93 10/12/20 00:00 98.2 93 22 154/86 (108) 96 10/11/20 21:00 Room Air 10/11/20 20:00 99.0 86 24 142/75 (97) 93 10/11/20 16:00 100.7 91 24 122/73 (89) 97 Intake and Output 10/11/20 10/12/20 19:00 07:00 Intake Total 680 ml 120 ml Output Total 350 ml 400 ml Balance 330 ml -280 ml Intake Oral 625 ml 120 ml IV Total 55 ml Output Urine Total 350 ml 400 ml # Voids 2 Laboratory Tests Test 10/12/20 07:43 White Blood Count 15.0 K/UL (4.8-10.8) H Red Blood Count 3.58 M/UL (4.20-5.40) L Hemoglobin 9.7 G/DL (12.0-16.0) L Hematocrit 30.7 % (37.0-47.0) L Mean Corpuscular Volume 86 FL (80-99) Mean Corpuscular Hemoglobin 27.1 PG (27.0-31.0) Mean Corpuscular Hemoglobin Concent 31.6 G/DL (32.0-36.0) L Red Cell Distribution Width 14.4 % (11.6-14.8) Platelet Count 389 K/UL (150-450) Mean Platelet Volume 6.5 FL (6.5-10.1) Neutrophils (%) (Auto) % (45.0-75.0) Lymphocytes (%) (Auto) % (20.0-45.0) Monocytes (%) (Auto) % (1.0-10.0) Eosinophils (%) (Auto) % (0.0-3.0) Basophils (%) (Auto) % (0.0-2.0) Differential Total Cells Counted 100 Neutrophils % (Manual) 84 % (45-75) H Lymphocytes % (Manual) 10 % (20-45) L Monocytes % (Manual) 6 % (1-10) Eosinophils % (Manual) 0 % (0-3) Basophils % (Manual) 0 % (0-2) Band Neutrophils 0 % (0-8) Platelet Estimate Adequate Platelet Morphology Normal Hypochromasia 1+ Sodium Level 135 MMOL/L (136-145) L Potassium Level 4.3 MMOL/L (3.5-5.1) Chloride Level 100 MMOL/L (98-107) Carbon Dioxide Level 25 MMOL/L (21-32) Anion Gap 10 mmol/L (5-15) Blood Urea Nitrogen 18 mg/dL (7-18) Creatinine 0.9 MG/DL (0.55-1.30) Estimat Glomerular Filtration Rate > 60 mL/min (>60) Glucose Level 93 MG/DL (74-106) Calcium Level 9.2 MG/DL (8.5-10.1) Objective HEAD AND NECK: No JVD. LUNGS: Clear. CARDIOVASCULAR: Regular S1 and S2 with no gallop. ABDOMEN: Soft. EXTREMITIES: Pain in the right leg. Leon Patricio MD Oct 12, 2020 15:23
--- NOTE | 2020-10-12 15:43 | NUR ---
NURSE NOTES: Patient's body temperature is down to 99.7. Will continue to monitor.
--- NOTE | 2020-10-12 17:56 | NUR ---
NURSE NOTES: Dressings changed as ordered.
--- NOTE | 2020-10-12 19:30 | NUR ---
Nurses Notes Reeived report from Perry DOOLEY Pt lying in bed comfortable Alert oriented x 3 respond to name was able to answer some questions. no acute respiratory distress noted at the time pt on room air sat @ 95%. Aspiration precautions enforced. IV to right arm saline SL patent and intact. wound to bilateral buttocks c/d/i right lower leg dressing intact . pt was given bedpan to void during rounds. Bed in lowest position call light in reach. personal sitting chair at bedside will continue to monitor for treatment and care.
--- NOTE | 2020-10-12 19:45 | NUR ---
NURSE HAND-OFF: Important Events on Shift:hyperthermia Patient Status: hyperthermia resolving Diet: regular/ text as tolerated Pending Orders: n/a Pending Results/Labs:n/a Pending MD notification:n/a Latest Vital Signs: Temperature 99.6 , Pulse 103 , B/P 114 /76 , Respiratory Rate 22 , O2 SAT 93 , Room Air, O2 Flow Rate . Vital Sign Comment: hyperthermia Latest Landry Fall Score: 45 Fall Risk: High Risk Safety Measures: Call light Within Reach, Bed Alarm Zone 1, Side Rails Side Rails x3, Bed position Low and Locked. Fall Precautions: Yellow Socks Door Sign Patient Fall Education Report given to June. Addendum: 10/12/20 at 2028 by Venessa Blake RN RN told the next shift nurse to endorse about holding Risperidone to the morning nurse if the patient continues to be drowsy.
--- NOTE | 2020-10-12 20:25 | NUR ---
Nurse Notes Received abnormal vitals from Nikolai GHOTRA T- 99.7 HR 176 R 30 B/P 128/75. 02 sat @ 94%.Pt awake alert skin pale no acute distress noted Charge nurse Alie notified. Rapid Response team activated. team arrived at 2039. Vitals P 182 B/P 123/70 02 sat 92 %. BS 119.Dr. Ibarra contacted with orders stat ECG. 12 lead ECG done. revealed SVT. Pt placed on 02 @ 3liter Dr Ibarra further instructions to transfer patient to ICU and to give adenosine 6mg IV push. report given to [employer] staff to carry out orders. Dr. Ibarra notified patient arrival to ICU. Pt family notified
[2020-10-12] MEDS ORDERED: Adenosine 6mg/2ml Inj IVP SCH (21:45)
--- NOTE | 2020-10-12 22:00 | NUR ---
NURSE NOTES: Patient transferred from 4E>2E>ICU.S/P TOUCH UP PAINTER HAND. Patient is AAOX3, is aware of surroundings, place, person and situation. Patient is forgetful at times. Patient hooked up to monitor showing HR of 190 SVT. Blood pressure is 113/73 SpO2 at 99% at 2 L O2 via NC. Peripheral IV lines noted. Cellulitis noted at R lower leg with medical marker markings by MD. Patients temperature noted to be 101.1F. Hot to touch.
--- NOTE | 2020-10-12 22:05 | NUR ---
NURSE NOTES: 6mg Adenosine IVP given followed by 10ml NS flush for HR of 189 SVT. Patients HR did go down after a few seconds after dose given all the way down to 76NSR and then increased to the 120s where it stayed lingering there in Sinus Tach. No adverse reactions observed. Blood pressure remained stable and no SOB at this time.
--- NOTE | 2020-10-12 22:26 | NUR ---
NURSE NOTES: Patient was given a cooling bath for temperature of 101.1F (ax). Cooling measures were initiated and Tylenol 650mg tablet via PO was given. Patients HOB [id number], assisted with holding cup to drink, no cough noted, pills swallowed without difficulty-however patient needs to be 1:1 feed assist. Glucose checked and noted to be 119, asymptomatic.
[2020-10-13] VITALS (20 sets, daily range): BP systolic 86–149; BP diastolic 52–106
--- NOTE | 2020-10-13 00:26 | NUR ---
NURSE NOTES: Repositioned and oral care given. Water given to patient>no coughing or difficulty swallowing observed.
--- NOTE | 2020-10-13 00:26 | NUR ---
NURSE NOTES: Patients temperature slowly decreasing, patient is more awake and less lethargic than before, HR is better controlled and is at 85 NSR. Patient remains awake and alert. BP's remains stable. Semi-Fowlers position, Aspiration precautions observed.
--- NOTE | 2020-10-13 02:00 | NUR ---
NURSE NOTES: Repositioned and oral care given. Water given to patient>no coughing or difficulty swallowing observed.
--- NOTE | 2020-10-13 04:00 | NUR ---
NURSE NOTES: Bed bath given, oral care provided. Patient sleeping easily arousable. NAD. Vitals Stable
[2020-10-13 05:50] LABS: BASOPHILS % (AUTO) 0.5 % (0.0-2.0); EOSINOPHILS % (AUTO) 0.7 % (0.0-3.0); HEMATOCRIT 32.4 % (37.0-47.0); HEMOGLOBIN 9.9 G/DL (12.0-16.0); LYMPHOCYTES % (AUTO) 12.2 % (20.0-45.0); MEAN CORPUSCULAR VOLUME 86 FL (80-99); MONOCYTES % (AUTO) 4.6 % (1.0-10.0); NEUTROPHILS % (AUTO) 81.9 % (45.0-75.0); PLATELET COUNT 373 K/UL (150-450); RED BLOOD COUNT 3.75 M/UL (4.20-5.40); WHITE BLOOD COUNT 13.4 K/UL (4.8-10.8)
[2020-10-13 05:53] LABS: ANION GAP 8 mmol/L (5-15); BLOOD UREA NITROGEN 21 mg/dL (7-18); CALCIUM 9.1 MG/DL (8.5-10.1); CARBON DIOXIDE 27 MMOL/L (21-32); CHLORIDE 103 MMOL/L (98-107); CREATININE 0.9 MG/DL (0.55-1.30); POTASSIUM 4.4 MMOL/L (3.5-5.1); SODIUM 138 MMOL/L (136-145)
--- NOTE | 2020-10-13 06:00 | NUR ---
NURSE NOTES: Patient sleeping at this time, easily arousable, patient stable. Dr. Ventura at bedside rounding, updated MD on patients current status, no new orders at this time.
--- NOTE | 2020-10-13 06:39 | Hematology/Onc Progress Note ---
Assessment/Plan Assessment/Plan Assessment and Recs # Leukocytosis is likely related to uti, has been started on abx --> as per id recs --> ABX ctx-->off --> wbc 17.6-->14-->15-->13 # Anemia due likely to chronic disease --> hgb 10-->9-->10-->9.9 --> anemia panel if downtrends --> transfuse prn # Episode of generalized weakness --> on ivfs, tele --> consider cards # Cellulitis and abscess of leg --> abx # Fungal infection on her chest wall noted by the nurses --> will start patient on fluconazole and nystatin # Dvt ppx lovenox sq Appreciate consultation and guero rn Subjective Allergies: Coded Allergies: No Known Allergies (Unverified , 11/11/17) All Systems: reviewed and negative except above Subjective 2/ agitated, hysterical, labs noted, anemia panel ordered 10/07 meds noted, have ordered for cbc, labs reviewed, guero rn 10/09 restraints are intact, meds noted, no bleeding 10/10 with restraints, meds noted, no night sweats, hgb stable 10/11 remains with restraints, is on lovenox and ctx abx 10/12 neck in pain, labs reviewed, meds noted, on abx 10/13 icu now due to svt, was given adenosine per Marcelo Graff, now improved hr 64 Objective Objective Current Medications Medications (Trade) Dose Ordered Sig/Siddharth Route PRN Reason Start Time Stop Time Status Last Admin Dose Admin Acetaminophen (Tylenol) 650 mg Q6H PRN ORAL fever 10/04/20 20:45 11/03/20 20:44 10/12/20 22:18 Acetaminophen (Tylenol) 650 mg Q6H PRN ORAL Mild Pain (Pain Scale 1-3) 10/04/20 20:45 11/03/20 20:44 Diphenhydramine HCl (Benadryl) 25 mg Q6H PRN ORAL Itching 10/04/20 20:45 11/03/20 20:44 10/06/20 17:56 Enoxaparin Sodium (Lovenox) 40 mg DAILY SUBQ 10/05/20 09:00 01/03/21 08:59 10/12/20 09:54 Lorazepam (Ativan) 1 mg Q6H PRN ORAL For Anxiety 10/07/20 05:15 10/14/20 05:14 10/07/20 05:31 Risperidone (RisperDAL) 0.5 mg BID ORAL 10/07/20 09:00 11/21/20 08:59 10/11/20 10:12 Last 24 Hour Vital Signs Date Time Temp Pulse Resp B/P (MAP) Pulse Ox O2 Delivery O2 Flow Rate FiO2 10/13/20 06:00 64 17 104/63 (77) 100 10/13/20 05:00 65 18 95/67 (76) 100 10/13/20 04:00 Nasal Cannula 2.0 10/13/20 04:00 98.9 75 25 117/68 (84) 99 10/13/20 03:00 73 26 113/71 (85) 98 10/13/20 02:00 78 27 107/77 (87) 98 10/13/20 01:00 94 31 117/59 (78) 100 10/13/20 00:00 Nasal Cannula 2.0 10/13/20 00:00 99.0 92 28 98/61 (73) 100 10/12/20 23:00 113 31 106/61 (76) 100 10/12/20 22:48 100.9 10/12/20 22:00 101.1 120 33 113/72 (86) 98 10/12/20 21:52 189 10/12/20 21:52 167 35 104/63 (77) 98 10/12/20 21:39 101.3 187 43 93/69 (77) 97 10/12/20 21:00 Room Air 10/12/20 20:40 176 30 94 10/12/20 16:00 99.6 103 22 114/76 (89) 93 10/12/20 12:00 100.4 108 21 118/74 (89) 92 10/12/20 10:23 99.0 10/12/20 09:00 Room Air 10/12/20 08:00 99.0 114 22 110/65 (80) 92 10/12/20 04:00 98.7 90 21 132/73 (92) 93 10/12/20 00:00 98.2 93 22 154/86 (108) 96 10/11/20 21:00 Room Air 10/11/20 20:00 99.0 86 24 142/75 (97) 93 10/11/20 16:00 100.7 91 24 122/73 (89) 97 10/11/20 12:00 100.6 99 21 129/78 (95) 98 10/11/20 09:00 Room Air 10/11/20 08:00 99.5 110 20 132/82 (99) 98 Intake and Output 10/12/20 10/13/20 19:00 07:00 Intake Total 775 ml 350 ml Balance 775 ml 350 ml Intake Oral 720 ml 350 ml IV Total 55 ml # Voids 2 2 Labs Test 10/10/20 08:16 10/11/20 05:35 10/12/20 07:43 10/13/20 04:50 White Blood Count 15.8 K/UL (4.8-10.8) 16.1 K/UL (4.8-10.8) 15.0 K/UL (4.8-10.8) 13.4 K/UL (4.8-10.8) Red Blood Count 3.99 M/UL (4.20-5.40) 3.61 M/UL (4.20-5.40) 3.58 M/UL (4.20-5.40) 3.75 M/UL (4.20-5.40) Hemoglobin 10.6 G/DL (12.0-16.0) 9.9 G/DL (12.0-16.0) 9.7 G/DL (12.0-16.0) 9.9 G/DL (12.0-16.0) Hematocrit 34.5 % (37.0-47.0) 30.4 % (37.0-47.0) 30.7 % (37.0-47.0) 32.4 % (37.0-47.0) Mean Corpuscular Volume 87 FL (80-99) 84 FL (80-99) 86 FL (80-99) 86 FL (80- 99) Mean Corpuscular Hemoglobin 26.6 PG (27.0-31.0) 27.5 PG (27.0-31.0) 27.1 PG (27.0-31.0) 26.5 PG (27.0-31.0) Mean Corpuscular Hemoglobin Concent 30.7 G/DL (32.0-36.0) 32.6 G/DL (32.0-36.0) 31.6 G/DL (32.0-36.0) 30.7 G/DL (32.0-36.0) Red Cell Distribution Width 14.9 % (11.6-14.8) 15.3 % (11.6-14.8) 14.4 % (11.6-14.8) 15.0 % (11.6-14.8) Platelet Count 388 K/UL (150-450) 370 K/UL (150-450) 389 K/UL (150-450) 373 K/UL (150-450) Mean Platelet Volume 6.4 FL (6.5-10.1) 6.4 FL (6.5-10.1) 6.5 FL (6.5-10.1) 6.7 FL (6.5-10.1) Neutrophils (%) (Auto) % (45.0-75.0) 83.5 % (45.0-75.0) % (45.0-75.0) 81.9 % (45.0-75.0) Lymphocytes (%) (Auto) % (20.0-45.0) 10.3 % (20.0-45.0) % (20.0-45.0) 12.2 % (20.0-45.0) Monocytes (%) (Auto) % (1.0-10.0) 5.6 % (1.0-10.0) % (1.0-10.0) 4.6 % (1.0-10.0) Eosinophils (%) (Auto) % (0.0-3.0) 0.3 % (0.0-3.0) % (0.0-3.0) 0.7 % (0.0-3.0) Basophils (%) (Auto) % (0.0-2.0) 0.3 % (0.0-2.0) % (0.0-2.0) 0.5 % (0.0-2.0) Differential Total Cells Counted 100 100 Neutrophils % (Manual) 86 % (45-75) 84 % (45-75) Lymphocytes % (Manual) 11 % (20-45) 10 % (20-45) Monocytes % (Manual) 2 % (1-10) 6 % (1-10) Eosinophils % (Manual) 1 % (0-3) 0 % (0-3) Basophils % (Manual) 0 % (0-2) 0 % (0-2) Band Neutrophils 0 % (0-8) 0 % (0-8) Platelet Estimate Adequate Adequate Platelet Morphology Normal Normal Hypochromasia 1+ 1+ Anisocytosis 1+ Sodium Level 138 MMOL/L (136-145) 136 MMOL/L (136-145) 135 MMOL/L (136-145) 138 MMOL/L (136-145) Potassium Level 3.6 MMOL/L (3.5-5.1) 4.0 MMOL/L (3.5-5.1) 4.3 MMOL/L (3.5-5.1) 4.4 MMOL/L (3.5-5.1) Chloride Level 102 MMOL/L (98-107) 101 MMOL/L (98-107) 100 MMOL/L (98-107) 103 MMOL/L (98-107) Carbon Dioxide Level 27 MMOL/L (21-32) 27 MMOL/L (21-32) 25 MMOL/L (21-32) 27 MMOL/L (21-32) Anion Gap 9 mmol/L (5-15) 9 mmol/L (5-15) 10 mmol/L (5-15) 8 mmol/L (5-15) Blood Urea Nitrogen 13 mg/dL (7-18) 16 mg/dL (7-18) 18 mg/dL (7-18) 21 mg/dL (7-18) Creatinine 1.0 MG/DL (0.55-1.30) 1.0 MG/DL (0.55-1.30) 0.9 MG/DL (0.55-1.30) 0.9 MG/DL (0.55-1.30) Estimat Glomerular Filtration Rate 54.7 mL/min (>60) 54.7 mL/min (>60) > 60 mL/min (>60) > 60 mL/min (>60) Glucose Level 182 MG/DL (74-106) 105 MG/DL (74-106) 93 MG/DL (74-106) 117 MG/DL (74-106) Calcium Level 9.1 MG/DL (8.5-10.1) 9.2 MG/DL (8.5-10.1) 9.2 MG/DL (8.5-10.1) 9.1 MG/DL (8.5-10.1) Height (Feet): 5 Height (Inches): 1.00 Weight (Pounds): 140 Objective PE Vitals: reviewed General: well appearing, no apparent distress, alert Heent: normocephalic, atraumatic, bilateral eye PERRL, bilateral eye EOMI Respiratory: lungs clear, no respiratory distress, no retraction, no accessory muscle use Cardiovascular: normal peripheral pulses, regular rate, rhythm, no edema, no gallop, no murmur Gastrointestinal: non tender, soft, no guarding, no rebound Musculoskeletal: normal inspection Neurologic: alert, oriented x3 Psychiatric: mood/affect normal Skin: warm/dry, other - Right lower extremity: Area of erythema on the tibial proximal aspect Mando Ventura MD Oct 13, 2020 06:38
--- NOTE | 2020-10-13 07:20 | NUR ---
NURSE NOTES: Report received from MIAH Robertson. Pt observed laying in bed, sleeping, easily arousable. No distress noted. Pt is A & Ox3, with periods of confusion. 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 O2sat 100% on Room Air. Pt is incontinent has a purewick in place for urine output. Sacral wound noted. PIV Lt FA #[id number] and Rt Hand #[id number]. Bed locked and in lowest position, with call light within reach. Will resume plan of care.
--- NOTE | 2020-10-13 08:25 | Infectious Diseases Prog Note ---
Assessment/Plan 70yo F with: SVT Febrile to 101.1 on 10/12 Leukocytosis improving 10/13 BCx ordered UA neg CXR ordered R kelley cellulitis, improving R kelley wound, dry scabbing Afebrile Leukocytosis to 17, improving 10/04 BCx NTD UA+, UCx +30-40k GAS, 80-90s mixed carmel Cr 1.2 R/o COVID 2/3 COVID PCR neg CXR: Worsening aeration with development of some patchy retrocardiac opacities which may relate to subsegmental atelectasis however pneumonia should be excluded clinically. Development of mild interstitial/vascular prominence. Mild congestive changes of CHF can be considered. Findings may also be artifactual related to lower lung volumes. HIV screen neg PMH: HTN Allergic rhinitis Plan: Monitor off abx for now, if fevers again will start empiric Zosyn BCx UA/UCx CXR Trend temp curve 10/12 SP CTX #10 10/04 SP vanco/Zosyn/flucon in ED Monitor CBC/CMP Monitor temp curve, hemodynamics Monitor resp status D/w RN Thank you for this consult. [facility] will continue to follow. Subjective Allergies: Coded Allergies: No Known Allergies (Unverified , 11/11/17) Now in ICU due to episode of SVT, improved s/p adenosine Tmax 101.1 yesterday, no more fevers today Doing well, HDS on RA WBC improving to 13 Objective Last 24 Hour Vital Signs Date Time Temp Pulse Resp B/P (MAP) Pulse Ox O2 Delivery O2 Flow Rate FiO2 10/13/20 07:00 76 23 108/68 (81) 99 10/13/20 06:00 64 17 104/63 (77) 100 10/13/20 05:00 65 18 95/67 (76) 100 10/13/20 04:00 Nasal Cannula 2.0 10/13/20 04:00 98.9 75 25 117/68 (84) 99 10/13/20 03:00 73 26 113/71 (85) 98 10/13/20 02:00 78 27 107/77 (87) 98 10/13/20 01:00 94 31 117/59 (78) 100 10/13/20 00:00 Nasal Cannula 2.0 10/13/20 00:00 99.0 92 28 98/61 (73) 100 2/10/21 23:00 113 31 106/61 (76) 100 10/12/20 22:48 100.9 10/12/20 22:00 101.1 120 33 113/72 (86) 98 10/12/20 21:52 189 10/12/20 21:52 167 35 104/63 (77) 98 10/12/20 21:39 101.3 187 43 93/69 (77) 97 10/12/20 21:00 Room Air 10/12/20 20:40 176 30 94 10/12/20 16:00 99.6 103 22 114/76 (89) 93 10/12/20 12:00 100.4 108 21 118/74 (89) 92 10/12/20 10:23 99.0 10/12/20 09:00 Room Air Height (Feet): 5 Height (Inches): 1.00 Weight (Pounds): 140 Gen: NAD HEENT: NCAT Pulm: BL chest rise on RA, non-labored Abd: Non-distended Ext: RLE w/ resolved cellulitis, healing wound on anterior kelley Skin: No visible rashes Neuro: Awake, interactive Laboratory Tests Test 10/13/20 04:50 White Blood Count 13.4 K/UL (4.8-10.8) H Red Blood Count 3.75 M/UL (4.20-5.40) L Hemoglobin 9.9 G/DL (12.0-16.0) L Hematocrit 32.4 % (37.0-47.0) L Mean Corpuscular Volume 86 FL (80-99) Mean Corpuscular Hemoglobin 26.5 PG (27.0-31.0) L Mean Corpuscular Hemoglobin Concent 30.7 G/DL (32.0-36.0) L Red Cell Distribution Width 15.0 % (11.6-14.8) H Platelet Count 373 K/UL (150-450) Mean Platelet Volume 6.7 FL (6.5-10.1) Neutrophils (%) (Auto) 81.9 % (45.0-75.0) H Lymphocytes (%) (Auto) 12.2 % (20.0-45.0) L Monocytes (%) (Auto) 4.6 % (1.0-10.0) Eosinophils (%) (Auto) 0.7 % (0.0-3.0) Basophils (%) (Auto) 0.5 % (0.0-2.0) Sodium Level 138 MMOL/L (136-145) Potassium Level 4.4 MMOL/L (3.5-5.1) Chloride Level 103 MMOL/L (98-107) Carbon Dioxide Level 27 MMOL/L (21-32) Anion Gap 8 mmol/L (5-15) Blood Urea Nitrogen 21 mg/dL (7-18) H Creatinine 0.9 MG/DL (0.55-1.30) Estimat Glomerular Filtration Rate > 60 mL/min (>60) Glucose Level 117 MG/DL (74-106) H Calcium Level 9.1 MG/DL (8.5-10.1) Current Medications Medications (Trade) Dose Ordered Sig/Siddharth Route PRN Reason Start Time Stop Time Status Last Admin Dose Admin Acetaminophen (Tylenol) 650 mg Q6H PRN ORAL fever 10/04/20 20:45 11/03/20 20:44 10/12/20 22:18 Acetaminophen (Tylenol) 650 mg Q6H PRN ORAL Mild Pain (Pain Scale 1-3) 10/04/20 20:45 11/03/20 20:44 Diphenhydramine HCl (Benadryl) 25 mg Q6H PRN ORAL Itching 10/04/20 20:45 11/03/20 20:44 10/06/20 17:56 Enoxaparin Sodium (Lovenox) 40 mg DAILY SUBQ 10/05/20 09:00 01/03/21 08:59 10/12/20 09:54 Lorazepam (Ativan) 1 mg Q6H PRN ORAL For Anxiety 10/07/20 05:15 10/14/20 05:14 10/07/20 05:31 Risperidone (RisperDAL) 0.5 mg BID ORAL 10/07/20 09:00 11/21/20 08:59 10/11/20 10:12 Sparkle Roque M.D. Oct 13, 2020 08:25
--- NOTE | 2020-10-13 08:37 | Psychiatry Consultation ---
Psychiatry Consultation Psychiatry Consultation Chief Complaint: Generalized Weakness History of Present Illness: Myasthenia gravis 70-year-old female patient she continues to have cellulitis causing her to have altered mental status confusion declining cognition below her baseline is why her attending has requested daily psychiatric consultation which she has taken agitation irritability and mood lability and overall decline in cognition below her baseline to the goal of being seen by psychiatrist to help stabilize her mood and prevent any further decline in cognition and hopefully bring her cognition close to her baseline with less agitation she is currently in the ICU Mental status examination: 70-year-old female presents history of bilateral irritable agitated affect guarded restricted intellect poor mood depressed anxious moderately psychomotor agitation attention was poor orientation x2 speech is low volume clear thought process disorganized logical insight judgment is poor Allergies: Coded Allergies: No Known Allergies (Unverified , 11/11/17) Medication History Scheduled Naloxone HCl (Narcan), 4 MG NS PRN Scheduled PRN Ibuprofen* (Motrin*), 600 MG ORAL Q6H PRN for For Pain Discontinued Medications Acetaminophen With Codeine (T#3) (Tylenol #3 Tab*), 1 TAB ORAL Q8HR PRN for For Pain Discontinued Reason: Therapy completed Acetaminophen With Codeine (T#3) (Tylenol #3 Tab*), 1 TAB ORAL Q6H PRN for For Pain Discontinued Reason: Therapy completed Acetaminophen* (Tylenol Extra Strength*), 500 MG ORAL Q8H PRN for Prn Headache/Temp > 101 Discontinued Reason: Therapy completed Cephalexin* (Keflex*), 500 MG ORAL EVERY 12 HOURS Discontinued Reason: Therapy completed Cephalexin* (Keflex*), 500 MG ORAL EVERY 12 HOURS Discontinued Reason: Therapy completed Ciclopirox Olamine (Ciclopirox), 1 APPLIC TOPIC BID Discontinued Reason: Therapy completed Hydrochlorothiazide* (Hydrochlorothiazide*), 25 MG ORAL DAILY Discontinued Reason: Therapy completed Hydrocodone Bit/Acetaminophen 5-325* ([place] 5-325*), 1 TAB ORAL Q6H PRN for For Pain Discontinued Reason: Therapy completed Loratadine (Claritin), 10 MG ORAL DAILY Discontinued Reason: Therapy completed No Known Medications* (NKM - No Known Medications*), 0 ., (Reported) Discontinued Reason: Therapy completed Permethrin* (Elimite*), 1 APPLIC TOPIC ONCE Discontinued Reason: Pt had allergic rxn Objective Data Height (Feet): 5 Height (Inches): 1.00 Weight (Pounds): 140 Assessment/Plan Assessment/Plan: Ativan 1mg PO q6h prn anxiety, Risperdal 0.5 po BID and 20min of insight oriented psychotherapy to help pt have better impulse control due to better realization of he symptoms. 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
--- NOTE | 2020-10-13 08:40 | NUR ---
NURSE NOTES: Urine specimen collected, as ordered.
[2020-10-13] MEDS: Enoxaparin 40mg Inj SUBQ SCH (08:48)
--- NOTE | 2020-10-13 08:58 | NUR ---
PT NOTE Patient transferred to ICU, will discharge patient from PT at this time, will need MD order to resume PT when patient is medically appropriate. Angela DOOLEY notified.
--- NOTE | 2020-10-13 09:00 | NUR ---
NURSE NOTES: PT on the unit, who was seeing pt when on med surg. Pt discharged from PT at this time d/t being transferred to ICU.
--- NOTE | 2020-10-13 09:58 | NUR ---
NURSE NOTES: Risperidone held this AM d/t pt being too drowsy.
[2020-10-13 10:49] LABS: APPEARANCE,URINE CLEAR; BILIRUBIN, URINE NEGATIVE (NEGATIVE); COLOR,URINE PALE YELLOW; GLUCOSE, URINE (UA) NEGATIVE (NEGATIVE); KETONES,URINE NEGATIVE (NEGATIVE); LEUKOCYTE ESTERASE ,URINE NEGATIVE (NEGATIVE); NITRITE,URINE NEGATIVE (NEGATIVE); PH,URINE 6.5 (4.5-8.0); PROTEIN,URINE 1+ (NEGATIVE); UROBILINOGEN,URINE NORMAL MG/DL (0.0-1.0)
--- NOTE | 2020-10-13 11:00 | NUR ---
NURSE NOTES: Dr Patricio making his rounds on the unit. Updated him on pt's current condition. Awaiting for him to put in new orders.
--- NOTE | 2020-10-13 13:00 | NUR ---
NURSE NOTES: Dr Ingram on the unit making his rounds. Updated him on pt's current condition. Pt will be transferred to SDU now that she has stabilized.
--- NOTE | 2020-10-13 13:05 | General Progress Note ---
Subjective Constitutional: Reports: weakness Allergies: Coded Allergies: No Known Allergies (Unverified , 11/11/17) All Systems: reviewed and negative except above Subjective sleepy calm in icu Objective Last 24 Hour Vital Signs Date Time Temp Pulse Resp B/P (MAP) Pulse Ox O2 Delivery O2 Flow Rate FiO2 10/13/20 12:00 90 10/13/20 12:00 98.9 100 29 130/78 (95) 99 10/13/20 12:00 Room Air 10/13/20 11:00 81 18 117/74 (88) 100 10/13/20 10:02 73 16 89/52 (64) 99 10/13/20 10:00 73 16 88/56 (67) 99 10/13/20 09:00 131 22 143/89 (107) 97 10/13/20 08:00 Room Air 10/13/20 08:00 98.8 120 31 149/106 (120) 97 10/13/20 08:00 123 10/13/20 07:00 76 23 108/68 (81) 99 10/13/20 06:00 64 17 104/63 (77) 100 10/13/20 05:00 65 18 95/67 (76) 100 10/13/20 04:00 Nasal Cannula 2.0 10/13/20 04:00 98.9 75 25 117/68 (84) 99 10/13/20 03:00 73 26 113/71 (85) 98 10/13/20 02:00 78 27 107/77 (87) 98 10/13/20 01:00 94 31 117/59 (78) 100 10/13/20 00:00 Nasal Cannula 2.0 10/13/20 00:00 99.0 92 28 98/61 (73) 100 10/12/20 23:00 113 31 106/61 (76) 100 10/12/20 22:48 100.9 10/12/20 22:00 101.1 120 33 113/72 (86) 98 10/12/20 21:52 189 10/12/20 21:52 167 35 104/63 (77) 98 10/12/20 21:39 101.3 187 43 93/69 (77) 97 10/12/20 21:00 Room Air 10/12/20 20:40 176 30 94 10/12/20 16:00 99.6 103 22 114/76 (89) 93 Intake and Output 10/12/20 10/13/20 19:00 07:00 Intake Total 775 ml 350 ml Balance 775 ml 350 ml Intake Oral 720 ml 350 ml IV Total 55 ml # Voids 2 2 Laboratory Tests 10/13/20 04:50: White Blood Count 13.4H, Red Blood Count 3.75L, Hemoglobin 9.9L, Hematocrit 32.4L, Mean Corpuscular Volume 86, Mean Corpuscular Hemoglobin 26.5L, Mean Corpuscular Hemoglobin Concent 30.7L, Red Cell Distribution Width 15.0H, Platelet Count 373, Mean Platelet Volume 6.7, Neutrophils (%) (Auto) 81.9H, Lymphocytes (%) (Auto) 12.2L, Monocytes (%) (Auto) 4.6, Eosinophils (%) (Auto) 0.7, Basophils (%) (Auto) 0.5, Sodium Level 138, Potassium Level 4.4, Chloride Level 103, Carbon Dioxide Level 27, Anion Gap 8, Blood Urea Nitrogen 21H, Creatinine 0.9, Estimat Glomerular Filtration Rate > 60, Glucose Level 117H, Calcium Level 9.1 10/13/20 08:40: Urine Color Pale yellow, Urine Appearance Clear, Urine pH 6.5, Urine Specific [place] 1.010, Urine Protein 1+H, Urine Glucose (UA) Negative, Urine Ketones Negative, Urine Blood Negative, Urine Nitrite Negative, Urine Bilirubin Negative, Urine Urobilinogen Normal, Urine Leukocyte Esterase Negative, Urine RBC 0-2, Urine WBC 0-2, Urine Squamous Epithelial Cells Occasional, Urine Bacteria Occasional Height (Feet): 5 Height (Inches): 1.00 Weight (Pounds): 140 General Appearance: lethargic EENT: normal ENT inspection Neck: normal alignment Cardiovascular: normal peripheral pulses, normal rate, regular rhythm Respiratory/Chest: chest wall non-tender, lungs clear, normal breath sounds Abdomen: normal bowel sounds, non tender, soft Extremities: normal inspection Edema: no edema noted Arm (L), no edema noted Arm (R), no edema noted Leg (L), no edema noted Leg (R), no edema noted Pedal (L), no edema noted Pedal (R), no edema noted Generalized Neurologic: motor weakness Skin: normal pigmentation, warm/dry Objective sl redness below r mid kelley Assessment/Plan Problem List: (1) Anemia ICD Codes: D64.9 - Anemia, unspecified SNOMED: 062860770 (2) Episode of generalized weakness ICD Codes: R53.1 - Weakness SNOMED: 68466349 (3) Cellulitis and abscess of leg ICD Codes: L03.119 - Cellulitis of unspecified part of limb; L02.419 - Cutaneous abscess of limb, unspecified SNOMED: 916179867 (4) Pedal edema ICD Codes: R60.0 - Localized edema SNOMED: 664476640 (5) Noncompliance with treatment plan ICD Codes: Z91.11 - Patient's noncompliance with dietary regimen SNOMED: 503327057 Status: stable, progressing Assessment/Plan: wound care abx psyc tx and transfer prn cbc bmp am psyc transfer if clear Benjamin Ingram DO Oct 13, 2020 13:05
--- NOTE | 2020-10-13 13:36 | Surgery Progress Note ---
Surgery Progress Note Subjective Additional Comments Overnight patient declining. Transfer to intensive care unit. Feels little bit better now. Labs noted imaging reviewed. No nausea vomiting fever chills. Leg cellulitis stable. Wound care appropriate. Objective Last 24 Hour Vital Signs Date Time Temp Pulse Resp B/P (MAP) Pulse Ox O2 Delivery O2 Flow Rate FiO2 10/13/20 13:00 80 18 110/55 (73) 99 10/13/20 12:00 90 10/13/20 12:00 98.9 100 29 130/78 (95) 99 10/13/20 12:00 Room Air 10/13/20 11:00 81 18 117/74 (88) 100 10/13/20 10:02 73 16 89/52 (64) 99 10/13/20 10:00 73 16 88/56 (67) 99 10/13/20 09:00 131 22 143/89 (107) 97 10/13/20 08:00 Room Air 10/13/20 08:00 98.8 120 31 149/106 (120) 97 10/13/20 08:00 123 10/13/20 07:00 76 23 108/68 (81) 99 10/13/20 06:00 64 17 104/63 (77) 100 10/13/20 05:00 65 18 95/67 (76) 100 10/13/20 04:00 Nasal Cannula 2.0 10/13/20 04:00 98.9 75 25 117/68 (84) 99 10/13/20 03:00 73 26 113/71 (85) 98 10/13/20 02:00 78 27 107/77 (87) 98 10/13/20 01:00 94 31 117/59 (78) 100 10/13/20 00:00 Nasal Cannula 2.0 10/13/20 00:00 99.0 92 28 98/61 (73) 100 10/12/20 23:00 113 31 106/61 (76) 100 10/12/20 22:48 100.9 10/12/20 22:00 101.1 120 33 113/72 (86) 98 10/12/20 21:52 189 10/12/20 21:52 167 35 104/63 (77) 98 10/12/20 21:39 101.3 187 43 93/69 (77) 97 10/12/20 21:00 Room Air 10/12/20 20:40 176 30 94 10/12/20 16:00 99.6 103 22 114/76 (89) 93 I&O Intake and Output 10/12/20 10/13/20 19:00 07:00 Intake Total 775 ml 350 ml Balance 775 ml 350 ml Intake Oral 720 ml 350 ml IV Total 55 ml # Voids 2 2 Dressing: saturated Cardiovascular: RSR Respiratory: decreased breath sounds Abdomen: soft, non-tender, present bowel sounds, non-distended Extremities: edema, no tenderness, no cyanosis Laboratory Tests Test 10/13/20 04:50 10/13/20 08:40 White Blood Count 13.4 K/UL (4.8-10.8) H Red Blood Count 3.75 M/UL (4.20-5.40) L Hemoglobin 9.9 G/DL (12.0-16.0) L Hematocrit 32.4 % (37.0-47.0) L Mean Corpuscular Volume 86 FL (80-99) Mean Corpuscular Hemoglobin 26.5 PG (27.0-31.0) L Mean Corpuscular Hemoglobin Concent 30.7 G/DL (32.0-36.0) L Red Cell Distribution Width 15.0 % (11.6-14.8) H Platelet Count 373 K/UL (150-450) Mean Platelet Volume 6.7 FL (6.5-10.1) Neutrophils (%) (Auto) 81.9 % (45.0-75.0) H Lymphocytes (%) (Auto) 12.2 % (20.0-45.0) L Monocytes (%) (Auto) 4.6 % (1.0-10.0) Eosinophils (%) (Auto) 0.7 % (0.0-3.0) Basophils (%) (Auto) 0.5 % (0.0-2.0) Sodium Level 138 MMOL/L (136-145) Potassium Level 4.4 MMOL/L (3.5-5.1) Chloride Level 103 MMOL/L (98-107) Carbon Dioxide Level 27 MMOL/L (21-32) Anion Gap 8 mmol/L (5-15) Blood Urea Nitrogen 21 mg/dL (7-18) H Creatinine 0.9 MG/DL (0.55-1.30) Estimat Glomerular Filtration Rate > 60 mL/min (>60) Glucose Level 117 MG/DL (74-106) H Calcium Level 9.1 MG/DL (8.5-10.1) Urine Color Pale yellow Urine Appearance Clear Urine pH 6.5 (4.5-8.0) Urine Specific [place] 1.010 (1.005-1.035) Urine Protein 1+ (NEGATIVE) H Urine Glucose (UA) Negative (NEGATIVE) Urine Ketones Negative (NEGATIVE) Urine Blood Negative (NEGATIVE) Urine Nitrite Negative (NEGATIVE) Urine Bilirubin Negative (NEGATIVE) Urine Urobilinogen Normal MG/DL (0.0-1.0) Urine Leukocyte Esterase Negative (NEGATIVE) Urine RBC 0-2 /HPF (0 - 2) Urine WBC 0-2 /HPF (0 - 2) Urine Squamous Epithelial Cells Occasional /LPF Urine Bacteria Occasional /HPF (NONE) Plan Problems: (1) Episode of generalized weakness (2) Cellulitis and abscess of leg Assessment & Plan: 70-year-old female with right lower extremity cellulitis mild edema on the left side anterior tibial ulceration identified on the right side mid leg potentially from trauma though patient denies. No nausea fever chills no abscess identified no drainage. Macerated eschar identified. Apply betadine swab to ulcer cover with Optifoam dressing. Keep her legs elevated while in bed. IV antibiotics per infectious disease. No acute surgical intervention planned at this time. Sacral stage 3 decubitus ulcer wound identified. therahoney gauze and foam dressing daily and prn saturation. turn every 2 hours, offload pressure, patient able to comply with care plan. Nutrition optimization. Follow with recommendations thank you allowing me to participate patient's care Pt presented on admission with MASD skin folds Both breasts, Swelling, Ulcerations to RLE. Full thickness Pressure Injury L Buttocks. Skin folds of both breasts are erythematous, and macerated. Mild odor noted. Full thickness Pressure Injury L Buttocks (L)1.5cm x (W)0.3cm x (D)0.2cm. Wound has appearance of slit with indurated and maroon borders. Non-Blanchable erythema without induration Sacrum and R Buttocks. Small ulcer with necrotic cap noted to posterior upper R Thigh. Marginal erythema along edges. Larger ulcer with necrotic cap noted to maurice R Tibia(L)3cm x (W)3.7cm. Marginal erythema along borders and periwound. Clockwise at 2-4o'clock along borders are macerated. No odor or exudate noted. A third smaller ulcer with necrotic cap noted to distal/lateral R tibia(L)0.9cm x (W)1cm. Marginal erythema along borders. Both heels are soft, but each heel easily blanchable. Tx.Plan: Wash both breasts with soap and water. Pat dry. Apply Light Dusting of Antifungal powder to each breasts Twice Daily. Cleanse L Buttocks with Saline. Apply Therahoney. Apply Moisture Barrier Paste periwound. Cover with Optifoam drsg. Change every 3 days and prn. Apply Moisture Barrier paste to Sacrum and R buttocks. Cover with Optifoam drsg. Change every 3 days and prn. Reposition at least every 2 hours or as tolerated. Off-load heels with pillow. DAILY ESTIMATED NEEDS: Needs based on Wound/ 51.7kg abw 25-30 kcals/kg 4183-4970 total kcals 1.25-1.5 g protein/kg 65-77 g total protein 25-30 mL/kg 9866-1614 total fluid mLs NUTRITION DIAGNOSIS: Increased kcal/prot needs R/T wound healing as evidenced by pt admitted w/ sacral wound per photo, pending evaluation. CURRENT DIET:REGULAR PO DIET RECOMMENDATIONS:REGULAR, texture as tolerated ADDITIONAL RECOMMENDATIONS: * Calibrated bedscale wt * Wound healing: add MVI x 1, Vit C 250mg QD F/up w/ WC eval * Monitor PO intake and tolerance * Monitor lytes, replete as needed (low K) cellulitis resolved wound stable d/c plannin g (3) Pedal edema (4) Facial contusion (5) Right ankle sprain (6) Multiple rib fractures (7) Noncompliance with treatment plan Mason Snyder Oct 13, 2020 13:36
--- NOTE | 2020-10-13 14:01 | NUR ---
THERMAL SURFACING MACHINE OPERATOR NOTE NIGEL spoke w/ Susannah DCP [phone] and faxed the clinicals to [phone] for [facility] transfer. NIGEL will continue to F/U. NIGEL attempted to meet w/ pt at 10:30am and 1:30pm. Pt was sleeping and did not respond to this NIGEL. NIGEL spoke w/ pt's emergency contact, Ray Oviedo [phone] and obtained information. Ray Oviedo is pt's partner over 35 years. Per Ray, pt does not have any family members. Pt's mother 20 years ago. Pt's mailing address is [address] [place] [id number]. Pt was residing w/ Ray prior to admission. PT uses a walker. However, Ray reports that pt still encounters an issue walking w/ walker. Ray is unsure if he could provide sufficient care at his place. Pt does not have a caregiver. NIGEL provided POA/AD resource and forms e-mailed to [email or web address] as per request.
--- NOTE | 2020-10-13 15:26 | Cardiac Electrophysiology PN ---
Assessment/Plan Assessment/Plan 1. Atypical chest pain. Ruled out for MN. EF 60% Could be due to SVTs. 2. SVT at rate 180. Converted to SR after adenosine. Start Lopressor 25 po bid Transfer out of ICU 3. Cellulitis of the leg on ceftriaxone. 4. Hypokalemia. Potassium was replaced. 5. Dementia and agitation. DW RN Subjective Subjective TRansferred to ICU as developed SVT at rate 180 and subsequently converted to SR after 6 mg iv adenosine. Has T 101 ECho EF 60% Objective Last 24 Hour Vital Signs Date Time Temp Pulse Resp B/P (MAP) Pulse Ox O2 Delivery O2 Flow Rate FiO2 10/13/20 14:07 83 20 102/66 (78) 99 10/13/20 14:00 84 21 86/52 (63) 98 10/13/20 13:00 80 18 110/55 (73) 99 10/13/20 12:00 90 10/13/20 12:00 98.9 100 29 130/78 (95) 99 10/13/20 12:00 Room Air 10/13/20 11:00 81 18 117/74 (88) 100 10/13/20 10:02 73 16 89/52 (64) 99 10/13/20 10:00 73 16 88/56 (67) 99 10/13/20 09:00 131 22 143/89 (107) 97 10/13/20 08:00 Room Air 10/13/20 08:00 98.8 120 31 149/106 (120) 97 10/13/20 08:00 123 10/13/20 07:00 76 23 108/68 (81) 99 10/13/20 06:00 64 17 104/63 (77) 100 10/13/20 05:00 65 18 95/67 (76) 100 10/13/20 04:00 Nasal Cannula 2.0 10/13/20 04:00 98.9 75 25 117/68 (84) 99 10/13/20 03:00 73 26 113/71 (85) 98 10/13/20 02:00 78 27 107/77 (87) 98 10/13/20 01:00 94 31 117/59 (78) 100 10/13/20 00:00 Nasal Cannula 2.0 10/13/20 00:00 99.0 92 28 98/61 (73) 100 10/12/20 23:00 113 31 106/61 (76) 100 10/12/20 22:48 100.9 10/12/20 22:00 101.1 120 33 113/72 (86) 98 10/12/20 21:52 189 10/12/20 21:52 167 35 104/63 (77) 98 10/12/20 21:39 101.3 187 43 93/69 (77) 97 10/12/20 21:00 Room Air 10/12/20 20:40 176 30 94 10/12/20 16:00 99.6 103 22 114/76 (89) 93 Intake and Output 10/12/20 10/13/20 19:00 07:00 Intake Total 775 ml 350 ml Balance 775 ml 350 ml Intake Oral 720 ml 350 ml IV Total 55 ml # Voids 2 2 Laboratory Tests Test 10/13/20 04:50 10/13/20 08:40 White Blood Count 13.4 K/UL (4.8-10.8) H Red Blood Count 3.75 M/UL (4.20-5.40) L Hemoglobin 9.9 G/DL (12.0-16.0) L Hematocrit 32.4 % (37.0-47.0) L Mean Corpuscular Volume 86 FL (80-99) Mean Corpuscular Hemoglobin 26.5 PG (27.0-31.0) L Mean Corpuscular Hemoglobin Concent 30.7 G/DL (32.0-36.0) L Red Cell Distribution Width 15.0 % (11.6-14.8) H Platelet Count 373 K/UL (150-450) Mean Platelet Volume 6.7 FL (6.5-10.1) Neutrophils (%) (Auto) 81.9 % (45.0-75.0) H Lymphocytes (%) (Auto) 12.2 % (20.0-45.0) L Monocytes (%) (Auto) 4.6 % (1.0-10.0) Eosinophils (%) (Auto) 0.7 % (0.0-3.0) Basophils (%) (Auto) 0.5 % (0.0-2.0) Sodium Level 138 MMOL/L (136-145) Potassium Level 4.4 MMOL/L (3.5-5.1) Chloride Level 103 MMOL/L (98-107) Carbon Dioxide Level 27 MMOL/L (21-32) Anion Gap 8 mmol/L (5-15) Blood Urea Nitrogen 21 mg/dL (7-18) H Creatinine 0.9 MG/DL (0.55-1.30) Estimat Glomerular Filtration Rate > 60 mL/min (>60) Glucose Level 117 MG/DL (74-106) H Calcium Level 9.1 MG/DL (8.5-10.1) Urine Color Pale yellow Urine Appearance Clear Urine pH 6.5 (4.5-8.0) Urine Specific [place] 1.010 (1.005-1.035) Urine Protein 1+ (NEGATIVE) H Urine Glucose (UA) Negative (NEGATIVE) Urine Ketones Negative (NEGATIVE) Urine Blood Negative (NEGATIVE) Urine Nitrite Negative (NEGATIVE) Urine Bilirubin Negative (NEGATIVE) Urine Urobilinogen Normal MG/DL (0.0-1.0) Urine Leukocyte Esterase Negative (NEGATIVE) Urine RBC 0-2 /HPF (0 - 2) Urine WBC 0-2 /HPF (0 - 2) Urine Squamous Epithelial Cells Occasional /LPF Urine Bacteria Occasional /HPF (NONE) Objective HEAD AND NECK: No JVD. LUNGS: Clear. CARDIOVASCULAR: Regular S1 and S2 with no gallop. ABDOMEN: Soft. EXTREMITIES: Pain in the right leg. Leon Patricio MD Oct 13, 2020 15:26
--- NOTE | 2020-10-13 15:30 | NUR ---
TRANSFER TO FLOOR: Patient transferred to SDU, per Dr Patricio. Report given to MIAH Rivera. Belonging sheet signed. Family informed of transfer.
--- NOTE | 2020-10-13 15:47 | Diagnostic Imaging Report ---
Indication: Shortness of breath Technique: One view of the chest Comparison: 10/05/2020 Findings: Lungs and pleural spaces are clear, previously demonstrated parenchymal opacities and interstitial congestion are no longer evident.. Heart size is normal. Impression: No acute process currently. Improved interstitial congestion and parenchymal consolidation since previous exam
--- NOTE | 2020-10-13 17:00 | NUR ---
FIREWORKS DISPLAY SPECIALIST NOTE SW attempted to call [facility] Intake [phone] to F/U, the call was on hold and went to . SW will continue to F/U.
--- NOTE | 2020-10-13 19:29 | NUR ---
NURSE NOTES: Report received from MIAH Rivera. Observed pt lying in the bed, sleeping, arousable. SR noted. On room air with no sob, saturting at 96%. Abd soft, round. IV on L FA 20G, SL. R H 24G, SL. Skin alterations noted. Bed in the lowest position. Side rails up x3. Bed alarm on. Will continue to monitor.
--- NOTE | 2020-10-13 21:16 | NUR ---
NURSE NOTES: Pt said okay to give info to his niece Moni Rouse, , updated chart. Will continue to monitor. Addendum: 10/13/20 at 2117 by William Kitchen RN wrong pt
--- NOTE | 2020-10-13 23:31 | NUR ---
NURSE NOTES: pt sleeping in the bed, calm. No acute distress noted. SR noted. On room air with no sob. Reposition done. Will continue to monitor.
[2020-10-14] VITALS: BP 143/84
[2020-10-14 04:00] VITALS: BP 109/68
--- NOTE | 2020-10-14 04:47 | NUR ---
NURSE NOTES: No acute change noted. SR noted. On room air with no sob noted. Bed bath given. Reposition done. will continue to monitor.
[2020-10-14 05:04] LABS: BASOPHILS % (AUTO) 0.6 % (0.0-2.0); HEMOGLOBIN 9.5 G/DL (12.0-16.0); LYMPHOCYTES % (AUTO) 13.9 % (20.0-45.0); MEAN CORPUSCULAR VOLUME 86 FL (80-99); MONOCYTES % (AUTO) 5.7 % (1.0-10.0); NEUTROPHILS % (AUTO) 77.8 % (45.0-75.0); PLATELET COUNT 442 K/UL (150-450); RED BLOOD COUNT 3.58 M/UL (4.20-5.40); RED CELL DISTRIBUTION WIDTH 14.7 % (11.6-14.8); WHITE BLOOD COUNT 10.3 K/UL (4.8-10.8)
[2020-10-14 05:13] LABS: CALCIUM 9.4 MG/DL (8.5-10.1); CREATININE 1.1 MG/DL (0.55-1.30); POTASSIUM 4.5 MMOL/L (3.5-5.1)
--- NOTE | 2020-10-14 06:18 | Hematology/Onc Progress Note ---
Assessment/Plan Assessment/Plan Assessment and Recs # Leukocytosis is likely related to uti, has been started on abx --> as per id recs --> ABX ctx-->off --> wbc 17.6-->14-->15-->13-->10 # Anemia due likely to chronic disease --> hgb 10-->9-->10-->9.9->9.5 --> anemia panel if downtrends --> transfuse prn # Episode of generalized weakness --> on ivfs, tele --> consider cards # Cellulitis and abscess of leg --> abx # Fungal infection on her chest wall noted by the nurses --> will start patient on fluconazole and nystatin # Dvt ppx lovenox sq Appreciate consultation and guero graff Subjective Constitutional: Denies: no symptoms, chills, fever, malaise, weakness, other HEENT: Denies: no symptoms, eye pain, blurred vision, tearing, double vision, ear pain, ear discharge, nose pain, nose congestion, throat pain, throat swelling, mouth pain, mouth swelling, other Cardiovascular: Denies: no symptoms, chest pain, edema, irregular heart rate, lightheadedness, palpitations, syncope, other Gastrointestinal/Abdominal: Denies: no symptoms, abdomen distended, abdominal pain, black stools, tarry stools, blood in stool, constipated, diarrhea, diffi culty swallowing, nausea, poor appetite, poor fluid intake, rectal bleeding, vomiting, other Neurologic/Psychiatric: Denies: no symptoms, anxiety, depressed, emotional problems, headache, numbness, paresthesia, pre-existing deficit, seizure, tingling, tremors, weakness, other Endocrine: Denies: no symptoms, excessive sweating, flushing, intolerance to cold, intolerance to heat, increased hunger, increased thirst, increased urine, unexplained weight gain, unexplained weight loss, other Allergies: Coded Allergies: No Known Allergies (Unverified , 11/11/17) Subjective 2/4 agitated, hysterical, labs noted, anemia panel ordered 2 meds noted, have ordered for cbc, labs reviewed, guero rn 10/09 restraints are intact, meds noted, no bleeding 10/10 with restraints, meds noted, no night sweats, hgb stable 10/11 remains with restraints, is on lovenox and ctx abx 10/12 neck in pain, labs reviewed, meds noted, on abx 10/13 icu now due to svt, was given adenosine per Marcelo Graff, now improved hr 64 10/14 sdu, comfortable, but very confused, labs noted, no bleeding Objective Objective Current Medications Medications (Trade) Dose Ordered Sig/Siddharth Route PRN Reason Start Time Stop Time Status Last Admin Dose Admin Acetaminophen (Tylenol) 650 mg Q6H PRN ORAL fever 10/04/20 20:45 11/03/20 20:44 10/12/20 22:18 Acetaminophen (Tylenol) 650 mg Q6H PRN ORAL Mild Pain (Pain Scale 1-3) 10/04/20 20:45 11/03/20 20:44 Diphenhydramine HCl (Benadryl) 25 mg Q6H PRN ORAL Itching 10/04/20 20:45 11/03/20 20:44 10/06/20 17:56 Enoxaparin Sodium (Lovenox) 40 mg DAILY SUBQ 10/05/20 09:00 01/03/21 08:59 10/13/20 08:48 Metoprolol Tartrate (Lopressor) 25 mg Q12HR ORAL 10/13/20 21:00 01/11/21 20:59 10/13/20 21:00 Risperidone (RisperDAL) 0.5 mg BID ORAL 10/07/20 09:00 11/21/20 08:59 10/13/20 18:18 Last 24 Hour Vital Signs Date Time Temp Pulse Resp B/P (MAP) Pulse Ox O2 Delivery O2 Flow Rate FiO2 10/14/20 04:00 Room Air 10/14/20 04:00 70 10/14/20 04:00 97.9 74 20 109/68 (82) 98 10/14/20 00:00 97.7 74 20 143/84 (103) 97 10/14/20 00:00 85 10/14/20 00:00 Room Air 10/13/20 21:00 96 141/74 10/13/20 20:00 Room Air 10/13/20 20:00 84 20 141/74 (96) 97 10/13/20 19:48 81 10/13/20 16:00 Room Air 10/13/20 16:00 90 10/13/20 16:00 97.0 81 18 131/94 (106) 97 10/13/20 15:00 82 16 101/52 (68) 98 10/13/20 14:07 83 20 102/66 (78) 99 10/13/20 14:00 84 21 86/52 (63) 98 10/13/20 13:00 80 18 110/55 (73) 99 10/13/20 12:00 90 10/13/20 12:00 98.9 100 29 130/78 (95) 99 10/13/20 12:00 Room Air 10/13/20 11:00 81 18 117/74 (88) 100 10/13/20 10:02 73 16 89/52 (64) 99 10/13/20 10:00 73 16 88/56 (67) 99 10/13/20 09:00 131 22 143/89 (107) 97 10/13/20 08:00 Room Air 10/13/20 08:00 98.8 120 31 149/106 (120) 97 10/13/20 08:00 123 10/13/20 07:00 76 23 108/68 (81) 99 10/13/20 06:00 64 17 104/63 (77) 100 10/13/20 05:00 65 18 95/67 (76) 100 10/13/20 04:00 Nasal Cannula 2.0 10/13/20 04:00 98.9 75 25 117/68 (84) 99 10/13/20 03:00 73 26 113/71 (85) 98 10/13/20 02:00 78 27 107/77 (87) 98 10/13/20 01:00 94 31 117/59 (78) 100 10/13/20 00:00 Nasal Cannula 2.0 10/13/20 00:00 99.0 92 28 98/61 (73) 100 10/12/20 23:00 113 31 106/61 (76) 100 10/12/20 22:48 100.9 10/12/20 22:00 101.1 120 33 113/72 (86) 98 10/12/20 21:52 189 10/12/20 21:52 167 35 104/63 (77) 98 10/12/20 21:39 101.3 187 43 93/69 (77) 97 10/12/20 21:00 Room Air 10/12/20 20:40 176 30 94 10/12/20 16:00 99.6 103 22 114/76 (89) 93 10/12/20 12:00 100.4 108 21 118/74 (89) 92 10/12/20 10:23 99.0 10/12/20 09:00 Room Air 10/12/20 08:00 99.0 114 22 110/65 (80) 92 Intake and Output 10/13/20 10/14/20 19:00 07:00 Intake Total 450 ml Output Total 440 ml Balance 10 ml Intake Oral 450 ml Output Urine Total 440 ml Labs Test 10/12/20 07:43 10/13/20 04:50 10/13/20 08:40 10/14/20 04:15 White Blood Count 15.0 K/UL (4.8-10.8) 13.4 K/UL (4.8-10.8) 10.3 K/UL (4.8-10.8) Red Blood Count 3.58 M/UL (4.20-5.40) 3.75 M/UL (4.20-5.40) 3.58 M/UL (4.20-5.40) Hemoglobin 9.7 G/DL (12.0-16.0) 9.9 G/DL (12.0-16.0) 9.5 G/DL (12.0-16.0) Hematocrit 30.7 % (37.0-47.0) 32.4 % (37.0-47.0) 31.0 % (37.0-47.0) Mean Corpuscular Volume 86 FL (80-99) 86 FL (80-99) 86 FL (80-99) Mean Corpuscular Hemoglobin 27.1 PG (27.0-31.0) 26.5 PG (27.0-31.0) 26.5 PG (27.0-31.0) Mean Corpuscular Hemoglobin Concent 31.6 G/DL (32.0-36.0) 30.7 G/DL (32.0-36.0) 30.6 G/DL (32.0-36.0) Red Cell Distribution Width 14.4 % (11.6-14.8) 15.0 % (11.6-14.8) 14.7 % (11.6-14.8) Platelet Count 389 K/UL (150-450) 373 K/UL (150-450) 442 K/UL (150-450) Mean Platelet Volume 6.5 FL (6.5-10.1) 6.7 FL (6.5-10.1) 6.7 FL (6.5-10.1) Neutrophils (%) (Auto) % (45.0-75.0) 81.9 % (45.0-75.0) 77.8 % (45.0-75.0) Lymphocytes (%) (Auto) % (20.0-45.0) 12.2 % (20.0-45.0) 13.9 % (20.0-45.0) Monocytes (%) (Auto) % (1.0-10.0) 4.6 % (1.0-10.0) 5.7 % (1.0-10.0) Eosinophils (%) (Auto) % (0.0-3.0) 0.7 % (0.0-3.0) 2.0 % (0.0-3.0) Basophils (%) (Auto) % (0.0-2.0) 0.5 % (0.0-2.0) 0.6 % (0.0-2.0) Differential Total Cells Counted 100 Neutrophils % (Manual) 84 % (45-75) Lymphocytes % (Manual) 10 % (20-45) Monocytes % (Manual) 6 % (1-10) Eosinophils % (Manual) 0 % (0-3) Basophils % (Manual) 0 % (0-2) Band Neutrophils 0 % (0-8) Platelet Estimate Adequate Platelet Morphology Normal Hypochromasia 1+ Sodium Level 135 MMOL/L (136-145) 138 MMOL/L (136-145) 140 MMOL/L (136-145) Potassium Level 4.3 MMOL/L (3.5-5.1) 4.4 MMOL/L (3.5-5.1) 4.5 MMOL/L (3.5-5.1) Chloride Level 100 MMOL/L (98-107) 103 MMOL/L (98-107) 105 MMOL/L (98-107) Carbon Dioxide Level 25 MMOL/L (21-32) 27 MMOL/L (21-32) 28 MMOL/L (21-32) Anion Gap 10 mmol/L (5-15) 8 mmol/L (5-15) 7 mmol/L (5-15) Blood Urea Nitrogen 18 mg/dL (7-18) 21 mg/dL (7-18) 28 mg/dL (7-18) Creatinine 0.9 MG/DL (0.55-1.30) 0.9 MG/DL (0.55-1.30) 1.1 MG/DL (0.55-1.30) Estimat Glomerular Filtration Rate > 60 mL/min (>60) > 60 mL/min (>60) 49.0 mL/min (>60) Glucose Level 93 MG/DL (74-106) 117 MG/DL (74-106) 119 MG/DL (74-106) Calcium Level 9.2 MG/DL (8.5-10.1) 9.1 MG/DL (8.5-10.1) 9.4 MG/DL (8.5-10.1) Urine Color Pale yellow Urine Appearance Clear Urine pH 6.5 (4.5-8.0) Urine Specific [place] 1.010 (1.005-1.035) Urine Protein 1+ (NEGATIVE) Urine Glucose (UA) Negative (NEGATIVE) Urine Ketones Negative (NEGATIVE) Urine Blood Negative (NEGATIVE) Urine Nitrite Negative (NEGATIVE) Urine Bilirubin Negative (NEGATIVE) Urine Urobilinogen Normal MG/DL (0.0-1.0) Urine Leukocyte Esterase Negative (NEGATIVE) Urine RBC 0-2 /HPF (0 - 2) Urine WBC 0-2 /HPF (0 - 2) Urine Squamous Epithelial Cells Occasional /LPF Urine Bacteria Occasional /HPF (NONE) Troponin I 0.000 ng/mL (0.000-0.056) Height (Feet): 5 Height (Inches): 1.00 Weight (Pounds): 140 Objective PE Vitals: reviewed General: well appearing, no apparent distress, alert Heent: normocephalic, atraumatic, bilateral eye PERRL, bilateral eye EOMI Respiratory: lungs clear, no respiratory distress, no retraction, no accessory muscle use Cardiovascular: normal peripheral pulses, regular rate, rhythm, no edema, no gallop, no murmur Gastrointestinal: non tender, soft, no guarding, no rebound Musculoskeletal: normal inspection Neurologic: alert, oriented x3 Psychiatric: mood/affect normal Skin: warm/dry, other - Right lower extremity: Area of erythema on the tibial proximal aspect Mando Ventura MD Oct 14, 2020 06:18
--- NOTE | 2020-10-14 07:13 | NUR ---
NURSE HAND-OFF REPORT: No acute change noted. On room air, no sob. SR noted. Important Events on Shift: Patient Status: VS stable Diet: Regular diet Pending Orders: Pending Results/Labs: Pending MD notification: Latest Vital Signs: Temperature 97.9 , Pulse 70 , B/P 109 /68 , Respiratory Rate 20 , O2 SAT 98 , Room Air, O2 Flow Rate 2.0 . Vital Sign Comment: EKG Rhythm: Sinus Rhythm Rhythm change?: N MD Notified?: - MD Response: Latest [place] Fall Score: 45 Fall Risk: High Risk Safety Measures: Call light Within Reach, Bed Alarm Zone 1, Side Rails Side Rails x3, Bed position Low and Locked. Fall Precautions: Yellow Socks Door Sign Patient Fall Education Report given to MIAH Mcknight.
--- NOTE | 2020-10-14 07:32 | NUR ---
NURSE NOTES: Pt received from Kirby DOOLEY. Pt in bed resting, no pain or distress noted. Bed low and locked, call light within reach. Pt on RA No iv fluids running.
--- NOTE | 2020-10-14 07:43 | Infectious Diseases Prog Note ---
Assessment/Plan 70yo F with: SVT Febrile to 101.1 on 10/12 Leukocytosis improving 10/13 BCx ordered UA neg CXR: No acute process currently. Improved interstitial congestion and parenchymal consolidation since previous exam R kelley cellulitis, improving R kelley wound, dry scabbing Afebrile Leukocytosis to 17, improving / BCx NTD UA+, UCx +30-40k GAS, 80-90s mixed carmel Cr 1.2 R/o COVID 2/3 COVID PCR neg CXR: Worsening aeration with development of some patchy retrocardiac opacities which may relate to subsegmental atelectasis however pneumonia should be excluded clinically. Development of mild interstitial/vascular prominence. Mild congestive changes of CHF can be considered. Findings may also be artifact ual related to lower lung volumes. HIV screen neg PMH: HTN Allergic rhinitis Plan: Cont to monitor off abx OK to transfer to other hospital from ID standpoint F/u 10/13 BCx given fever Trend temp curve 10/12 SP CTX #10 10/04 SP vanco/Zosyn/flucon in ED Monitor CBC/CMP Monitor temp curve, hemodynamics Monitor resp status D/w RN Thank you for this consult. [facility] will continue to follow. Subjective Allergies: Coded Allergies: No Known Allergies (Unverified , 11/11/17) AF WBC 10, improving off abx NAD on RA Objective Last 24 Hour Vital Signs Date Time Temp Pulse Resp B/P (MAP) Pulse Ox O2 Delivery O2 Flow Rate FiO2 10/14/20 04:00 Room Air 10/14/20 04:00 70 10/14/20 04:00 97.9 74 20 109/68 (82) 98 10/14/20 00:00 97.7 74 20 143/84 (103) 97 10/14/20 00:00 85 10/14/20 00:00 Room Air 10/13/20 21:00 96 141/74 10/13/20 20:00 Room Air 10/13/20 20:00 84 20 141/74 (96) 97 10/13/20 19:48 81 10/13/20 16:00 Room Air 10/13/20 16:00 90 10/13/20 16:00 97.0 81 18 131/94 (106) 97 10/13/20 15:00 82 16 101/52 (68) 98 10/13/20 14:07 83 20 102/66 (78) 99 10/13/20 14:00 84 21 86/52 (63) 98 10/13/20 13:00 80 18 110/55 (73) 99 10/13/20 12:00 90 10/13/20 12:00 98.9 100 29 130/78 (95) 99 10/13/20 12:00 Room Air 10/13/20 11:00 81 18 117/74 (88) 100 10/13/20 10:02 73 16 89/52 (64) 99 10/13/20 10:00 73 16 88/56 (67) 99 10/13/20 09:00 131 22 143/89 (107) 97 10/13/20 08:00 Room Air 10/13/20 08:00 98.8 120 31 149/106 (120) 97 10/13/20 08:00 123 Height (Feet): 5 Height (Inches): 1.00 Weight (Pounds): 140 Gen: NAD HEENT: NCAT Pulm: BL chest rise on RA, non-labored Abd: Non-distended Ext: RLE w/ resolved cellulitis, healing wound on anterior kelley Skin: No visible rashes Neuro: Awake, interactive Laboratory Tests Test 10/13/20 08:40 10/14/20 04:15 Urine Color Pale yellow Urine Appearance Clear Urine pH 6.5 (4.5-8.0) Urine Specific [place] 1.010 (1.005-1.035) Urine Protein 1+ (NEGATIVE) H Urine Glucose (UA) Negative (NEGATIVE) Urine Ketones Negative (NEGATIVE) Urine Blood Negative (NEGATIVE) Urine Nitrite Negative (NEGATIVE) Urine Bilirubin Negative (NEGATIVE) Urine Urobilinogen Normal MG/DL (0.0-1.0) Urine Leukocyte Esterase Negative (NEGATIVE) Urine RBC 0-2 /HPF (0 - 2) Urine WBC 0-2 /HPF (0 - 2) Urine Squamous Epithelial Cells Occasional /LPF Urine Bacteria Occasional /HPF (NONE) White Blood Count 10.3 K/UL (4.8-10.8) Red Blood Count 3.58 M/UL (4.20-5.40) L Hemoglobin 9.5 G/DL (12.0-16.0) L Hematocrit 31.0 % (37.0-47.0) L Mean Corpuscular Volume 86 FL (80-99) Mean Corpuscular Hemoglobin 26.5 PG (27.0-31.0) L Mean Corpuscular Hemoglobin Concent 30.6 G/DL (32.0-36.0) L Red Cell Distribution Width 14.7 % (11.6-14.8) Platelet Count 442 K/UL (150-450) Mean Platelet Volume 6.7 FL (6.5-10.1) Neutrophils (%) (Auto) 77.8 % (45.0-75.0) H Lymphocytes (%) (Auto) 13.9 % (20.0-45.0) L Monocytes (%) (Auto) 5.7 % (1.0-10.0) Eosinophils (%) (Auto) 2.0 % (0.0-3.0) Basophils (%) (Auto) 0.6 % (0.0-2.0) Sodium Level 140 MMOL/L (136-145) Potassium Level 4.5 MMOL/L (3.5-5.1) Chloride Level 105 MMOL/L (98-107) Carbon Dioxide Level 28 MMOL/L (21-32) Anion Gap 7 mmol/L (5-15) Blood Urea Nitrogen 28 mg/dL (7-18) H Creatinine 1.1 MG/DL (0.55-1.30) Estimat Glomerular Filtration Rate 49.0 mL/min (>60) Glucose Level 119 MG/DL (74-106) H Calcium Level 9.4 MG/DL (8.5-10.1) Troponin I 0.000 ng/mL (0.000-0.056) Current Medications Medications (Trade) Dose Ordered Sig/Siddharth Route PRN Reason Start Time Stop Time Status Last Admin Dose Admin Acetaminophen (Tylenol) 650 mg Q6H PRN ORAL fever 10/04/20 20:45 11/03/20 20:44 10/12/20 22:18 Acetaminophen (Tylenol) 650 mg Q6H PRN ORAL Mild Pain (Pain Scale 1-3) 10/04/20 20:45 11/03/20 20:44 Bisacodyl (Dulcolax) 10 mg BIDPRN PRN RECTAL Constipation 10/14/20 07:30 01/12/21 07:29 Diphenhydramine HCl (Benadryl) 25 mg Q6H PRN ORAL Itching 10/04/20 20:45 11/03/20 20:44 10/06/20 17:56 Docusate Sodium (Colace) 100 mg TWICE A DAY ORAL 10/14/20 09:00 11/13/20 08:59 Enoxaparin Sodium (Lovenox) 40 mg DAILY SUBQ 10/05/20 09:00 01/03/21 08:59 10/13/20 08:48 Metoprolol Tartrate (Lopressor) 25 mg Q12HR ORAL 10/13/20 21:00 01/11/21 20:59 10/13/20 21:00 Risperidone (RisperDAL) 0.5 mg BID ORAL 10/07/20 09:00 11/21/20 08:59 10/13/20 18:18 Sparkle Roque M.D. Oct 14, 2020 07:43
[2020-10-14 08:00] VITALS: BP 104/55
--- NOTE | 2020-10-14 08:28 | NUR ---
GROUND SURVEILLANCE SYSTEMS OPERATOR NOTE NIGEL spoke w/ Auscencia from [facility] intake [phone] and was requested to re-fax the clinicals to [phone]. NIGEL faxed the clinicals. Addendum: 10/14/20 at 0835 by SIOBHAN MANNING NIGEL left a vm to JAMESON Davalos [phone] for call back.
[2020-10-14] MEDS: Enoxaparin 40mg Inj SUBQ SCH (09:26)
[2020-10-14] MEDS: Docusate 100mg cap ORAL SCH ×2 (09:27→18:05)
--- NOTE | 2020-10-14 10:01 | NUR ---
PIPE LINE GAUGER NOTE SW spoke w/ Marivel from [facility] that pt is accepted for transfer to [facility] urgent care. NIGEL spoke w/ JAMESON Davalos that pt can be transferred to [facility].
--- NOTE | 2020-10-14 10:55 | Psychiatry Consultation ---
Psychiatry Consultation Psychiatry Consultation Chief Complaint: Generalized Weakness History of Present Illness: 70-year-old female patient with leg cellulitis just got altered mental status confusion declining cognition below her baseline because of that she has agitation irritability and extreme mood lability and so there was a daily psychiatric consultation requested to prevent further decline in cognition below her baseline and try to restore cognition closer to what her baseline was and also to reduce her fluid liquid and agitation Mental status examination: 70-year-old female appearance disheveled attitude irritable agitated affect mood depressed anxious moderately psychomotor agitation judgment poor orientation x3 speech pressured thought process disorganized logical judgment poor Allergies: Coded Allergies: No Known Allergies (Unverified , 11/11/17) Medication History Scheduled Naloxone HCl (Narcan), 4 MG NS PRN Scheduled PRN Ibuprofen* (Motrin*), 600 MG ORAL Q6H PRN for For Pain Objective Data Height (Feet): 5 Height (Inches): 1.00 Weight (Pounds): 140 Assessment/Plan Assessment/Plan: Ativan 1mg PO q6h prn anxiety, Risperdal 0.5 po BID and 20min of insight oriented psychotherapy to help pt have better impulse control due to better realization of he symptoms. 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
--- NOTE | 2020-10-14 10:57 | NUR ---
RD ASSESSMENT & RECOMMENDATIONS SEE CARE ACTIVITY FOR COMPLETE ASSESSMENT DAILY ESTIMATED NEEDS: Needs based on Wound/ 51.7kg abw 25-30 kcals/kg 7748-2310 total kcals 1.25-1.5 g protein/kg 65-77 g total protein 25-30 mL/kg 3400-1099 total fluid mLs NUTRITION DIAGNOSIS: Increased kcal/prot needs R/T wound healing as evidenced by pt admitted w/ sacral wound per photo, including full thickness L buttock wound, refer to WC specialist for complete eval. CURRENT DIET:REGULAR PO DIET RECOMMENDATIONS: REGULAR/ texture as tolerated ADDITIONAL RECOMMENDATIONS: * Calibrated bedscale wt * Wound healing: add MVI x 1, Vit C 250mg QD Add JM BID * Monitor lytes, replete as needed * Ensure Enlive BID w/ meals w/ irregular intake * Monitor BM regularity: none recorded since adm, pt on Colace BID
[2020-10-14 12:00] VITALS: BP 112/68
--- NOTE | 2020-10-14 12:50 | Surgery Progress Note ---
Surgery Progress Note Subjective Symptoms: improved, pain absent, tolerating diet, voiding well, passing flatus, BM Objective Last 24 Hour Vital Signs Date Time Temp Pulse Resp B/P (MAP) Pulse Ox O2 Delivery O2 Flow Rate FiO2 10/14/20 12:00 Room Air 10/14/20 09:00 88 99/59 10/14/20 08:00 100 10/14/20 08:00 Room Air 10/14/20 08:00 97.3 87 20 104/55 (71) 98 10/14/20 04:00 Room Air 10/14/20 04:00 70 10/14/20 04:00 97.9 74 20 109/68 (82) 98 10/14/20 00:00 97.7 74 20 143/84 (103) 97 10/14/20 00:00 85 10/14/20 00:00 Room Air 10/13/20 21:00 96 141/74 10/13/20 20:00 Room Air 10/13/20 20:00 84 20 141/74 (96) 97 10/13/20 19:48 81 10/13/20 16:00 Room Air 10/13/20 16:00 90 10/13/20 16:00 97.0 81 18 131/94 (106) 97 10/13/20 15:00 82 16 101/52 (68) 98 10/13/20 14:07 83 20 102/66 (78) 99 10/13/20 14:00 84 21 86/52 (63) 98 10/13/20 13:00 80 18 110/55 (73) 99 I&O Intake and Output 10/13/20 10/14/20 19:00 07:00 Intake Total 450 ml Output Total 440 ml Balance 10 ml Intake Oral 450 ml Output Urine Total 440 ml Cardiovascular: RSR Respiratory: clear Abdomen: soft, non-tender, present bowel sounds, non-distended Extremities: no edema, no tenderness, no cyanosis Laboratory Tests Test 10/14/20 04:15 White Blood Count 10.3 K/UL (4.8-10.8) Red Blood Count 3.58 M/UL (4.20-5.40) L Hemoglobin 9.5 G/DL (12.0-16.0) L Hematocrit 31.0 % (37.0-47.0) L Mean Corpuscular Volume 86 FL (80-99) Mean Corpuscular Hemoglobin 26.5 PG (27.0-31.0) L Mean Corpuscular Hemoglobin Concent 30.6 G/DL (32.0-36.0) L Red Cell Distribution Width 14.7 % (11.6-14.8) Platelet Count 442 K/UL (150-450) Mean Platelet Volume 6.7 FL (6.5-10.1) Neutrophils (%) (Auto) 77.8 % (45.0-75.0) H Lymphocytes (%) (Auto) 13.9 % (20.0-45.0) L Monocytes (%) (Auto) 5.7 % (1.0-10.0) Eosinophils (%) (Auto) 2.0 % (0.0-3.0) Basophils (%) (Auto) 0.6 % (0.0-2.0) Sodium Level 140 MMOL/L (136-145) Potassium Level 4.5 MMOL/L (3.5-5.1) Chloride Level 105 MMOL/L (98-107) Carbon Dioxide Level 28 MMOL/L (21-32) Anion Gap 7 mmol/L (5-15) Blood Urea Nitrogen 28 mg/dL (7-18) H Creatinine 1.1 MG/DL (0.55-1.30) Estimat Glomerular Filtration Rate 49.0 mL/min (>60) Glucose Level 119 MG/DL (74-106) H Calcium Level 9.4 MG/DL (8.5-10.1) Troponin I 0.000 ng/mL (0.000-0.056) Plan Problems: (1) Episode of generalized weakness (2) Cellulitis and abscess of leg Assessment & Plan: 70-year-old female with right lower extremity cellulitis mild edema on the left side anterior tibial ulceration identified on the right side mid leg potentially from trauma though patient denies. No nausea fever chills no abscess identified no drainage. Macerated eschar identified. Apply betadine swab to ulcer cover with Optifoam dressing. Keep her legs elevated while in bed. IV antibiotics per infectious disease. No acute surgical intervention planned at this time. Sacral stage 3 decubitus ulcer wound identified. therahoney gauze and foam dressing daily and prn saturation. turn every 2 hours, offload pressure, patient able to comply with care plan. Nutrition optimization. Follow with recommendations thank you allowing me to participate patient's care Pt presented on admission with MASD skin folds Both breasts, Swelling,Ulcerations to RLE. Full thickness Pressure Injury L Buttocks. Skin folds of both breasts are erythematous, and macerated. Mild odor noted. Full thickness Pressure Injury L Buttocks (L)1.5cm x (W)0.3cm x (D)0.2cm. Wound has appearance of slit with indurated and maroon borders. Non-Blanchable erythema without induration Sacrum and R Buttocks. Small ulcer with necrotic cap noted to posterior upper R Thigh. Marginal erythema along edges. Larger ulcer with necrotic cap noted to maurice R Tibia(L)3cm x (W)3.7cm. Marginal erythema along borders and periwound. Clockwise at 2-4o'clock along borders are macerated. No odor or exudate noted. A third smaller ulcer with necrotic cap noted to distal/lateral R tibia(L)0.9cm x (W)1cm. Marginal erythema along borders. Both heels are soft, but each heel easily blanchable. Tx.Plan: Wash both breasts with soap and water. Pat dry. Apply Light Dusting of Antifungal powder to each breasts Twice Daily. Cleanse L Buttocks with Saline. Apply Therahoney. Apply Moisture Barrier Paste periwound. Cover with Optifoam drsg. Change every 3 days and prn. Apply Moisture Barrier paste to Sacrum and R buttocks. Cover with Optifoam drsg. Change every 3 days and prn. Reposition at least every 2 hours or as tolerated. Off-load heels with pillow. DAILY ESTIMATED NEEDS: Needs based on Wound/ 51.7kg abw 25-30 kcals/kg 4648-9804 total kcals 1.25-1.5 g protein/kg 65-77 g total protein 25-30 mL/kg 0225-7423 total fluid mLs NUTRITION DIAGNOSIS: Increased kcal/prot needs R/T wound healing as evidenced by pt admitted w/ sacral wound per photo, pending evaluation. CURRENT DIET:REGULAR PO DIET RECOMMENDATIONS:REGULAR, texture as tolerated ADDITIONAL RECOMMENDATIONS: * Calibrated bedscale wt * Wound healing: add MVI x 1, Vit C 250mg QD F/up w/ WC eval * Monitor PO intake and tolerance * Monitor lytes, replete as needed (low K) cellulitis resolved wound stable d/c plannin g (3) Pedal edema (4) Facial contusion (5) Right ankle sprain (6) Multiple rib fractures (7) Noncompliance with treatment plan Mason Snyder Oct 14, 2020 12:50
--- NOTE | 2020-10-14 13:07 | Cardiac Electrophysiology PN ---
Assessment/Plan Assessment/Plan 1. Atypical chest pain. Ruled out for MD. EF 60% Could be due to SVTs. 2. SVT at rate 180. Converted to SR after 6 mg adenosine. Continue Lopressor 25 po bid Transfer to [facility] for EPS and ablation on Saturday 3. Cellulitis of the leg on ceftriaxone. 4. Hypokalemia. Potassium was replaced. 5. Dementia and agitation. Resolved. Alert and oriented DW RN Subjective Subjective Transferred out of ICU No more SVT ECho EF 60% Objective Last 24 Hour Vital Signs Date Time Temp Pulse Resp B/P (MAP) Pulse Ox O2 Delivery O2 Flow Rate FiO2 10/14/20 12:00 97.2 84 18 112/68 (83) 98 10/14/20 12:00 88 10/14/20 12:00 Room Air 10/14/20 09:00 88 99/59 10/14/20 08:00 100 10/14/20 08:00 Room Air 10/14/20 08:00 97.3 87 20 104/55 (71) 98 10/14/20 04:00 Room Air 10/14/20 04:00 70 10/14/20 04:00 97.9 74 20 109/68 (82) 98 10/14/20 00:00 97.7 74 20 143/84 (103) 97 10/14/20 00:00 85 10/14/20 00:00 Room Air 10/13/20 21:00 96 141/74 10/13/20 20:00 Room Air 10/13/20 20:00 84 20 141/74 (96) 97 10/13/20 19:48 81 10/13/20 16:00 Room Air 10/13/20 16:00 90 10/13/20 16:00 97.0 81 18 131/94 (106) 97 10/13/20 15:00 82 16 101/52 (68) 98 10/13/20 14:07 83 20 102/66 (78) 99 10/13/20 14:00 84 21 86/52 (63) 98 Intake and Output 10/13/20 10/14/20 19:00 07:00 Intake Total 450 ml Output Total 440 ml Balance 10 ml Intake Oral 450 ml Output Urine Total 440 ml Laboratory Tests Test 10/14/20 04:15 White Blood Count 10.3 K/UL (4.8-10.8) Red Blood Count 3.58 M/UL (4.20-5.40) L Hemoglobin 9.5 G/DL (12.0-16.0) L Hematocrit 31.0 % (37.0-47.0) L Mean Corpuscular Volume 86 FL (80-99) Mean Corpuscular Hemoglobin 26.5 PG (27.0-31.0) L Mean Corpuscular Hemoglobin Concent 30.6 G/DL (32.0-36.0) L Red Cell Distribution Width 14.7 % (11.6-14.8) Platelet Count 442 K/UL (150-450) Mean Platelet Volume 6.7 FL (6.5-10.1) Neutrophils (%) (Auto) 77.8 % (45.0-75.0) H Lymphocytes (%) (Auto) 13.9 % (20.0-45.0) L Monocytes (%) (Auto) 5.7 % (1.0-10.0) Eosinophils (%) (Auto) 2.0 % (0.0-3.0) Basophils (%) (Auto) 0.6 % (0.0-2.0) Sodium Level 140 MMOL/L (136-145) Potassium Level 4.5 MMOL/L (3.5-5.1) Chloride Level 105 MMOL/L (98-107) Carbon Dioxide Level 28 MMOL/L (21-32) Anion Gap 7 mmol/L (5-15) Blood Urea Nitrogen 28 mg/dL (7-18) H Creatinine 1.1 MG/DL (0.55-1.30) Estimat Glomerular Filtration Rate 49.0 mL/min (>60) Glucose Level 119 MG/DL (74-106) H Calcium Level 9.4 MG/DL (8.5-10.1) Troponin I 0.000 ng/mL (0.000-0.056) Objective HEAD AND NECK: No JVD. LUNGS: Clear. CARDIOVASCULAR: Regular S1 and S2 with no gallop. ABDOMEN: Soft. EXTREMITIES: Pain in the right leg. Leon Patricio MD Oct 14, 2020 13:07
--- NOTE | 2020-10-14 14:29 | NUR ---
CARGO SURVEYOR NOTES SPOKE WITH PIERO AT [facility], MADE AWARE OF PT REQUIRING TRANSFER FOR ABLATION. CLINICALS IN REVIEW. WILL FOLLOW UP. Addendum: 10/14/20 at 1719 by CAMERON FORD RN CM SPOKE WITH RUTHIE, PT ACCEPTED PENDING BED ASSIGNMENT. PROVIDED RUTHIE WITH THE NURSING STATION NUMBER FOR TRANSFER WHEN THE BED BECOMES AVAILABLE. [phone] NURSING MINING ANALYST
--- NOTE | 2020-10-14 15:08 | NUR ---
CASE MANAGEMENT:REVIEW 10/14/20 SI: CELLULITIS AND LEG ABSCESS SVT REQUIRING IV ADENOSINE 97.2 84 18 112/68 BUN+28 IS: LOPRESSOR PO Q12 RISPERDAL PO BID LOVENOX SQ QD : NOW ON STEP DOWN UNIT DCP: FROM HOME PLAN: TRANSFER TO HIGHER LEVEL OF CARE FOR ABLATION
[2020-10-14 16:00] VITALS: BP 94/55
--- NOTE | 2020-10-14 18:44 | NUR ---
NURSE HAND-OFF REPORT: Important Events on Shift:[No remarkable events, pt tp be d/cody to [facility] for EP and ablation for SVT per Dr. Patricio. ] Patient Status: [Full code] Diet: [Reg mechanical soft] Pending Orders: [] Pending Results/Labs:[] Pending MD notification:[] Latest Vital Signs: Temperature 97.2 , Pulse 75 , B/P 94 /55 , Respiratory Rate 18 , O2 SAT 98 , Room Air, O2 Flow Rate 2.0 . Vital Sign Comment: [] EKG Rhythm: Sinus Rhythm Rhythm change?: N MD Notified?: - MD Response: Latest Landry Fall Score: 45 Fall Risk: High Risk Safety Measures: Call light Within Reach, Bed Alarm Zone 1, Side Rails Side Rails x3, Bed position Low and Locked. Fall Precautions: Yellow Socks Door Sign Patient Fall Education Report given to [Pending Rn assignment]. Addendum: 10/14/20 at 1933 by Meghan Jones RN Report given to Rodney Jimenez RN. Please note according to shift physical pt has not had bm since 7th. per pt she had one 2 days ago. abdomen not firm. GOt orders for stool softeners from . While i was able to give colace, pt refused suppository.
[2020-10-14 20:00] VITALS: BP 93/54
[2020-10-15] VITALS: BP 106/70
[2020-10-15 04:00] VITALS: BP 99/56
--- NOTE | 2020-10-15 07:00 | NUR ---
NURSE NOTES: received patient report from alex orozco. patient is on bed awake, comfortably eating breakfast. on RA tolerating well. pending transfer to [facility] per dr iniguez for possible ablation. - covid. bedrest. will follow plan of care.
[2020-10-15 08:00] VITALS: BP 101/47
[2020-10-15] MEDS: Docusate 100mg cap ORAL SCH ×2 (08:31→08:36)
[2020-10-15] MEDS: Enoxaparin 40mg Inj SUBQ SCH (08:33)
--- NOTE | 2020-10-15 09:36 | Psychiatry Consultation ---
Psychiatry Consultation Psychiatry Consultation Chief Complaint: Generalized Weakness History of Present Illness: 70-year-old female patient she is got altered mental status confusion. It was thought processes mood lability agitation secondary to her cellulitis because her cognition has declined below her baseline her attending is requested daily psychiatric consultation for this patient to be seen exacerbates that she is confused she has altered most that she is a poor story and she has psychomotor agitation as well Mental status semination: 70-year-old female appearance disheveled attitude irritable agitated affect current treatment left poor mood depressed anxious motor activity psychomotor agitation attention span is poor orientation x2 speech is loud nonsensical thought process disorganized logical insight judgment is poor Allergies: Coded Allergies: No Known Allergies (Unverified , 11/11/17) Medication History Scheduled Naloxone HCl (Narcan), 4 MG NS PRN Scheduled PRN Ibuprofen* (Motrin*), 600 MG ORAL Q6H PRN for For Pain Objective Data Height (Feet): 5 Height (Inches): 1.00 Weight (Pounds): 140 Assessment/Plan Assessment/Plan: Ativan 1mg PO q6h prn anxiety, Risperdal 0.5 po BID and 20min of insight oriented psychotherapy to help pt have better impulse control due to better realization of he symptoms. Diagnosis [place] I: Major depressive disorder with psychotic features rule out paranoid schizophrenia Elmer Herrera MD Oct 15, 2020 09:36
--- NOTE | 2020-10-15 11:53 | Surgery Progress Note ---
Surgery Progress Note Subjective Symptoms: improved, tolerating diet, passing flatus Objective Last 24 Hour Vital Signs Date Time Temp Pulse Resp B/P (MAP) Pulse Ox O2 Delivery O2 Flow Rate FiO2 10/15/20 08:26 89 10/15/20 08:00 97.7 116 17 101/47 (65) 98 10/15/20 04:00 Room Air 10/15/20 04:00 72 10/15/20 04:00 97.3 72 20 99/56 (70) 98 10/15/20 00:00 75 10/15/20 00:00 Room Air 10/15/20 00:00 97.6 80 18 106/70 (82) 98 10/14/20 21:00 79 93/57 10/14/20 20:00 76 10/14/20 20:00 Room Air 10/14/20 20:00 97.5 76 20 93/54 (67) 97 10/14/20 16:00 Room Air 10/14/20 16:00 75 10/14/20 16:00 97.2 76 18 94/55 (68) 98 10/14/20 13:53 97.2 10/14/20 12:00 97.2 84 18 112/68 (83) 98 10/14/20 12:00 88 10/14/20 12:00 Room Air I&O Intake and Output 10/14/20 10/15/20 19:00 07:00 Output Total 300 ml Balance -300 ml Output Urine Total 300 ml # Voids 2 Dressing: saturated Cardiovascular: RSR Respiratory: clear Abdomen: soft, non-tender, present bowel sounds Extremities: no edema, no tenderness, no cyanosis Plan Problems: (1) Episode of generalized weakness (2) Cellulitis and abscess of leg Assessment & Plan: 70-year-old female with right lower extremity cellulitis mild edema on the left side anterior tibial ulceration identified on the right side mid leg potentially from trauma though patient denies. No nausea fever chills no abscess identified no drainage. Macerated eschar identified. Apply betadine swab to ulcer cover with Optifoam dressing. Keep her legs elevated while in bed. IV antibiotics per infectious disease. No acute surgical intervention planned at this time. Sacral stage 3 decubitus ulcer wound identified. therahoney gauze and foam dressing daily and prn saturation. turn every 2 hours, offload pressure, patient able to comply with care plan. Nutrition optimization. Follow with recommendations thank you allowing me to participate patient's care Pt presented on admission with MASD skin folds Both breasts, Swelling,Ulcerations to RLE. Full thickness Pressure Injury L Buttocks. Skin folds of both breasts are erythematous, and macerated. Mild odor noted. Full thickness Pressure Injury L Buttocks (L)1.5cm x (W)0.3cm x (D)0.2cm. Wound has appearance of slit with indurated and maroon borders. Non-Blanchable erythema without induration Sacrum and R Buttocks. Small ulcer with necrotic cap noted to posterior upper R Thigh. Marginal erythema along edges. Larger ulcer with necrotic cap noted to maurice R Tibia(L)3cm x (W)3.7cm. Marginal erythema along borders and periwound. Clockwise at 2-4o'clock along borders are macerated. No odor or exudate noted. A third smaller ulcer with necrotic cap noted to distal/lateral R tibia(L)0.9cm x (W)1cm. Marginal erythema along borders. Both heels are soft, but each heel easily blanchable. Tx.Plan: Wash both breasts with soap and water. Pat dry. Apply Light Dusting of Antifungal powder to each breasts Twice Daily. Cleanse L Buttocks with Saline. Apply Therahoney. Apply Moisture Barrier Paste periwound. Cover with Optifoam drsg. Change every 3 days and prn. Apply Moisture Barrier paste to Sacrum and R buttocks. Cover with Optifoam drsg. Change every 3 days and prn. Reposition at least every 2 hours or as tolerated. Off-load heels with pillow. DAILY ESTIMATED NEEDS: Needs based on Wound/ 51.7kg abw 25-30 kcals/kg 2563-2684 total kcals 1.25-1.5 g protein/kg 65-77 g total protein 25-30 mL/kg 8378-6053 total fluid mLs NUTRITION DIAGNOSIS: Increased kcal/prot needs R/T wound healing as evidenced by pt admitted w/ sacral wound per photo, pending evaluation. CURRENT DIET:REGULAR PO DIET RECOMMENDATIONS:REGULAR, texture as tolerated ADDITIONAL RECOMMENDATIONS: * Calibrated bedscale wt * Wound healing: add MVI x 1, Vit C 250mg QD F/up w/ WC eval * Monitor PO intake and tolerance * Monitor lytes, replete as needed (low K) cellulitis resolved wound stable d/c planmayco live (3) Pedal edema (4) Facial contusion (5) Right ankle sprain (6) Multiple rib fractures (7) Noncompliance with treatment plan Mason Snyder Oct 15, 2020 11:53
[2020-10-15 12:00] VITALS: BP 95/63
[2020-10-15 16:00] VITALS: BP 113/72
--- NOTE | 2020-10-15 16:30 | Cardiac Electrophysiology PN ---
Assessment/Plan Assessment/Plan 1. Atypical chest pain. Ruled out for NV. EF 60% Could be due to SVTs. 2. SVT at rate 180. Converted to SR after 6 mg adenosine. Continue Lopressor 25 po bid Transfer to [facility] ( [facility]) for EPS and ablation pending 3. Cellulitis of the leg on ceftriaxone. 4. Hypokalemia. Potassium was replaced. 5. Dementia and agitation. Resolved. Alert and oriented DW RN Subjective Subjective No more SVT ECho EF 60%. Awaiting transfer to [facility] for EPS and ablation on Saturday Objective Last 24 Hour Vital Signs Date Time Temp Pulse Resp B/P (MAP) Pulse Ox O2 Delivery O2 Flow Rate FiO2 10/15/20 16:00 98.1 101 20 113/72 (86) 99 10/15/20 16:00 Room Air 10/15/20 12:00 98.2 96 18 95/63 (74) 97 10/15/20 11:41 87 10/15/20 08:26 89 10/15/20 08:00 97.7 116 17 101/47 (65) 98 10/15/20 08:00 Room Air 10/15/20 04:00 Room Air 10/15/20 04:00 72 10/15/20 04:00 97.3 72 20 99/56 (70) 98 10/15/20 00:00 75 10/15/20 00:00 Room Air 10/15/20 00:00 97.6 80 18 106/70 (82) 98 10/14/20 21:00 79 93/57 10/14/20 20:00 76 10/14/20 20:00 Room Air 10/14/20 20:00 97.5 76 20 93/54 (67) 97 Intake and Output 10/14/20 10/15/20 19:00 07:00 Output Total 300 ml Balance -300 ml Output Urine Total 300 ml # Voids 2 Microbiology Date/Time Source Procedure Growth Status 10/13/20 10:20 Blood Blood Culture - Preliminary NO GROWTH AFTER 48 HOURS Resulted 10/13/20 10:05 Blood Blood Culture - Preliminary NO GROWTH AFTER 48 HOURS Resulted 10/13/20 08:40 Urine,Clean Catch Urine Culture - Preliminary NO GROWTH Resulted Objective HEAD AND NECK: No JVD. LUNGS: Clear. CARDIOVASCULAR: Regular S1 and S2 with no gallop. ABDOMEN: Soft. EXTREMITIES: Pain in the right leg. Leon Patricio MD Oct 15, 2020 16:30
--- NOTE | 2020-10-15 19:15 | NUR ---
NURSE NOTES: Received patient from Lalitha Meza RN. Patient in bed A/A/OX4 Respiration even and unlabored on RA saturating at 96%. Denies pain or discomfort. SR on rn cardiac cath with occasional low tachycardia. In no apparent distress. Bed in lowest position with side rails up x2. Bed alarm engaged. Will continue POC
--- NOTE | 2020-10-15 19:18 | NUR ---
NURSE HAND-OFF REPORT: Important Events on Shift:stable, trf tele Patient Status: full code Diet: regular sec Pending Orders: [] Pending Results/Labs:[] Pending MD notification:[] Latest Vital Signs: Temperature 98.1 , Pulse 101 , B/P 113 /72 , Respiratory Rate 20 , O2 SAT 99 , Room Air, O2 Flow Rate 2.0 . Vital Sign Comment: stable EKG Rhythm: Sinus Rhythm Rhythm change?: N MD Notified?: - MD Response: Latest Landry Fall Score: 45 Fall Risk: High Risk Safety Measures: Call light Within Reach, Bed Alarm Zone 2, Side Rails Side Rails x2, Bed position Low and Locked. Fall Precautions: Yellow Socks Report given to delphine orozco.
[2020-10-15 20:00] VITALS: BP 112/69
[2020-10-15] MEDS: Nystatin Powder 100,000 units/gm 15gm TOPIC SCH (21:32)
--- NOTE | 2020-10-15 23:00 | NUR ---
NURSE NOTES: Sleeping. No distress noted.
[2020-10-16] VITALS: BP 116/71
--- NOTE | 2020-10-16 02:00 | NUR ---
NURSE NOTES: No significant changes. Sleeping. Easily awaked. VSS. Afebrile. NSR on alarm security or surveillance monitor.
[2020-10-16 04:00] VITALS: BP 112/76
--- NOTE | 2020-10-16 04:00 | NUR ---
NURSE NOTES: Patient remain asleep at this time. Easily awakened. VSS Afebrile. In no apparent distress. Remain NSR on vehicle monitor technician. No new orders.
--- NOTE | 2020-10-16 06:57 | NUR ---
NURSE NOTES: received patient report and update from delphine orozco. patient is on bed asleep. not in acute distress. no acute events reported last night. remains sinus rhytm. labs checked. will follow plan of care.
[2020-10-16 08:00] VITALS: BP 140/93
[2020-10-16] MEDS: Docusate 100mg cap ORAL SCH ×2 (08:13→14:29)
[2020-10-16] MEDS: Enoxaparin 40mg Inj SUBQ SCH (08:13)
[2020-10-16] MEDS: Nystatin Powder 100,000 units/gm 15gm TOPIC SCH ×3 (08:13→17:26)
--- NOTE | 2020-10-16 09:02 | Infectious Diseases Prog Note ---
Assessment/Plan 70yo F with: SVT Febrile to 101.1 on 10/12 Leukocytosis improving 10/13 BCx NTD UA neg, UCx neg CXR: No acute process currently. Improved interstitial congestion and parenchymal consolidation since previous exam R kelley cellulitis, improving R kelley wound, dry scabbing Afebrile Leukocytosis to 17, improving 2/ BCx NTD UA+, UCx +30-40k GAS, 80-90s mixed carmel Cr 1.2 R/o COVID 2/3 COVID PCR neg CXR: Worsening aeration with development of some patchy retrocardiac opacities which may relate to subsegmental atelectasis however pneumonia should be excluded clinically. Development of mild interstitial/vascular prominence. Mild congestive changes of CHF can be considered. Findings may also be art ifactual related to lower lung volumes. HIV screen neg PMH: HTN Allergic rhinitis Plan: Cont to monitor off abx OK to transfer from ID standpoint 10/12 SP CTX #10 10/04 SP vanco/Zosyn/flucon in ED Monitor CBC/CMP Monitor temp curve, hemodynamics Monitor resp status D/w RN Thank you for this consult. [facility] will continue to follow. Subjective Allergies: Coded Allergies: No Known Allergies (Unverified , 11/11/17) AF NAD on RA Objective Last 24 Hour Vital Signs Date Time Temp Pulse Resp B/P (MAP) Pulse Ox O2 Delivery O2 Flow Rate FiO2 10/16/20 08:12 93 140/93 10/16/20 08:00 97.5 87 18 140/93 (109) 96 10/16/20 07:43 88 10/16/20 04:00 74 10/16/20 04:00 96.6 78 16 112/76 (88) 97 10/16/20 00:00 97.1 70 20 116/71 (86) 97 10/16/20 00:00 78 10/15/20 21:32 109 112/69 10/15/20 20:00 104 10/15/20 20:00 97.7 109 20 112/69 (83) 96 10/15/20 16:00 98.1 101 20 113/72 (86) 99 10/15/20 16:00 Room Air 10/15/20 15:41 98 10/15/20 12:00 98.2 96 18 95/63 (74) 97 10/15/20 11:41 87 Height (Feet): 5 Height (Inches): 1.00 Weight (Pounds): 140 Gen: NAD HEENT: NCAT Pulm: BL chest rise on RA, non-labored Abd: Non-distended Ext: RLE w/ resolved cellulitis, healing wound on anterior kelley Skin: No visible rashes Neuro: Awake, interactive Microbiology Date/Time Source Procedure Growth Status 10/13/20 10:20 Blood Blood Culture - Preliminary NO GROWTH AFTER 48 HOURS Resulted 10/13/20 10:05 Blood Blood Culture - Preliminary NO GROWTH AFTER 48 HOURS Resulted Current Medications Medications (Trade) Dose Ordered Sig/Siddharth Route PRN Reason Start Time Stop Time Status Last Admin Dose Admin Acetaminophen (Tylenol) 650 mg Q6H PRN ORAL Mild Pain (Pain Scale 1-3) 10/04/20 20:45 11/03/20 20:44 10/14/20 13:23 Acetaminophen (Tylenol) 650 mg Q6H PRN ORAL fever 10/04/20 20:45 11/03/20 20:44 10/15/20 02:05 Bisacodyl (Dulcolax) 10 mg BIDPRN PRN RECTAL Constipation 10/14/20 07:30 01/12/21 07:29 Diphenhydramine HCl (Benadryl) 25 mg Q6H PRN ORAL Itching 10/04/20 20:45 11/03/20 20:44 10/06/20 17:56 Docusate Sodium (Colace) 100 mg TWICE A DAY ORAL 10/14/20 09:00 11/13/20 08:59 10/15/20 08:31 Enoxaparin Sodium (Lovenox) 40 mg DAILY SUBQ 10/05/20 09:00 01/03/21 08:59 10/16/20 08:13 Metoprolol Tartrate (Lopressor) 25 mg Q12HR ORAL 10/13/20 21:00 01/11/21 20:59 10/16/20 08:12 Nystatin (Nystop Powder) 1 applic THREE TIMES A DAY TOPIC 10/15/20 20:00 01/13/21 19:59 10/16/20 08:13 Risperidone (RisperDAL) 0.5 mg BID ORAL 10/07/20 09:00 11/21/20 08:59 10/16/20 08:13 Sparkle Roque M.D. Oct 16, 2020 09:01
--- NOTE | 2020-10-16 09:29 | Hematology/Onc Progress Note ---
Assessment/Plan Assessment/Plan Assessment and Recs # Leukocytosis is likely related to uti, has been started on abx --> as per id recs --> ABX ctx-->off --> wbc 17.6-->14-->15-->13-->10 # Anemia due likely to chronic disease --> hgb 10-->9-->10-->9.9->9.5 --> anemia panel if downtrends --> transfuse prn # Episode of generalized weakness --> on ivfs, tele --> consider cards # Cellulitis and abscess of leg --> abx # Fungal infection on her chest wall noted by the nurses --> will start patient on fluconazole and nystatin # Dvt ppx lovenox sq Appreciate consultation and guero orozco Subjective Constitutional: Denies: no symptoms, chills, fever, malaise, weakness, other HEENT: Denies: no symptoms, eye pain, blurred vision, tearing, double vision, ear pain, ear discharge, nose pain, nose congestion, throat pain, throat swelling, mouth pain, mouth swelling, other Cardiovascular: Denies: no symptoms, chest pain, edema, irregular heart rate, lightheadedness, palpitations, syncope, other Respiratory: Denies: no symptoms, cough, shortness of breath, SOB with excertion, SOB at rest, sputum, wheezing, other Gastrointestinal/Abdominal: Denies: no symptoms, abdomen distended, abdominal pain, black stools, tarry stools, blood in stool, constipated, diarrhea, difficulty swallowing, nausea, poor appetite, poor fluid intake, rectal bleeding, vomiting, other Genitourinary: Denies: no symptoms, burning, discharge, frequency, flank pain, hematuria, incontinence, pain, urgency, other Endocrine: Denies: no symptoms, excessive sweating, flushing, intolerance to cold, intolerance to heat, increased hunger, increased thirst, increased urine, unexplained weight gain, unexplained weight loss, other Allergies: Coded Allergies: No Known Allergies (Unverified , 11/11/17) Subjective 2/4 agitated, hysterical, labs noted, anemia panel ordered 2/5 meds noted, have ordered for cbc, labs reviewed, guero rn 10/09 restraints are intact, meds noted, no bleeding 2/8 with restraints, meds noted, no night sweats, hgb stable 10/11 remains with restraints, is on lovenox and ctx abx 10/12 neck in pain, labs reviewed, meds noted, on abx 10/13 icu now due to svt, was given adenosine per Marcelo Rn, now improved hr 64 10/14 sdu, comfortable, but very confused, labs noted, no bleeding 10/16 remains somewhat altered, labs noted, meds reviewed, no bleeding Objective Objective Current Medications Medications (Trade) Dose Ordered Sig/Siddharth Route PRN Reason Start Time Stop Time Status Last Admin Dose Admin Acetaminophen (Tylenol) 650 mg Q6H PRN ORAL Mild Pain (Pain Scale 1-3) 10/04/20 20:45 11/03/20 20:44 10/14/20 13:23 Acetaminophen (Tylenol) 650 mg Q6H PRN ORAL fever 10/04/20 20:45 11/03/20 20:44 10/15/20 02:05 Bisacodyl (Dulcolax) 10 mg BIDPRN PRN RECTAL Constipation 10/14/20 07:30 01/12/21 07:29 Diphenhydramine HCl (Benadryl) 25 mg Q6H PRN ORAL Itching 10/04/20 20:45 11/03/20 20:44 10/06/20 17:56 Docusate Sodium (Colace) 100 mg TWICE A DAY ORAL 10/14/20 09:00 11/13/20 08:59 10/15/20 08:31 Enoxaparin Sodium (Lovenox) 40 mg DAILY SUBQ 10/05/20 09:00 01/03/21 08:59 10/16/20 08:13 Metoprolol Tartrate (Lopressor) 25 mg Q12HR ORAL 10/13/20 21:00 01/11/21 20:59 10/16/20 08:12 Nystatin (Nystop Powder) 1 applic THREE TIMES A DAY TOPIC 10/15/20 20:00 01/13/21 19:59 10/16/20 08:13 Risperidone (RisperDAL) 0.5 mg BID ORAL 10/07/20 09:00 11/21/20 08:59 10/16/20 08:13 Last 24 Hour Vital Signs Date Time Temp Pulse Resp B/P (MAP) Pulse Ox O2 Delivery O2 Flow Rate FiO2 10/16/20 08:12 93 140/93 10/16/20 08:00 97.5 87 18 140/93 (109) 96 10/16/20 07:43 88 10/16/20 04:00 74 10/16/20 04:00 96.6 78 16 112/76 (88) 97 10/16/20 00:00 97.1 70 20 116/71 (86) 97 10/16/20 00:00 78 10/15/20 21:32 109 112/69 10/15/20 20:00 104 10/15/20 20:00 97.7 109 20 112/69 (83) 96 10/15/20 16:00 98.1 101 20 113/72 (86) 99 10/15/20 16:00 Room Air 10/15/20 15:41 98 10/15/20 12:00 98.2 96 18 95/63 (74) 97 10/15/20 11:41 87 10/15/20 08:26 89 10/15/20 08:00 97.7 116 17 101/47 (65) 98 10/15/20 08:00 Room Air 10/15/20 04:00 Room Air 10/15/20 04:00 72 10/15/20 04:00 97.3 72 20 99/56 (70) 98 10/15/20 00:00 75 10/15/20 00:00 Room Air 10/15/20 00:00 97.6 80 18 106/70 (82) 98 10/14/20 21:00 79 93/57 10/14/20 20:00 76 10/14/20 20:00 Room Air 10/14/20 20:00 97.5 76 20 93/54 (67) 97 10/14/20 16:00 Room Air 10/14/20 16:00 75 10/14/20 16:00 97.2 76 18 94/55 (68) 98 10/14/20 13:53 97.2 10/14/20 12:00 97.2 84 18 112/68 (83) 98 10/14/20 12:00 88 10/14/20 12:00 Room Air Intake and Output 10/15/20 10/16/20 19:00 07:00 Intake Total 480 ml Output Total 250 ml Balance 230 ml Intake Oral 480 ml Output Urine Total 250 ml Labs Test 10/14/20 04:15 White Blood Count 10.3 K/UL (4.8-10.8) Red Blood Count 3.58 M/UL (4.20-5.40) Hemoglobin 9.5 G/DL (12.0-16.0) Hematocrit 31.0 % (37.0-47.0) Mean Corpuscular Volume 86 FL (80-99) Mean Corpuscular Hemoglobin 26.5 PG (27.0-31.0) Mean Corpuscular Hemoglobin Concent 30.6 G/DL (32.0-36.0) Red Cell Distribution Width 14.7 % (11.6-14.8) Platelet Count 442 K/UL (150-450) Mean Platelet Volume 6.7 FL (6.5-10.1) Neutrophils (%) (Auto) 77.8 % (45.0-75.0) Lymphocytes (%) (Auto) 13.9 % (20.0-45.0) Monocytes (%) (Auto) 5.7 % (1.0-10.0) Eosinophils (%) (Auto) 2.0 % (0.0-3.0) Basophils (%) (Auto) 0.6 % (0.0-2.0) Sodium Level 140 MMOL/L (136-145) Potassium Level 4.5 MMOL/L (3.5-5.1) Chloride Level 105 MMOL/L (98-107) Carbon Dioxide Level 28 MMOL/L (21-32) Anion Gap 7 mmol/L (5-15) Blood Urea Nitrogen 28 mg/dL (7-18) Creatinine 1.1 MG/DL (0.55-1.30) Estimat Glomerular Filtration Rate 49.0 mL/min (>60) Glucose Level 119 MG/DL (74-106) Calcium Level 9.4 MG/DL (8.5-10.1) Troponin I 0.000 ng/mL (0.000-0.056) Height (Feet): 5 Height (Inches): 1.00 Weight (Pounds): 140 Objective PE Vitals: reviewed General: well appearing, no apparent distress, alert Heent: normocephalic, atraumatic, bilateral eye PERRL, bilateral eye EOMI Respiratory: lungs clear, no respiratory distress, no retraction, no accessory muscle use Cardiovascular: normal peripheral pulses, regular rate, rhythm, no edema, no gallop, no murmur Gastrointestinal: non tender, soft, no guarding, no rebound Musculoskeletal: normal inspection Neurologic: alert, oriented x3 Psychiatric: mood/affect normal Skin: warm/dry, other - Right lower extremity: Area of erythema on the tibial proximal aspect Mando Ventura MD Oct 16, 2020 09:29
--- NOTE | 2020-10-16 10:20 | Psychiatry Consultation ---
Psychiatry Consultation Psychiatry Consultation Chief Complaint: Generalized Weakness History of Present Illness: 70-year-old female patient she has right leg cellulitis causing her to have altered mental status confusion disorganized thought process because her cognition has declined below her baseline her attending is requested daily psychiatric consultation she is a poor historian but she still has some psychomotor agitation confusion and significantly disorganized thought process seen assessed in ICU stepdown Mental status semination: 70-year-old female appearance disheveled at irritable agitated affect guarded restricted intellect poor mood depressed anxious moderately psychomotor agitat ion Insight is poor Allergies: Coded Allergies: No Known Allergies (Unverified , 11/11/17) Medication History Scheduled Naloxone HCl (Narcan), 4 MG NS PRN Scheduled PRN Ibuprofen* (Motrin*), 600 MG ORAL Q6H PRN for For Pain Objective Data Height (Feet): 5 Height (Inches): 1.00 Weight (Pounds): 140 Assessment/Plan Assessment/Plan: Ativan 1mg PO q6h prn anxiety, Risperdal 0.5 po BID and 20min of insight oriented psychotherapy to help pt have better impulse control due to better realization of he symptoms. 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
--- NOTE | 2020-10-16 11:40 | Surgery Progress Note ---
Surgery Progress Note Subjective Additional Comments comfortable no complaints non /v labs noted Objective Last 24 Hour Vital Signs Date Time Temp Pulse Resp B/P (MAP) Pulse Ox O2 Delivery O2 Flow Rate FiO2 10/16/20 08:12 93 140/93 10/16/20 08:00 97.5 87 18 140/93 (109) 96 10/16/20 07:43 88 10/16/20 04:00 74 10/16/20 04:00 96.6 78 16 112/76 (88) 97 10/16/20 00:00 97.1 70 20 116/71 (86) 97 10/16/20 00:00 78 10/15/20 21:32 109 112/69 10/15/20 20:00 104 10/15/20 20:00 97.7 109 20 112/69 (83) 96 10/15/20 16:00 98.1 101 20 113/72 (86) 99 10/15/20 16:00 Room Air 10/15/20 15:41 98 10/15/20 12:00 98.2 96 18 95/63 (74) 97 10/15/20 11:41 87 I&O Intake and Output 10/15/20 10/16/20 19:00 07:00 Intake Total 480 ml Output Total 250 ml Balance 230 ml Intake Oral 480 ml Output Urine Total 250 ml Dressing: dry Wound: clean Cardiovascular: RSR Respiratory: decreased breath sounds Abdomen: soft, flat, non-tender, present bowel sounds, non-distended Extremities: edema, no tenderness, no cyanosis, pulses, other Plan Problems: (1) Episode of generalized weakness (2) Cellulitis and abscess of leg Assessment & Plan: 70-year-old female with right lower extremity cellulitis mild edema on the left side anterior tibial ulceration identified on the right side mid leg potentially from trauma though patient denies. No nausea fever chills no abscess identified no drainage. Macerated eschar identified. Apply betadine swab to ulcer cover with Optifoam dressing. Keep her legs elevated while in bed. IV antibiotics per infectious disease. No acute surgical intervention planned at this time. Sacral stage 3 decubitus ulcer wound identified. therahoney gauze and foam dressing daily and prn saturation. turn every 2 hours, offload pressure, patient able to comply with care plan. Nutrition optimization. Follow with recommendations thank you allowing me to participate patient's care Pt presented on admission with MASD skin folds Both breasts, Swelling,Ulcerations to RLE. Full thickness Pressure Injury L Buttocks. Skin folds of both breasts are erythematous, and macerated. Mild odor noted. Full thickness Pressure Injury L Buttocks (L)1.5cm x (W)0.3cm x (D)0.2cm. Wound has appearance of slit with indurated and maroon borders. Non-Blanchable erythema without induration Sacrum and R Buttocks. Small ulcer with necrotic cap noted to posterior upper R Thigh. Marginal erythema along edges. Larger ulcer with necrotic cap noted to maurice R Tibia(L)3cm x (W)3.7cm. Marginal erythema along borders and periwound. Clockwise at 2-4o'clock along borders are macerated. No odor or exudate noted. A third smaller ulcer with necrotic cap noted to distal/lateral R tibia(L)0.9cm x (W)1cm. Marginal erythema along borders. Both heels are soft, but each heel easily blanchable. Tx.Plan: Wash both breasts with soap and water. Pat dry. Apply Light Dusting of Antifungal powder to each breasts Twice Daily. Cleanse L Buttocks with Saline. Apply Therahoney. Apply Moisture Barrier Paste periwound. Cover with Optifoam drsg. Change every 3 days and prn. Apply Moisture Barrier paste to Sacrum and R buttocks. Cover with Optifoam drsg. Change every 3 days and prn. Reposition at least every 2 hours or as tolerated. Off-load heels with pillow. DAILY ESTIMATED NEEDS: Needs based on Wound/ 51.7kg abw 25-30 kcals/kg 7411-4511 total kcals 1.25-1.5 g protein/kg 65-77 g total protein 25-30 mL/kg 0517-1540 total fluid mLs NUTRITION DIAGNOSIS: Increased kcal/prot needs R/T wound healing as evidenced by pt admitted w/ sacral wound per photo, pending evaluation. CURRENT DIET:REGULAR PO DIET RECOMMENDATIONS:REGULAR, texture as tolerated ADDITIONAL RECOMMENDATIONS: * Calibrated bedscale wt * Wound healing: add MVI x 1, Vit C 250mg QD F/up w/ WC eval * Monitor PO intake and tolerance * Monitor lytes, replete as needed (low K) cellulitis resolved wound stable d/c planmayco live (3) Pedal edema (4) Facial contusion (5) Right ankle sprain (6) Multiple rib fractures (7) Noncompliance with treatment plan Mason Snyder Oct 16, 2020 11:40
[2020-10-16 12:00] VITALS: BP 102/68
--- NOTE | 2020-10-16 15:25 | Cardiac Electrophysiology PN ---
Assessment/Plan Assessment/Plan 1. Atypical chest pain. Ruled out for AL. EF 60% Could be due to SVTs. 2. SVT at rate 180. Converted to SR after 6 mg adenosine. Had 2.8 sec pause at 11.42 am with Mobitz type 2. Discontinue Lopressor Transfer to [facility] ( [facility]) for EPS and ablation pending 3. Cellulitis of the leg on ceftriaxone. 4. Hypokalemia. Potassium was replaced. 5. Dementia and agitation. Resolved. Alert and oriented DW RN Subjective Subjective No more SVT ECho EF 60%. Awaiting transfer to [facility] for EPS and ablation tomorrow Had 2.8 sec pause at 11.42 am with Mobitz type 2 Objective Last 24 Hour Vital Signs Date Time Temp Pulse Resp B/P (MAP) Pulse Ox O2 Delivery O2 Flow Rate FiO2 10/16/20 12:00 96.4 73 18 102/68 (79) 98 10/16/20 11:46 68 10/16/20 08:12 93 140/93 10/16/20 08:00 97.5 87 18 140/93 (109) 96 10/16/20 07:43 88 10/16/20 04:00 74 10/16/20 04:00 96.6 78 16 112/76 (88) 97 10/16/20 00:00 97.1 70 20 116/71 (86) 97 10/16/20 00:00 78 10/15/20 21:32 109 112/69 10/15/20 20:00 104 10/15/20 20:00 97.7 109 20 112/69 (83) 96 10/15/20 16:00 98.1 101 20 113/72 (86) 99 10/15/20 16:00 Room Air 10/15/20 15:41 98 Intake and Output 10/15/20 10/16/20 19:00 07:00 Intake Total 480 ml Output Total 250 ml Balance 230 ml Intake Oral 480 ml Output Urine Total 250 ml Objective HEAD AND NECK: No JVD. LUNGS: Clear. CARDIOVASCULAR: Regular S1 and S2 with no gallop. ABDOMEN: Soft. EXTREMITIES: Pain in the right leg. Leon Patricio MD Oct 16, 2020 15:25
[2020-10-16 16:00] VITALS: BP 128/70
--- NOTE | 2020-10-16 18:17 | NUR ---
NURSE NOTES: Received report from MIAH Doty from SDU. pt is stable on RA, unlabored and even respirations. Pt IV on LFA and L hand 22g, LFA IV removed d/t long use. removed, catheter intact. Pt R leg cellulitis, sacral stage 3, L breast redness. Belongings counted with MIAH Doty, belongings list updated with correct items. Pt vitals WNL. pt bed low and locked call light in reach and bed alarm on. pt only requesting tv remote at this time.
--- NOTE | 2020-10-16 18:29 | NUR ---
NURSE HAND-OFF REPORT: Important Events on Shift: transfer from sdu to tele Patient Status: fc stable Diet: regular soft easy chew Pending Orders: Pending Results/Labs: Pending MD notification: awaiting tx to scu Latest Vital Signs: Temperature 96.8 , Pulse 87 , B/P 128 /70 , Respiratory Rate 21 , O2 SAT 96 , Room Air, O2 Flow Rate 2.0 . Vital Sign Comment: EKG Rhythm: Sinus Rhythm Rhythm change?: N MD Notified?: - MD Response: Latest Landry Fall Score: 45 Fall Risk: High Risk Safety Measures: Call light Within Reach, Bed Alarm Zone 2, Side Rails Side Rails x2, Bed position Low and Locked. Fall Precautions: Yellow Socks Report to be given. Addendum: 10/16/20 at 1901 by Laura Carolina RN RN pt is stable, report given to MIAH casillas. Hilda bedside with Pt at this time.
--- NOTE | 2020-10-16 18:45 | NUR ---
TRANSFER TO FLOOR: Patient transferred to [facility], per dr Cassidy order. Report given to Laura orozco. Belongings given to RN. Family and or S/O informed of transfer.
--- NOTE | 2020-10-16 19:20 | NUR ---
NURSE NOTES: Report received from MIAH Sanchez. Patient is awake on bed, alert and oriented x 3. bus driver/monitor is in place, shows sinus rhythm and no chest pain reported. On room air, saturating 97-98%. On regular, soft easy chew diet. On aspiration and fall precaution, bed alarm is on. IV site is on left hand g-20 saline locked that is patent and intact. Safety measures are in place, bed in lowest and locked position, side rails up x 2, call light button and bedside table within reach, instructed to call for any assistance needed. Will continue plan of care.
[2020-10-16 20:00] VITALS: BP 117/77
--- NOTE | 2020-10-16 21:00 | NUR ---
NURSE NOTES: Patient is schedule for Ablasion and EPS tomorrow 10/17 in [facility], per morning RN, there's still no bed available on shift. Will inform the supervisor spring up to coordinate the transfer.
--- NOTE | 2020-10-16 21:20 | NUR ---
NURSE NOTES: Spoke with Cassandra Cano and she gave me a contact number to call to. Called and spoke with Tami(Nursing Captain Room Service), and wants to fax all patient's details.
--- NOTE | 2020-10-16 22:00 | NUR ---
NURSE NOTES: Fax all the clinicals to [facility] and awaiting for bed availability. Will follow up.
[2020-10-17] VITALS: BP 114/74
--- NOTE | 2020-10-17 01:00 | NUR ---
NURSE NOTES: Spoke with Tami and she gave me the room number and number to call to for report.
--- NOTE | 2020-10-17 01:12 | NUR ---
NURSE NOTES: Called to [facility] and gave report to MIAH Hutchinson.
--- NOTE | 2020-10-17 02:35 | NUR ---
NURSE NOTES: [facility] ambulance came and gave report. Patient's belongings list given and all the clinical informations. At this time patient is in stable condition, saturating 95-96%, no episode of heart block or sinus tachycardia noted. Patient is discharge from telemetry unit.
--- NOTE | 2020-10-17 15:14 | Cardiology Report ---
APPROVED REPORT EKG Measurement Heart [id number] <Conclusion> Normal sinus rhythm Normal ECG
--- NOTE | 2020-10-20 14:39 | Discharge Summary ---
Discharge Summary Discharge Summary _ Date of admission: 10/04/2020 Date of discharge: 10/17/[address] Ingram History of Present Illness and Brief Hospital Course Ms. French is a 70-year-old female with past medical history of hypertension, and allergic rhinitis, who presented to the ED for evaluation of right tibial pain over few days. Patient was recently diagnosed with cellulitis. Her chest x-ray revealed no acute pulmonary disease. Patient was given IV antibiotics, antifungals, in ER and was admitted to the hospital for further management. Patient's blood culture was negative for growth. Urine culture grew group A Streptococcus pyogenes. She tested negative for COVID-19. Cellulitis was noted to be improving with antibiotics. Leukocytosis continued to improve. Patient was found to have atypical chest pain. Serial troponins were negative. Echocardiogram revealed ejection fraction of 60%. Patient was found to have supraventricular tachycardia at rate of 180. She converted back to sinus rhythm after 6 mg of adenosine. Patient was continued on Lopressor. She was also found to have 2.8-second pause with Mobitz type II. Lopressor was discontinued. Patient was transferred to [facility] [place] [facility] for a scheduled electrophysiology study and ablation. Consultants: Psychotherapy Dr. Avina Cardiology Dr. Patricio Surgery Dr. Snyder Infectious disease Dr. Roque Hematology oncology Dr. Ventura Discharge Condition Stable Final diagnoses Supraventricular tachycardia Mobitz type II second-degree heart block Hypokalemia Dementia Agitation Leukocytosis Anemia, likely due to chronic disease Fungal infection Right kelley cellulitis Right kelley wound Pedal edema Major depressive disorder I have been assigned to dictate discharge summary for this account. I was not involved in the patient's management Sid Pate Oct 20, 2020 14:39
== END 2020-10-17 02:40 | disposition short-term general hospital (02) | DRG 602 ==
LOC: EMR 17:01 → EDBEDREQ 17:10 → 4E 17:15 → EDBEDREQ 18:51 → 4E 10-05 12:00 → ICU 10-12 21:37 → 2W 10-13 15:49 → 2E 10-16 18:09
DX: L03.115 Cellulitis of right lower limb (principal); L89.323 Pressure ulcer of left buttock, stage 3; E46 Unspecified protein-calorie malnutrition; N39.0 Urinary tract infection, site not specified; F33.3 Major depressive disorder, recurrent, severe with psychotic symptoms; R00.0 Tachycardia, unspecified; L02.415 Cutaneous abscess of right lower limb; I10 Essential (primary) hypertension; R53.1 Weakness; D63.8 Anemia in other chronic diseases classified elsewhere; B36.9 Superficial mycosis, unspecified; E87.6 Hypokalemia; R07.89 Other chest pain; F03.90 Unspecified dementia, unspecified severity, without behavioral disturbance, psychotic disturbance, mood disturbance, and anxiety; F41.9 Anxiety disorder, unspecified; Z91.19 Patient's noncompliance with other medical treatment and regimen; R45.1 Restlessness and agitation; I44.1 Atrioventricular block, second degree; B95.0 Streptococcus, group A, as the cause of diseases classified elsewhere
CPT/HCPCS: 36415; 71045; 80048; 80053; 80076; 81003; 82550; 82553; 82962; 83605; 83690; 83735; 83880; 84100; 84484; 84550; 85007; 85025; 85610; 85651; 85730; 86140; 86703; 87040; 87086; 93005; 93306; 96361; 96365; 96367; 99285; J7030; J8499